=== PATIENT | female | born 1955 | race Caucasian/White ===

== ENCOUNTER 2016-09-16 08:11 | Emergency (ER) | payer OTHER ==
[~2016-09-16] VITALS: Ht 170.2 cm; Wt 72.6 kg
[~2016-09-16 08:11] MED LIST: AMIT25TA9 PO; AMOX-358 PO; CYCL10TA9 PO; DIAZ5TAB PO; HYDR-3812 PO; MECL-106 PO; ONDA4TAB8 SL; RABE20TA PO; SCOP1PAT TD; SIMV20TA3 PO; VENL75CA55 PO; [UNRECOGNIZED DRUG - OTHER] PO
[2016-09-16 08:38] LABS: BILIRUBIN,URINE NEGATIVE (NEGATIVE); KETONES,URINE NEGATIVE (NEGATIVE); LEUKOCYTE ESTERASE ,URINE 1+ (NEGATIVE); NITRITE,URINE NEGATIVE (NEGATIVE); PH,URINE 5 (5-9); PROTEIN,URINE NEGATIVE (NEGATIVE); UROBILINOGEN,URINE NORMAL (NORMAL)
[2016-09-16] MEDS ORDERED: ORPHENADRINE 60 MG/2 ML (NORFLEX) AMP IV ONE (08:45)
[2016-09-16] MEDS ORDERED: KETOROLAC 30 MG/ML VIAL IVP ONE (08:45)
[2016-09-16 08:52] LABS: SQUAMOUS EPITHELIAL CELL,UR RARE /HPF
[2016-09-16] MEDS ORDERED: methylPREDNISolone 125 MG (Solu-MEDROL) VIAL IVP ONE (10:00)
[2016-09-16] MEDS ORDERED: fentaNYL INJECTION 100 MCG/2 ML AMP IVP ONE (10:00)
[2016-09-16] MEDS ORDERED: oxyCODONE/APAP 5/325MG (PERCOCET 5) TABLET PO ONE (10:30)
[2016-09-16] MEDS ORDERED: HYDR-3812 PO (10:32)
[2016-09-16] MEDS ORDERED: CYCL10TA9 PO (10:32)
[2016-09-16] MEDS ORDERED: PRD20T PO (10:32)
--- NOTE | 2016-09-16 10:33 | ED Back Pain ---
General Chief Complaint: Back Problems Stated Complaint: BACK PAIN Nursing Triage Note: PT STATES LOW BACK PAIN, HX OF, NO KNOWN CAUSE. Nursing Sepsis Screen: No Definite Risk Source of Information: Patient, Family Exam Limitations: No Limitations History of Present Illness Time Seen by Provider: 11:22 Initial Comments This 61 room woman presents to the emergency room with complaints of intense lower back ache that started last night. Pain radiates to her thighs bilaterally. She denies any true weakness or bowel or bladder control problems. She is having difficulty standing and ambulating due to the pain. She denies any specific injury. Review of her chart reveals an MRI done in 2011 showing lumbar neural foraminal impingement. Allergies and Home Medications Allergies Coded Allergies: No Known Drug Allergies (Unverified , 03/12/12) Home Medications Amoxicillin/Potassium Clav 1 Each Tablet, 1 EACH PO BID, (Reported) Cyclobenzaprine HCl 10 Mg Tablet, 10 MG PO HS PRN for SPASMS, #10 Prescribed by: ORACIO SHAH on 09/16/16 1032 Diazepam 5 Mg Tablet, 5 MG PO Q4H, (Reported) Hydrocodone/Acetaminophen 1 Each Tablet, 1 EACH PO Q4H PRN for PAIN, #8 Prescribed by: ORACIO SHAH on 03/27/162053 Hydrocodone/Acetaminophen 1 Each Tablet, 1 EACH PO Q4H PRN for PAIN, #10 Prescribed by: ORACIO SHAH on 09/16/16 1032 Meclizine HCl 25 Mg Tablet, 25 MG PO TID PRN for DIZZINESS, #20 Prescribed by: ORACIO SHAH on 03/27/162053 Ondansetron 4 Mg Tab.rapdis, 4 MG SL Q4H PRN for NAUSEA/VOMITING, #10 Prescribed by: ORACIO SHAH on 03/27/162053 Prednisone 20 Mg Tab, 20 MG PO DAILY, #4 Prescribed by: ORACIO SHAH on 09/16/16 1032 Scopolamine 1 Each Patch.td72, 1 EACH TD, (Reported) Constitutional: no symptoms reported EENTM: no symptoms reported Respiratory: no symptoms reported Cardiovascular: no symptoms reported Gastrointestinal: no symptoms reported Genitourinary: no symptoms reported Musculoskeletal: see HPI Skin: no symptoms reported Psychiatric/Neurological: See HPI Past Ahxenss-Mwlnza-Egjgev Hx Patient Social History Alcohol Use: Denies Use Recreational Drug Use: No Smoking Status: Never a Smoker Recent Foreign Travel: No Contact w/Someone Who Travel: No Recent Infectious Disease Expo: No Recent Hopitalizations: Yes (DEC 2015) Seasonal Allergies Seasonal Allergies: No Surgeries HX Surgeries: Yes (SHOULDER SCOPES,TENNIS ELBOW RELEASE,BICEPT REATTATCHED) Surgeries: Appendectomy, Gallbladder, Hysterectomy, Orthopedic Respiratory Hx Respiratory Disorders: No Cardiovascular Hx Cardiac Disorders: No Neurological Hx Neurological Disorders: No Reproductive System Hx Reproductive Disorders: No Sexually Transmitted Disease: No Genitourinary Hx Genitourinary Disorders: No Gastrointestinal Hx Gastrointestinal Disorders: No Musculoskeletal Hx Musculoskeletal Disorders: No Endocrine Hx Endocrine Disorders: No HEENT HX ENT Disorders: No Cancer Hx Cancer: No Psychosocial Hx Psychiatric Problems: No Integumentary HX Skin/Integumentary Disorder: No Blood Transfusions Hx Blood Disorders: No Family Medical History Significant Family History: No Pertinent Family Hx Physical Exam Vital Signs Vital Sign - Last 12Hours 09/16/16 08:30 Temp 98.3 Pulse 52 Resp 20 B/P (MAP) 138/84 Pulse Ox 98 O2 Delivery Room Air Capillary Refill : Less Than 3 Seconds General Appearance: WD/WN, Moderate Distress HEENT: PERRL/EOMI, Normal ENT Inspection Neck: Normal Inspection, Non Tender, Supple Cardiovascular: Regular Rate, Rhythm, No Edema, No Murmur Respiratory: Lungs Clear, Normal Breath Sounds, No Accessory Muscle Use, No Respiratory Distress Gastrointestinal: Normal Bowel Sounds, Non Tender, Soft Back: Normal Inspection, Vertebral Tenderness (over the lumbar spine and paraspinous muscles extending over the sacrum as well) Extremity: Normal Inspection, No Pedal Edema Neurologic/Psychiatric: Alert, Oriented x3, No Motor/Sensory Deficits, Normal Mood/Affect, business system manager II-XII Norm as Tested Skin: Normal Color, Warm/Dry Progress/Results/Core Measures Results/Orders Lab Results Laboratory Tests Test 09/16/16 08:02 Range/Units Urine Color YELLOW Urine Clarity CLEAR Urine pH 5 5-9 Urine Specific [place] 1.015 L 1.016-1.022 Urine Protein NEGATIVE NEGATIVE Urine Glucose (UA) NEGATIVE NEGATIVE Urine Ketones NEGATIVE NEGATIVE Urine Nitrite NEGATIVE NEGATIVE Urine Bilirubin NEGATIVE NEGATIVE Urine Urobilinogen NORMAL NORMAL MG/DL Urine Leukocyte Esterase 1+ H NEGATIVE Urine RBC (Auto) 1+ H NEGATIVE Urine RBC NONE /HPF Urine WBC NONE /HPF Urine Squamous Epithelial Cells RARE /HPF Urine Crystals NONE /LPF Urine Bacteria NEGATIVE /HPF Urine Casts NONE /LPF Urine Mucus NEGATIVE /LPF Urine Culture Indicated NO My Orders Orders - ORACIO CHILD MD Ua Culture If Indicated (09/16/16 08:14) Saline Lock/Iv-Start (09/16/16 08:42) Ketorolac Injection (Toradol Injection) (09/16/16 08:45) Orphenadrine Injection (Norflex Injectio (09/16/16 08:45) Fentanyl Injection (Sublimaze Injection (09/16/16 10:00) Methylprednisolone Sod Succ (Solu-Medrol (09/16/16 10:00) Oxycodone/Apap 5/325mg Tablet (Percocet (09/16/16 10:30) Medications Given in ED Vital Signs/I&O Vital Sign - Last 12Hours 09/16/16 09/16/16 08:30 10:42 Temp 98.3 98.3 Pulse 52 59 Resp 20 20 B/P (MAP) 138/84 Pulse Ox 98 98 O2 Delivery Room Air Blood Pressure Mean: 102 Progress Note : Progress Note Patient was originally treated with Toradol and Norflex with some improvement. She was additionally given fentanyl and Solu-Medrol. She was able to ambulate safely and freely. She was given a Percocet and discharged home. See discharge instructions. Departure Impression Impression: Primary Impression: Lower back pain Qualified Codes: M54.42 - Lumbago with sciatica, left side; M54.41 - Lumbago with sciatica, right side Additional Impression: Lumbar radiculopathy Disposition: 01 HOME, SELF-CARE Condition: Improved Departure-Patient Inst. Decision time for Depature: 10:30 Referrals: [facility] (PCP/Family) Primary Care Physician Patient Instructions: Radiculopathy (DC), Low Back Pain (DC) Add. Discharge Instructions: Take ibuprofen up to 600 mg every 6 hours as needed for primary pain control. Add hydrocodone for pain not controlled by ibuprofen. You may use Flexeril at night to help with muscle tension. Follow-up with your primary care provider as soon as possible. Please return to care promptly if symptoms worsen, especially if you develop problems controlling bowels or bladder or if you have weakness in your legs. If symptoms are not improving with prednisone use, discussed repeating an MRI with your primary care provider. All discharge instructions reviewed with patient and/or family. Voiced understanding. Scripts Prednisone (Prednisone) 20 Mg Tab 20 MG PO DAILY, #4 TAB Prov: ORACIO CHILD MD 09/16/16 Hydrocodone/Acetaminophen (Hydrocodon -Acetaminophen 5-325) 1 Each Tablet 1 EACH PO Q4H Y for PAIN, #10 TAB Prov: ORACIO CHILD MD 09/16/16 Cyclobenzaprine HCl (Cyclobenzaprine HCl) 10 Mg Tablet 10 MG PO HS Y for SPASMS, #10 TAB Prov: ORACIO CHILD MD 09/16/16 Work/School Note: Work Release Form Date Seen in the Emergency Department: Sep 16, 2016 Return to Work: Sep 17, 2016 Other Restrictions Listed Below: No heavy lifting, bending, or prolonged standing until symptoms improve. ORACIO CHILD MD Sep 16, 2016 10:33
[2016-09-16 10:42] VITALS: BP 136/89
== END 2016-09-16 10:42 | disposition home or self-care (01) ==
LOC: EDUNIT# 08:11 → ER 08:14
DX: M54.16 Radiculopathy, lumbar region (principal)
CPT/HCPCS: 81000; 96374; 96375

== ENCOUNTER 2017-10-31 05:31 | Outpatient (CLI) | payer OTHER ==
[~2017-10-31] VITALS: Ht 170.2 cm; Wt 74.4 kg
[~2017-10-31 05:31] MED LIST changes: +ACHD5005 PO; -HYDR-3812 PO; +PRD20T PO; -SCOP1PAT TD; +SCOP1PAT11 TD
== END 2017-10-31 13:57 ==
LOC: PREOP 05:31
PROVIDERS: ATTEND Surgery
DX: Z01.818 Encounter for other preprocedural examination (principal); Z12.11 Encounter for screening for malignant neoplasm of colon; K21.9 Gastro-esophageal reflux disease without esophagitis; R13.10 Dysphagia, unspecified

== ENCOUNTER 2017-11-25 05:33 | Outpatient (CLI) | payer OTHER ==
[~2017-11-25] VITALS: Ht 170.2 cm; Wt 74.4 kg
[~2017-11-25 05:33] MED LIST changes: -CIPR-225 PO; -IBUP-1773 PO; -PANT40TA2 PO; -SUCR1TAB36 PO
[2017-12-02] MEDS ORDERED: PANT40TA2 PO (08:26)
[2017-12-02] MEDS ORDERED: SUCR1TAB36 PO (08:26)
[2017-12-10] MEDS ORDERED: CIPR-225 PO (12:20)
[2017-12-10] MEDS ORDERED: IBUP-1773 PO (12:35)
== END 2017-11-25 11:39 ==
LOC: PREOP 05:33
PROVIDERS: ATTEND Surgery
DX: Z01.818 Encounter for other preprocedural examination (principal)

== ENCOUNTER → 2017-11-25 | Outpatient (CLI) | payer OTHER ==
[~2017-11-25] MED LIST changes: +CIPR-225 PO; +IBUP-1773 PO; +PANT40TA2 PO; +SUCR1TAB36 PO
--- NOTE | 2017-11-25 11:00 | Diagnostic Imaging Report ---
INDICATION: Pelvic pressure. Patient is status post hysterectomy. FINDINGS: The uterus is surgically absent. Vaginal cuff is unremarkable. The ovaries are not visualized. No adnexal mass or free fluid is seen. IMPRESSION: Status post hysterectomy. Ovaries are nonvisualized. No mass or free fluid is seen. Dictated by: Dictated on workstation # [id number]
== END ==
LOC: RAD 09:47
PROVIDERS: ATTEND Obstetrics & Gynecology
DX: R10.2 Pelvic and perineal pain (principal); Z90.710 Acquired absence of both cervix and uterus
CPT/HCPCS: 76830

== ENCOUNTER → 2017-11-25 | Outpatient (CLI) | payer OTHER ==
--- NOTE | 2017-11-26 19:45 | Diagnostic Imaging Report ---
INDICATION: Screening. At this time there are no current complaints. EXAMINATION: Bilateral digital screening mammogram with CAD. 3D tomographic images were obtained and reviewed. The current study was also evaluated with a Computer Aided Detection (CAD) system. COMPARISON: This study was compared to the prior exams of 03/14/2016, 10/25/2014 and 03/26/13. FINDINGS: The fibroglandular tissue in both breasts is heterogeneously dense. This does limit the sensitivity of this exam. The tomographic images do suggest that there is architectural distortion in the lateral aspect of the left breast on the craniocaudad view. The patient has had a prior stereotactic biopsy of the left breast but the biopsy clip is in the medial aspect of the breast. This apparent architectural distortion could be a sequela of prior surgery. Even so, the possibility that there is an underlying neoplastic process present should still be considered. I would recommend that a compression view of this area be obtained in both the ML and CC projections for further study. Ultrasound should also be performed. The right breast is unchanged. IMPRESSION: Additional mammographic views and ultrasound of the left breast are recommend for further study. ACR BI-RADS Category 0: Incomplete. (Needs additional imaging evaluation). Result letter will be mailed to the patient. Note: At least 10% of breast cancer is not imaged by mammography. Dictated by: Dictated on workstation # [id number]
== END ==
LOC: RAD 09:52
PROVIDERS: ATTEND Nurse Practitioner Community Health
DX: Z12.31 Encounter for screening mammogram for malignant neoplasm of breast (principal)
CPT/HCPCS: 77067

== ENCOUNTER 2017-12-02 07:03 | Day surgery (SDC) | payer OTHER ==
[~2017-12-02] VITALS: Ht 170.2 cm; Wt 74.4 kg
[2017-12-02] MEDS ORDERED: LACTATED RINGERS 1,000 ML IV ONE (07:11)
[2017-12-02] MEDS ORDERED: MIDAZOLAM 5 MG/5 ML (VERSED) VIAL ONE (07:24)
[2017-12-02] MEDS ORDERED: PROPOFOL INJECTION 50 ML IV ONE (07:24)
[2017-12-02] MEDS ORDERED: LACTATED RINGERS 1,000 ML IV STA (07:39)
[2017-12-02] MEDS ORDERED: LIDOCAINE TOPICAL 4% 50 ML BTL ONE (07:44)
[2017-12-02] MEDS ORDERED: GLYCOPYRROLATE 0.2 MG/ML (ROBINUL) 2 ML VIAL ONE (07:44)
[2017-12-02] MEDS ORDERED: LIDOCAINE TOPICAL 4% 50 ML BTL TP ONE ×2 (07:45→08:15)
[2017-12-02] MEDS ORDERED: GLYCOPYRROLATE 0.2 MG/ML (ROBINUL) 2 ML VIAL IM ONE ×2 (07:45→08:15)
[2017-12-02 07:50] VITALS: BP 126/92
--- NOTE | 2017-12-02 08:25 | Progress Note-Post Operative ---
Post-Operative Progess Note Surgeon (s)/Artificial Limb Maker (s) Surgeon ROSELYN SWAN DO Artificial Limb Maker: na Pre-Operative Diagnosis gerd, screening colonoscopy, dysphagia Post-Operative Diagnosis hiatal hernia, erosive esophagitis, normal colon Procedure & Operative Findings Date of Procedure 12/02/17 Procedure Performed/Findings egd c biopsies, colonoscopy Anesthesia Type per [facility] Estimated Blood Loss Estimated blood loss (mL): none Specimens/Packing Specimens Removed antrum, distal esophagus ROSELYN SWAN DO Dec 02, 2017 08:25
[2017-12-02] MEDS ORDERED: PANT40TA2 PO (08:26)
[2017-12-02] MEDS ORDERED: SUCR1TAB36 PO (08:26)
--- NOTE | 2017-12-02 08:28 | Discharge Inst-Simple/Standard ---
Discharge Inst-Standard Discharge Medications New, Converted or Re-Newed RX: Transmitted to Pharmacy Patient Instructions/Follow Up Plan of Care/Instructions/FU: 2-3 weeks Aditya Activity as Tolerated: Yes Discharge Diet: Regular Diet ROSELYN SWAN DO Dec 02, 2017 08:27
[2017-12-02 08:40] VITALS: BP 132/87
[2017-12-02 09:10] VITALS: BP 132/82
[2017-12-02 09:45] VITALS: BP 132/82
--- NOTE | 2017-12-02 10:56 | Anesthesia-General Post-Op ---
MAC Patient Condition Mental Status/LOC: Same as Preop Cardiovascular: Satisfactory Nausea/Vomiting: Absent Respiratory: Satisfactory Pain: Controlled Complications: Absent Post Op Complications Complications None Follow Up Care/Instructions Patient Instructions None needed. Anesthesiology Discharge Order Discharge Order Patient is doing well, no complaints, stable vital signs, no apparent adverse anesthesia problems. No complications reported per nursing. MARISSA TY CRNA Dec 02, 2017 10:56
--- NOTE | 2017-12-02 13:58 | OPERATIVE REPORT ---
DATE OF SERVICE: 12/02/2017 PREOPERATIVE DIAGNOSES: Gastroesophageal reflux disease, screening colonoscopy and dysphagia. POSTOPERATIVE DIAGNOSES: Hiatal hernia, erosive esophagitis, normal colon. PROCEDURE: EGD with biopsies, colonoscopy. SURGEON: Roselyn Burgess DO ANESTHESIA: Per MDA. ESTIMATED BLOOD LOSS: None. COMPLICATIONS: None. SPECIMENS: Antrum and distal esophagus. INDICATIONS: The patient is a 62-year-old female who is in need of screening colonoscopy. She has also been having dysphagia and reflux symptoms. She understands risks and benefits of procedure and wished to proceed with procedure. Consent was signed on the chart. DESCRIPTION OF PROCEDURE: The patient was taken to the endoscopy suite, placed in left lateral recumbent position. Timeout was performed. Scope was inserted into the mouth, down the esophagus, which in the distal portion encountered some inflammatory changes and some erosion consistent with erosive esophagitis. Scope was continued to be inserted into the stomach and into the duodenum without difficulty. There were no polyps, mass or ulcerations within the duodenum. Scope was slowly retracted back to stomach where it was further insufflated. No significant erythematous changes, no polyps, masses or ulcerations. Biopsy of the antrum was obtained. Scope was retroflexed noting a small to moderate sized hiatal hernia. No other pathology. Scope was returned to its normal position, slowly withdrawn to the distal esophagus. As noted above, changes consistent with erosive esophagitis. Biopsies of this area were obtained. Scope was then slowly retracted back noting no other pathology. The patient then had digital rectal exam was performed. There were no palpable polyps, mass or ulcerations. The scope was inserted in the rectum, passed all the way to the cecum with minimal difficulty. Prep was adequate. Scope was then slowly retracted back. There were no polyps, mass or ulcerations within the cecum, ascending, transverse, descending and sigmoid colon. Once in the rectum, scope was retroflexed noting no other pathology. Scope was returned to its normal position, slowly withdrawn until completely removed. The patient tolerated procedure well without any complications. RECOMMENDATIONS: The patient will be started on Protonix 40 mg daily and Carafate 1 gram 4 times a day. I will have her follow up in 2 to 3 weeks in the office. She will need a repeat colonoscopy in 10 years unless family history of colon cancer or change in condition, which she should be reevaluated at that time. If she has any family history of colon cancer or personal history of polyps she should have repeat colonoscopy in 5 years. Job ID: [id number] DocumentID: [id number] Dictated Date: 12/02/2017 08:31:47 Systems Software Engineer Date: 12/02/2017 13:57:03 Dictated By: ROSELYN BURGESS DO
[2017-12-10] MEDS ORDERED: CIPR-225 PO (12:20)
[2017-12-10] MEDS ORDERED: IBUP-1773 PO (12:35)
== END 2017-12-02 09:45 | disposition home or self-care (01) ==
LOC: ENDO 07:03
PROVIDERS: ATTEND Surgery
DX: Z12.11 Encounter for screening for malignant neoplasm of colon (principal); K22.10 Ulcer of esophagus without bleeding; K21.9 Gastro-esophageal reflux disease without esophagitis; K44.9 Diaphragmatic hernia without obstruction or gangrene

== ENCOUNTER 2017-12-04 05:41 | Outpatient (CLI) | payer OTHER ==
[~2017-12-04] VITALS: Ht 170.2 cm; Wt 74.4 kg
[~2017-12-04 05:41] MED LIST changes: +PANT40TA2 PO; +SUCR1TAB36 PO
[2017-12-10] MEDS ORDERED: CIPR-225 PO (12:20)
[2017-12-10] MEDS ORDERED: IBUP-1773 PO (12:35)
== END 2017-12-04 10:15 ==
LOC: PREOP 05:41
PROVIDERS: ATTEND Obstetrics & Gynecology
DX: Z01.818 Encounter for other preprocedural examination (principal); N81.10 Cystocele, unspecified; N36.42 Intrinsic sphincter deficiency (ISD); N39.3 Stress incontinence (female) (male); N32.81 Overactive bladder; Z80.41 Family history of malignant neoplasm of ovary

== ENCOUNTER 2017-12-09 05:52 | Day surgery (SDC) | payer OTHER ==
[~2017-12-09] VITALS: Ht 170.2 cm; Wt 74.4 kg
--- OUTSIDE RECORDS SUMMARY | 2017-12-09 05:56 | XMS REPORT ---
Author Author PALMA ZAKIA Organization [facility] Address [address] [place] [address] Care Team Providers Care Fast Food Manager Name Role Phone ZAKIA WALDROP Unavailable PROBLEMS Type Condition ICD9-CM Code [id number] Code Onset Dates Condition Status SNOMED Code Problem Mixed hypercholesterolemia and hypertriglyceridemia E78.2 Active 670510347 Problem Inflammation of joint of finger of right hand M19.041 Active 148702571 Problem Gastroesophageal reflux disease with esophagitis K21.0 Active 715133701 Problem Gastroesophageal reflux disease, esophagitis presence not specified K21.9 Active 038968742 Problem Mixed incontinence N39.46 Active 862110878 Problem Intractable migraine without status migrainosus, unspecified migraine type G43.919 Active 943567381 Problem Vertigo R42 Active 214461847 ALLERGIES Substance Reaction Event Type Date Status N.K.D.A. Unknown Non Drug Allergy May, Unknown SOCIAL HISTORY No smoking Hx information available PLAN OF CARE Activity Details Follow Up 3 Months, prn Reason: VITAL SIGNS Height 67 in 2016-06-24 Weight 166.1 lbs 2016-06-24 Temperature 98.3 degrees Fahrenheit 2016-06-24 Heart Rate 82 bpm 2016-06-24 Respiratory Rate 18 2016-06-24 BMI 26.01 kg/m2 2016-06-24 Blood pressure systolic 90 mmHg 2016-06-24 Blood pressure diastolic 60 mmHg 2016-06-24 MEDICATIONS Medication Instructions Dosage Frequency Start Date End Date Duration Status Verapamil HCl 120 MG Orally Once a day 1 tablet 24h Active Qetbjhneiz-YECX-Dnzohrjy 50-325-40 MG Orally every 4 hrs 1 tablet as needed 4h Mar, Active Omeprazole 20 mg Orally Once a day 1 capsules 24h 30 Active Claritin 10 MG Orally Once a day 1 tablet 24h Active RESULTS No Results PROCEDURES Procedure Date Ordered Related Diagnosis Body Site Office Visit, Est Pt., Level 4 Jun 24, 2016 IMMUNIZATIONS No Known Immunizations
--- OUTSIDE RECORDS SUMMARY | 2017-12-09 05:56 | XMS REPORT ---
Author Author PALMA ZAKIA Organization [facility] Address [address] [place] [address] Care Team Providers Care Software Educator Name Role Phone ZAKIA WALDROP Unavailable PROBLEMS Type Condition ICD9-CM Code [id number] Code Onset Dates Condition Status SNOMED Code Problem Mixed hypercholesterolemia and hypertriglyceridemia E78.2 Active 555465637 Problem Inflammation of joint of finger of right hand M19.041 Active 105122418 Problem Intractable migraine without status migrainosus, unspecified migraine type G43.919 Active 830808097 Problem Gastroesophageal reflux disease, esophagitis presence not specified K21.9 Active 755900988 Problem Mixed incontinence N39.46 Active 000752117 Problem Gastroesophageal reflux disease with esophagitis K21.0 Active 113955885 Problem Vertigo R42 Active 543610520 ALLERGIES Substance Reaction Event Type Date Status N.K.D.A. Unknown Non Drug Allergy Mar, Unknown SOCIAL HISTORY No smoking Hx information available PLAN OF CARE Activity Details Follow Up 2 Weeks Reason: VITAL SIGNS Height 67 in 2016-04-23 Weight 163.8 lbs 2016-04-23 Temperature 96.8 degrees Fahrenheit 2016-04-23 Heart Rate 80 bpm 2016-04-23 Respiratory Rate 18 2016-04-23 BMI 25.65 kg/m2 2016-04-23 Blood pressure systolic 118 mmHg 2016-04-23 Blood pressure diastolic 72 mmHg 2016-04-23 MEDICATIONS Medication Instructions Dosage Frequency Start Date End Date Duration Status Meclizine HCl 25 MG Orally 3 times per day 1 tablet Active Jkmiomuvrx-DTRT-Ztayxvap 50-325-40 MG Orally every 4 hrs 1 tablet as needed 4h Mar, Active Claritin 10 MG Orally Once a day 1 tablet 24h Active Topamax 50 mg Orally Twice a day 1 tablet 12h Mar, 30 day(s) Active RESULTS Name Result Date Reference Range ESR/SED RATE (IN HOUSE) 2016-04-23 SED/ESR RATE 21 mm/hr Lot # [id number] Exp Date 07/23/2016 0 - 30 mm CBC 2016-04-23 WBC 7.0 3.4-10.8 RBC 4.76 3.77-5.28 Hemoglobin 14.6 11.1-15.9 Hematocrit 42.9 34.0-46.6 MCV 90 79-97 MCH 30.7 26.6-33.0 MCHC 34.0 31.5-35.7 RDW 14.1 12.3-15.4 Platelets 327 150-379 Neutrophils 54 Lymphs 39 Monocytes 6 Eos 1 Basos 0 Immature Cells Neutrophils (Absolute) 3.8 1.4-7.0 Lymphs (Absolute) 2.7 0.7-3.1 Monocytes(Absolute) 0.4 0.1-0.9 Eos (Absolute) 0.1 0.0-0.4 Baso (Absolute) 0.0 0.0-0.2 Immature Granulocytes 0 Immature Grans (Abs) 0.0 0.0-0.1 NRBC Hematology Comments: PROCEDURES Procedure Date Ordered Related Diagnosis Body Site Office Visit, Est Pt., Level 5 Apr 23, 2016 COMPLETE CBC W/AUTO DIFF WBC Apr 23, 2016 VENIPUNCT, ROUTINE* Apr 23, 2016 RBC SED RATE, NONAUTOMATED Apr 23, 2016 IMMUNIZATIONS No Known Immunizations
--- OUTSIDE RECORDS SUMMARY | 2017-12-09 05:56 | XMS REPORT ---
Author Author ANH RUSS [facility] Address [address] [place] [address] Care Team Providers Care Gluing Machine Operator Name Role Phone ANH RUSS Unavailable PROBLEMS Type Condition ICD9-CM Code [id number] Code Onset Dates Condition Status SNOMED Code Problem Mixed hypercholesterolemia and hypertriglyceridemia E78.2 Active 458418812 Problem Inflammation of joint of finger of right hand M19.041 Active 153449530 Problem Gastroesophageal reflux disease with esophagitis K21.0 Active 807673573 Problem Gastroesophageal reflux disease, esophagitis presence not specified K21.9 Active 557552356 Problem Mixed incontinence N39.46 Active 779466979 Problem Intractable migraine without status migrainosus, unspecified migraine type G43.919 Active 809759164 Problem Vertigo R42 Active 473860517 ALLERGIES No Known Allergies SOCIAL HISTORY Never Assessed PLAN OF CARE Activity Details Follow Up 2 - 3 Days Reason:if s/s are not improved VITAL SIGNS Height 67 in 2016-07-27 Weight 165.8 lbs 2016-07-27 Temperature 97.8 degrees Fahrenheit 2016-07-27 Heart Rate 80 bpm 2016-07-27 Respiratory Rate 18 2016-07-27 BMI 25.97 kg/m2 2016-07-27 Blood pressure systolic 122 mmHg 2016-07-27 Blood pressure diastolic 72 mmHg 2016-07-27 MEDICATIONS Medication Instructions Dosage Frequency Start Date End Date Duration Status Mucinex DM 30-600 MG Orally every 12 hrs 1 tablet as needed 12h Jul, Jul, 07 days Active Claritin 10 MG Orally Once a day 1 tablet 24h Active Omeprazole 20 mg Orally Once a day 1 capsules 24h 30 Active Wyvrqxsiwj-HOYP-Wlfplmmt 50-325-40 MG Orally every 4 hrs 1 tablet as needed 4h 29 Mar, 2016 Active RESULTS Name Result Date Reference Range STREP A (IN HOUSE) 2016-07-27 STREP A negative Control + Lot # [id number] Exp date feb 10 PROCEDURES Procedure Date Ordered Result Body Site STREP A ASSAY W/OPTIC July 27, 2016 IMMUNIZATIONS No Known Immunizations MEDICAL (GENERAL) HISTORY Type Description Date Medical History depression Medical History Cough Surgical History cholecystectomy Surgical History partial hysterectomy Surgical History shoulder arthroscopy (B) Surgical History Left arm bicep repair 01/12/2016 Surgical History medial nerve intrapement release on the left arm Hospitalization History ER visit for headache 03/27/16
--- OUTSIDE RECORDS SUMMARY | 2017-12-09 05:56 | XMS REPORT ---
Author Author ZAKIA WALDROP Organization [facility] Address [address] [place] [address] Care Team Providers Care Water Quality Assistant Name Role Phone ZAKIA WALDROP Unavailable PROBLEMS Type Condition ICD9-CM Code SWF07-SS Code Onset Dates Condition Status SNOMED Code Problem Mixed hypercholesterolemia and hypertriglyceridemia E78.2 Active 751187254 Problem Inflammation of joint of finger of right hand M19.041 Active 841443583 Problem Gastroesophageal reflux disease with esophagitis K21.0 Active 802829322 Problem Gastroesophageal reflux disease, esophagitis presence not specified K21.9 Active 802402393 Problem Mixed incontinence N39.46 Active 247378718 Problem Intractable migraine without status migrainosus, unspecified migraine type G43.919 Active 108291244 Problem Vertigo R42 Active 000955377 ALLERGIES No Information SOCIAL HISTORY Never Assessed PLAN OF CARE VITAL SIGNS MEDICATIONS No Known Medications RESULTS No Results PROCEDURES No Known procedures IMMUNIZATIONS No Known Immunizations MEDICAL (GENERAL) HISTORY Type Description Date Medical History depression Medical History Cough Surgical History cholecystectomy Surgical History partial hysterectomy Surgical History shoulder arthroscopy (B) Surgical History Left arm bicep repair 01/12/2016 Surgical History medial nerve intrapement release on the left arm Hospitalization History ER visit for headache 03/27/16
--- OUTSIDE RECORDS SUMMARY | 2017-12-09 05:56 | XMS REPORT ---
Author Author ZAKIA WALDROP Organization [facility] Address [address] [place] [address] Care Team Providers Care Mergers And Acquisitions Associate Name Role Phone ZAKIA WALDROP Unavailable PROBLEMS Type Condition ICD9-CM Code [id number] Code Onset Dates Condition Status SNOMED Code Problem Mixed hypercholesterolemia and hypertriglyceridemia E78.2 Active 688017016 Problem Inflammation of joint of finger of right hand M19.041 Active 131312824 Problem Gastroesophageal reflux disease with esophagitis K21.0 Active 198547282 Problem Gastroesophageal reflux disease, esophagitis presence not specified K21.9 Active 239636669 Problem Mixed incontinence N39.46 Active 789255377 Problem Intractable migraine without status migrainosus, unspecified migraine type G43.919 Active 855511752 Problem Vertigo R42 Active 726966458 ALLERGIES No Known Allergies SOCIAL HISTORY No smoking Hx information available PLAN OF CARE VITAL SIGNS MEDICATIONS No Known Medications RESULTS No Results PROCEDURES No Known procedures IMMUNIZATIONS No Known Immunizations
--- OUTSIDE RECORDS SUMMARY | 2017-12-09 05:58 | XMS REPORT | Continuity of Care Document ---
Author Author [facility] Address Unknown Phone Unavailable Allergies Active Description Code Type Severity Reaction Onset Reported/Identified Relationship to Patient Clinical Status Yes No Known Drug Allergies [id number] Drug Allergy Unknown N/A 12/04/2017 Medications There is no data. Problems Date Dx Coded Attending Type Code Diagnosis Diagnosed By 12/17/2007 SKYLA MAYER DO 709.9 DERMATITIS OTHER SKIN DISORDERS 12/17/2007 SKYLA MAYER DO 709.9 Dermatitis Other Skin Disorders 12/17/2007 SKYLA MAYER DO 709.9 Dermatitis Other Skin Disorders 12/17/2007 SKYLA MAYER DO 709.9 Dermatitis Other Skin Disorders 12/17/2007 JAVED ROGER MD 709.9 Dermatitis Other Skin Disorders 12/17/2007 SKYLA MAYER DO 709.9 Dermatitis Other Skin Disorders 12/22/2007 SKYLA MAYER DO K 111.0 TINEA VERSICOLOR 12/22/2007 SKYLA MAYER DO K 346.90 MIGRAINE UNSPECIFIED WITHOUT INTRACTABLE MIGRAINE 12/22/2007 SKYLA MAYER DO K 111.0 TINEA VERSICOLOR 12/22/2007 SKYLA MAYER DO K 346.90 MIGRAINE UNSPECIFIED WITHOUT INTRACTABLE MIGRAINE 12/22/2007 SKYLA MAYER DO K 111.0 TINEA VERSICOLOR 12/22/2007 SKYLA MAYER DO K 346.90 MIGRAINE UNSPECIFIED WITHOUT INTRACTABLE MIGRAINE 12/22/2007 SKYLA MAYER DO K 111.0 TINEA VERSICOLOR 12/22/2007 SKYLA MAYER DO K 346.90 MIGRAINE UNSPECIFIED WITHOUT INTRACTABLE MIGRAINE 12/22/2007 JAVED ROGER MD 111.0 TINEA VERSICOLOR 12/22/2007 JAVED ROGER MD 346.90 MIGRAINE UNSPECIFIED WITHOUT INTRACTABLE MIGRAINE 12/22/2007 SKYLA MAYER DO K 111.0 TINEA VERSICOLOR 12/22/2007 SKYLA MAYER DO K 346.90 MIGRAINE UNSPECIFIED WITHOUT INTRACTABLE MIGRAINE 12/27/2011 MAYER DO, SKYLA K 300.00 ANXIETY STATE UNSPECIFIED 12/27/2011 MAYER DO, SKYLA K 530.81 GERD 12/27/2011 MAYER DO, SKYLA K 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 12/27/2011 MAYER DO, SKYLA K 724.2 LUMBAGO 12/27/2011 MAYER DO, SKYLA K 780.52 INSOMNIA UNSPECIFIED 12/27/2011 MAYER DO, SKYLA K V58.69 LONG-TERM (CURRENT) USE OF OTHER MEDICATIONS 12/27/2011 MAYER DO, SKYLA K V70.0 ROUTINE GENERAL MEDICAL EXAMINATION AT A HEALTH CARE FACILITY 12/27/2011 MAYER DO, SKYLA K 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 12/27/2011 MAYER DO, SKYLA K 300.00 ANXIETY STATE UNSPECIFIED 12/27/2011 MAYER DO, SKYLA K 530.81 GERD 12/27/2011 MAYER DO, SKYLA K 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 12/27/2011 MAYER DO, SKYLA K 724.2 LUMBAGO 12/27/2011 MAYER DO, SKYLA K 780.52 INSOMNIA UNSPECIFIED 12/27/2011 MAYER DO, SKYLA K V58.69 LONG-TERM (CURRENT) USE OF OTHER MEDICATIONS 12/27/2011 MAYER DO, SKYLA K V70.0 ROUTINE GENERAL MEDICAL EXAMINATION AT A HEALTH CARE FACILITY 12/27/2011 MAYER DO SKYLA K 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 12/27/2011 MAYER DO, SKYLA K 300.00 ANXIETY STATE UNSPECIFIED 12/27/2011 MAYER DO, SKYLA K 530.81 GERD 12/27/2011 MAYER DO, SKYLA K 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 12/27/2011 MAYER DO, SKYLA K 724.2 LUMBAGO 12/27/2011 MAYER DO, SKYLA K 780.52 INSOMNIA UNSPECIFIED 12/27/2011 MAYER DO, SKYLA K V58.69 LONG-TERM (CURRENT) USE OF OTHER MEDICATIONS 12/27/2011 MAYER DO, SKYLA K V70.0 ROUTINE GENERAL MEDICAL EXAMINATION AT A HEALTH CARE FACILITY 12/27/2011 MAYER DO, SKYLA K 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 12/27/2011 MAYER DO, SKYLA K 300.00 ANXIETY STATE UNSPECIFIED 12/27/2011 MAYER DO, SKYLA K 530.81 GERD 12/27/2011 MAYER DO SKYLA K 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 12/27/2011 MAYER DO SKYLA K 724.2 LUMBAGO 12/27/2011 MAYER DO, SKYLA K 780.52 INSOMNIA UNSPECIFIED 12/27/2011 MAYER DO SKYLA K V58.69 LONG-TERM (CURRENT) USE OF OTHER MEDICATIONS 12/27/2011 MORENO SPENCE SKYLA K V70.0 ROUTINE GENERAL MEDICAL EXAMINATION AT A HEALTH CARE FACILITY 12/27/2011 LILY MAYER DOA K 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 12/27/2011 JAVED ROGER MD 300.00 ANXIETY STATE UNSPECIFIED 12/27/2011 JAVED ROGER MD 530.81 GERD 12/27/2011 JAVED ROGER MD 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 12/27/2011 JAVED ROGER MD 724.2 LUMBAGO 12/27/2011 JAVED ROGER MD 780.52 INSOMNIA UNSPECIFIED 12/27/2011 JAVED ROGER MD V58.69 LONG-TERM (CURRENT) USE OF OTHER MEDICATIONS 12/27/2011 JAVED ROGER MD V70.0 ROUTINE GENERAL MEDICAL EXAMINATION AT A HEALTH CARE FACILITY 12/27/2011 JAVED ROGER MD 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 12/27/2011 SKYLA MAYER DO 300.00 ANXIETY STATE UNSPECIFIED 12/27/2011 LILY MAYER DOA K 530.81 GERD 12/27/2011 LILY MAYER DOA K 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 12/27/2011 MORENO SPENCE SKYLA K 724.2 LUMBAGO 12/27/2011 MAYER , SKYLA K 780.52 INSOMNIA UNSPECIFIED 12/27/2011 MORENO SPENCE SKYLA K V58.69 LONG-TERM (CURRENT) USE OF OTHER MEDICATIONS 12/27/2011 MORENO SPENCE SKYLA K V70.0 ROUTINE GENERAL MEDICAL EXAMINATION AT A HEALTH CARE FACILITY 12/27/2011 MORENO SPENCE SKYLA K 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 12/28/2011 LILY MAYER DOA K 272.4 DYSLIPIDEMIA 12/28/2011 LILY MAYER DOA K 272.4 DYSLIPIDEMIA 12/28/2011 SKYLA MAYER DO K 272.4 DYSLIPIDEMIA 12/28/2011 MAYER DO, SKYLA K 272.4 DYSLIPIDEMIA 12/28/2011 JAVED ROGER MD 272.4 DYSLIPIDEMIA 12/28/2011 SKYLA MAYER DO K 272.4 DYSLIPIDEMIA 01/09/2012 MAYER DOLILYA K 787.62 FECAL SMEARING 01/09/2012 MAYER DO SKYLA K 788.30 URINARY INCONTINENCE UNSPECIFIED 01/09/2012 LILY MAYER DOA K V76.10 BREAST CANCER SCREENING 01/09/2012 MORENO SPENCE SKYLA K V76.2 CERVICAL CANCER SCREENING (PAP SMEAR) 01/09/2012 MAYER DO SKYLA K 787.62 Fecal Smearing 01/09/2012 MAYER DO SKYLA K 788.30 Urinary Incontinence Unspecified 01/09/2012 MAYER DO SKYLA K V76.10 BREAST CANCER SCREENING 01/09/2012 MAYER DO SKYLA K V76.2 CERVICAL CANCER SCREENING (PAP SMEAR) 01/09/2012 LILY MAYER DOA K 787.62 Fecal Smearing 01/09/2012 MAYER LILY SPENCEA K 788.30 Urinary Incontinence Unspecified 01/09/2012 MAYER DO SKYLA K V76.10 BREAST CANCER SCREENING 01/09/2012 MAYER LILY SPENCEA K V76.2 CERVICAL CANCER SCREENING (PAP SMEAR) 01/09/2012 LLIY MAYER DOA K 787.62 Fecal Smearing 01/09/2012 MAYER DO SKYLA K 788.30 Urinary Incontinence Unspecified 01/09/2012 LILY MAYER DOA K V76.10 BREAST CANCER SCREENING 01/09/2012 LILY MAYER DOA K V76.2 CERVICAL CANCER SCREENING (PAP SMEAR) 01/09/2012 JAVED ROGER MD 787.62 Fecal Smearing 01/09/2012 JAVED ROGER MD 788.30 Urinary Incontinence Unspecified 01/09/2012 JAVED ROGER MD V76.10 BREAST CANCER SCREENING 01/09/2012 JAVED ROGER MD V76.2 CERVICAL CANCER SCREENING (PAP SMEAR) 01/09/2012 SKYLA MAYER DO K 787.62 Fecal Smearing 01/09/2012 LILY MAYER DOA K 788.30 Urinary Incontinence Unspecified 01/09/2012 MAYER DO, SKYLA K V76.10 BREAST CANCER SCREENING 01/09/2012 MAYER DO, SKYLA K V76.2 CERVICAL CANCER SCREENING (PAP SMEAR) 02/24/2012 MAYER DO, SKYLA K 786.2 Cough 02/24/2012 MAYER DO, SKYLA K 787.1 Heartburn 02/24/2012 MAYER DO, SKYLA K 787.20 DYSPHAGIA, UNSPECIFIED 02/24/2012 MAYER DO, SKYLA K 786.2 Cough 02/24/2012 MAYER DO, SKYLA K 787.1 Heartburn 02/24/2012 MAYER DO, SKYLA K 787.20 Dysphagia, Unspecified 02/24/2012 MAYER DO, SKYLA K 786.2 Cough 02/24/2012 MAYER DO, SKYLA K 787.1 Heartburn 02/24/2012 MAYER DO, SKYLA K 787.20 Dysphagia, Unspecified 02/24/2012 MAYER DO, SKYLA K 786.2 Cough 02/24/2012 MAYER DO, SKYLA K 787.1 Heartburn 02/24/2012 MAYER DO, SKYLA K 787.20 Dysphagia, Unspecified 02/24/2012 ACACIA HAYES, JAVED N 786.2 Cough 02/24/2012 ACACIA HAYES, JAVED N 787.1 Heartburn 02/24/2012 ACACIA HAYES, JAVED N 787.20 Dysphagia, Unspecified 02/24/2012 MAYER DO, SKYLA K 786.2 Cough 02/24/2012 MAYER DO, SKYLA K 787.1 Heartburn 02/24/2012 MAYER DO, SKYLA K 787.20 Dysphagia, Unspecified 03/12/2012 Ot 530.81 ESOPHAGEAL REFLUX 03/12/2012 Ot 535.40 OTH SPECIFIED GASTRITIS,W/O MENTION OF H 03/12/2012 Ot 553.3 DIAPHRAGMATIC HERNIA 05/15/2012 MAYER DO, SKYLA K 079.99 UNSPECIFIED VIRAL INFECTION 05/15/2012 MAYER DO, SKYLA K 276.51 DEHYDRATION 05/15/2012 MAYER DO, SKYLA K 079.99 Unspecified Viral Infection 05/15/2012 MAYER DO, SKYLA K 276.51 Dehydration 05/15/2012 MAYER DO, SKYLA K 079.99 Unspecified Viral Infection 05/15/2012 MAYER DO, SKYLA K 276.51 Dehydration 05/15/2012 MAYER DO, SKYLA K 079.99 Unspecified Viral Infection 05/15/2012 MAYER DO, SKYLA K 276.51 Dehydration 05/15/2012 JAVED ROGER MD 079.99 Unspecified Viral Infection 05/15/2012 JAVED ROGER MD 276.51 Dehydration 05/15/2012 MAYER DO, SKYLA K 079.99 Unspecified Viral Infection 05/15/2012 MORENO SPENCE SKYLA K 276.51 Dehydration 06/29/2012 MORENO SPENCE SKYLA K 715.04 OSTEOARTHROSIS GENERALIZED INVOLVING HAND 06/29/2012 MAYER DO SKYLA K 728.71 PLANTAR FASCIAL FIBROMATOSIS 06/29/2012 MAYER DO, SKYLA K 715.04 OSTEOARTHROSIS GENERALIZED INVOLVING HAND 06/29/2012 MAYER DO SKYLA K 728.71 PLANTAR FASCIAL FIBROMATOSIS 06/29/2012 MAYER DO SKYLA K 715.04 OSTEOARTHROSIS GENERALIZED INVOLVING HAND 06/29/2012 MAYER DO SKYLA K 728.71 PLANTAR FASCIAL FIBROMATOSIS 06/29/2012 JAVED ROGER MD 715.04 OSTEOARTHROSIS GENERALIZED INVOLVING HAND 06/29/2012 JAVED ROGER MD 728.71 PLANTAR FASCIAL FIBROMATOSIS 06/29/2012 MAYER DO SKYLA K 715.04 OSTEOARTHROSIS GENERALIZED INVOLVING HAND 06/29/2012 MAYER DO SKYLA K 728.71 PLANTAR FASCIAL FIBROMATOSIS 03/12/2013 MAYER DO SKYLA K 716.91 UNSPECIFIED ARTHROPATHY INVOLVING SHOULDER REGION 03/12/2013 MAYER DO SKYLA K 726.90 ENTHESOPATHY OF UNSPECIFIED SITE 03/12/2013 MAYER DO SKYLA K V76.51 COLON CANCER SCREENING 03/12/2013 MAYER DO SKYLA K 716.91 UNSPECIFIED ARTHROPATHY INVOLVING SHOULDER REGION 03/12/2013 MAYER DO SKYLA K 726.90 ENTHESOPATHY OF UNSPECIFIED SITE 03/12/2013 MAYER DO SKYLA K V76.51 COLON CANCER SCREENING 03/12/2013 JAVED ROGER MD 716.91 UNSPECIFIED ARTHROPATHY INVOLVING SHOULDER REGION 03/12/2013 JAVED ROGER MD 726.90 ENTHESOPATHY OF UNSPECIFIED SITE 03/12/2013 JAVED ROGER MD V76.51 COLON CANCER SCREENING 03/12/2013 SKYLA MAYER DO 716.91 UNSPECIFIED ARTHROPATHY INVOLVING SHOULDER REGION 03/12/2013 SKYLA MAYER DO 726.90 ENTHESOPATHY OF UNSPECIFIED SITE 03/12/2013 SKYLA MAYER DO V76.51 COLON CANCER SCREENING 03/30/2013 SKYLA MAYER DO 625.8 OTHER SPECIFIED SYMPTOMS ASSOCIATED WITH FEMALE GENITAL ORGANS 03/30/2013 JAVED ROGER MD 625.8 OTHER SPECIFIED SYMPTOMS ASSOCIATED WITH FEMALE GENITAL ORGANS 03/30/2013 SKYLA MAYER DO 625.8 OTHER SPECIFIED SYMPTOMS ASSOCIATED WITH FEMALE GENITAL ORGANS 07/02/2013 ACACIA HAYES, JAVED Phillips 465.9 UPPER RESPIRATORY INFECTION 07/02/2013 SKYLA MAYER DO 465.9 UPPER RESPIRATORY INFECTION 03/15/2014 SKYLA MAYER DO 616.10 VAGINITIS AND VULVOVAGINITIS UNSPECIFIED 10/25/2014 Ot 722.52 10/25/2014 Ot 787.62 10/25/2014 Ot 788.30 10/25/2014 Ot V76.12 10/25/2014 Ot V72.84 10/25/2014 MELODY LEAL PLANT OPERATOR/SHIFT SUPERVISOR Ot V76.12 11/17/2014 ANNIA MENG [employer] HAND FINISHER Ot V76.12 03/14/2016 Ot 722.52 LUMB/ LUMBOSAC DISC DEGEN 03/14/2016 Ot 787.62 FECAL SMEARING 03/14/2016 Ot 788.30 UNSPECIFIED URINARY INCONTINENCE 03/14/2016 Ot V76.12 OTH SCREEN MAMMO-MALIGN NEOPLASM OF CHRISTOPHER 03/14/2016 Ot V72.84 EXAM PRE- OPERATIVE NOS 03/14/2016 MELODY LEAL PLANT OPERATOR/SHIFT SUPERVISOR Ot V76.12 OTH SCREEN MAMMO-MALIGN NEOPLASM OF CHRISTOPHER 03/14/2016 ANNIA MENG [employer] HAND FINISHER Ot V76.12 OTH SCREEN MAMMO-MALIGN NEOPLASM OF CHRISTOPHER 03/15/2016 ZAKIA WALDROP PLANT OPERATOR/SHIFT SUPERVISOR Ot Z12.31 ENCNTR SCREEN MAMMOGRAM FOR MALIGNANT NE 03/27/2016 ZAKIA WALDROP PLANT OPERATOR/SHIFT SUPERVISOR Ot Z12.31 ENCNTR SCREEN MAMMOGRAM FOR MALIGNANT NE 03/27/2016 MATEUSZ HAYES, ORACIO Friedman Ot H83.09 LABYRINTHITIS, UNSPECIFIED EAR 03/27/2016 MATEUSZ HAYES, ORACIO Friedman Ot R11.0 NAUSEA 03/27/2016 MATEUSZ HAYES, ORACIO Friedman Ot R42 DIZZINESS AND GIDDINESS 03/27/2016 MATEUSZ HAYES, ORACIO Friedman Ot R51 HEADACHE 03/28/2016 MATEUSZ HAYES, ORACIO Friedman Ot H83.09 LABYRINTHITIS, UNSPECIFIED EAR 03/28/2016 MATEUSZ HAYES, ORACIO Friedman Ot R11.0 NAUSEA 03/28/2016 MATEUSZ HAYES, ORACIO Friedman Ot R42 DIZZINESS AND GIDDINESS 03/28/2016 MATEUSZ HAYES, ORACIO Friedman Ot R51 HEADACHE 04/26/2016 Ot 722.52 LUMB/ LUMBOSAC DISC DEGEN 04/26/2016 Ot 787.62 FECAL SMEARING 04/26/2016 Ot 788.30 UNSPECIFIED URINARY INCONTINENCE 04/26/2016 Ot V76.12 OTH SCREEN MAMMO-MALIGN NEOPLASM OF CHRISTOPHER 04/26/2016 Ot V72.84 EXAM PRE- OPERATIVE NOS 04/26/2016 MELODY LEAL PLANT OPERATOR/SHIFT SUPERVISOR Ot V76.12 OTH SCREEN MAMMO-MALIGN NEOPLASM OF CHRISTOPHER 04/26/2016 ANNIA MENG [employer] HAND FINISHER Ot V76.12 OTH SCREEN MAMMO-MALIGN NEOPLASM OF CHRISTOPHER 04/26/2016 ZAKIA WALDROP PLANT OPERATOR/SHIFT SUPERVISOR Ot Z12.31 ENCNTR SCREEN MAMMOGRAM FOR MALIGNANT NE 04/29/2016 ZAKIA WALDROP PLANT OPERATOR/SHIFT SUPERVISOR Ot R42 DIZZINESS AND GIDDINESS 04/30/2016 ZAKIA WALDROP PLANT OPERATOR/SHIFT SUPERVISOR Ot R42 DIZZINESS AND GIDDINESS 05/02/2016 ZAKIA WALDROP PLANT OPERATOR/SHIFT SUPERVISOR Ot R42 DIZZINESS AND GIDDINESS 05/08/2016 ZAKIA WALDROP PLANT OPERATOR/SHIFT SUPERVISOR Ot R42 DIZZINESS AND GIDDINESS 07/15/2016 ZAKIA WALDROP PLANT OPERATOR/SHIFT SUPERVISOR Ot R42 DIZZINESS AND GIDDINESS 07/15/2016 ZAKIA WALDROP PLANT OPERATOR/SHIFT SUPERVISOR Ot R42 DIZZINESS AND GIDDINESS 07/15/2016 ZAKIA WALDROP PLANT OPERATOR/SHIFT SUPERVISOR Ot R42 DIZZINESS AND GIDDINESS 07/26/2016 Ot 722.52 LUMB/ LUMBOSAC DISC DEGEN 07/26/2016 Ot 787.62 FECAL SMEARING 07/26/2016 Ot 788.30 UNSPECIFIED URINARY INCONTINENCE 07/26/2016 Ot V76.12 OTH SCREEN MAMMO-MALIGN NEOPLASM OF CHRISTOPHER 07/26/2016 Ot V72.84 EXAM PRE- OPERATIVE NOS 07/26/2016 MELODY LEAL PLANT OPERATOR/SHIFT SUPERVISOR Ot V76.12 OTH SCREEN MAMMO-MALIGN NEOPLASM OF CHRISTOPHER 07/26/2016 ANNIA MENG [employer] HAND FINISHER Ot V76.12 OTH SCREEN MAMMO-MALIGN NEOPLASM OF CHRISTOPHER 07/26/2016 ZAKIA WALDROP PLANT OPERATOR/SHIFT SUPERVISOR Ot Z12.31 ENCNTR SCREEN MAMMOGRAM FOR MALIGNANT NE 07/26/2016 ZAKIA WALDROP PLANT OPERATOR/SHIFT SUPERVISOR Ot R42 DIZZINESS AND GIDDINESS 09/16/2016 MATEUSZ HAYES, ORACIO Friedman Ot M54.16 RADICULOPATHY, LUMBAR REGION 09/16/2016 MATEUSZ HAYES, ORACIO Friedman Ot M54.5 LOW BACK PAIN 09/16/2016 Ot 722.52 LUMB/ LUMBOSAC DISC DEGEN 09/16/2016 Ot 787.62 FECAL SMEARING 09/16/2016 Ot 788.30 UNSPECIFIED URINARY INCONTINENCE 09/16/2016 Ot V76.12 OTH SCREEN MAMMO-MALIGN NEOPLASM OF CHRISTOPHER 09/16/2016 Ot V72.84 EXAM PRE- OPERATIVE NOS 09/16/2016 MELODY LEAL PLANT OPERATOR/SHIFT SUPERVISOR Ot V76.12 OTH SCREEN MAMMO-MALIGN NEOPLASM OF CHRISTOPHER 09/16/2016 ANNIA MENG [employer] HAND FINISHER Ot V76.12 OTH SCREEN MAMMO-MALIGN NEOPLASM OF CHRISTOPHER 09/16/2016 ZAKIA WALDROP PLANT OPERATOR/SHIFT SUPERVISOR Ot Z12.31 ENCNTR SCREEN MAMMOGRAM FOR MALIGNANT NE 09/16/2016 ZAKIA WALDROP PLANT OPERATOR/SHIFT SUPERVISOR Ot R42 DIZZINESS AND GIDDINESS 09/17/2016 MATEUSZ HAYES, ORACIO T Ot M54.16 RADICULOPATHY, LUMBAR REGION 09/17/2016 MATEUSZ HAYES, ORACIO Friedman Ot M54.5 LOW BACK PAIN 09/22/2016 MATEUSZ HAYES, ORACIO Friedman Ot M54.16 RADICULOPATHY, LUMBAR REGION 09/22/2016 MATEUSZ HAYES, ORACIO Friedman Ot M54.5 LOW BACK PAIN 10/03/2016 WALDROPZAKIA PLANT OPERATOR/SHIFT SUPERVISOR Ot R42 DIZZINESS AND GIDDINESS 10/31/2017 SWAN DO, ROSELYN D Ot K21.9 GASTRO-ESOPHAGEAL REFLUX DISEASE WITHOUT 10/31/2017 SWAN DO, ROSELYN D Ot R13.10 DYSPHAGIA, UNSPECIFIED 10/31/2017 SWAN DO, ROSELYN D Ot Z01.818 ENCOUNTER FOR OTHER PREPROCEDURAL EXAMIN 10/31/2017 SWAN DO, ROSELYN D Ot Z12.11 ENCOUNTER FOR SCREENING FOR MALIGNANT NE 11/03/2017 SWAN DO, ROSELYN D Ot K21.9 GASTRO-ESOPHAGEAL REFLUX DISEASE WITHOUT 11/03/2017 SWAN DO, ROSELYN D Ot R13.10 DYSPHAGIA, UNSPECIFIED 11/03/2017 SWAN DO, ROSELYN D Ot Z01.818 ENCOUNTER FOR OTHER PREPROCEDURAL EXAMIN 11/03/2017 SWAN DO, ROSELYN D Ot Z12.11 ENCOUNTER FOR SCREENING FOR MALIGNANT NE 11/24/2017 MELODY LEAL PLANT OPERATOR/SHIFT SUPERVISOR Ot V76.12 OTH SCREEN MAMMO-MALIGN NEOPLASM OF CHRISTOPHER 11/24/2017 ANNIA MENG [employer] HAND FINISHER Ot V76.12 OTH SCREEN MAMMO-MALIGN NEOPLASM OF CHRISTOPHER 11/24/2017 ZAKIA WALDROP PLANT OPERATOR/SHIFT SUPERVISOR Ot Z12.31 ENCNTR SCREEN MAMMOGRAM FOR MALIGNANT NE 11/24/2017 ZAKIA WALDROP PLANT OPERATOR/SHIFT SUPERVISOR Ot R42 DIZZINESS AND GIDDINESS 11/27/2017 DANNY BLAKELY PLANT OPERATOR/SHIFT SUPERVISOR Ot Z12.31 ENCNTR SCREEN MAMMOGRAM FOR MALIGNANT NE 11/27/2017 BENNETT DOWILFREDO S Ot R10.2 PELVIC AND PERINEAL PAIN 11/27/2017 FENECH DO WILFREDO S Ot Z90.710 ACQUIRED ABSENCE OF BOTH CERVIX AND UTER 11/27/2017 SWAN DO, ROSELYN D Ot Z01.818 ENCOUNTER FOR OTHER PREPROCEDURAL EXAMIN 12/01/2017 DANNY BLAKELY PLANT OPERATOR/SHIFT SUPERVISOR Ot Z12.31 ENCNTR SCREEN MAMMOGRAM FOR MALIGNANT NE 12/02/2017 SWAN DO, ROSELYN D Ot K21.9 GASTRO-ESOPHAGEAL REFLUX DISEASE WITHOUT 12/02/2017 SWAN DO, ROSELYN D Ot K22.10 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 12/02/2017 ROSELYN SWAN DO Ot K44.9 DIAPHRAGMATIC HERNIA WITHOUT OBSTRUCTION 12/02/2017 ROSELYN SWAN DO Ot Z12.11 ENCOUNTER FOR SCREENING FOR MALIGNANT NE 12/04/2017 ROSELYN SWAN DO Ot K21.9 GASTRO-ESOPHAGEAL REFLUX DISEASE WITHOUT 12/04/2017 ROSELYN SWAN DO Ot K22.10 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 12/04/2017 ROSELYN SWAN DO Ot K44.9 DIAPHRAGMATIC HERNIA WITHOUT OBSTRUCTION 12/04/2017 ROSELYN SWAN DO Ot Z12.11 ENCOUNTER FOR SCREENING FOR MALIGNANT NE 12/05/2017 WILFREDO GUAJARDO DO Ot N32.81 OVERACTIVE BLADDER 12/05/2017 WILFREDO GUAJARDO DO, Ot 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 SPHINCTER DEFICIENCY (ISD) 12/05/2017 WILFREDO GUAJARDO DO, Ot N39.3 STRESS INCONTINENCE (FEMALE) (MALE) 12/05/2017 WILFREDO GUAJARDO DO, Ot N81.10 CYSTOCELE, UNSPECIFIED 12/05/2017 WILFREDO GUAJARDO DO, Ot Z01.818 ENCOUNTER FOR OTHER PREPROCEDURAL EXAMIN 12/05/2017 WILFREDO GUAJARDO DO, Ot Z80.41 FAMILY HISTORY OF MALIGNANT NEOPLASM OF 12/05/2017 WILFREDO GUAJARDO DO, Ot R10.2 PELVIC AND PERINEAL PAIN 12/05/2017 WILFREDO GUAJARDO DO, Ot Z90.710 ACQUIRED ABSENCE OF BOTH CERVIX AND UTER Procedures Code Description [place] [address] IV INFUSION 05/15/2012 J7030 NORMAL SALINE SOLUTION INFUS 05/15/2012 11384 ROUTINE VENIPUNCTURE 06/29/2012 79882 LIPID PANEL 06/29/2012 76673 ROUTINE VENIPUNCTURE 03/12/2013 53496 MAMMOGRAM, SCREENING 03/12/2013 35262 HEMOCCULT 03/12/2013 07568 GC/CHLAM PROBE (STATE) 03/12/2013 05837 PAP SMEAR 03/12/2013 Q0091 PAP SMEAR OBTAIN SMEAR 03/12/2013 42307 TRICHOMONAS (IN-HOUSE) 03/12/2013 0630493 GFR CALC (RESULT ONLY) 03/12/2013 30665 CMP 03/12/2013 61241 LIPID PANEL 03/12/2013 01167 CA 125 03/12/2013 39530 CULTURE UROGENITAL 03/15/2013 42521 UA W/ CULTURE IF INDICATED 03/30/2013 Results Test Result Range CBC With Differential/Platelet - 02/20/16 08:21 WBC 5.9 x10E3/uL 3.4-10.8 RBC 4.59 x10E6/uL 3.77-5.28 Hemoglobin 14.6 g/dL 11.1-15.9 Hematocrit 41.3 % 34.0-46.6 MCV 90 fL 79-97 MCH 31.8 pg 26.6-33.0 MCHC 35.4 g/dL 31.5-35.7 RDW 14.2 % 12.3-15.4 Platelets 289 x10E3/uL 150-379 Neutrophils 52 % Lymphs 39 % Monocytes 7 % Eos 1 % Basos 1 % Neutrophils (Absolute) 3.1 x10E3/uL 1.4-7.0 Lymphs (Absolute) 2.3 x10E3/uL 0.7-3.1 Monocytes(Absolute) 0.4 x10E3/uL 0.1-0.9 Eos (Absolute) 0.1 x10E3/uL 0.0-0.4 Baso (Absolute) 0.0 x10E3/uL 0.0-0.2 Immature Granulocytes 0 % Immature Grans (Abs) 0.0 x10E3/uL 0.0-0.1 Comp. Metabolic Panel (14) - 02/20/16 08:21 Glucose, Serum 97 mg/dL 65-99 BUN 13 mg/dL 6-24 Creatinine, Serum 0.72 mg/dL 0.57-1.00 eGFR If NonAfricn Am 92 mL/min/1.73 >59 eGFR If Africn Am 106 mL/min/1.73 >59 BUN/Creatinine Ratio 18 9-23 Sodium, Serum 143 mmol/L 134-144 Potassium, Serum 4.6 mmol/L 3.5-5.2 Chloride, Serum 101 mmol/L 97-108 Carbon Dioxide, Total 28 mmol/L 18-29 Calcium, Serum 9.6 mg/dL 8.7-10.2 Protein, Total, Serum 7.0 g/dL 6.0-8.5 Albumin, Serum 4.4 g/dL 3.5-5.5 Globulin, Total 2.6 g/dL 1.5-4.5 A/G Ratio 1.7 1.1-2.5 Bilirubin, Total 0.6 mg/dL 0.0-1.2 Alkaline Phosphatase, S 86 IU/L 39-117 AST (SGOT) 20 IU/L 0-40 ALT (SGPT) 27 IU/L 0-32 Lipid Panel - 02/20/16 08:21 Cholesterol, Total 219 mg/dL 100-199 Triglycerides 229 mg/dL 0-149 HDL Cholesterol 49 mg/dL >39 VLDL Cholesterol Guicho 46 mg/dL 5-40 LDL Cholesterol Calc 124 mg/dL 0-99 Cancer Antigen (CA) 125 - 02/20/16 08:21 Cancer Antigen (CA) 125 18.4 U/mL 0.0-38.1 TSH - 02/20/16 08:21 TSH 1.400 uIU/mL 0.450-4.500 Pap Lb, rfx HPV ASCU - 03/07/16 10:27 DIAGNOSIS: Comment Specimen adequacy: Comment Clinician provided ICD10: Comment Performed by: Comment QC reviewed by: Comment . . Note: Comment . Comment Genital Culture, Routine - 03/07/16 10:27 Genital Culture, Routine Note Complete blood count (CBC) with automated white blood cell (WBC) differential - 03/27/16 18:15 Blood leukocytes automated count (number/volume) 9.3 10*3/uL 4.3-11.0 Blood erythrocytes automated count (number/volume) 4.44 10*6/uL 4.35-5.85 Venous blood hemoglobin measurement (mass/volume) 13.8 g/dL 11.5-16.0 Blood hematocrit (volume fraction) 39 % 35-52 Automated erythrocyte mean corpuscular volume 88 [foz_us] 80-99 Automated erythrocyte mean corpuscular hemoglobin (mass per erythrocyte) 31 pg 25-34 Automated erythrocyte mean corpuscular hemoglobin concentration measurement ( mass/volume) 36 g/dL 32-36 Automated erythrocyte distribution width ratio 13.0 % 10.0-14.5 Automated blood platelet count (count/volume) 346 10*3/uL 130-400 Automated blood platelet mean volume measurement 9.6 [foz_us] 7.4-10.4 Automated blood neutrophils/100 leukocytes 85 % 42-75 Automated blood lymphocytes/100 leukocytes 13 % 12-44 Blood monocytes/100 leukocytes 2 % 0-12 Automated blood eosinophils/100 leukocytes 0 % 0-10 Automated blood basophils/100 leukocytes 0 % 0-10 Blood neutrophils automated count (number/volume) 7.9 10*3 1.8-7.8 Blood lymphocytes automated count (number/volume) 1.2 10*3 1.0-4.0 Blood monocytes automated count (number/volume) 0.2 10*3 0.0-1.0 Automated eosinophil count 0.0 10*3/uL 0.0-0.3 Automated blood basophil count (count/volume) 0.0 10*3/uL 0.0-0.1 Erythrocyte sedimentation rate by westergren method - 03/27/16 18:15 Erythrocyte sedimentation rate by westergren method 11 mm 0-30 Comprehensive metabolic panel - 03/27/16 18:15 Serum or plasma sodium measurement (moles/volume) 141 mmol/L 135-145 Serum or plasma potassium measurement (moles/volume) 3.6 mmol/L 3.6-5.0 Serum or plasma chloride measurement (moles/volume) 107 mmol/L 98-107 Carbon dioxide 24 mmol/L 21-32 Serum or plasma anion gap determination (moles/volume) 10 mmol/L 5-14 Serum or plasma urea nitrogen measurement (mass/volume) 12 mg/dL 7-18 Serum or plasma creatinine measurement (mass/volume) 0.75 mg/dL 0.60-1.30 Serum or plasma urea nitrogen/creatinine mass ratio 16 NRG Serum or plasma creatinine measurement with calculation of estimated glomerular filtration rate > NRG Serum or plasma glucose measurement (mass/volume) 227 mg/dL 70-105 Serum or plasma calcium measurement (mass/volume) 8.5 mg/dL 8.5-10.1 Serum or plasma total bilirubin measurement (mass/volume) 0.2 mg/dL 0.1-1.0 Serum or plasma alkaline phosphatase measurement (enzymatic activity/volume) 73 U/L 40-136 Serum or plasma aspartate aminotransferase measurement (enzymatic activity/ volume) 19 U/L 5-34 Serum or plasma alanine aminotransferase measurement (enzymatic activity/volume ) 27 U/L 0-55 Serum or plasma protein measurement (mass/volume) 6.9 g/dL 6.4-8.2 Serum or plasma albumin measurement (mass/volume) 4.0 g/dL 3.2-4.5 Magnesium - 03/27/16 18:15 Magnesium 2.1 mg/dL 1.8-2.4 Serum or plasma thyroxine (T4) free measurement (mass/volume) - 03/27/16 18:15 Serum or plasma thyroxine (T4) free measurement (mass/volume) 0.88 ng/dL 0.70-1.48 Serum or plasma thyrotropin measurement by detection limit <=0.05 miu/l (units/ volume) - 03/27/16 18:15 Serum or plasma thyrotropin measurement by detection limit <=0.05 miu/l (units/ volume) 0.24 u[iU]/mL 0.35-4.94 Serum or plasma C reactive protein measurement (mass/volume) - 03/27/16 18:15 Serum or plasma C reactive protein measurement (mass/volume) 0.12 mg /dL 0.00-0.50 Hemoglobin A1c - 03/27/16 18:15 Hemoglobin A1c 6.2 % 4.5-6.2 Complete urinalysis with reflex to culture - 03/27/16 19:42 Urine color determination YELLOW NRG Urine clarity determination SLIGHTLY CLOUDY NRG Urine pH measurement by test strip 6 5-9 Specific gravity of urine by test strip 1.015 1.016- 1.022 Urine protein assay by test strip, semi-quantitative NEGATIVE NEGATIVE Urine glucose detection by automated test strip 3+ NEGATIVE Erythrocytes detection in urine sediment by light microscopy NEGATIVE NEGATIVE Urine ketones detection by automated test strip NEGATIVE NEGATIVE Urine nitrite detection by test strip NEGATIVE NEGATIVE Urine total bilirubin detection by test strip NEGATIVE NEGATIVE Urine urobilinogen measurement by automated test strip (mass/volume) NORMAL NORMAL Urine leukocyte esterase detection by dipstick NEGATIVE NEGATIVE Automated urine sediment erythrocyte count by microscopy (number/high power field) NONE NRG Automated urine sediment leukocyte count by microscopy (number/high power field ) [HPF] NRG Bacteria detection in urine sediment by light microscopy NEGATIVE NRG Squamous epithelial cells detection in urine sediment by light microscopy 0-2 NRG Crystals detection in urine sediment by light microscopy NONE NRG Casts detection in urine sediment by light microscopy NONE NRG Mucus detection in urine sediment by light microscopy NEGATIVE NRG Complete urinalysis with reflex to culture NO NRG CBC With Differential/Platelet - 04/23/16 12:55 WBC 7.0 x10E3/uL 3.4-10.8 RBC 4.76 x10E6/uL 3.77-5.28 Hemoglobin 14.6 g/dL 11.1-15.9 Hematocrit 42.9 % 34.0-46.6 MCV 90 fL 79-97 MCH 30.7 pg 26.6-33.0 MCHC 34.0 g/dL 31.5-35.7 RDW 14.1 % 12.3-15.4 Platelets 327 x10E3/uL 150-379 Neutrophils 54 % Lymphs 39 % Monocytes 6 % Eos 1 % Basos 0 % Neutrophils (Absolute) 3.8 x10E3/uL 1.4-7.0 Lymphs (Absolute) 2.7 x10E3/uL 0.7-3.1 Monocytes(Absolute) 0.4 x10E3/uL 0.1-0.9 Eos (Absolute) 0.1 x10E3/uL 0.0-0.4 Baso (Absolute) 0.0 x10E3/uL 0.0-0.2 Immature Granulocytes 0 % Immature Grans (Abs) 0.0 x10E3/uL 0.0-0.1 Complete urinalysis with reflex to culture - 09/16/16 08:02 Urine color determination YELLOW NRG Urine clarity determination CLEAR NRG Urine pH measurement by test strip 5 5-9 Specific gravity of urine by test strip 1.015 1.016- 1.022 Urine protein assay by test strip, semi-quantitative NEGATIVE NEGATIVE Urine glucose detection by automated test strip NEGATIVE NEGATIVE Erythrocytes detection in urine sediment by light microscopy 1+ NEGATIVE Urine ketones detection by automated test strip NEGATIVE NEGATIVE Urine nitrite detection by test strip NEGATIVE NEGATIVE Urine total bilirubin detection by test strip NEGATIVE NEGATIVE Urine urobilinogen measurement by automated test strip (mass/volume) NORMAL NORMAL Urine leukocyte esterase detection by dipstick 1+ NEGATIVE Automated urine sediment erythrocyte count by microscopy (number/high power field) NONE NRG Automated urine sediment leukocyte count by microscopy (number/high power field ) NONE NRG Bacteria detection in urine sediment by light microscopy NEGATIVE NRG Squamous epithelial cells detection in urine sediment by light microscopy RARE NRG Crystals detection in urine sediment by light microscopy NONE NRG Casts detection in urine sediment by light microscopy NONE NRG Mucus detection in urine sediment by light microscopy NEGATIVE NRG Complete urinalysis with reflex to culture NO NRG Comprehensive Metabolic Panel - 10/02/17 10:10 Chloride 105 mmol/L 98-107 CO2 32 mmol/L 20-31 Glucose 101 mg/dL 74-106 Potassium 3.9 mmol/L 3.6-5.1 Sodium 141 mmol/L 136-145 T Bili 0.6 mg/dL 0.1-1.0 T. Protein 6.6 g/dL 6.4-8.2 Albumin 3.2 g/dL 3.4-5.0 ALT 25 U/L 12-78 AST 12 U/L 10-42 BUN 14 mg/dL 7-18 Calcium 8.7 mg/dL 8.5-10.1 ANION GAP 7.9 NRG CREATININE 0.8 mg/dL 0.6-1.0 ALK. PHOSPHATASE 75 mg/dL 46-116 GFR 78 ML/MIN NRG GFR 94 ML/MIN NRG COMPLETE BLOOD COUNT - 10/02/17 10:10 Eos # 0.1 x10^3/UL 0.1-0.4 Eos % 1.4 % 0.0-6.0 HCT 42.1 % 37.0-50.0 HGB 14.7 g/dL 11.0-18.0 Lymph # 3.0 x10^3/UL 1.2-3.4 Lymph % 33.9 % 21.0-51.0 MCH 30.9 PG 27.0-32.0 MCHC 34.9 g/dL 32.0-36.0 MCV 88.4 fL 80.0-100.0 Whiteside # 0.6 x10^3/UL 0.1-0.6 Whiteside % 6.3 % 2.0-14.0 MPV 9.2 FL 7.8-11.0 Platelet 305 x10^3/UL 150-450 RBC 4.76 x10^6/UL 4.40-6.10 Baso # 0.04 x10^3/UL 0.00-0.20 Baso % 0.50 % 0.00-2.00 WBC 8.8 x10^3/UL 4.5-10.5 RDW 12.9 % 11.5-13.7 NEUT # 5.1 x10^3/UL 1.5-7.5 NEUT % 57.9 % 38.0-80.0 C-Reactive Protein (CRP) - 10/02/17 10:10 C-Reactive Protein (CRP) 1.0 mg/dL <=0.9 Encounters ACCT No. Visit Date/Time Discharge Status Pt. Type Provider Facility Loc./Unit Complaint [id number] 03/15/2014 08:57:00 03/15/2014 23:59:59 CLS Outpatient SKYLA MAYER DO [id number] 07/02/2013 14:14:00 07/02/2013 23:59:59 CLS Outpatient JAVED ROGER MD [id number] 03/30/2013 17:22:00 03/30/2013 23:59:59 CLS Outpatient SKYLA MAYER DO [id number] 03/12/2013 09:09:00 03/12/2013 23:59:59 CLS Outpatient SKYLA MAYER DO [id number] 06/29/2012 13:06:00 06/29/2012 23:59:59 CLS Outpatient SKYLA MAYER DO [id number] 05/15/2012 09:44:00 05/15/2012 23:59:59 CLS Outpatient SKYLA MAYER DO [id number] 04/24/2016 08:06:00 Document Registration [id number] 10/02/2017 10:03:00 10/02/2017 23:59:00 DIS Outpatient Hussain Childs 50 [id number] 10/02/2017 11:34:00 Document Registration [id number] 03/13/2016 07:06:00 Document Registration [id number] 12/03/2017 13:20:00 12/03/2017 23:59:59 CLS Outpatient MAYER DO SKYLA Gabrielle [facility] [id number] 12/04/2017 13:54:00 12/04/2017 23:59:59 CLS Preadmit PORTIA PECK APRN [facility] RAD ABNORMAL MAMMOGRAM [id number] 12/04/2017 05:41:00 12/04/2017 10:15:00 DIS Outpatient WILFREDO GUAJARDO DO [facility] PREOP FAM HX OVARIAN CA, INCONTINENCE [id number] 12/02/2017 07:03:00 12/02/2017 09:45:00 DIS Outpatient ROSELYN SWAN DO [facility] ENDO SCREENING/GERD/ DYSPHAGIA [id number] 11/25/2017 09:52:00 11/25/2017 23:59:59 CLS Outpatient DANNY BLAKELY [facility] RAD SCREENING [id number] 11/25/2017 09:47:00 11/25/2017 23:59:59 CLS Outpatient WILFREDO GUAJARDO DO [facility] RAD PELVIC PRESSURE IN FEMALE,POSTMENOPAUSAL [id number] 11/25/2017 05:33:00 11/25/2017 11:39:00 DIS Outpatient ROSELYN SWAN DO [facility] PREOP COLONOSCOPY/EGD [id number] 10/31/2017 05:31:00 10/31/2017 13:57:00 DIS Outpatient ROSELYN SWAN DO [facility] PREOP COLONOSCOPY/EGD [id number] 09/30/2017 09:00:00 09/30/2017 23:59:59 CLS Preadmit DANNY BLAKELY PLANT OPERATOR/SHIFT SUPERVISOR [facility] RAD SCREENING [id number] 09/16/2016 08:14:00 09/16/2016 10:42:00 DIS Emergency ORACIO CHILD MD [facility] ER BACK PAIN [id number] 04/26/2016 13:31:00 04/26/2016 23:59:59 CLS Outpatient ZAKIA WALDROP PLANT OPERATOR/SHIFT SUPERVISOR [facility] RAD VERTIGO [id number] 03/27/2016 17:29:00 03/27/2016 21:07:00 DIS Emergency ORACIO CHILD MD [facility] ER DIZZINESS [id number] 03/14/2016 12:46:00 03/14/2016 23:59:59 CLS Outpatient ZAKIA WALDROP PLANT OPERATOR/SHIFT SUPERVISOR [facility] RAD SCREENING [id number] 10/25/2014 09:14:00 10/25/2014 23:59:59 CLS Outpatient ANNIA MENG APRN [facility] RAD SCREENING [id number] 03/26/2013 10:37:00 03/26/2013 23:59:59 CLS Outpatient MELODY LEAL PLANT OPERATOR/SHIFT SUPERVISOR [facility] RAD SCREENING [id number] 12/09/2017 05:52:00 ACT Outpatient WLIFREDO GUAJARDO DO [facility] SDC FAM HX OVARIAN CA, INCONTINENCE [id number] 12/08/2017 08:37:00 PEN Preadmit PORTIA PECK APRN [facility] RAD ABNORMAL MAMMOGRAM [id number] 10/25/2014 09:14:00 Document Registration [id number] 10/25/2014 09:14:00 Document Registration [id number] 03/11/2012 07:32:00 Document Registration [id number] 02/21/2016 10:05:00 Document Registration [email or web address] 10/25/2014 09:15:03 ACT Document Registration [id number] 03/10/2016 13:05:00 Document Registration
[2017-12-09] MEDS ORDERED: LACTATED RINGERS 1,000 ML IV PRN (06:21)
[2017-12-09] MEDS ORDERED: ceFAZolin INJECTION 1,000 MG in NS (IVPB) 50 ML IV ONE (06:30)
[2017-12-09 06:35] VITALS: BP 130/90
[2017-12-09] MEDS ORDERED: LIDOCAINE PF 2% 5 ML (XYLOCAINE) VIAL ONE (06:37)
[2017-12-09] MEDS ORDERED: proPOfol 200 MG/20 ML (DIPRIVAN) VIAL IV ONE (06:37)
[2017-12-09] MEDS ORDERED: SEVOFLURANE (ULTANE) 15 ML INHAL SOLN ONE ×4 (06:37→08:42)
[2017-12-09] MEDS ORDERED: DEXAMETHASONE 10 MG/ML (DECADRON) 1 ML VIAL ONE (06:37)
[2017-12-09] MEDS ORDERED: ONDANSETRON 4 MG/2 ML (SDV) Z0FRAN ONE (06:37)
[2017-12-09] MEDS ORDERED: MIDAZOLAM 2 MG/2 ML (VERSED) VIAL ONE (06:38)
[2017-12-09] MEDS ORDERED: fentaNYL INJECTION 100 MCG/2 ML AMP ONE ×2 (06:38→07:56)
[2017-12-09 06:40] LABS: BASOPHILS % (AUTO) 1 % (0-10); EOSINOPHILS # (AUTO) 0.1 10^3/uL (0.0-0.3); EOSINOPHILS % (AUTO) 2 % (0-10); HEMATOCRIT 38 % (35-52); HEMOGLOBIN 13.5 G/DL (11.5-16.0); LYMPHOCYTES # (AUTO) 1.9 X 10^3 (1.0-4.0); LYMPHOCYTES % (AUTO) 35 % (12-44); MEAN CORPUSCULAR HEMOGLOBIN 31 PG (25-34); MEAN CORPUSCULAR HGB CONC 35 G/DL (32-36); MEAN CORPUSCULAR VOLUME 87 FL (80-99); MEAN PLATELET VOLUME 9.3 FL (7.4-10.4); MONOCYTES # (AUTO) 0.4 X 10^3 (0.0-1.0); MONOCYTES % (AUTO) 8 % (0-12); NEUTROPHILS # (AUTO) 2.9 X 10^3 (1.8-7.8); NEUTROPHILS % (AUTO) 55 % (42-75); PLATELET COUNT 257 10^3/uL (130-400); RED BLOOD COUNT 4.38 10^6/uL (4.35-5.85); WHITE BLOOD COUNT 5.4 10^3/uL (4.3-11.0)
[2017-12-09] MEDS ORDERED: ONDANSETRON 4 MG/2 ML (SDV) Z0FRAN IV ONE (06:45)
[2017-12-09] MEDS ORDERED: FAMOTIDINE 20MG/2ML IV (PEPCID) IV ONE (06:45)
[2017-12-09] MEDS ORDERED: ROCURONIUM 10 MG/ML 5 ML SYRINGE IV ONE (07:02)
[2017-12-09] MEDS ORDERED: ESTRADIOL VAGINAL CREAM 42.5 GM (ESTRACE) VG ONE (07:04)
[2017-12-09] MEDS ORDERED: LIDOCAINE/EPI 1%-1:200,000 (XYLOCAINE) 10 ML VIAL ONE (07:04)
[2017-12-09] MEDS ORDERED: BUPIVACAINE 0.25% 30 ML (SENSORCAINE) VIAL ONE (07:04)
--- NOTE | 2017-12-09 07:11 | Progress Note-Pre Operative ---
Pre-Operative Progress Note H&P Reviewed The H&P was reviewed, patient examined and no changes noted. Date Seen by Provider: Dec 09, 2017 Time Seen by Provider: 07:00 Date H&P Reviewed: Dec 09, 2017 Time H&P Reviewed: 07:05 Pre-Operative Diagnosis: Family Hx of Ovarian Ca, Cystocele, WILFREDO MALONEY DO Dec 09, 2017 7:11 am
--- NOTE | 2017-12-09 07:37 | Progress Note-Pre Operative ---
Pre-Operative Progress Note H&P Reviewed The H&P was reviewed, patient examined and no changes noted. Date Seen by Provider: Dec 09, 2017 Time Seen by Provider: 07:37 Date H&P Reviewed: Dec 09, 2017 Time H&P Reviewed: 07:37 Pre-Operative Diagnosis: CYSTOCELE AND MIXED INCONTINENCE WITH OAB AND ISD LUCERO BRIGGS MD Dec 09, 2017 7:37 am
[2017-12-09] MEDS ORDERED: GLYCOPYRROLATE 0.2 MG/ML (ROBINUL) 2 ML VIAL ONE (08:41)
[2017-12-09] MEDS ORDERED: NEOSTIGMINE 1 MG/ML 5 ML SYRINGE ONE (08:41)
[2017-12-09] MEDS ORDERED: KETOROLAC 30 MG/ML VIAL ONE (08:43)
[2017-12-09] MEDS: KETOROLAC 30 MG/ML VIAL IV PRN ×3 (08:45→23:20)
[2017-12-09] MEDS ORDERED: HYDROmorphone 1 MG/ML (DILAUDID) 1 ML SYRINGE IV PRN (09:15)
[2017-12-09] MEDS ORDERED: ONDANSETRON 4 MG/2 ML (SDV) Z0FRAN IVP PRN (09:15)
[2017-12-09] MEDS ORDERED: fentaNYL INJECTION 100 MCG/2 ML AMP IVP PRN (09:15)
[2017-12-09] MEDS ORDERED: HYDROcodone/APAP 10 MG/325 MG (LORTAB) TAB PO PRN ×2 (10:00→11:30)
[2017-12-09 10:18] VITALS: BP 126/76
[2017-12-09 11:34] VITALS: BP 142/79
[2017-12-09] MEDS: LACTATED RINGERS 1,000 ML IV SCH ×2 (12:32→23:23)
--- NOTE | 2017-12-09 14:22 | OPERATIVE REPORT ---
DATE OF SERVICE: 12/09/2017 PREOPERATIVE DIAGNOSES: Cystocele with mixed incontinence, overactive bladder and intrinsic sphincter deficiency. POSTOPERATIVE DIAGNOSIS: Cystocele with mixed incontinence, overactive bladder and intrinsic sphincter deficiency. OPERATION PERFORMED: Anterior repair with pubovaginal sling and cystoscopy. SURGEON: All Briggs MD ANESTHESIA: General. COMPLICATIONS: None. DESCRIPTION OF PROCEDURE: After Dr. Yarbrough finished his part of the surgery that he will dictate, the patient was put in the extended lithotomy position. Catheter was inserted and the bladder was drained. The anterior vaginal wall was infiltrated with 2% epinephrine with lidocaine. A midline incision was made in the anterior vaginal wall and the vaginal mucosa was dissected off the underlying fascia. The fascia was approximated with 2-0 Vicryl suture to give good support to the bladder. The pubovaginal sling was then passed using the Solyx device on both sides using the described technique. The sling was sitting nicely under the mid urethra with no twisting and no tension and passage of the curved hemostat easily between it and the underlying urethra. The catheter was removed. Cystoscopy was performed to confirm the integrity of the ureter, the bladder and urethra with no foreign body and to fill up the bladder at least half full. Removed the cystoscope and performed manual Valsalva maneuver that was negative. Catheter was reinserted draining clear fluid. The excess vaginal mucosa was excised and then the mucosa was approximated with a running 2-0 Vicryl suture. A Premarin vaginal pack was inserted and the estimated blood loss was 50 mL, none of which was replaced. Needle, sponge and instrument counts were correct x2. The patient tolerated the procedure and anesthesia well and was sent to recovery room in stable condition. Job ID: [id number] DocumentID: [id number] Dictated Date: 12/09/2017 08:51:33 Gas Or Petroleum Operator Date: 12/09/2017 14:21:45 Dictated By: ALL BRIGGS MD
--- NOTE | 2017-12-09 14:28 | OPERATIVE REPORT ---
DATE OF SERVICE: PREOPERATIVE DIAGNOSES: A 62-year-old female with family history of ovarian cancer, cystocele and stress urinary incontinence. POSTOPERATIVE DIAGNOSES: A 62-year-old female with family history of ovarian cancer, cystocele and stress urinary incontinence. PROCEDURE: Laparoscopic bilateral salpingo-oophorectomy. CO-SURGEON: Dr. Sanderson, who performs urethral sling and anterior colporrhaphy. SURGEON: Wilfredo Guajardo DO. ANESTHESIA: General endotracheal. ESTIMATED BLOOD LOSS: Minimal. URINE OUTPUT: Not recorded in my portion of the procedure. FLUIDS: Not completed at my time at the end of the procedure. SPECIMEN SENT: Bilateral ovaries and tubes. INDICATIONS: This is a 62-year-old female with a consultation to me from Dr. Sanderson after undergoing initial evaluation for stress urinary incontinence and found to have a cystocele. At that point, she notified Dr. Sanderson of her strong family history of ovarian cancer and at that time elected to proceed with bilateral salpingo-oophorectomy. She had previously undergone hysterectomy earlier in life. Upon my evaluation, there was no imaging of the pelvis done, so I ordered a pelvic ultrasound, which revealed difficulty identifying the ovaries, which was normal for her age. There were no abnormalities otherwise and there was absence of the uterus. I discussed with the patient proceeding with laparoscopic bilateral salpingo-oophorectomy. She was already undergoing the risk of anesthesia due to the other portions of the procedure; however, risk of bleeding, infection, and damage to structures in the abdomen at my time of the procedure were discussed with the patient in detail as well as possible need for reoperation and postoperative recovery time. After everything was discussed with the patient and all of her questions were answered, consent was obtained in the preoperative area and the patient was taken to the operating room. OPERATIVE REPORT IN DETAIL: Once in the operating room, general anesthesia was found to be adequate, she was placed in dorsal lithotomy position and prepped and draped in normal sterile fashion. A timeout was performed. I then infiltrated the area infraumbilically using 0.25% Marcaine and made a 5 mm incision. A Veress needle was directed through the incision until intraperitoneal placement was confirmed with a saline drop test. I then proceeded with insufflation using CO2 gas and opening pressure of 4 mmHg was noted. I proceeded to maximum pressure of 15 mmHg, at which point, I removed the Veress needle and introduced a 5 mm blunt trocar. Once this was in place, I was able to confirm intraperitoneal placement using the laparoscope. I had the patient placed in the steep Trendelenburg. I briefly scanned the upper abdominal anatomy during this process and there were no gross abnormalities noted. I was then able to visualize the pelvis; however, I did need some manipulation, so I ended up applying two separate trocars, first a 12 mm trocar suprapubically through a previously existing incision, I infiltrated this area using 0.25% Marcaine, made a 12 mm incision and directed a 12 mm blunt trocar through this incision until the intraperitoneal placement was confirmed using the laparoscope. I also placed a 5 mm trocar in similar fashion in the left lower quadrant. The skin was infiltrated using 0.25% Marcaine. A 5 mm incision was made using a knife and the trocar was placed under direct visualization of the laparoscope. Once these were both in place, I was able to pull the residual ovarian tissue and fallopian tube away from the pelvic sidewall and on both sides, I was able to perform the following dissection using the LigaSure. I started at the infundibulopelvic ligament. I bipolar cauterized this and transected using the LigaSure. The residual portion of the broad ligament that connects the fallopian tube was then grasped using the LigaSure, bipolar cauterized and transected using the LigaSure after which there was an active bleeding noted from any of my dissection planes bilaterally. I was able to identify bilateral ureters, which were very far away and clear from where my dissection took place. The ovaries were then removed through the suprapubic trocar using an Endopouch bag and the pelvis was then copiously irrigated using normal saline. Once again, no active bleeding was noted from any of my dissection planes. I then released insufflation through all of my trocar sites and removed the trocars after 10 mL of 0.25% Marcaine were introduced in the peritoneal cavity for postoperative pain management. I then closed the larger 12 mm incision first deep in the fascia using 0 Vicryl suture and then closed the skin using 4-0 Monocryl in a running subcuticular. The skin of the other 5 mm trocar was closed using 4-0 Monocryl in interrupted subcuticular stitches. Dermabond was applied to the incision and bandages were placed over these. The patient tolerated my portion of the procedure well and Dr. Sanderson took over at that point to proceed with his portion of the procedure. Job ID: [id number] DocumentID: [id number] Dictated Date: 12/09/2017 08:45:43 Seedling Sorter Date: 12/09/2017 14:28:06 Dictated By: WILFREDO GUAJARDO DO
[2017-12-09 16:27] VITALS: BP 121/71
[2017-12-09 20:55] VITALS: BP 111/70
[2017-12-10 01:15] VITALS: BP 109/59
[2017-12-10 06:20] VITALS: BP 104/60
--- NOTE | 2017-12-10 07:54 | Anesthesia-General Post-Op ---
General Patient Condition Mental Status/LOC: Same as Preop Cardiovascular: Satisfactory Nausea/Vomiting: Absent Respiratory: Satisfactory Pain: Controlled Complications: Absent Post Op Complications Complications None Follow Up Care/Instructions Patient Instructions None needed. Anesthesia/Patient Condition Patient Condition Patient is doing well, no complaints, stable vital signs, no apparent adverse anesthesia problems. No complications reported per nursing. MARISSA TY CRNA Dec 10, 2017 07:54
[2017-12-10 08:30] VITALS: BP 111/64
[2017-12-10] MEDS ORDERED: LEVOFLOXACIN 250 MG/50 ML IVPB 50 ML IV SCH (09:55)
[2017-12-10] MEDS ORDERED: IBUPROFEN 600 MG (MOTRIN) TAB PO ONE (10:20)
--- NOTE | 2017-12-10 11:34 | Progress Note-Urology ---
Progress Note-Urology Progress Notes/Assess & Plan Progress/Assessment & Plan RECOVERED WELL. VOIDING WELL. EMPTIES WELL. PVR 57CC. HOME WITH INSTRUCTIONS Final Diagnosis MIXED INCONTINENCE WITH CYSTOCELE, OAB, AND ISD LUCERO BRIGGS MD Dec 10, 2017 11:34 am
--- NOTE | 2017-12-10 11:36 | Discharge Inst-Urology ---
Discharge Inst-Urology Discharge Medications New, Converted, or Re-newed RX: Call to Patient Pharmacy Patient Instructions/Follow Up Plan Please make appointment to been seen in office in 2 weeks. REST till then Keep bowels soft and moving Showers, no bath Increase oral fluids for 48 hours and then as needed. Diet as tolerated. If questions or concerns contact your physician Or seek help at emergency department. LUCERO BRIGGS MD Dec 10, 2017 11:36 am
[2017-12-10 12:00] VITALS: BP 120/74
[2017-12-10] MEDS ORDERED: CIPR-225 PO ×2 (12:20)
[2017-12-10] MEDS ORDERED: IBUP-1773 PO ×2 (12:35)
[2017-12-10 13:30] VITALS: BP 120/74
== END 2017-12-10 13:30 | disposition home or self-care (01) ==
LOC: SDC 05:52 → WS 10:10 → SDC 12-10 13:30
PROVIDERS: ATTEND Obstetrics & Gynecology
DX: N81.10 Cystocele, unspecified (principal); N36.42 Intrinsic sphincter deficiency (ISD); N39.46 Mixed incontinence; N32.81 Overactive bladder; Z85.43 Personal history of malignant neoplasm of ovary; N94.89 Other specified conditions associated with female genital organs and menstrual cycle; N83.291 Other ovarian cyst, right side; N83.8 Other noninflammatory disorders of ovary, fallopian tube and broad ligament
CPT/HCPCS: 36415; 85025; 86850; 86900; 86901; 87081; 94664

== ENCOUNTER → 2017-12-11 | Outpatient (CLI) | payer OTHER ==
[~2017-12-11] MED LIST changes: +CIPR-225 PO; +IBUP-1773 PO
--- NOTE | 2017-12-11 17:11 | Diagnostic Imaging Report ---
INDICATION: Left breast density and questionable architectural distortion. Patient presents for additional views. Correlation is made with a recent screening study from 11/25/2017. Unilateral left 2-D and 3-D diagnostic mammography was performed with CAD including spot compression CC and ML as well as conventional ML views. The current study was also evaluated with a Computer Aided Detection (CAD) system. FINDINGS: Additional views show persistent density with questionable spiculation or architectural distortion in the lateral left breast approximately 5 cm from the nipple. There is an adjacent benign calcification. No malignant-appearing microcalcifications are seen. IMPRESSION: Persistent area of architectural distortion in the outer left breast 5 cm from the nipple approximately 3 o'clock location. Directed sonographic interrogation of this region is recommended for further evaluation. ACR BI-RADS Category 0: Incomplete. (Needs additional imaging evaluation). Result letter will be mailed to the patient. Note: At least 10% of breast cancer is not imaged by mammography. Dictated by: Dictated on workstation # [id number]
--- NOTE | 2017-12-11 17:16 | Diagnostic Imaging Report ---
INDICATION: Left breast density. COMPARISON: Correlation is made with diagnostic mammogram from earlier the same day and screening mammogram from 11/25/2017. FINDINGS: Sonographic interrogation of the 3 o'clock location of the left breast was performed, 5 cm from the nipple. There is an area of ill-defined mixed echogenicity at this location measuring 1.2 x 0.9 x 1.3 cm. There is an adjacent benign calcification. No significant internal vascularity is seen. There is some posterior acoustic shadowing. IMPRESSION: Irregular hypoechogenicity with shadowing at the 3 o'clock location of the left breast, 5 cm from the nipple, likely accounting for the area of architectural distortion on mammography. The features are concerning for a small breast neoplasm, and tissue sampling is recommended. This would be amenable to ultrasound-guided core biopsy. ACR BI-RADS Category 4: Suspicious abnormality. Dictated by: Dictated on workstation # [id number]
== END ==
LOC: RAD 10:24
PROVIDERS: ATTEND Nurse Practitioner Family
DX: R92.2 Inconclusive mammogram (principal)
CPT/HCPCS: 76642

== ENCOUNTER → 2017-12-12 | Outpatient (CLI) | payer OTHER ==
[~2017-12-12] VITALS: Ht 170.2 cm; Wt 74.4 kg
[~2017-12-12] MED LIST changes: +LIDOCAINE 1% INJ 20 ML 20 ML VIAL INJ ONE
[2017-12-12 08:25] VITALS: BP 123/80
[2017-12-12 09:05] VITALS: BP 130/69
--- NOTE | 2017-12-12 10:59 | Diagnostic Imaging Report ---
INDICATION: Abnormal mammogram and left breast ultrasound. The patient presents for ultrasound guided biopsy. PROCEDURE: Patient was brought to the procedure room and placed on the bed in the supine position. Ultrasound imaging over the left breast was performed to evaluate appropriate entry site. The left breast was then prepped and draped in usual sterile fashion. Small amount of 1% lidocaine was utilized for local anesthesia. A 14-gauge Achieve biopsy needle was advanced and placed along the margin of the hypoechoic masslike region at the 3 o'clock location of the left breast, 5 cm from the nipple. Total of four core biopsies were obtained. A localizer clip was deployed. Hemostasis was obtained using manual compression. Followup mammogram was performed. IMPRESSION: Successful ultrasound-guided core biopsy of the ill-defined region of hypoechogenicity 3 o'clock location of the left breast. Pathology results are currently pending. Dictated by: Dictated on workstation # [id number]
--- NOTE | 2017-12-12 11:30 | Diagnostic Imaging Report ---
Indication: Left breast biopsy. CC and ML 2-D mammography was performed post biopsy. Biopsy clip is located in the outer portion of the left breast adjacent to the benign calcification. Impression: Status post left breast biopsy 3 o'clock location with biopsy clip in place. Pathology results are pending. Dictated by: Dictated on workstation # [id number]
== END ==
LOC: RAD 07:39
PROVIDERS: ATTEND Nurse Practitioner Family
DX: C50.912 Malignant neoplasm of unspecified site of left female breast (principal)
CPT/HCPCS: 19083

== ENCOUNTER → 2017-12-24 | Outpatient (CLI) | payer OTHER ==
[~2017-12-24] MED LIST changes: +IOHEXOL 350 MG/ML 100 ML (OMNIPAQUE 350) VIAL IV ONE; -LIDOCAINE 1% INJ 20 ML 20 ML VIAL INJ ONE; +NS 250 ML (IVPB) BAG IV ONE
--- NOTE | 2017-12-24 07:55 | Diagnostic Imaging Report ---
PROCEDURE: CT chest with contrast only. TECHNIQUE: Multiple contiguous axial images were obtained through the chest after administration of intravenous contrast. INDICATION: Breast cancer, dysphasia and cough Lungs are clear, bilaterally. There is no evidence of mass or pathologic adenopathy in the chest. There is diffuse mural thickening in the esophagus. Upper abdominal sections reveal no abnormality apart from fatty infiltration of the liver. IMPRESSION: Diffuse esophageal mural thickening may reflect esophagitis and clinical correlation is recommended. Otherwise, there is no CT evidence of acute abnormality in the thorax. Dictated by: Dictated on workstation # [id number]
== END ==
LOC: RAD 07:26
PROVIDERS: ATTEND Internal Medicine Hematology & Oncology
DX: C50.112 Malignant neoplasm of central portion of left female breast (principal); R13.10 Dysphagia, unspecified; R05 Cough
CPT/HCPCS: 71260

== ENCOUNTER 2018-01-22 06:39 | Day surgery (SDC) | payer OTHER ==
[~2018-01-22] VITALS: Ht 170.2 cm; Wt 74.8 kg
[~2018-01-22 06:39] MED LIST changes: -IOHEXOL 350 MG/ML 100 ML (OMNIPAQUE 350) VIAL IV ONE; -NS 250 ML (IVPB) BAG IV ONE
[2018-01-22 06:50] VITALS: BP 128/89
[2018-01-22] MEDS: LACTATED RINGERS 1,000 ML IV PRN ×3 (07:00→12:10)
[2018-01-22] MEDS ORDERED: ceFAZolin INJECTION 1,000 MG in NS (IVPB) 50 ML IV ONE (07:15)
[2018-01-22] MEDS ORDERED: FAMOTIDINE 20MG/2ML IV (PEPCID) IV ONE (07:15)
[2018-01-22] MEDS ORDERED: CATHETER FLUSH 10 ML SYR IV PRN (07:30)
--- OUTSIDE RECORDS SUMMARY | 2018-01-22 07:55 | XMS REPORT | Continuity of Care Document ---
Author Author [facility] Address Unknown Phone Unavailable Allergies Active Description Code Type Severity Reaction Onset Reported/Identified Relationship to Patient Clinical Status Yes No Known Drug Allergies [id number] Drug Allergy Unknown N/A 12/04/2017 Medications There [...] H 03/12/2012 Ot 553.3 DIAPHRAGMATIC HERNIA 05/15/2012 AMYER DO, SKYLA K 079.99 UNSPECIFIED VIRAL INFECTION [...] 05/15/2012 JAVED ROGER MD 276.51 Dehydration 05/15/2012 MAYRE DO, SKYLA K 079.99 Unspecified Viral Infection [...] 726.90 ENTHESOPATHY OF UNSPECIFIED SITE 03/12/2013 SKYLA MAEYR DO V76.51 COLON CANCER SCREENING 03/30/2013 SKYLA [...] V76.12 10/25/2014 Ot V72.84 10/25/2014 MELODY LEAL MEDICAL EXAMINER Ot V76.12 11/17/2014 ANNIA MENG GUEST EXPERIENCE CAPTAIN Ot V76.12 03/14/2016 Ot 722.52 LUMB/ LUMBOSAC DISC DEGEN 03/14/2016 Ot 787.62 FECAL SMEARING 03/14/2016 Ot 788.30 UNSPECIFIED URINARY INCONTINENCE 03/14/2016 Ot V76.12 OTH SCREEN MAMMO-MALIGN NEOPLASM OF CHRISTOPHER 03/14/2016 Ot V72.84 EXAM PRE- OPERATIVE NOS 03/14/2016 MELODY LEAL MEDICAL EXAMINER Ot V76.12 OTH SCREEN MAMMO-MALIGN NEOPLASM OF CHRISTOPHER 03/14/2016 ANNIA MENG GUEST EXPERIENCE CAPTAIN Ot V76.12 OTH SCREEN MAMMO-MALIGN NEOPLASM OF CHRISTOPHER 03/15/2016 ZAKIA WALDROP MEDICAL EXAMINER Ot Z12.31 ENCNTR SCREEN MAMMOGRAM FOR MALIGNANT NE 03/27/2016 ZAKIA WALDROP MEDICAL EXAMINER Ot Z12.31 ENCNTR SCREEN MAMMOGRAM FOR MALIGNANT [...] EXAM PRE- OPERATIVE NOS 04/26/2016 MELODY LEAL MEDICAL EXAMINER Ot V76.12 OTH SCREEN MAMMO-MALIGN NEOPLASM OF CHRISTOPHER 04/26/2016 ANNIA MENG GUEST EXPERIENCE CAPTAIN Ot V76.12 OTH SCREEN MAMMO-MALIGN NEOPLASM OF CHRISTOPHER 04/26/2016 ZAKIA WALDROP MEDICAL EXAMINER Ot Z12.31 ENCNTR SCREEN MAMMOGRAM FOR MALIGNANT NE 04/29/2016 ZAKIA WALDROP MEDICAL EXAMINER Ot R42 DIZZINESS AND GIDDINESS 04/30/2016 ZAKIA WALDROP MEDICAL EXAMINER Ot R42 DIZZINESS AND GIDDINESS 05/02/2016 ZAKIA WALDROP MEDICAL EXAMINER Ot R42 DIZZINESS AND GIDDINESS 05/08/2016 ZAKIA WALDROP MEDICAL EXAMINER Ot R42 DIZZINESS AND GIDDINESS 07/15/2016 ZAKIA WALDROP MEDICAL EXAMINER Ot R42 DIZZINESS AND GIDDINESS 07/15/2016 ZAKIA WALDROP MEDICAL EXAMINER Ot R42 DIZZINESS AND GIDDINESS 07/15/2016 ZAKIA WALDROP MEDICAL EXAMINER Ot R42 DIZZINESS AND GIDDINESS 07/26/2016 Ot 722.52 LUMB/ LUMBOSAC DISC DEGEN 07/26/2016 Ot 787.62 FECAL SMEARING 07/26/2016 Ot 788.30 UNSPECIFIED URINARY INCONTINENCE 07/26/2016 Ot V76.12 OTH SCREEN MAMMO-MALIGN NEOPLASM OF CHRISTOPHER 07/26/2016 Ot V72.84 EXAM PRE- OPERATIVE NOS 07/26/2016 MELODY LEAL MEDICAL EXAMINER Ot V76.12 OTH SCREEN MAMMO-MALIGN NEOPLASM OF CHRISTOPHER 07/26/2016 ANNIA MENG GUEST EXPERIENCE CAPTAIN Ot V76.12 OTH SCREEN MAMMO-MALIGN NEOPLASM OF CHRISTOPHER 07/26/2016 ZAKIA WALDROP MEDICAL EXAMINER Ot Z12.31 ENCNTR SCREEN MAMMOGRAM FOR MALIGNANT NE 07/26/2016 ZAKIA WALDROP MEDICAL EXAMINER Ot R42 DIZZINESS AND GIDDINESS 09/16/2016 MATEUSZ HAYES, ORACIO Friedman Ot M54.16 RADICULOPATHY, LUMBAR REGION 09/16/2016 MATEUSZ HAYES, ORACIO Friedman Ot M54.5 LOW BACK PAIN 09/16/2016 Ot 722.52 LUMB/ LUMBOSAC DISC DEGEN 09/16/2016 Ot 787.62 FECAL SMEARING 09/16/2016 Ot 788.30 UNSPECIFIED URINARY INCONTINENCE 09/16/2016 Ot V76.12 OTH SCREEN MAMMO-MALIGN NEOPLASM OF CHRISTOPHER 09/16/2016 Ot V72.84 EXAM PRE- OPERATIVE NOS 09/16/2016 MELODY LEAL MEDICAL EXAMINER Ot V76.12 OTH SCREEN MAMMO-MALIGN NEOPLASM OF CHRISTOPHER 09/16/2016 ANNIA MENG GUEST EXPERIENCE CAPTAIN Ot V76.12 OTH SCREEN MAMMO-MALIGN NEOPLASM OF CHRISTOPHER 09/16/2016 ZAKIA WALDROP MEDICAL EXAMINER Ot Z12.31 ENCNTR SCREEN MAMMOGRAM FOR MALIGNANT NE 09/16/2016 ZAKIA WALDROP MEDICAL EXAMINER Ot R42 DIZZINESS AND GIDDINESS 09/17/2016 MATEUSZ HAYES, ORACIO T Ot M54.16 RADICULOPATHY, LUMBAR REGION 09/17/2016 MATEUSZ HAYES, ORACIO Friedman Ot M54.5 LOW BACK PAIN 09/22/2016 MATEUSZ HAYES, ORACIO Friedman Ot M54.16 RADICULOPATHY, LUMBAR REGION 09/22/2016 MATEUSZ HAYES, ORACIO Friedman Ot M54.5 LOW BACK PAIN 10/03/2016 ZAKIA WALDROP MEDICAL EXAMINER Ot R42 DIZZINESS AND GIDDINESS 10/31/2017 SWAN DOROSELYN Ot K21.9 GASTRO-ESOPHAGEAL REFLUX DISEASE WITHOUT 10/31/2017 SWAN DO, ROSELYN D Ot R13.10 DYSPHAGIA, UNSPECIFIED 10/31/2017 SWAN DO ROSELYN D Ot Z01.818 ENCOUNTER FOR OTHER PREPROCEDURAL EXAMIN 10/31/2017 SWAN DO ROSELYN D Ot Z12.11 ENCOUNTER FOR SCREENING FOR MALIGNANT NE 11/03/2017 SWAN DO, ROSELYN D Ot K21.9 GASTRO-ESOPHAGEAL REFLUX DISEASE WITHOUT 11/03/2017 SWAN DO ROSELYN D Ot R13.10 DYSPHAGIA, UNSPECIFIED 11/03/2017 SWAN DO ROSELYN D Ot Z01.818 ENCOUNTER FOR OTHER PREPROCEDURAL EXAMIN 11/03/2017 SWAN DOROSELYN D Ot Z12.11 ENCOUNTER FOR SCREENING FOR MALIGNANT NE 11/24/2017 MELODY LEAL MEDICAL EXAMINER Ot V76.12 OTH SCREEN MAMMO-MALIGN NEOPLASM OF CHRISTOPHER 11/24/2017 ANNIA MENG GUEST EXPERIENCE CAPTAIN Ot V76.12 OTH SCREEN MAMMO-MALIGN NEOPLASM OF CHRISTOPHER 11/24/2017 ZAKIA WALDROP MEDICAL EXAMINER Ot Z12.31 ENCNTR SCREEN MAMMOGRAM FOR MALIGNANT NE 11/24/2017 ZAKIA WALDROP MEDICAL EXAMINER Ot R42 DIZZINESS AND GIDDINESS 11/25/2017 ROSELYN SWAN DO Ot Z01.818 ENCOUNTER FOR OTHER PREPROCEDURAL EXAMIN 11/27/2017 DANNY BLAKELY MEDICAL EXAMINER Ot Z12.31 ENCNTR SCREEN MAMMOGRAM FOR MALIGNANT NE 11/27/2017 FENECH DOWILFREDO S Ot R10.2 PELVIC AND PERINEAL PAIN 11/27/2017 WILFREDO GUAJARDO DO S Ot Z90.710 ACQUIRED ABSENCE OF BOTH CERVIX AND UTER 11/27/2017 BENY DOROSELYN D Ot Z01.818 ENCOUNTER FOR OTHER PREPROCEDURAL EXAMIN 12/01/2017 DANNY BLAKELY MEDICAL EXAMINER Ot Z12.31 ENCNTR SCREEN MAMMOGRAM FOR MALIGNANT NE 12/02/2017 SWAN DO, ROSELYN D Ot K21.9 GASTRO-ESOPHAGEAL REFLUX DISEASE WITHOUT 12/02/2017 SWAN DO, ROSELYN D Ot K22.10 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 12/02/2017 SWAN DO, ROSELYN D Ot K44.9 DIAPHRAGMATIC HERNIA WITHOUT OBSTRUCTION 12/02/2017 SWAN DO, ROSELYN D Ot Z12.11 ENCOUNTER FOR SCREENING FOR MALIGNANT NE 12/04/2017 SWAN DO, ROSELYN D Ot K21.9 GASTRO-ESOPHAGEAL REFLUX DISEASE WITHOUT 12/04/2017 SWAN DO, ROSELYN D Ot K22.10 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 12/04/2017 SWAN DO, ROSELYN D Ot K44.9 DIAPHRAGMATIC HERNIA WITHOUT OBSTRUCTION 12/04/2017 SWAN DO, ROSELYN D Ot Z12.11 ENCOUNTER FOR SCREENING FOR MALIGNANT NE 12/04/2017 BENNETT WILFREDO SPENCE S Ot N32.81 OVERACTIVE BLADDER 12/04/2017 BENNETT WILFREDO SPENCE Ot 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 SPHINCTER DEFICIENCY (ISD) 12/04/2017 BENNETT WILFREDO SPENCE Ot N39.3 STRESS INCONTINENCE (FEMALE) (MALE) 12/04/2017 BENNETT DOWILFREDO Ot N81.10 CYSTOCELE, UNSPECIFIED 12/04/2017 BENNETT DO WILFREDO S Ot Z01.818 ENCOUNTER FOR OTHER PREPROCEDURAL EXAMIN 12/04/2017 VERNSTEPHANIE WILFREDO SPENCE S Ot Z80.41 FAMILY HISTORY OF MALIGNANT NEOPLASM OF 12/05/2017 BENNETT DOWILFREDO S Ot N32.81 OVERACTIVE BLADDER 12/05/2017 BENNETT DOWILFREDO S Ot 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 SPHINCTER DEFICIENCY (ISD) 12/05/2017 BENNETT WILFREDO SPENCE Ot N39.3 STRESS INCONTINENCE (FEMALE) (MALE) 12/05/2017 BENNETT DOWILFREDO S Ot N81.10 CYSTOCELE, UNSPECIFIED 12/05/2017 VERNECH DOWILFREDO S Ot Z01.818 ENCOUNTER FOR OTHER PREPROCEDURAL EXAMIN 12/05/2017 BENNETT WILFREDO SPENCE S Ot Z80.41 FAMILY HISTORY OF MALIGNANT NEOPLASM OF 12/05/2017 BENNETT DOWILFREDO S Ot R10.2 PELVIC AND PERINEAL PAIN 12/05/2017 VERNECH DOWILFREDO S Ot Z90.710 ACQUIRED ABSENCE OF BOTH CERVIX AND UTER 12/10/2017 VERNSTEPHANIE DOWILFREDO S Ot R10.2 PELVIC AND PERINEAL PAIN 12/10/2017 WILFREDO GUAJARDO DO Ot Z90.710 ACQUIRED ABSENCE OF BOTH CERVIX AND UTER 12/10/2017 BENNETT DO WILFREDO S Ot N32.81 OVERACTIVE BLADDER 12/10/2017 BENNETT SPENCE WILFREDO S Ot 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 SPHINCTER DEFICIENCY (ISD) 12/10/2017 BENNETT SPENCE WILFREDO Newman Ot N39.46 MIXED INCONTINENCE 12/10/2017 BENNETT SPENCE WILFREDO Newman Ot N81.10 CYSTOCELE, UNSPECIFIED 12/10/2017 BENNETT DO WILFREDO S Ot N83.291 OTHER OVARIAN CYST, RIGHT SIDE 12/10/2017 BENNETT SPENCE WILFREDO Newman Ot N83.8 OTH NONINFLAMMATORY DISORD OF OVARY, FAL 12/10/2017 BENNETT SPENCE WILFREDO Newman Ot N94.89 OTH COND ASSOC W FEMALE GENITAL ORGANS A 12/10/2017 BENNETT SPENCE WILFREDO Newman Ot Z85.43 PERSONAL HISTORY OF MALIGNANT NEOPLASM O 12/11/2017 MELODY LEAL MEDICAL EXAMINER Ot V76.12 OTH SCREEN MAMMO-MALIGN NEOPLASM OF CHRISTOPHER 12/11/2017 ANNIA MENG GUEST EXPERIENCE CAPTAIN Ot V76.12 OTH SCREEN MAMMO-MALIGN NEOPLASM OF CHRISTOPHER 12/11/2017 ZAKIA WALDROP MEDICAL EXAMINER Ot Z12.31 ENCNTR SCREEN MAMMOGRAM FOR MALIGNANT NE 12/11/2017 ZAKIA WALDROP MEDICAL EXAMINER Ot R42 DIZZINESS AND GIDDINESS 12/11/2017 BENNETT SPENCE WILFREDO Paty Ot R10.2 PELVIC AND PERINEAL PAIN 12/11/2017 BENNETT SPENCE WILFREDO Newman Ot Z90.710 ACQUIRED ABSENCE OF BOTH CERVIX AND UTER 12/11/2017 DANNY BLAKELY MEDICAL EXAMINER Ot Z12.31 ENCNTR SCREEN MAMMOGRAM FOR MALIGNANT NE 12/11/2017 ROSELYN SWAN DO Ot K21.9 GASTRO-ESOPHAGEAL REFLUX DISEASE WITHOUT 12/11/2017 ROSELYN SWAN DO Ot K22.10 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 12/11/2017 ROSELYN SWAN DO Ot K44.9 DIAPHRAGMATIC HERNIA WITHOUT OBSTRUCTION 12/11/2017 ROSELYN SWAN DO Ot Z12.11 ENCOUNTER FOR SCREENING FOR MALIGNANT NE 12/12/2017 PORTIA PECK GUEST EXPERIENCE CAPTAIN Ot R92.2 INCONCLUSIVE MAMMOGRAM 12/12/2017 BENNETT SPENCE WILFREDO S Ot N32.81 OVERACTIVE BLADDER 12/12/2017 WILFREDO GUAJARDO DO Ot 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 SPHINCTER DEFICIENCY (ISD) 12/12/2017 WILFREDO GUAJARDO DO Ot N39.46 MIXED INCONTINENCE 12/12/2017 WILFREDO GUAJARDO DO Ot N81.10 CYSTOCELE, UNSPECIFIED 12/12/2017 WILFREDO GUAJARDO DO Ot N83.291 OTHER OVARIAN CYST, RIGHT SIDE 12/12/2017 BENNETT SPENCE WILFREDO Newman Ot N83.8 OTH NONINFLAMMATORY DISORD OF OVARY, FAL 12/12/2017 BENNETT SPENCE WILFREDO Newman Ot N94.89 OTH COND ASSOC W FEMALE GENITAL ORGANS A 12/12/2017 WILFREDO GUAJARDO DO Ot Z85.43 PERSONAL HISTORY OF MALIGNANT NEOPLASM O 12/19/2017 PORTIA PECK GUEST EXPERIENCE CAPTAIN Ot C50.912 MALIGNANT NEOPLASM OF UNSPECIFIED SITE O 12/19/2017 MELODY LEAL MEDICAL EXAMINER Ot V76.12 OTH SCREEN MAMMO-MALIGN NEOPLASM OF CHRISTOPHER 12/19/2017 ANNIA MENG GUEST EXPERIENCE CAPTAIN Ot V76.12 OTH SCREEN MAMMO-MALIGN NEOPLASM OF CHRISTOPHER 12/19/2017 ZAKIA WALDROP MEDICAL EXAMINER Ot Z12.31 ENCNTR SCREEN MAMMOGRAM FOR MALIGNANT NE 12/19/2017 ZAKIA WALDROP MEDICAL EXAMINER Ot R42 DIZZINESS AND GIDDINESS 12/19/2017 BENNETT SPENCE WILFREDO Newman Ot R10.2 PELVIC AND PERINEAL PAIN 12/19/2017 BENNETT SPENCE WILFREDO Newman Ot Z90.710 ACQUIRED ABSENCE OF BOTH CERVIX AND UTER 12/19/2017 DANNY BLAKELY MEDICAL EXAMINER Ot Z12.31 ENCNTR SCREEN MAMMOGRAM FOR MALIGNANT NE 12/19/2017 PORTIA PECK GUEST EXPERIENCE CAPTAIN Ot R92.2 INCONCLUSIVE MAMMOGRAM 12/19/2017 PORTIA PECK GUEST EXPERIENCE CAPTAIN Ot C50.912 MALIGNANT NEOPLASM OF UNSPECIFIED SITE O Procedures Code Description [place] [address] IV INFUSION 05/15/2012 J7030 NORMAL SALINE SOLUTION INFUS 05/15/2012 55150 ROUTINE VENIPUNCTURE 06/29/2012 09288 LIPID PANEL 06/29/2012 87760 ROUTINE VENIPUNCTURE 03/12/2013 71773 MAMMOGRAM, SCREENING 03/12/2013 90010 HEMOCCULT 03/12/2013 18862 GC/CHLAM PROBE (STATE) 03/12/2013 52356 PAP SMEAR 03/12/2013 Q0091 PAP SMEAR OBTAIN SMEAR 03/12/2013 49512 TRICHOMONAS (IN-HOUSE) 03/12/2013 9390766 GFR CALC (RESULT ONLY) 03/12/2013 38833 CMP 03/12/2013 39300 LIPID PANEL 03/12/2013 36741 CA 125 03/12/2013 03851 CULTURE UROGENITAL 03/15/2013 04216 UA W/ CULTURE IF INDICATED 03/30/2013 Results [...] 34.9 g/dL 32.0-36.0 MCV 88.4 fL 80.0-100.0 Morgan # 0.6 x10^3/UL 0.1-0.6 Morgan % 6.3 % 2.0-14.0 MPV 9.2 FL 7.8-11.0 Platelet 305 x10^3/UL 150-450 RBC 4.76 x10^6/UL 4.40-6.10 Baso # 0.04 x10^3/UL 0.00-0.20 Baso % 0.50 % 0.00-2.00 WBC 8.8 x10^3/UL 4.5-10.5 RDW 12.9 % 11.5-13.7 NEUT # 5.1 x10^3/UL 1.5-7.5 NEUT % 57.9 % 38.0-80.0 C-Reactive Protein (CRP) - 10/02/17 10:10 C-Reactive Protein (CRP) 1.0 mg/dL <=0.9 Methicillin resistant Staphylococcus aureus (MRSA) screening culture - 06:16 Methicillin resistant Staphylococcus aureus (MRSA) screening culture NEG NRG Complete blood count (CBC) with automated white blood cell (WBC) differential - 12/09/17 06:32 Blood leukocytes automated count (number/volume) 5.4 10*3/uL 4.3-11.0 Blood erythrocytes automated count (number/volume) 4.38 10*6/uL 4.35-5.85 Venous blood hemoglobin measurement (mass/volume) 13.5 g/dL 11.5-16.0 Blood hematocrit (volume fraction) 38 % 35-52 Automated erythrocyte mean corpuscular volume 87 [foz_us] 80-99 Automated erythrocyte mean corpuscular hemoglobin (mass per erythrocyte) 31 pg 25-34 Automated erythrocyte mean corpuscular hemoglobin concentration measurement ( mass/volume) 35 g/dL 32-36 Automated erythrocyte distribution width ratio 13.0 % 10.0-14.5 Automated blood platelet count (count/volume) 257 10*3/uL 130-400 Automated blood platelet mean volume measurement 9.3 [foz_us] 7.4-10.4 Automated blood neutrophils/100 leukocytes 55 % 42-75 Automated blood lymphocytes/100 leukocytes 35 % 12-44 Blood monocytes/100 leukocytes 8 % 0-12 Automated blood eosinophils/100 leukocytes 2 % 0-10 Automated blood basophils/100 leukocytes 1 % 0-10 Blood neutrophils automated count (number/volume) 2.9 10*3 1.8-7.8 Blood lymphocytes automated count (number/volume) 1.9 10*3 1.0-4.0 Blood monocytes automated count (number/volume) 0.4 10*3 0.0-1.0 Automated eosinophil count 0.1 10*3/uL 0.0-0.3 Automated blood basophil count (count/volume) 0.0 10*3/uL 0.0-0.1 Blood type T Indirect antibody screen panel - 12/09/17 06:32 ABO+Rh group AP NRG Transfusion band number [id number] NRG Blood group antibody screen NEGATIVE NRG Encounters ACCT No. Visit Date/Time Discharge Status Pt. Type Provider Facility Loc./Unit Complaint [id number] 03/15/2014 08:57:00 03/15/2014 23:59:59 CLS Outpatient SKYLA MAYER DO [id number] 07/02/2013 14:14:00 07/02/2013 23:59:59 CLS Outpatient JAVDE ROGER MD [id number] 03/30/2013 17:22:00 03/30/2013 23:59:59 CLS Outpatient SKYLA AMYER DO [id number] 03/12/2013 09:09:00 03/12/2013 23:59:59 CLS Outpatient SKYLA MAYER DO [id number] 06/29/2012 13:06:00 06/29/2012 23:59:59 CLS Outpatient SKYLA MAYER DO [id number] 05/15/2012 09:44:00 05/15/2012 23:59:59 CLS Outpatient SKYLA MAYER DO [id number] 04/24/2016 08:06:00 Document Registration [id number] 10/02/2017 10:03:00 10/02/2017 23:59:00 DIS Outpatient WillaminaHussain [id number] 10/02/2017 11:34:00 Document Registration [id number] 03/13/2016 07:06:00 Document Registration [id number] 12/03/2017 13:20:00 12/03/2017 23:59:59 CLS Outpatient SKYLA MAYER DO [facility] [id number] 12/24/2017 07:45:00 12/24/2017 23:59:59 CLS Preadmit ADITYA TEMPLE MD [facility] RAD DYSPHAGIA,BREAST CANCER [id number] 12/19/2017 09:19:00 12/19/2017 23:59:59 CLS Outpatient ADITYA TEMPLE MD [facility] ONC [id number] 12/12/2017 07:39:00 12/12/2017 23:59:59 CLS Outpatient PORTIA PECK APRN [facility] RAD ABN MAMMO [id number] 12/11/2017 10:24:00 12/11/2017 23:59:59 CLS Outpatient LIVPORTIA GUEST EXPERIENCE CAPTAIN [facility] RAD ABNORMAL MAMMOGRAM [id number] 12/09/2017 05:52:00 12/10/2017 13:30:00 DIS Outpatient WILFREDO GUAJARDO DO [facility] SDC FAM HX OVARIAN CA, INCONTINENCE [id number] 12/04/2017 13:54:00 12/04/2017 23:59:59 CLS Preadmit PORTIA PECK GUEST EXPERIENCE CAPTAIN [facility] RAD ABNORMAL MAMMOGRAM [id number] 12/04/2017 05:41:00 12/04/2017 10:15:00 DIS Outpatient WILFREDO GUAJARDO DO [facility] PREOP FAM HX OVARIAN CA, INCONTINENCE [id number] 12/02/2017 07:03:00 12/02/2017 09:45:00 DIS Outpatient ROSELYN SWAN DO [facility] ENDO SCREENING/GERD/ DYSPHAGIA [id number] 11/25/2017 09:52:00 11/25/2017 23:59:59 CLS Outpatient DANNY BLAKELY [facility] RAD SCREENING [id number] 11/25/2017 09:47:00 11/25/2017 23:59:59 CLS Outpatient WILFREDO GUAJARDO DO [facility] RAD PELVIC PRESSURE IN FEMALE,POSTMENOPAUSAL [id number] 11/25/2017 05:33:00 11/25/2017 11:39:00 DIS Outpatient ROSELYN SWAN DO [facility] PREOP COLONOSCOPY/EGD [id number] 10/31/2017 05:31:00 10/31/2017 13:57:00 DIS Outpatient ROSELYN SWAN DO [facility] PREOP COLONOSCOPY/EGD [id number] 09/30/2017 09:00:00 09/30/2017 23:59:59 CLS Preadmit DANNY BLAKELY [facility] RAD SCREENING [id number] 09/16/2016 08:14:00 09/16/2016 10:42:00 DIS Emergency ORACIO CHILD MD [facility] ER BACK PAIN [id number] 04/26/2016 13:31:00 04/26/2016 23:59:59 CLS Outpatient WALDROP ZAKIA A MEDICAL EXAMINER [facility] RAD VERTIGO [id number] 03/27/2016 17:29:00 03/27/2016 21:07:00 DIS Emergency ORACIO CHILD MD [facility] ER DIZZINESS [id number] 03/14/2016 12:46:00 03/14/2016 23:59:59 CLS Outpatient WALDROPZAKIA MEDICAL EXAMINER [facility] RAD SCREENING [id number] 10/25/2014 09:14:00 10/25/2014 23:59:59 CLS Outpatient TAQUERIAANNIA Phillips GUEST EXPERIENCE CAPTAIN [facility] RAD SCREENING [id number] 03/26/2013 10:37:00 03/26/2013 23:59:59 CLS Outpatient MELODY LEAL MEDICAL EXAMINER [facility] RAD SCREENING [id number] 10/25/2014 09:14:00 Document Registration [id number] 10/25/2014 09:14:00 Document Registration [id number] 03/11/2012 07:32:00 Document Registration [id number] 02/21/2016 10:05:00 Document Registration [email or web address] 10/25/2014 09:15:03 ACT Document Registration [id number] 03/10/2016 13:05:00 Document Registration
[2018-01-22] MEDS ORDERED: LIDOCAINE 1% INJ 20 ML 20 ML VIAL INJ ONE ×2 (09:21→11:30)
[2018-01-22] MEDS ORDERED: BUPIVACAINE 0.5% 30 ML (SENSORCAINE) VIAL INJ ONE ×2 (09:21→11:30)
[2018-01-22] MEDS ORDERED: fentaNYL INJECTION 100 MCG/2 ML AMP INJ ONE ×2 (10:34→12:01)
[2018-01-22] MEDS ORDERED: MIDAZOLAM 2 MG/2 ML (VERSED) VIAL INJ ONE (10:37)
[2018-01-22] MEDS ORDERED: DEXAMETHASONE 10 MG/ML (DECADRON) 1 ML VIAL IV ONE (11:16)
[2018-01-22] MEDS ORDERED: SEVOFLURANE (ULTANE) 15 ML INHAL SOLN INH ONE ×5 (11:16→12:07)
[2018-01-22] MEDS ORDERED: LIDOCAINE PF 2% 5 ML (XYLOCAINE) VIAL INJ ONE (11:20)
[2018-01-22] MEDS ORDERED: ONDANSETRON 4 MG/2 ML (SDV) Z0FRAN IV ONE ×2 (11:20→12:15)
[2018-01-22] MEDS ORDERED: GLYCOPYRROLATE 0.2 MG/ML (ROBINUL) 2 ML VIAL IJ ONE (12:10)
[2018-01-22] MEDS ORDERED: proPOfol 200 MG/20 ML (DIPRIVAN) VIAL IV ONE (12:10)
--- NOTE | 2018-01-22 12:21 | Progress Note-Post Operative ---
Post-Operative Progess Note Surgeon (s)/Gum Cook (s) Surgeon ROSELYN SWAN DO Gum Cook: Dr. Kc Pre-Operative Diagnosis Left BREAST CANCER Post-Operative Diagnosis same Procedure & Operative Findings Date of Procedure 01/22/18 Procedure Performed/Findings Left simple mastectomy with sentinel node biopsy Anesthesia Type general Estimated Blood Loss Estimated blood loss (mL): min Specimens/Packing Specimens Removed left breast and sentinel nodes x 3: #[phone] #2-61 #3-212 (counts) ROSELYN SWAN DO Jan 22, 2018 12:21
--- NOTE | 2018-01-22 12:22 | Progress Note-Pre Operative ---
Pre-Operative Progress Note H&P Reviewed The H&P was reviewed, patient examined and no changes noted. Date Seen by Provider: Jan 22, 2018 Time Seen by Provider: 10:30 Date H&P Reviewed: Jan 22, 2018 Time H&P Reviewed: 10:30 Pre-Operative Diagnosis: left breast cancer ROSELYN SWAN DO Jan 22, 2018 12:21
[2018-01-22] MEDS ORDERED: HYDROcodone/APAP 5 MG/325 MG (LORTAB) TAB PO PRN (12:30)
[2018-01-22] MEDS ORDERED: morphine INJ 10 MG/ML 1ML (SYR OR VIAL) IVP ONE (12:45)
[2018-01-22] MEDS ORDERED: HYDROmorphone 2 MG/ML VIAL (DILAUDID) IV ONE (12:45)
[2018-01-22] MEDS ORDERED: ONDANSETRON 4 MG/2 ML (SDV) Z0FRAN IVP PRN (12:45)
--- NOTE | 2018-01-22 14:20 | Diagnostic Imaging Report ---
Indication: Left breast cancer. Technique: 1.1 mCi of technetium 99 M. Sulfur colloid was injected in 4 quadrants about the left areola. Findings: Two images demonstrate a solitary sentinel node in the left axilla. Impression: [place] node injection as described. Dictated by: Dictated on workstation # [id number]
[2018-01-22] MEDS ORDERED: morphine INJ 4 MG/ML 1 ML (VIAL/SYRINGE) ONE (14:50)
[2018-01-22] MEDS: LACTATED RINGERS 1,000 ML IV SCH ×2 (14:56→23:37)
[2018-01-22] MEDS: ONDANSETRON 4 MG/2 ML (SDV) Z0FRAN IVP PRN (18:04)
[2018-01-22] MEDS: ceFAZolin 2 GM IV Premixed 50 ML IV SCH (18:04)
[2018-01-22 20:20] VITALS: BP 127/60
[2018-01-22] MEDS: morphine INJ 10 MG/ML 1ML (SYR OR VIAL) IVP PRN (20:48)
[2018-01-22 21:39] VITALS: BP 127/60
[2018-01-23 00:02] VITALS: BP 111/57
[2018-01-23] MEDS: ceFAZolin 2 GM IV Premixed 50 ML IV SCH (03:30)
[2018-01-23] MEDS: morphine INJ 10 MG/ML 1ML (SYR OR VIAL) IVP PRN (04:25)
[2018-01-23 04:32] VITALS: BP 115/57
[2018-01-23] MEDS: LACTATED RINGERS 1,000 ML IV SCH ×2 (05:47→08:29)
--- NOTE | 2018-01-23 07:11 | Anesthesia-General Post-Op ---
General Patient Condition Mental Status/LOC: Same as Preop Cardiovascular: Satisfactory Nausea/Vomiting: Absent Respiratory: Satisfactory Pain: Controlled Complications: Absent Post Op Complications Complications None Follow Up Care/Instructions Patient Instructions None needed. Anesthesia/Patient Condition Patient Condition Patient is doing well, no complaints, stable vital signs, no apparent adverse anesthesia problems. No complications reported per nursing. MARISSA TY CRNA Jan 23, 2018 07:11
[2018-01-23 08:00] VITALS: BP 112/65
[2018-01-23] MEDS: ONDANSETRON 4 MG/2 ML (SDV) Z0FRAN IVP PRN (08:27)
[2018-01-23] MEDS ORDERED: IBUPROFEN TABLET 200 MG TAB PO PRN (11:45)
[2018-01-23 12:00] VITALS: BP 121/75
[2018-01-23 15:05] VITALS: BP 120/75
--- NOTE | 2018-01-23 16:50 | Progress Note ---
Subjective Date Seen by Provider: Jan 23, 2018 Time Seen by Provider: 12:00 Subjective/Events-last exam Patient with headache, she feels due to morphine. Pain other pulido controlled, most pain in the left axilla. Wanting to go home. No other complaints, denies n/v fever sweats chills shortness of breath or chest pain. Objective Exam Vital Signs Date Time Temp Pulse Resp B/P (MAP) Pulse Ox O2 Delivery O2 Flow Rate FiO2 01/23/18 15:05 55 20 120/75 98 Nasal Cannula 01/23/18 12:00 97.6 55 20 121/75 (90) 98 Nasal Cannula 0.50 01/23/18 09:00 Room Air 01/23/18 08:00 97.0 51 18 112/65 (81) 98 Nasal Cannula 0.50 01/23/18 04:32 98.2 62 17 115/57 (76) 98 Nasal Cannula 2.00 01/23/18 00:02 97.7 65 18 111/57 (75) 97 Nasal Cannula 2.00 01/22/18 22:36 Nasal Cannula 1.00 01/22/18 20:20 98.5 67 20 127/60 (82) 97 Nasal Cannula 2.00 01/22/18 20:19 Nasal Cannula 1.00 I & O 01/23/18 07:00 Intake Total 5090 ml Output Total 680 ml Balance 4410 ml Capillary Refill : General Appearance: No Apparent Distress Respiratory: No Accessory Muscle Use, No Respiratory Distress Cardiovascular: Regular Rate, Rhythm Gastrointestinal: non tender, soft Extremity: Normal Inspection, Non Tender Neurologic/Psychiatric: Alert, Oriented x3 Skin: Warm/Dry Other comments left chest incision c/d/i no signs of infection yoana drain serosang Assessment/Plan Assessment/Plan Assessment/Plan left breast cancer s/p left mastectomy c sentinel node biopsy doing well pain control if pain controlled with oral pain medication will dc- ibuprofen is what patient is requesting Final Diagnosis left breast cancer s/p left mastectomy and sentinel node biopsy Clinical Quality Measures DVT/VTE Risk/Contraindication: Risk Factor Score Per Nursin RFS Level Per Nursing on Admit: 4+=Very High ROSELYN SWAN DO Jan 23, 2018 16:50
--- NOTE | 2018-01-28 00:14 | OPERATIVE REPORT ---
DATE OF SERVICE: 01/22/2018 PREOPERATIVE DIAGNOSIS: Left breast cancer. POSTOPERATIVE DIAGNOSIS: Left breast cancer. PROCEDURE: Simple mastectomy with sentinel node biopsy. SURGEON: Roselyn Burgess DO BREASTFEEDING EDUCATOR: Dr. Kc, assisted in retraction, dissection and closure. ESTIMATED BLOOD LOSS: Minimal. COMPLICATIONS: None. INDICATIONS: The patient is a 62-year-old female with recent diagnosis of breast cancer. She elected to have mastectomy with sentinel node biopsy. She understands risks and benefits of procedure and wished to proceed with procedure. Consent was signed in the chart. DESCRIPTION OF PROCEDURE: The patient was taken to the operating suite. She was prepped and draped in sterile fashion. Surgical pause was performed. The elliptical incision was made in medial to lateral on the breast taking the nipple and areolar complex and also including the biopsy scar as well. The flaps were created superiorly and inferiorly to the level of the left clavicle also to the rectus abdominis muscles. The fascia was then elevated off of the pectoral major fascia, which was then removed in a medial to lateral dissection laterally, removing the breast in its entirety laterally to the latissimus dorsi muscle. The axilla was opened and using the counter the first node was isolated and dissected around and removed. Previous insertion of the breast was injected with dye for lymphatic. The first node was blue and a count of 1093. A second node was palpable as well present which node #2 count was 61. A third lymph node was found measuring 212. No other palpable nodes present within the axilla. The wound was irrigated with copious amounts of sterile water. Hemostasis had been achieved. A drain was placed through a stab incision inferior to the breast. This was secured in the usual fashion. The subcutaneous tissues were then reapproximated using 3-0 Vicryl. The skin was then closed using 4-0 Monocryl. The chest was then washed and dried and Skin Affix was placed over the incisions. The patient tolerated the procedure well without any complications. She was taken to recovery room in stable condition. Job ID: [id number] DocumentID: [id number] Dictated Date: 01/27/2018 17:14:36 Bacteriologist Medical Date: 01/27/2018 22:58:48 Dictated By: ROSELYN BURGESS DO
== END 2018-01-23 15:05 | disposition home or self-care (01) ==
LOC: CARD 06:39 → 4TH 14:46 → CARD 01-23 15:05
PROVIDERS: ATTEND Surgery
DX: C50.912 Malignant neoplasm of unspecified site of left female breast (principal); K21.9 Gastro-esophageal reflux disease without esophagitis; K44.9 Diaphragmatic hernia without obstruction or gangrene; G56.92 Unspecified mononeuropathy of left upper limb; Z72.0 Tobacco use
CPT/HCPCS: 78195; 88305; 88307; 88342

== ENCOUNTER 2018-02-01 10:05 | Emergency (ER) | payer OTHER ==
[~2018-02-01] VITALS: Ht 170.2 cm; Wt 74.8 kg
--- OUTSIDE RECORDS SUMMARY | 2018-02-01 10:10 | XMS REPORT ---
Author Author PORTIA PECK [facility] Address [address] [place] [address] Care Team Providers Care Nba Player Name Role Phone EMMANUELLE PECKTA Unavailable PROBLEMS Type Condition ICD9-CM Code QPK70-IS Code Onset Dates Condition Status SNOMED Code Problem Mixed hypercholesterolemia and hypertriglyceridemia E78.2 Active 250861377 Problem Gastroesophageal reflux disease, esophagitis presence not specified K21.9 Active 417238402 Problem Mixed incontinence N39.46 Active 971028245 Problem Abnormal mammogram R92.8 Active 028295540 Problem Fallen bladder N81.10 Active 345437147 Problem Intractable migraine without status migrainosus, unspecified migraine type G43.919 Active 276309862 Problem Vertigo R42 Active 096479866 Problem Inflammation of joint of finger of right hand M19.041 Active 694790368 Problem Gastroesophageal reflux disease with esophagitis K21.0 Active 970765704 ALLERGIES No Information ENCOUNTERS Encounter Location Date Diagnosis [place] [id number] [place] [id number] [place] [address] 30733- 5077 Nov, Abnormal mammogram R92.8 [place] [id number] [place] [address] 91076- 9555 Nov, Abnormal mammogram R92.8 [facility] [id number] [place] [address] 83648- 7065 Nov, [facility] [id number] [place] [address] 19083- 5322 Nov, Abnormal mammogram R92.8 [place] [id number] [place] [address] 41074- 1304 September, Bronchitis J40 ; Rash R21 ; Fallen bladder N81.10 ; Breast cancer screening Z12.31 ; Family history of ovarian cancer Z80.41 and Hiatal hernia K44.9 [facility] [place] [id number] [place] [address] 22935 -5566 Oct, Pain of right middle finger M79.644 and Inflammation of joint of finger of right hand M19.041 [place] [address] 0[address]- 5677 Jul, [facility] [address] [address] Jul, Sore throat J02.9 ; Acute upper respiratory infection, unspecified J06.9 and Other viral agents as the cause of diseases classified elsewhere B97.[address] [address]- [address]27 May, Intractable migraine without status migrainosus, unspecified migraine type G43.919 ; Vertigo R42 and Gastroesophageal reflux disease with esophagitis K21.0 [place] [address] 76333- 2251 May, [place] [address] 03472- 1852 Apr, [facility] [place] [id number] [place] [address] 85257 -8395 Mar, Chronic intractable headache, unspecified headache type R51 ; Dizziness R42 and Vertigo R42 [facility] [address] 31023 [address]69[address] Mar, Vertigo R42 [place] [id number] [place] [address] 82923- 7019 Mar, [facility] [address] 74[address]01[address] Feb, Dizziness R42 ; Acute non-recurrent frontal sinusitis J01.10 and Gastroesophageal reflux disease, esophagitis presence not specified K21.9 [facility] [address] [address]27 [address]16[address] Feb, Dizziness R42 [place] [address] [place] [id number] [place] [address] 17596- 3175 Feb, [place] [address] [id number] [place] [address] 32700- 3668 Feb, Well woman exam with routine gynecological exam Z01.419 ; Mixed incontinence N39.46 and Mixed hypercholesterolemia and hypertriglyceridemia E78.2 [place] [address] 87165- 2293 Jan, Family history of ovarian cancer Z80.41 and Wellness examination Z00.00 [place] [address] 04096- 3198 26 Jan, 2016 Low back pain M54.5 ; Other chronic pain G89.29 ; Establishing care with new doctor, encounter for Z71.89 ; Wellness examination Z00.00 and Family history of ovarian cancer Z80.41 [place] [address] [id number] [place] [address] 54063- 3406 September, Routine gynecological examination V72.31 ; Breast cancer screening V76.10 ; Family history of ovarian cancer V16.41 ; Laboratory exam ordered as part of routine general medical examination V72.62 ; Mixed urge and stress incontinence 788.33 and Heart burn 787.1 [place] [id number] [place] [address] 68094- 4513 Aug, [place] [address] [address] [id number] [place] [address] 83493- 2985 Aug, [place] [id number] [place] [address] 27202- 4194 Feb, [place] [address] 06068- 0306 Feb, [place] [address] [id number] [place] [address] 01980- 4275 Jun, [place] [address] 73761- 1316 Jun, [facility] [place] [facility] [address] [id number] [place] [address]- 7734 Apr, [facility] [place] [facility] [address] [id number] [place] [address]266 Mar, [facility] [place] [facility] [address] [id number] [place] [address]- 6738 Mar, [facility] [place] [facility] [address] [id number] [place] [address]- 2798 Mar, [facility] [place] [facility] [address] [id number] [place] [address]- 0263 Mar, [facility] [place] [facility] [address] [id number] [place] [address]- 1419 Feb, [facility] [place] [facility] [address] [id number] [place] [address]- 5044 Feb, [facility] [place] [facility] [address] [id number] [place] [address]- 7832 Feb, [facility] [place] [facility] [address] [id number] [place] [address]- 7454 Feb, [facility] [place] [facility] [address] [id number] [place] [address]- 5952 Feb, [facility] [place] [facility] [address] [id number] [place] [address]- 3941 Jun, [facility] [place] [facility] [address] [id number] [place] [address]- 4772 Jun, [facility] [place] [facility] [address] [id number] [place] [address] Apr, [facility] [place] [facility] [address] [id number] [place] 9020 Apr, [facility] [place] [facility] [address] [id number] [place] [address]- 2960 Apr, [facility] [place] [facility] [address] [id number] [place] [address]- 1094 Apr, [facility] [place] [facility] [address] [id number] [place] [address]- 8813 Feb, [facility] [place] [facility] [address] [id number] [place] [address]- 4501 Dec, [facility] [place] [facility] [address] [id number] [place] [address]- 6004 Dec, [facility] [place] [facility] [address] [id number] [place] [address]- 7061 Dec, [facility] [place] [facility] [address] [id number] [place] [address]- 7542 Dec, [facility] [place] [facility] [address] [id number] [place] [address]- 8516 Dec, [facility] [place] [facility] [address] [id number] [place] [address]- 8714 Dec, [facility] [place] [facility] [address] [id number] [place] [address]- 1103 Dec, [facility] [place] [facility] [address] [id number] [place] [address]- 3716 Dec, [facility] [place] [facility] [address] [id number] [place] [address]- 0952 Dec, [facility] [place] [facility] [address] [id number] [place] [address]- 3876 Dec, [facility] [place] [facility] [address] [id number] [place] [address]- 6578 Dec, [facility] [place] [facility] [address] [id number] [place] [address]- 6803 Dec, [facility] [place] [facility] [address] [id number] [place] [address]- 9239 Dec, [facility] [place] [facility] [address] [id number] [place] [address]- 5424 Oct, IMMUNIZATIONS No Known Immunizations SOCIAL HISTORY Never Assessed REASON FOR VISIT Further testing needed PLAN OF CARE VITAL SIGNS MEDICATIONS Unknown Medications RESULTS Name Result Date Reference Range Ultrasound : Biopsy Breast Left PROCEDURES No Known procedures INSTRUCTIONS MEDICATIONS ADMINISTERED No Known Medications MEDICAL (GENERAL) HISTORY Type Description Date Medical History depression Medical History Cough Surgical History cholecystectomy Surgical History partial hysterectomy Surgical History shoulder arthroscopy (B) Surgical History Left arm bicep repair 01/12/2016 Surgical History medial nerve intrapement release on the left arm Surgical History EGD, Colonosopy 2017 Hospitalization History ER visit for headache 03/27/16
--- OUTSIDE RECORDS SUMMARY | 2018-02-01 10:10 | XMS REPORT ---
Author Author PORTIA PECK [facility] Address [address] [place] [address] Care Team Providers Care Clinical Researcher Name Role Phone EMMANUELLE PECKTA Unavailable PROBLEMS Type Condition ICD9-CM Code PYQ77-CB Code Onset Dates Condition Status SNOMED Code Problem Mixed hypercholesterolemia and hypertriglyceridemia E78.2 Active 412823932 Problem Gastroesophageal reflux disease, esophagitis presence not specified K21.9 Active 974157446 Problem Mixed incontinence N39.46 Active 990824341 Problem Abnormal mammogram R92.8 Active 288057566 Problem Fallen bladder N81.10 Active 467080105 Problem Intractable migraine without status migrainosus, unspecified migraine type G43.919 Active 667804507 Problem Vertigo R42 Active 905137954 Problem Inflammation of joint of finger of right hand M19.041 Active 431781539 Problem Gastroesophageal reflux disease with esophagitis K21.0 Active 808833657 ALLERGIES No Known Allergies ENCOUNTERS Encounter Location Date Diagnosis [facility] [id number] [place] [address] 42200- 1371 Nov, Abnormal mammogram R92.8 [place] [address] [place] [id number] [place] [address] 50037- 4657 Nov, Abnormal mammogram R92.8 [facility] [id number] [place] [address] 40163- 0140 Nov, [facility] [id number] [place] [address] 52393- 9507 Nov, Abnormal mammogram R92.8 [facility] [id number] [place] [address] 89791- 9614 September, Bronchitis J40 ; Rash R21 ; Fallen bladder N81.10 ; Breast cancer screening Z12.31 ; Family history of ovarian cancer Z80.41 and Hiatal hernia K44.[address] [facility] WALK IN [address] [address] -[address]66 Oct, Pain of right middle finger M79.644 and Inflammation of joint of finger of right hand M19.041 [place] [address] 39991- 3003 Jul, [facility] [address] 59688 -8128 Jul, Sore throat J02.9 ; Acute upper respiratory infection, unspecified J06.9 and Other viral agents as the cause of diseases classified elsewhere B97.[address] 28658- 7467 May, Intractable migraine without status migrainosus, unspecified migraine type G43.919 ; Vertigo R42 and Gastroesophageal reflux disease with esophagitis K21.0 [place] [address] 05165- 1186 May, [place] [address] 46326- 5143 Apr, [facility] IN [address] 86197 -6516 Mar, Chronic intractable headache, unspecified headache type R51 ; Dizziness R42 and Vertigo R42 [facility] IN [address] 00788 -0478 Mar, Vertigo R42 [place] [address] 97171- 7246 Mar, [facility] [address] 89664 -2310 Feb, Dizziness R42 ; Acute non-recurrent frontal sinusitis J01.10 and Gastroesophageal reflux disease, esophagitis presence not specified K21.[address] [facility] [address] 99691 -0568 Feb, Dizziness R42 [facility] [id number] [place] [address] 28977- 5533 Feb, [place] [address] [id number] [place] [address] 33708- 3113 Feb, Well woman exam with routine gynecological exam Z01.419 ; Mixed incontinence N39.46 and Mixed hypercholesterolemia and hypertriglyceridemia E78.2 [place] [address] 75099- 7359 27 Jan, 2016 Family history of ovarian cancer Z80.41 and Wellness examination Z00.00 [place] [address] 74512- 8857 26 Jan, 2016 Low back pain M54.5 ; Other chronic pain G89.29 ; Establishing care with new doctor, encounter for Z71.89 ; Wellness examination Z00.00 and Family history of ovarian cancer Z80.41 [place] [address] 39341- 5932 September, Routine gynecological examination V72.31 ; Breast cancer screening V76.10 ; Family history of ovarian cancer V16.41 ; Laboratory exam ordered as part of routine general medical examination V72.62 ; Mixed urge and stress incontinence 788.33 and Heart burn 787.1 [place] [address] [id number] [place] [address] 50576- 8652 Aug, [place] [address] [id number] [place] [address] 38828- 2627 Aug, [place] [address] [id number] [place] [address] 19769- 1297 Feb, [place] [address] 22143- 5648 Feb, [place] [address] [place] [id number] [place] [address] 47354- 2103 Jun, [place] [address] 45161- 2546 Jun, [facility] [place] [facility] [address] [id number] [place] [address]- 3652 Apr, [facility] [place] [facility] [address] [id number] [place] [address]- 4366 Mar, [facility] [place] [facility] [address] [id number] [place] [address]- 9100 Mar, [facility] [place] [facility] [address] [id number] [place] [address]- 1372 Mar, [facility] [place] [facility] [address] [id number] [place] [address]- 2553 Mar, [facility] [place] [facility] [address] [id number] [place] [address]- 1364 Feb, [facility] [place] [facility] [address] [id number] [place] [address]- 7136 Feb, [facility] [place] [facility] [address] [id number] [place] [address]- 5327 Feb, [facility] [place] [facility] [address] [id number] [place] [address]- 9012 Feb, [facility] [place] [facility] [address] [id number] [place] [address]- 9507 Feb, [facility] [place] [facility] [address] [id number] [place] [address]- 3469 Jun, [facility] [place] [facility] [address] [id number] [place] [address]- 1277 Jun, [facility] [place] [facility] [address] [id number] [place] 4153 Apr, [facility] [place] [facility] [address] [id number] [place] [address]- 9502 Apr, [facility] [place] [facility] [address] [facility] [id number] [place] [address]- 4294 Apr, [facility] [place] [facility] [address] [id number] [place] [address]- 8871 Apr, [facility] [place] [facility] [address] [id number] [place] [address]- 3544 Feb, [facility] [place] [facility] [address] [id number] [place] [address]- 1626 Dec, [facility] [place] [facility] [address] [id number] [place] [address]- 9196 Dec, [facility] [place] [facility] [address] [id number] [place] [address]- 7343 Dec, [facility] [place] [facility] [address] [id number] [place] [address]- 1335 Dec, [facility] [place] [facility] [address] [id number] [place] [address]- 5317 Dec, [facility] [place] [facility] [address] [id number] [place] [address]- 5939 Dec, [facility] [place] [facility] [address] [id number] [place] [address]- 1833 Dec, [facility] [place] [facility] [address] [id number] [place] [address]- 8334 Dec, [facility] [place] [facility] [address] [id number] [place] [address]- 7177 Dec, [facility] [place] [facility] [address] [id number] [place] [address]- 8842 Dec, [facility] [place] [facility] [address] [id number] [place] [address]- 7802 Dec, [facility] [place] [facility] [address] [id number] [place] [address]- 4982 Dec, [facility] [place] [facility] [address] [id number] [place] [address]- 9555 Dec, [facility] [place] [facility] [address] [id number] [place] [address]- 1853 Oct, IMMUNIZATIONS No Known Immunizations SOCIAL HISTORY Never Assessed REASON FOR VISIT Review Mammogram Results-awoods PLAN OF CARE Activity Details Follow Up as indicated by testing Reason:abnormal mammogram VITAL SIGNS Height 67 in 2017-12-03 Weight 162 lbs 2017-12-03 Temperature 98.5 degrees Fahrenheit 2017-12-03 Heart Rate 92 bpm 2017-12-03 Respiratory Rate 20 2017-12-03 BMI 25.37 kg/m2 2017-12-03 Blood pressure systolic 110 mmHg 2017-12-03 Blood pressure diastolic 64 mmHg 2017-12-03 MEDICATIONS Medication Instructions Dosage Frequency Start Date End Date Duration Status Valium 5 MG Orally Twice a day 1 tablet as needed 12h Active Pantoprazole Sodium 40 MG Orally Once a day 1 tablet 24h Active Sucralfate 1 GM Orally q 6 Active Hjauepfeom-WOPD-Uzxhxqbp 50-325-40 MG Orally every 4 hrs 1 tablet as needed 4h Mar, Active Topamax 50 mg Orally Twice a day 1 tablet 12h Mar, 30 day(s) Active RESULTS No Results PROCEDURES No Known procedures INSTRUCTIONS MEDICATIONS ADMINISTERED [...]
--- OUTSIDE RECORDS SUMMARY | 2018-02-01 10:10 | XMS REPORT ---
Author Author PORTIA PECK [facility] Address [address] [place] [address] Care Team Providers Care Edi Consultant Name Role Phone EMMANUELLE PECKTA Unavailable PROBLEMS Type Condition ICD9-CM Code LIK26-EV Code Onset Dates Condition Status SNOMED Code Problem Mixed hypercholesterolemia and hypertriglyceridemia E78.2 Active 317486076 Problem Gastroesophageal reflux disease, esophagitis presence not specified K21.9 Active 522442867 Problem Mixed incontinence N39.46 Active 658941892 Problem Abnormal mammogram R92.8 Active 524664414 Problem Fallen bladder N81.10 Active 119464775 Problem Intractable migraine without status migrainosus, unspecified migraine type G43.919 Active 557971545 Problem Vertigo R42 Active 907386512 Problem Inflammation of joint of finger of right hand M19.041 Active 602680500 Problem Gastroesophageal reflux disease with esophagitis K21.0 Active 431929147 ALLERGIES No Information ENCOUNTERS Encounter Location Date Diagnosis [place] [address] [place] [id number] [place] [address] 34799- 6663 Nov, Abnormal mammogram R92.8 [place] [id number] [place] [address] 96298- 2088 Nov, Abnormal mammogram R92.8 [facility] [id number] [place] [address] 76017- 0515 Nov, [facility] [id number] [place] [address] 63766- 0161 Nov, Abnormal mammogram R92.8 [place] [id number] [place] [address] 51290- 9525 September, Bronchitis J40 ; Rash R21 ; Fallen bladder N81.10 ; Breast cancer screening Z12.31 ; Family history of ovarian cancer Z80.41 and Hiatal hernia K44.9 [facility] [place] [id number] [place] [address]38 -8777 Oct, Pain of right middle finger M79.644 and Inflammation of joint of finger of right hand M19.041 [place] [address] 50456- 5577 Jul, [facility] [address] [address]67 [address]4558 Jul, Sore throat J02.9 ; Acute upper respiratory infection, unspecified J06.9 and Other viral agents as the cause of diseases classified elsewhere B97.[address] [address]- 6871 May, Intractable migraine without status migrainosus, unspecified migraine type G43.919 ; Vertigo R42 and Gastroesophageal reflux disease with esophagitis K21.0 [place] [address] 50842- 9318 May, [place] [address] 88869- 1515 Apr, [facility] [place] [id number] [place] [address]13 -3054 Mar, Chronic intractable headache, unspecified headache type R51 ; Dizziness R42 and Vertigo R42 [facility] [address] 828[address] -7383 Mar, Vertigo R42 [place] [id number] [place] [address] 36757- 1238 Mar, [facility] [address] 96[address] -0679 Feb, Dizziness R42 ; Acute non-recurrent frontal sinusitis J01.10 and Gastroesophageal reflux disease, esophagitis presence not specified K21.9 [facility] [address] 97692 -3315 Feb, Dizziness R42 [place] [address] [place] [id number] [place] [address] 61655- 3519 Feb, [place] [id number] [place] [address] 28647- 7570 Feb, Well woman exam with routine gynecological exam Z01.419 ; Mixed incontinence N39.46 and Mixed hypercholesterolemia and hypertriglyceridemia E78.2 [place] [address] 03353- 8996 Jan, Family history of ovarian cancer Z80.41 and Wellness examination Z00.00 [place] [address] 46093- 2619 26 Jan, 2016 Low back pain M54.5 ; Other chronic pain G89.29 ; Establishing care with new doctor, encounter for Z71.89 ; Wellness examination Z00.00 and Family history of ovarian cancer Z80.41 [place] [id number] [place] [address] 78226- 0039 September, Routine gynecological examination V72.31 ; Breast cancer screening V76.10 ; Family history of ovarian cancer V16.41 ; Laboratory exam ordered as part of routine general medical examination V72.62 ; Mixed urge and stress incontinence 788.33 and Heart burn 787.1 [place] [id number] [place] [address] 87267- 0080 Aug, [place] [id number] [place] [address] 31588- 2217 Aug, [place] [id number] [place] [address] 36214- 4794 Feb, [place] [address] 66572- 4278 Feb, [place] [address] [id number] [place] [address] 81701- 1160 Jun, [place] [address] 38073- 0596 Jun, [facility] [place] [facility] [address] [id number] [place] [address]- 3656 Apr, [facility] [place] [facility] [address] [id number] [place] [address]67 Mar, [facility] [place] [facility] [address] [id number] [place] [address]- 7093 Mar, [facility] [place] [facility] [address] [id number] [place] [address]- 7404 Mar, [facility] [place] [facility] [address] [id number] [place] [address]- 1950 Mar, [facility] [place] [facility] [address] [id number] [place] [address]- 6055 Feb, [facility] [place] [facility] [address] [id number] [place] [address]- 5193 Feb, [facility] [place] [facility] [address] [id number] [place] [address]- 4551 Feb, [facility] [place] [facility] [address] [id number] [place] [address]- 9080 Feb, [facility] [place] [facility] [address] [id number] [place] [address]- 3116 Feb, [facility] [place] [facility] [address] [id number] [place] [address]- 4545 Jun, [facility] [place] [facility] [address] [id number] [place] [address]- 9172 Jun, [facility] [place] [facility] [address] [id number] [place] [address]99 Apr, [facility] [place] [facility] [address] [id number] [place] 7816 Apr, [facility] [place] [facility] [address] [id number] [place] [address]- 5190 Apr, [facility] [place] [facility] [address] [id number] [place] [address]- 7994 Apr, [facility] [place] [facility] [address] [id number] [place] [address]- 3126 Feb, [facility] [place] [facility] [address] [id number] [place] [address]- 8530 Dec, [facility] [place] [facility] [address] [id number] [place] [address]- 2112 Dec, [facility] [place] [facility] [address] [id number] [place] [address]- 0203 Dec, [facility] [place] [facility] [address] [id number] [place] [address]- 6114 Dec, [facility] [place] [facility] [address] [id number] [place] [address]- 8103 Dec, [facility] [place] [facility] [address] [id number] [place] [address]- 8753 Dec, [facility] [place] [facility] [address] [id number] [place] [address]- 6177 Dec, [facility] [place] [facility] [address] [id number] [place] [address]- 6942 Dec, [facility] [place] [facility] [address] [id number] [place] [address]- 9283 Dec, [facility] [place] [facility] [address] [id number] [place] [address]- 4632 Dec, [facility] [place] [facility] [address] [id number] [place] [address]- 0128 Dec, [facility] [place] [facility] [address] [id number] [place] [address]- 5251 Dec, [facility] [place] [facility] [address] [id number] [place] [address]- 2259 Dec, [facility] [place] [facility] [address] [id number] [place] [address]- 3375 Oct, IMMUNIZATIONS No Known Immunizations SOCIAL HISTORY Never Assessed REASON FOR VISIT new orders PLAN OF CARE VITAL SIGNS MEDICATIONS Unknown Medications RESULTS Name Result Date Reference Range Ultrasound : Breast, Left 2017-12-11 Mammogram Dx, Left 2017-12-11 PROCEDURES No Known procedures INSTRUCTIONS MEDICATIONS ADMINISTERED [...]
--- OUTSIDE RECORDS SUMMARY | 2018-02-01 10:11 | XMS REPORT ---
Author Author PORTIA PECK [facility] Address [address] [place] [address] Care Team Providers Care Gel Coater Name Role Phone EMMANUELLE PECKTA Unavailable PROBLEMS Type Condition ICD9-CM Code LOW01-DE Code Onset Dates Condition Status SNOMED Code Problem Mixed hypercholesterolemia and hypertriglyceridemia E78.2 Active 355328965 Problem Gastroesophageal reflux disease, esophagitis presence not specified K21.9 Active 009627925 Problem Mixed incontinence N39.46 Active 165642742 Problem Abnormal mammogram R92.8 Active 864508491 Problem Fallen bladder N81.10 Active 839725765 Problem Intractable migraine without status migrainosus, unspecified migraine type G43.919 Active 215397311 Problem Vertigo R42 Active 486170642 Problem Inflammation of joint of finger of right hand M19.041 Active 967447413 Problem Gastroesophageal reflux disease with esophagitis K21.0 Active 192257616 ALLERGIES No Information ENCOUNTERS Encounter Location Date Diagnosis [place] [address] [id number] [place] [address] 97407- 5786 Nov, Abnormal mammogram R92.8 [place] [id number] [place] [address] 74161- 7214 Nov, Abnormal mammogram R92.8 [facility] [id number] [place] [address] 08773- 9370 Nov, [facility] [id number] [place] [address] 28072- 6984 Nov, Abnormal mammogram R92.8 [place] [id number] [place] [address] 24442- 0821 September, Bronchitis J40 ; Rash R21 ; Fallen bladder N81.10 ; Breast cancer screening Z12.31 ; Family history of ovarian cancer Z80.41 and Hiatal hernia K44.9 [facility] [place] [id number] [place] [address] 70548 -3688 Oct, Pain of right middle finger M79.644 and Inflammation of joint of finger of right hand M19.041 [place] [address] 51311- 4577 Jul, [facility] [address] 99944 -3835 Jul, Sore throat J02.9 ; Acute upper respiratory infection, unspecified J06.9 and Other viral agents as the cause of diseases classified elsewhere B97.[address] 10580- 7096 May, Intractable migraine without status migrainosus, unspecified migraine type G43.919 ; Vertigo R42 and Gastroesophageal reflux disease with esophagitis K21.0 [place] [address] 62798- 5013 May, [place] [address] 72481- 3707 Apr, [facility] [place] [id number] [place] [address] 25057 -8244 Mar, Chronic intractable headache, unspecified headache type R51 ; Dizziness R42 and Vertigo R42 [facility] [address] 29749 -5225 Mar, Vertigo R42 [place] [id number] [place] [address] 84629- 7586 Mar, [facility] [address] 73175 -4550 Feb, Dizziness R42 ; Acute non-recurrent frontal sinusitis J01.10 and Gastroesophageal reflux disease, esophagitis presence not specified K21.9 [facility] [address] 81181 -5972 Feb, Dizziness R42 [place] [address] [address] [id number] [place] [address] 63536- 0647 Feb, [place] [id number] [place] [address] 98197- 2573 Feb, Well woman exam with routine gynecological exam Z01.419 ; Mixed incontinence N39.46 and Mixed hypercholesterolemia and hypertriglyceridemia E78.2 [place] [address] 55370- 2948 Jan, Family history of ovarian cancer Z80.41 and Wellness examination Z00.00 [place] [address] 86278- 0218 26 Jan, 2016 Low back pain M54.5 ; Other chronic pain G89.29 ; Establishing care with new doctor, encounter for Z71.89 ; Wellness examination Z00.00 and Family history of ovarian cancer Z80.41 [place] [id number] [place] [address] 08916- 7361 September, Routine gynecological examination V72.31 ; Breast cancer screening V76.10 ; Family history of ovarian cancer V16.41 ; Laboratory exam ordered as part of routine general medical examination V72.62 ; Mixed urge and stress incontinence 788.33 and Heart burn 787.1 [place] [id number] [place] [address] 53991- 6198 Aug, [place] [id number] [place] [address] 48409- 1705 Aug, [place] [id number] [place] [address] 15215- 2514 Feb, [place] [address] 35221- 7860 Feb, [place] [id number] [place] [address] 94960- 8121 Jun, [place] [address] 14493- 8466 Jun, [facility] [place] [facility] [address] [id number] [place] [address]- 1978 Apr, [facility] [place] [facility] [address] [id number] [place] [address]37 Mar, [facility] [place] [facility] [address] [id number] [place] [address]- 2666 Mar, [facility] [place] [facility] [address] [id number] [place] [address]- 1832 Mar, [facility] [place] [facility] [address] [id number] [place] [address]- 6280 Mar, [facility] [place] [facility] [address] [id number] [place] [address]- 5233 Feb, [facility] [place] [facility] [address] [id number] [place] [address]- 5281 Feb, [facility] [place] [facility] [address] [id number] [place] [address]- 6185 Feb, [facility] [place] [facility] [address] [id number] [place] [address]- 7338 Feb, [facility] [place] [facility] [address] [id number] [place] [address]- 8327 Feb, [facility] [place] [facility] [address] [id number] [place] [address]- 4188 Jun, [facility] [place] [facility] [address] [id number] [place] [address]- 9881 Jun, [facility] [place] [facility] [address] [id number] [place] 6216 Apr, [facility] [place] [facility] [address] [id number] [place] 8755 Apr, [facility] [place] [facility] [address] [id number] [place] [address]- 0967 Apr, [facility] [place] [facility] [address] [id number] [place] [address]- 3695 Apr, [facility] [place] [facility] [address] [id number] [place] [address]- 9927 Feb, [facility] [place] [facility] [address] [id number] [place] [address]- 5020 Dec, [facility] [place] [facility] [address] [id number] [place] [address]- 0968 Dec, [facility] [place] [facility] [address] [id number] [place] [address]- 2189 Dec, [facility] [place] [facility] [address] [id number] [place] [address]- 3899 Dec, [facility] [place] [facility] [address] [id number] [place] [address]- 4600 Dec, [facility] [place] [facility] [address] [id number] [place] [address]- 6392 Dec, [facility] [place] [facility] [address] [id number] [place] [address]- 1751 Dec, [facility] [place] [facility] [address] [id number] [place] [address]- 6681 Dec, [facility] [place] [facility] [address] [id number] [place] [address]- 0156 Dec, [facility] [place] [facility] [address] [id number] [place] [address]- 4987 Dec, [facility] [place] [facility] [address] [id number] [place] [address]- 3939 Dec, [facility] [place] [facility] [address] [id number] [place] [address]- 9013 Dec, [facility] [place] [facility] [address] [id number] [place] [address]- 1590 Dec, [facility] [place] [facility] [address] [id number] [place] [address]- 5440 Oct, IMMUNIZATIONS No Known Immunizations SOCIAL HISTORY Never Assessed REASON FOR VISIT Requests return call PLAN OF CARE VITAL SIGNS MEDICATIONS Unknown Medications RESULTS No Results PROCEDURES No Known [...]
--- OUTSIDE RECORDS SUMMARY | 2018-02-01 10:13 | XMS REPORT | Continuity of Care Document ---
Author Author [facility] Address Unknown Phone Unavailable Allergies Active Description Code Type Severity Reaction Onset Reported/Identified Relationship to Patient Clinical Status Yes No Known Drug Allergies [id number] Drug Allergy Unknown N/A 12/04/2017 Medications There [...] , SKYLA K 780.52 INSOMNIA UNSPECIFIED 12/27/2011 OMRENO SPENCE SKYLA K V58.69 LONG-TERM (CURRENT) USE [...] DO 465.9 UPPER RESPIRATORY INFECTION 03/15/2014 SKYLA MAEYR DO 616.10 VAGINITIS AND VULVOVAGINITIS UNSPECIFIED 10/25/2014 Ot 722.52 10/25/2014 Ot 787.62 10/25/2014 Ot 788.30 10/25/2014 Ot V76.12 10/25/2014 Ot V72.84 10/25/2014 MELODY LEAL PROCESSING ENGINEER Ot V76.12 11/17/2014 ANNIA MENG GLAZING DEPARTMENT SUPERVISOR Ot V76.12 03/14/2016 Ot 722.52 LUMB/ LUMBOSAC DISC DEGEN 03/14/2016 Ot 787.62 FECAL SMEARING 03/14/2016 Ot 788.30 UNSPECIFIED URINARY INCONTINENCE 03/14/2016 Ot V76.12 OTH SCREEN MAMMO-MALIGN NEOPLASM OF CHRISTOPHER 03/14/2016 Ot V72.84 EXAM PRE- OPERATIVE NOS 03/14/2016 MELODY LEAL PROCESSING ENGINEER Ot V76.12 OTH SCREEN MAMMO-MALIGN NEOPLASM OF CHRISTOPHER 03/14/2016 ANNIA MENG GLAZING DEPARTMENT SUPERVISOR Ot V76.12 OTH SCREEN MAMMO-MALIGN NEOPLASM OF CHRISTOPHER 03/15/2016 ZAKIA WALDROP PROCESSING ENGINEER Ot Z12.31 ENCNTR SCREEN MAMMOGRAM FOR MALIGNANT NE 03/27/2016 ZAKIA WALDROP PROCESSING ENGINEER Ot Z12.31 ENCNTR SCREEN MAMMOGRAM FOR MALIGNANT NE 03/27/2016 MATEUSZ HAYES, ORACIO Friedman Ot H83.09 LABYRINTHITIS, UNSPECIFIED EAR 03/27/2016 MATEUSZ HAYES, ORACIO Friedman Ot R11.0 NAUSEA 03/27/2016 MATEUSZ HAYES, ORACIO Friedman Ot R42 DIZZINESS AND GIDDINESS 03/27/2016 MATEUSZ HAYES, ORACIO Friedman Ot R51 HEADACHE 03/28/2016 MATEUSZ HAEYS, ORACIO Friedman Ot H83.09 LABYRINTHITIS, UNSPECIFIED EAR [...] EXAM PRE- OPERATIVE NOS 04/26/2016 MELODY LEAL PROCESSING ENGINEER Ot V76.12 OTH SCREEN MAMMO-MALIGN NEOPLASM OF CHRISTOPHER 04/26/2016 ANNIA MENG GLAZING DEPARTMENT SUPERVISOR Ot V76.12 OTH SCREEN MAMMO-MALIGN NEOPLASM OF CHRISTOPHER 04/26/2016 ZAKIA WALDROP PROCESSING ENGINEER Ot Z12.31 ENCNTR SCREEN MAMMOGRAM FOR MALIGNANT NE 04/29/2016 ZAKIA WALDROP PROCESSING ENGINEER Ot R42 DIZZINESS AND GIDDINESS 04/30/2016 ZAKIA WALDROP PROCESSING ENGINEER Ot R42 DIZZINESS AND GIDDINESS 05/02/2016 ZAKIA WALDROP PROCESSING ENGINEER Ot R42 DIZZINESS AND GIDDINESS 05/08/2016 ZAKIA WALDROP PROCESSING ENGINEER Ot R42 DIZZINESS AND GIDDINESS 07/15/2016 ZAKIA WALDROP PROCESSING ENGINEER Ot R42 DIZZINESS AND GIDDINESS 07/15/2016 ZAKIA WALDROP PROCESSING ENGINEER Ot R42 DIZZINESS AND GIDDINESS 07/15/2016 ZAKIA WALDROP PROCESSING ENGINEER Ot R42 DIZZINESS AND GIDDINESS 07/26/2016 Ot 722.52 LUMB/ LUMBOSAC DISC DEGEN 07/26/2016 Ot 787.62 FECAL SMEARING 07/26/2016 Ot 788.30 UNSPECIFIED URINARY INCONTINENCE 07/26/2016 Ot V76.12 OTH SCREEN MAMMO-MALIGN NEOPLASM OF CHRISTOPHER 07/26/2016 Ot V72.84 EXAM PRE- OPERATIVE NOS 07/26/2016 MELODY LEAL PROCESSING ENGINEER Ot V76.12 OTH SCREEN MAMMO-MALIGN NEOPLASM OF CHRISTOPHER 07/26/2016 ANNIA MENG GLAZING DEPARTMENT SUPERVISOR Ot V76.12 OTH SCREEN MAMMO-MALIGN NEOPLASM OF CHRISTOPHER 07/26/2016 ZAKIA WALDROP PROCESSING ENGINEER Ot Z12.31 ENCNTR SCREEN MAMMOGRAM FOR MALIGNANT NE 07/26/2016 ZAKIA WALDROP PROCESSING ENGINEER Ot R42 DIZZINESS AND GIDDINESS 09/16/2016 MATEUSZ HAYES, ORACIO Friedman Ot M54.16 RADICULOPATHY, LUMBAR REGION 09/16/2016 MATEUSZ HAYES, ORACIO Friedman Ot M54.5 LOW BACK PAIN 09/16/2016 Ot 722.52 LUMB/ LUMBOSAC DISC DEGEN 09/16/2016 Ot 787.62 FECAL SMEARING 09/16/2016 Ot 788.30 UNSPECIFIED URINARY INCONTINENCE 09/16/2016 Ot V76.12 OTH SCREEN MAMMO-MALIGN NEOPLASM OF CHRISTOPHER 09/16/2016 Ot V72.84 EXAM PRE- OPERATIVE NOS 09/16/2016 MELODY LEAL PROCESSING ENGINEER Ot V76.12 OTH SCREEN MAMMO-MALIGN NEOPLASM OF CHRISTOPHER 09/16/2016 ANNIA MENG GLAZING DEPARTMENT SUPERVISOR Ot V76.12 OTH SCREEN MAMMO-MALIGN NEOPLASM OF CHRISTOPHER 09/16/2016 ZAKIA WALDROP PROCESSING ENGINEER Ot Z12.31 ENCNTR SCREEN MAMMOGRAM FOR MALIGNANT NE 09/16/2016 ZAKIA WALDROP PROCESSING ENGINEER Ot R42 DIZZINESS AND GIDDINESS 09/17/2016 MATEUSZ HAYES, ORACIO T Ot M54.16 RADICULOPATHY, LUMBAR REGION 09/17/2016 MATEUSZ HAYES, ORACIO Friedman Ot M54.5 LOW BACK PAIN 09/22/2016 MATEUSZ HAYES, ORACIO Friedman Ot M54.16 RADICULOPATHY, LUMBAR REGION 09/22/2016 MATEUSZ HAYES, ORACIO Friedman Ot M54.5 LOW BACK PAIN 10/03/2016 ZAKIA WALDROP PROCESSING ENGINEER Ot R42 DIZZINESS AND GIDDINESS 10/31/2017 SWAN [...] SCREENING FOR MALIGNANT NE 11/24/2017 MELODY LEAL PROCESSING ENGINEER Ot V76.12 OTH SCREEN MAMMO-MALIGN NEOPLASM OF CHRISTOPHER 11/24/2017 ANNIA MENG GLAZING DEPARTMENT SUPERVISOR Ot V76.12 OTH SCREEN MAMMO-MALIGN NEOPLASM OF CHRISTOPHER 11/24/2017 ZAKIA WALDROP PROCESSING ENGINEER Ot Z12.31 ENCNTR SCREEN MAMMOGRAM FOR MALIGNANT NE 11/24/2017 ZAKIA WALDROP PROCESSING ENGINEER Ot R42 DIZZINESS AND GIDDINESS 11/25/2017 ROSELYN SWAN DO Ot Z01.818 ENCOUNTER FOR OTHER PREPROCEDURAL EXAMIN 11/27/2017 DANNY BLAKELY PROCESSING ENGINEER Ot Z12.31 ENCNTR SCREEN MAMMOGRAM FOR MALIGNANT NE 11/27/2017 FENECH DOWILFREDO S Ot R10.2 PELVIC AND PERINEAL PAIN 11/27/2017 WILFREDO GUAJARDO DO S Ot Z90.710 ACQUIRED ABSENCE OF BOTH CERVIX AND UTER 11/27/2017 BENY DOROSELYN D Ot Z01.818 ENCOUNTER FOR OTHER PREPROCEDURAL EXAMIN 12/01/2017 DANNY BLAKELY PROCESSING ENGINEER Ot Z12.31 ENCNTR SCREEN MAMMOGRAM FOR MALIGNANT [...] OF MALIGNANT NEOPLASM O 12/11/2017 MELODY LEAL PROCESSING ENGINEER Ot V76.12 OTH SCREEN MAMMO-MALIGN NEOPLASM OF CHRISTOPHER 12/11/2017 ANNIA MENG GLAZING DEPARTMENT SUPERVISOR Ot V76.12 OTH SCREEN MAMMO-MALIGN NEOPLASM OF CHRISTOPHER 12/11/2017 ZAKIA WALDROP PROCESSING ENGINEER Ot Z12.31 ENCNTR SCREEN MAMMOGRAM FOR MALIGNANT NE 12/11/2017 ZAKIA WALDROP PROCESSING ENGINEER Ot R42 DIZZINESS AND GIDDINESS 12/11/2017 BENNETT SPENCE WILFREDO Paty Ot R10.2 PELVIC AND PERINEAL PAIN 12/11/2017 BENNETT SPENCE WILFREDO Newman Ot Z90.710 ACQUIRED ABSENCE OF BOTH CERVIX AND UTER 12/11/2017 DANNY BLAKELY PROCESSING ENGINEER Ot Z12.31 ENCNTR SCREEN MAMMOGRAM FOR MALIGNANT NE 12/11/2017 ROSELYN SWAN DO Ot K21.9 GASTRO-ESOPHAGEAL REFLUX DISEASE WITHOUT 12/11/2017 ROSELYN SWAN DO Ot K22.10 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 12/11/2017 ROSELYN SWAN DO Ot K44.9 DIAPHRAGMATIC HERNIA WITHOUT OBSTRUCTION 12/11/2017 ROSELYN SWAN DO Ot Z12.11 ENCOUNTER FOR SCREENING FOR MALIGNANT NE 12/12/2017 PORTIA PECK GLAZING DEPARTMENT SUPERVISOR Ot R92.2 INCONCLUSIVE MAMMOGRAM 12/12/2017 BENNETT SPENCE, WILFREDO S Ot N32.81 OVERACTIVE BLADDER 12/12/2017 WILFREDO GUAJARDO DO Ot 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 SPHINCTER DEFICIENCY (ISD) 12/12/2017 WILFREDO GUAJARDO DO Ot N39.46 MIXED INCONTINENCE 12/12/2017 WILFREDO GUAJARDO DO Ot N81.10 CYSTOCELE, UNSPECIFIED 12/12/2017 WILFREDO GUAJARDO DO Ot N83.291 OTHER OVARIAN CYST, RIGHT SIDE 12/12/2017 WILFREDO GUAJARDO DO Ot N83.8 OTH NONINFLAMMATORY DISORD OF OVARY, FAL 12/12/2017 WILFREDO GUAJARDO DO Ot N94.89 OTH COND ASSOC W FEMALE GENITAL ORGANS A 12/12/2017 WILFREDO GUAJARDO DO Ot Z85.43 PERSONAL HISTORY OF MALIGNANT NEOPLASM O 12/19/2017 PORTIA PECK GLAZING DEPARTMENT SUPERVISOR Ot C50.912 MALIGNANT NEOPLASM OF UNSPECIFIED SITE O 12/19/2017 MELODY LEAL PROCESSING ENGINEER Ot V76.12 OTH SCREEN MAMMO-MALIGN NEOPLASM OF CHRISTOPHER 12/19/2017 ANNIA MENG GLAZING DEPARTMENT SUPERVISOR Ot V76.12 OTH SCREEN MAMMO-MALIGN NEOPLASM OF CHRISTOPHER 12/19/2017 ZAKIA WALDROP PROCESSING ENGINEER Ot Z12.31 ENCNTR SCREEN MAMMOGRAM FOR MALIGNANT NE 12/19/2017 ZAKIA WALDROP PROCESSING ENGINEER Ot R42 DIZZINESS AND GIDDINESS 12/19/2017 BENNETT SPENCE WILFREDO Newman Ot R10.2 PELVIC AND PERINEAL PAIN 12/19/2017 BENNETT SPENEC WILFREDO Newman Ot Z90.710 ACQUIRED ABSENCE OF BOTH CERVIX AND UTER 12/19/2017 DANNY BLAKELY PROCESSING ENGINEER Ot Z12.31 ENCNTR SCREEN MAMMOGRAM FOR MALIGNANT NE 12/19/2017 PORTIA PECK GLAZING DEPARTMENT SUPERVISOR Ot R92.2 INCONCLUSIVE MAMMOGRAM 12/19/2017 PORTIA PECK GLAZING DEPARTMENT SUPERVISOR Ot C50.912 MALIGNANT NEOPLASM OF UNSPECIFIED SITE O 01/15/2018 PORTIA PECK GLAZING DEPARTMENT SUPERVISOR Ot C50.912 MALIGNANT NEOPLASM OF UNSPECIFIED SITE O Procedures Code Description [place] [address] IV INFUSION 05/15/2012 J7030 NORMAL SALINE SOLUTION INFUS 05/15/2012 80028 ROUTINE VENIPUNCTURE 06/29/2012 08820 LIPID PANEL 06/29/2012 53367 ROUTINE VENIPUNCTURE 03/12/2013 72189 MAMMOGRAM, SCREENING 03/12/2013 45324 HEMOCCULT 03/12/2013 37632 GC/CHLAM PROBE (STATE) 03/12/2013 69334 PAP SMEAR 03/12/2013 Q0091 PAP SMEAR OBTAIN SMEAR 03/12/2013 08210 TRICHOMONAS (IN-HOUSE) 03/12/2013 5351677 GFR CALC (RESULT ONLY) 03/12/2013 23860 CMP 03/12/2013 71505 LIPID PANEL 03/12/2013 99900 CA 125 03/12/2013 93987 CULTURE UROGENITAL 03/15/2013 37243 UA W/ CULTURE IF INDICATED 03/30/2013 Results [...] 34.9 g/dL 32.0-36.0 MCV 88.4 fL 80.0-100.0 Jennings # 0.6 x10^3/UL 0.1-0.6 Jennings % 6.3 % 2.0-14.0 MPV 9.2 FL [...] ABO+Rh group AP NRG Transfusion band number [id number] NRG Blood group antibody screen NEGATIVE NRG Methicillin resistant Staphylococcus aureus (MRSA) screening culture - 12:45 Methicillin resistant Staphylococcus aureus (MRSA) screening culture NEG NRG Encounters ACCT No. Visit Date/Time Discharge Status Pt. Type Provider Facility Loc./Unit Complaint [id number] 03/15/2014 08:57:00 03/15/2014 23:59:59 CLS Outpatient SKYLA MAYER DO [id number] 07/02/2013 14:14:00 07/02/2013 23:59:59 CLS Outpatient JAVED ROGER MD [id number] 03/30/2013 17:22:00 03/30/2013 23:59:59 CLS Outpatient SKYLA MAYER DO [id number] 03/12/2013 09:09:00 03/12/2013 23:59:59 CLS Outpatient SKYLA MAYER DO [id number] 06/29/2012 13:06:00 06/29/2012 23:59:59 CLS Outpatient SKYLA MAYER DO [id number] 05/15/2012 09:44:00 05/15/2012 23:59:59 CLS Outpatient SKYLA MAYER DO [id number] 04/24/2016 08:06:00 Document Registration [id number] 10/02/2017 10:03:00 10/02/2017 23:59:00 DIS Outpatient Hussain Childs 50 [id number] 10/02/2017 11:34:00 Document Registration [id number] 03/13/2016 07:06:00 Document Registration [id number] 12/03/2017 13:20:00 12/03/2017 23:59:59 CLS Outpatient SKYLA MAYER DO [facility] [id number] 01/22/2018 11:00:00 01/22/2018 23:59:59 CLS Preadmit ROSELYN SWAN DO [facility] LEFT BREAST CANCER [id number] 01/22/2018 07:15:00 01/22/2018 23:59:59 CLS Preadmit ROSELYN SWAN DO [facility] CARD LT BREAST CA [id number] 01/15/2018 09:26:00 01/15/2018 23:59:59 CLS Outpatient ADITYA TEMPLE MD [facility] ONC [id number] 12/24/2017 07:45:00 12/24/2017 23:59:59 CLS Preadmit ADITYA TEMPLE MD [facility] RAD DYSPHAGIA,BREAST CANCER [id number] 12/12/2017 07:39:00 12/12/2017 23:59:59 CLS Outpatient PORTIA PECK GLAZING DEPARTMENT SUPERVISOR [facility] RAD ABN MAMMO [id number] 12/11/2017 10:24:00 12/11/2017 23:59:59 CLS Outpatient PORTIA PECK GLAZING DEPARTMENT SUPERVISOR [facility] RAD ABNORMAL MAMMOGRAM [id number] 12/09/2017 05:52:00 12/10/2017 13:30:00 DIS Outpatient WILFREDO GUAJARDO DO [facility] SDC FAM HX OVARIAN CA, INCONTINENCE [id number] 12/04/2017 13:54:00 12/04/2017 23:59:59 CLS Preadmit PORTIA PECK GLAZING DEPARTMENT SUPERVISOR [facility] RAD ABNORMAL MAMMOGRAM [id number] 12/04/2017 05:41:00 12/04/2017 10:15:00 DIS Outpatient WILFREDO GUAJARDO DO [facility] PREOP FAM HX OVARIAN CA, INCONTINENCE [id number] 12/02/2017 07:03:00 12/02/2017 09:45:00 DIS Outpatient ROSELYN SWAN DO [facility] ENDO SCREENING/GERD/ DYSPHAGIA [id number] 11/25/2017 09:52:00 11/25/2017 23:59:59 CLS Outpatient DANNY BLAKELY [facility] RAD SCREENING [id number] 11/25/2017 09:47:00 11/25/2017 23:59:59 CLS Outpatient WILFREDO GUAJARDO DO [facility] RAD PELVIC PRESSURE IN FEMALE,POSTMENOPAUSAL [id number] 11/25/2017 05:33:00 11/25/2017 11:39:00 DIS Outpatient ROSELYN SWAN DO [facility] PREOP COLONOSCOPY/EGD [id number] 10/31/2017 05:31:00 10/31/2017 13:57:00 DIS Outpatient ROSELYN SWAN DO [facility] PREOP COLONOSCOPY/EGD [id number] 09/30/2017 09:00:00 09/30/2017 23:59:59 CLS Preadmit DANNY BLAKELY PROCESSING ENGINEER [facility] RAD SCREENING [id number] 09/16/2016 08:14:00 09/16/2016 10:42:00 DIS Emergency ORACIO CHILD MD [facility] ER BACK PAIN [id number] 04/26/2016 13:31:00 04/26/2016 23:59:59 CLS Outpatient ZAKIA WALDROP PROCESSING ENGINEER [facility] RAD VERTIGO [id number] 03/27/2016 17:29:00 03/27/2016 21:07:00 DIS Emergency ORACIO CHILD MD [facility] ER DIZZINESS [id number] 03/14/2016 12:46:00 03/14/2016 23:59:59 CLS Outpatient ZAKIA WALDROP PROCESSING ENGINEER [facility] RAD SCREENING [id number] 10/25/2014 09:14:00 10/25/2014 23:59:59 CLS Outpatient ANNIA MENG GLAZING DEPARTMENT SUPERVISOR [facility] RAD SCREENING [id number] 03/26/2013 10:37:00 03/26/2013 23:59:59 CLS Outpatient MELODY LEAL PROCESSING ENGINEER [facility] RAD SCREENING [id number] 01/20/2018 15:52:00 Document Registration [id number] 10/25/2014 09:14:00 Document Registration [id number] 10/25/2014 09:14:00 Document Registration [id number] 03/11/2012 07:32:00 Document Registration [id number] 02/21/2016 10:05:00 Document Registration [id number] 10/25/2014 09:15:03 ACT Document Registration [id number] 03/10/2016 13:05:00 Document Registration
--- NOTE | 2018-02-01 11:08 | ED Integumentary General ---
General Chief Complaint: Skin/Wound Problems Stated Complaint: MASECTOMY December BY BENY/PAIN Nursing Triage Note: 9 DAYS POST OP OF A LEFT MASTECTOMY. COMPLAINS OF INCREASED PAIN AND WARMTH IN POST OP AREA. TOOK IBUPROFEN 600MG LAST NIGHT. Source: patient Exam Limitations: no limitations History of Present Illness Date Seen by Provider: Feb 01, 2018 Time Seen by Provider: 11:06 Initial Comments 62-year-old female who presents to the emergency room POV with complaints of pain, warmth, redness to incision site of left mastectomy. She reports that [address] Burgess removed her left breast and yesterday she started developing the pain and redness. She denies fevers. She does have a SHAILA drain in place and reports that the drainage became a little thicker. Timing/Duration: yesterday Allergies and Home Medications Allergies Coded Allergies: acetaminophen (Verified Allergy, Unknown, NAUSEA, 01/23/18) hydrocodone (Verified Allergy, Unknown, NAUSEA, 01/23/18) Home Medications Cephalexin 500 Mg Capsule, 500 MG PO BID Prescribed by: ANGELES BUCHANAN on 02/01/18 1203 Ibuprofen 600 Mg Tablet, 600 MG PO Q6H PRN for PAIN Prescribed by: HENOK CHÁVEZ on 12/10/17 1235 Pantoprazole Sodium 40 Mg Tablet.dr, 40 MG PO DAILY Prescribed by: ROSELYN BURGESS on 12/02/17 0826 Tramadol HCl 50 Mg Tablet, 50 MG PO Q6H Prescribed by: ANGELES BUCHANAN on 02/01/18 1203 Patient Home Medication List Home Medication List Reviewed: Yes Review of Systems Review of Systems Constitutional: see HPI; No chills, No fever Skin: see HPI, change in color (redness), other ( tenderness at left mastectomy site.) All Other Systems Reviewed Negative Unless Noted: Yes Past Hmclqyt-Nqooaa-Dbplfm Hx Past Med/Social Hx: Reviewed Nursing Past Med/Soc Hx Patient Social History Alcohol Use: Rarely Uses Recreational Drug Use: No Smoking Status: Never a Smoker Recent Foreign Travel: No Contact w/Someone Who Travel: No Recent Infectious Disease Expo: No Recent Hopitalizations: No Seasonal Allergies Seasonal Allergies: Yes (mild) Past Medical History Surgeries: Yes (SHOULDER SCOPES,TENNIS ELBOW RELEASE,BICEPT REATTATCHED, LEFT MASTECTOMY) Appendectomy, Gallbladder, Hysterectomy, Orthopedic Respiratory: No Cardiac: No Neurological: No Reproductive Disorders: No Sexually Transmitted Disease: No HIV/AIDS: No Gastrointestinal: Yes Gastroesophageal Reflux Musculoskeletal: Yes Degenerate Disk Disease Endocrine: No Loss of Vision: Bilateral Hearing Impairment: Denies Cancer: Yes Breast Did You Recieve Any Treatments: Yes What Type of Treatment Did You: Surgical Intervention Psychosocial: No Integumentary: No Blood Disorders: No Adverse Reaction/Blood Tranf: No (N/A) Family Medical History Reviewed Nursing Family Hx Ovarian cancer No Pertinent Family Hx Physical Exam Vital Signs Vital Signs - First Documented 02/01/18 10:18 Temp 99.5 Pulse 74 Resp 16 B/P (MAP) 133/80 (97) Pulse Ox 95 O2 Delivery Room Air Capillary Refill : Less Than 3 Seconds General Appearance: WD/WN, no apparent distress Neck: non-tender, full range of motion, supple, normal inspection Cardiovascular: normal peripheral pulses, regular rate, rhythm, no edema, no gallop, no JVD, no murmur Respiratory: chest non-tender, lungs clear, normal breath sounds, no respiratory distress, no accessory muscle use Neurologic/Psychiatric: alert, normal mood/affect, oriented x 3 Skin: normal color, warm/dry, other Skin Problem Location: other (left mastectomy site.) Skin Problem Character: erythema (surrounding erythema), tenderness, other ( thickening serosanguineous drainage from SHAILA drain.) Progress/Results/Core Measures Results/Orders Lab Results Laboratory Tests Test 02/01/18 10:50 Range/Units White Blood Count 10.4 4.3-11.0 10^3/uL Red Blood Count 4.44 4.35-5.85 10^6/uL Hemoglobin 13.6 11.5-16.0 G/DL Hematocrit 39 35-52 % Mean Corpuscular Volume 87 80-99 FL Mean Corpuscular Hemoglobin 31 25-34 PG Mean Corpuscular Hemoglobin Concent 35 32-36 G/DL Red Cell Distribution Width 12.8 10.0-14.5 % Platelet Count 284 130-400 10^3/uL Mean Platelet Volume 9.7 7.4-10.4 FL Neutrophils (%) (Auto) 73 42-75 % Lymphocytes (%) (Auto) 18 12-44 % Monocytes (%) (Auto) 7 0-12 % Eosinophils (%) (Auto) 2 0-10 % Basophils (%) (Auto) 0 0-10 % Neutrophils # (Auto) 7.6 1.8-7.8 X 10^3 Lymphocytes # (Auto) 1.8 1.0-4.0 X 10^3 Monocytes # (Auto) 0.7 0.0-1.0 X 10^3 Eosinophils # (Auto) 0.2 0.0-0.3 10^3/uL Basophils # (Auto) 0.0 0.0-0.1 10^3/uL Prothrombin Time 12.4 12.2-14.7 SEC INR Comment 0.9 0.8-1.4 Activated Partial Thromboplast Time 26 24-35 SEC Sodium Level 140 135-145 MMOL/L Potassium Level 3.8 3.6-5.0 MMOL/L Chloride Level 107 98-107 MMOL/L Carbon Dioxide Level 20 L 21-32 MMOL/L Anion Gap 13 5-14 MMOL/L Blood Urea Nitrogen 15 7-18 MG/DL Creatinine 0.72 0.60-1.30 MG/DL Estimat Glomerular Filtration Rate > 60 BUN/Creatinine Ratio 21 Glucose Level 98 70-105 MG/DL Lactic Acid Level 1.33 0.50-2.00 MMOL/L Calcium Level 8.9 8.5-10.1 MG/DL Corrected Calcium 9.1 8.5-10.1 MG/DL Total Bilirubin 0.6 0.1-1.0 MG/DL Aspartate Amino Transf (AST/SGOT) 22 5-34 U/L Alanine Aminotransferase (ALT/SGPT) 27 0-55 U/L Alkaline Phosphatase 89 40-136 U/L Total Protein 6.4 6.4-8.2 GM/DL Albumin 3.8 3.2-4.5 GM/DL Micro Results Microbiology 02/01/18 Blood Culture - Preliminary, Resulted No growth 02/01/18 Blood Culture - Preliminary, Resulted No growth 02/01/18 Gram Stain - Final, Complete 02/01/18 Wound Culture - Final, Complete Staphylococcus lugdunensis Staphylococcus epidermidis 02/01/18 Gram Stain - Final, Complete 02/01/18 Wound Culture - Final, Complete Staphylococcus epidermidis My Orders Orders - ANGELES BUCHANAN Cbc With Automated Diff (02/01/18 11:08) Comprehensive Metabolic Panel (02/01/18 11:08) Blood Culture (02/01/18 11:08) Protime With Inr (02/01/18 11:08) Partial Thromboplastin Time (02/01/18 11:08) Saline Lock/Iv-Start (02/01/18 11:08) Saline Lock/Iv-Start (02/01/18 11:08) Wound Culture (02/01/18 11:08) Lactic Acid Analyzer (02/01/18 11:08) Ketorolac Injection (Toradol Injection) (02/01/18 11:15) Wound Culture (02/01/18 11:53) Fentanyl Injection (Sublimaze Injection (02/01/18 12:00) Iv Push Employee Relations Advisor Ed (02/01/18 ) Medications Given in ED Vital Signs/I&O 02/01/18 02/01/18 10:18 12:28 Temp 99.5 98.7 Pulse 74 77 Resp 16 16 B/P (MAP) 133/80 (97) 124/81 Pulse Ox 95 99 O2 Delivery Room Air Room Air Blood Pressure Mean: 97 Progress Progress Note : Time: 11:58 Progress Note I seen and evaluated the patient. I informed her normal laboratory findings. She agrees with plan for discharge on antibiotics and pain medication. I informed her to call Dr. Burgess first thing Friday for an appointment time and recheck. She agrees with plan of care, return precautions. Departure Impression Primary Impression: Cellulitis of drainage site following surgery Qualified Codes: T81.4XXA - Infection following a procedure, initial encounter Disposition: 01 HOME, SELF-CARE Condition: Stable/Unchanged Departure-Patient Inst. Decision time for Depature: 11:59 Referrals: ROSELYN BURGESS MICHAEL S DO (PCP/Family) Primary Care Physician Patient Instructions: Cellulitis (Skin Infection), Adult (DC), Surgical Wound ( DC) Add. Discharge Instructions: Take medication as directed. Follow up with Dr. Burgess within 1 week for recheck. Call first thing Friday morning for an appointment time. Return back to the emergency room for any worsening symptoms or concerns as needed. All discharge instructions reviewed with patient and/or family. Voiced understanding. Scripts Tramadol HCl (Tramadol HCl) 50 Mg Tablet 50 MG PO Q6H, #20 TAB Prov: ANGELES BUCHANAN 02/01/18 Cephalexin (Keflex) 500 Mg Capsule 500 MG PO BID for 10 Days, #20 CAP Prov: BERNOTMARINEANGELES 02/01/18 ANGELES BUCHANAN Feb 01, 2018 11:08
[2018-02-01] MEDS ORDERED: KETOROLAC 30 MG/ML VIAL IVP ONE (11:15)
[2018-02-01 11:18] LABS: BASOPHILS % (AUTO) 0 % (0-10); EOSINOPHILS # (AUTO) 0.2 10^3/uL (0.0-0.3); EOSINOPHILS % (AUTO) 2 % (0-10); HEMATOCRIT 39 % (35-52); HEMOGLOBIN 13.6 G/DL (11.5-16.0); LYMPHOCYTES # (AUTO) 1.8 X 10^3 (1.0-4.0); LYMPHOCYTES % (AUTO) 18 % (12-44); MEAN CORPUSCULAR HEMOGLOBIN 31 PG (25-34); MEAN CORPUSCULAR HGB CONC 35 G/DL (32-36); MEAN CORPUSCULAR VOLUME 87 FL (80-99); MEAN PLATELET VOLUME 9.7 FL (7.4-10.4); MONOCYTES # (AUTO) 0.7 X 10^3 (0.0-1.0); MONOCYTES % (AUTO) 7 % (0-12); NEUTROPHILS # (AUTO) 7.6 X 10^3 (1.8-7.8); NEUTROPHILS % (AUTO) 73 % (42-75); PLATELET COUNT 284 10^3/uL (130-400); RED BLOOD COUNT 4.44 10^6/uL (4.35-5.85); RED CELL DISTRIBUTION WIDTH 12.8 % (10.0-14.5); WHITE BLOOD COUNT 10.4 10^3/uL (4.3-11.0)
[2018-02-01 11:21] LABS: INR 0.9 (0.8-1.4); PROTHROMBIN TIME PATIENT 12.4 SEC (12.2-14.7)
[2018-02-01 11:29] LABS: ALANINE AMINOTRANSFERASE 27 U/L (0-55); ALBUMIN 3.8 GM/DL (3.2-4.5); ALKALINE PHOSPHATASE 89 U/L (40-136); BILIRUBIN,TOTAL 0.6 MG/DL (0.1-1.0); BUN/CREATININE RATIO 21; CALCIUM 8.9 MG/DL (8.5-10.1); CARBON DIOXIDE 20 MMOL/L (21-32); CHLORIDE 107 MMOL/L (98-107); CREATININE SERUM 0.72 MG/DL (0.60-1.30); GFR ESTIMATED > 60; GLUCOSE 98 MG/DL (70-105); POTASSIUM 3.8 MMOL/L (3.6-5.0); SODIUM 140 MMOL/L (135-145); TOTAL PROTEIN 6.4 GM/DL (6.4-8.2)
[2018-02-01] MEDS ORDERED: fentaNYL INJECTION 100 MCG/2 ML AMP IVP ONE (12:00)
[2018-02-01] MEDS ORDERED: TRAM50TA2 PO (12:03)
[2018-02-01] MEDS ORDERED: CEPH-507 PO (12:03)
[2018-02-01 12:28] VITALS: BP 124/81
== END 2018-02-01 12:28 | disposition home or self-care (01) ==
LOC: EDUNIT# 10:05 → ER 10:07
DX: T81.4XXA Infection following a procedure, initial encounter (principal); K21.9 Gastro-esophageal reflux disease without esophagitis; Z85.3 Personal history of malignant neoplasm of breast; Z88.8 Allergy status to other drugs, medicaments and biological substances; Z88.5 Allergy status to narcotic agent; Z90.89 Acquired absence of other organs; Z90.710 Acquired absence of both cervix and uterus; Z90.12 Acquired absence of left breast and nipple
CPT/HCPCS: 36415; 80053; 83605; 85025; 85610; 85730; 87040; 87070; 87077; 87186; 87205; 93041; 96374; 96375

== ENCOUNTER 2018-02-19 10:09 | Outpatient (RCR) | payer OTHER ==
[2017-12-19 10:59] LABS: BASOPHILS % (AUTO) 1 % (0-10); EOSINOPHILS # (AUTO) 0.2 10^3/uL (0.0-0.3); EOSINOPHILS % (AUTO) 2 % (0-10); HEMATOCRIT 41 % (35-52); HEMOGLOBIN 14.1 G/DL (11.5-16.0); LYMPHOCYTES # (AUTO) 2.1 X 10^3 (1.0-4.0); LYMPHOCYTES % (AUTO) 32 % (12-44); MEAN CORPUSCULAR HEMOGLOBIN 31 PG (25-34); MEAN CORPUSCULAR HGB CONC 35 G/DL (32-36); MEAN CORPUSCULAR VOLUME 88 FL (80-99); MEAN PLATELET VOLUME 9.5 FL (7.4-10.4); MONOCYTES # (AUTO) 0.4 X 10^3 (0.0-1.0); MONOCYTES % (AUTO) 6 % (0-12); NEUTROPHILS # (AUTO) 3.9 X 10^3 (1.8-7.8); NEUTROPHILS % (AUTO) 59 % (42-75); PLATELET COUNT 273 10^3/uL (130-400); RED BLOOD COUNT 4.62 10^6/uL (4.35-5.85); RED CELL DISTRIBUTION WIDTH 13.2 % (10.0-14.5); WHITE BLOOD COUNT 6.6 10^3/uL (4.3-11.0)
[2017-12-19 11:16] LABS: ALANINE AMINOTRANSFERASE 18 U/L (0-55); ALBUMIN 4.1 GM/DL (3.2-4.5); ALKALINE PHOSPHATASE 85 U/L (40-136); BILIRUBIN,TOTAL 0.5 MG/DL (0.1-1.0); BUN/CREATININE RATIO 18; CALCIUM 9.4 MG/DL (8.5-10.1); CARBON DIOXIDE 28 MMOL/L (21-32); CHLORIDE 108 MMOL/L (98-107); CREATININE SERUM 0.76 MG/DL (0.60-1.30); GFR ESTIMATED > 60; GLUCOSE 112 MG/DL (70-105); POTASSIUM 4.6 MMOL/L (3.6-5.0); SODIUM 143 MMOL/L (135-145); TOTAL PROTEIN 6.8 GM/DL (6.4-8.2)
[~2018-02-19 10:09] MED LIST changes: +CEPH-507 PO; +TRAM50TA2 PO
== END 2018-03-12 14:43 | disposition home or self-care (01) ==
LOC: ONC 10:09
PROVIDERS: ATTEND Internal Medicine Hematology & Oncology
DX: C50.112 Malignant neoplasm of central portion of left female breast (principal); R13.10 Dysphagia, unspecified; R05 Cough; K44.9 Diaphragmatic hernia without obstruction or gangrene; Z17.0 Estrogen receptor positive status [ER+]; Z90.710 Acquired absence of both cervix and uterus; Z79.811 Long term (current) use of aromatase inhibitors
CPT/HCPCS: 36415; 80053; 85025; 99213; 99214

== ENCOUNTER 2018-03-12 14:45 | Outpatient (RCR) | payer OTHER | END 2018-03-26 10:34 | disposition home or self-care (01) | LOC: ONC 14:45 | PROVIDERS: ATTEND Internal Medicine Hematology & Oncology | DX: C50.112 Malignant neoplasm of central portion of left female breast (principal); R13.10 Dysphagia, unspecified; R05 Cough; K44.9 Diaphragmatic hernia without obstruction or gangrene; Z17.0 Estrogen receptor positive status [ER+]; Z90.710 Acquired absence of both cervix and uterus; Z79.811 Long term (current) use of aromatase inhibitors | CPT/HCPCS: 99213 ==

== ENCOUNTER → 2018-03-23 | Outpatient (CLI) | payer OTHER ==
--- NOTE | 2018-03-23 11:57 | Diagnostic Imaging Report ---
INDICATION: Reflux and complaining of food getting stuck in the mid esophagus. Patient ingested effervescent crystals as well as thin and thick barium and imaging of the esophagus was performed. One minute and 34 seconds of fluoroscopic time was utilized. The esophagus has a smooth contour. No mass or stricture was identified. No gastroesophageal reflux or significant hiatal hernia was demonstrated. Occasional tertiary contractions were present. Images through the upper abdomen demonstrate a duodenal diverticuli in the third and fourth portions of the duodenum. IMPRESSION: Occasional tertiary contractions in the esophagus. No other significant abnormality was identified. Dictated by: Dictated on workstation # [id number]
== END ==
LOC: RAD 10:40
PROVIDERS: ATTEND Surgery
DX: K21.0 Gastro-esophageal reflux disease with esophagitis (principal)
CPT/HCPCS: 74220

== ENCOUNTER 2018-06-18 10:43 | Outpatient (RCR) | payer OTHER ==
[2018-03-26 09:07] LABS: BASOPHILS % (AUTO) 0 % (0-10); EOSINOPHILS # (AUTO) 0.2 10^3/uL (0.0-0.3); EOSINOPHILS % (AUTO) 3 % (0-10); HEMATOCRIT 40 % (35-52); HEMOGLOBIN 13.6 G/DL (11.5-16.0); LYMPHOCYTES # (AUTO) 2.2 X 10^3 (1.0-4.0); LYMPHOCYTES % (AUTO) 34 % (12-44); MEAN CORPUSCULAR HEMOGLOBIN 30 PG (25-34); MEAN CORPUSCULAR HGB CONC 34 G/DL (32-36); MEAN CORPUSCULAR VOLUME 88 FL (80-99); MEAN PLATELET VOLUME 9.1 FL (7.4-10.4); MONOCYTES # (AUTO) 0.4 X 10^3 (0.0-1.0); MONOCYTES % (AUTO) 6 % (0-12); NEUTROPHILS # (AUTO) 3.6 X 10^3 (1.8-7.8); NEUTROPHILS % (AUTO) 56 % (42-75); PLATELET COUNT 322 10^3/uL (130-400); RED CELL DISTRIBUTION WIDTH 13.5 % (10.0-14.5); WHITE BLOOD COUNT 6.3 10^3/uL (4.3-11.0)
[2018-03-26 09:28] LABS: ALANINE AMINOTRANSFERASE 15 U/L (0-55); ALBUMIN 4.2 GM/DL (3.2-4.5); ALKALINE PHOSPHATASE 68 U/L (40-136); BILIRUBIN,TOTAL 0.7 MG/DL (0.1-1.0); BUN/CREATININE RATIO 13; CALCIUM 9.3 MG/DL (8.5-10.1); CARBON DIOXIDE 26 MMOL/L (21-32); CHLORIDE 108 MMOL/L (98-107); CREATININE SERUM 0.77 MG/DL (0.60-1.30); GFR ESTIMATED > 60; GLUCOSE 99 MG/DL (70-105); POTASSIUM 3.9 MMOL/L (3.6-5.0); SODIUM 143 MMOL/L (135-145); TOTAL PROTEIN 7.1 GM/DL (6.4-8.2)
[2018-06-18 10:57] LABS: BASOPHILS % (AUTO) 1 % (0-10); EOSINOPHILS # (AUTO) 0.1 10^3/uL (0.0-0.3); EOSINOPHILS % (AUTO) 2 % (0-10); HEMATOCRIT 40 % (35-52); HEMOGLOBIN 13.9 G/DL (11.5-16.0); LYMPHOCYTES # (AUTO) 1.7 X 10^3 (1.0-4.0); LYMPHOCYTES % (AUTO) 35 % (12-44); MEAN CORPUSCULAR HEMOGLOBIN 30 PG (25-34); MEAN CORPUSCULAR HGB CONC 35 G/DL (32-36); MEAN CORPUSCULAR VOLUME 88 FL (80-99); MEAN PLATELET VOLUME 9.3 FL (7.4-10.4); MONOCYTES # (AUTO) 0.4 X 10^3 (0.0-1.0); MONOCYTES % (AUTO) 8 % (0-12); NEUTROPHILS # (AUTO) 2.6 X 10^3 (1.8-7.8); NEUTROPHILS % (AUTO) 54 % (42-75); PLATELET COUNT 284 10^3/uL (130-400); RED CELL DISTRIBUTION WIDTH 13.6 % (10.0-14.5); WHITE BLOOD COUNT 4.8 10^3/uL (4.3-11.0)
[2018-06-18 11:20] LABS: ALANINE AMINOTRANSFERASE 25 U/L (0-55); ALBUMIN 4.2 GM/DL (3.2-4.5); ALKALINE PHOSPHATASE 66 U/L (40-136); BILIRUBIN,TOTAL 0.7 MG/DL (0.1-1.0); BUN/CREATININE RATIO 14; CALCIUM 9.4 MG/DL (8.5-10.1); CARBON DIOXIDE 27 MMOL/L (21-32); CHLORIDE 108 MMOL/L (98-107); CREATININE SERUM 0.77 MG/DL (0.60-1.30); GFR ESTIMATED > 60; GLUCOSE 95 MG/DL (70-105); POTASSIUM 4.1 MMOL/L (3.6-5.0); SODIUM 146 MMOL/L (135-145); TOTAL PROTEIN 7.2 GM/DL (6.4-8.2)
[2018-06-23] MEDS ORDERED: ASPI-983 PO (09:26)
[2018-06-23] MEDS ORDERED: NF-AROM25 PO (09:28)
[2018-06-23] MEDS ORDERED: ATOR10TA PO (12:36)
== END 2018-06-24 | disposition home or self-care (01) ==
LOC: ONC 10:43
PROVIDERS: ATTEND Internal Medicine Hematology & Oncology
DX: C50.112 Malignant neoplasm of central portion of left female breast (principal); R13.10 Dysphagia, unspecified; R05 Cough; K44.9 Diaphragmatic hernia without obstruction or gangrene; Z17.0 Estrogen receptor positive status [ER+]; Z90.710 Acquired absence of both cervix and uterus; Z79.811 Long term (current) use of aromatase inhibitors
CPT/HCPCS: 36415; 80053; 84443; 85025; 99213

== ENCOUNTER 2018-06-22 22:31 | Day surgery (SDC) | payer OTHER ==
[~2018-06-22] VITALS: Ht 170.2 cm; Wt 75.0 kg
[2018-06-22] MEDS ORDERED: ASPIRIN 81 MG CHEW (CHILDREN'S ASA) PO ONE (22:45)
[2018-06-22 22:48] LABS: BASOPHILS % (AUTO) 1 % (0-10); EOSINOPHILS # (AUTO) 0.1 10^3/uL (0.0-0.3); EOSINOPHILS % (AUTO) 2 % (0-10); HEMATOCRIT 38 % (35-52); HEMOGLOBIN 13.4 G/DL (11.5-16.0); LYMPHOCYTES # (AUTO) 2.6 X 10^3 (1.0-4.0); LYMPHOCYTES % (AUTO) 42 % (12-44); MEAN CORPUSCULAR HEMOGLOBIN 31 PG (25-34); MEAN CORPUSCULAR HGB CONC 35 G/DL (32-36); MEAN CORPUSCULAR VOLUME 88 FL (80-99); MEAN PLATELET VOLUME 9.3 FL (7.4-10.4); MONOCYTES # (AUTO) 0.5 X 10^3 (0.0-1.0); MONOCYTES % (AUTO) 8 % (0-12); NEUTROPHILS % (AUTO) 48 % (42-75); PLATELET COUNT 287 10^3/uL (130-400); RED CELL DISTRIBUTION WIDTH 13.5 % (10.0-14.5); WHITE BLOOD COUNT 6.3 10^3/uL (4.3-11.0)
[2018-06-22] MEDS: NITROGLYCERIN 0.4 MG SL TABS BTL 25'S SL PRN ×3 (22:53→23:53)
[2018-06-22 23:10] LABS: ALANINE AMINOTRANSFERASE 32 U/L (0-55); ALBUMIN 4.2 GM/DL (3.2-4.5); ALKALINE PHOSPHATASE 72 U/L (40-136); AMYLASE 37 U/L (25-125); BILIRUBIN,TOTAL 0.4 MG/DL (0.1-1.0); BUN/CREATININE RATIO 15; CALCIUM 9.3 MG/DL (8.5-10.1); CARBON DIOXIDE 24 MMOL/L (21-32); CHLORIDE 107 MMOL/L (98-107); CREATININE SERUM 0.78 MG/DL (0.60-1.30); GFR ESTIMATED > 60; GLUCOSE 118 MG/DL (70-105); LIPASE 41 U/L (8-78); MAGNESIUM 2.2 MG/DL (1.8-2.4); POTASSIUM 3.5 MMOL/L (3.6-5.0); SODIUM 143 MMOL/L (135-145); TOTAL PROTEIN 7.2 GM/DL (6.4-8.2)
[2018-06-22 23:13] LABS: PROTHROMBIN TIME PATIENT 13.1 SEC (12.2-14.7)
[2018-06-22 23:17] LABS: MYOGLOBIN SERUM 39.8 NG/ML (10.0-92.0)
[2018-06-23] VITALS (18 sets, daily range): BP systolic 98–137; BP diastolic 56–85
[2018-06-23] MEDS: NITROGLYCERIN 0.4 MG SL TABS BTL 25'S SL PRN ×2 (00:23→00:37)
--- NOTE | 2018-06-23 00:59 | ED Chest Pain ---
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 PCP: NONE DRYWALL HANGER: DR. GUAJARDO ONCOLOGY: DR. TEMPLE Allergies and Home Medications Allergies Coded Allergies: acetaminophen (Verified Allergy, Unknown, NAUSEA, 01/23/18) hydrocodone (Verified Allergy, Unknown, NAUSEA, 01/23/18) Home Medications Cephalexin 500 Mg Capsule, 500 MG PO BID Prescribed by: ANGELES BUCHANAN on 02/01/18 1203 Ibuprofen 600 Mg Tablet, 600 MG PO Q6H PRN for PAIN Prescribed by: HENOK CHÁVEZ on 12/10/17 1235 Pantoprazole Sodium 40 Mg Tablet.dr, 40 MG PO DAILY Prescribed by: ROSELYN SWAN on 12/02/17 0826 Tramadol HCl 50 Mg Tablet, 50 MG PO Q6H Prescribed by: ANGELES BUCHANAN on 02/01/18 1203 Patient Home Medication List Home Medication List Reviewed: Yes Review of Systems Review of Systems Constitutional: no symptoms reported; No chills, No diaphoresis, No dizziness, No fever EENTM: See HPI (JAW PAIN ) Respiratory: See HPI, Shortness of Air Cardiovascular: See HPI, Chest Pain; Denies Edema, Denies Irregular Heart Rate , Denies Lightheadedness, Denies Palpitations, Denies Syncope Gastrointestinal: No Symptoms Reported; Denies Nausea Genitourinary: No Symptoms Reported Musculoskeletal: see HPI, back pain Skin: no symptoms reported Psychiatric/Neurological: No Symptoms Reported; Denies Paresthesia, Denies Weakness Endocrine: No Symptoms Reported Hematologic/Lymphatic: No Symptoms Reported Past Diuanst-Mmevlb-Rpngly Hx Patient Social History Alcohol Use: Denies Use Recreational Drug Use: No Smoking Status: Never a Smoker Recent Foreign Travel: No Contact w/Someone Who Travel: No Recent Hopitalizations: No Seasonal Allergies Seasonal Allergies: Yes (mild) Past Medical History Surgeries: Yes (LEFT BICEPS TENDON REPAIR; BILATERAL SHOULDER SCOPES; TENNIS ELBOW RELEASE; LEFT MASTECTOMY 12/2017; HYST AND LATER BSO WITH BLADDER SLING AND ANTERIOR REPAIR 10/2017; EGD/COLONSCOPY) Appendectomy, Bladder Surgery, Breast, Gallbladder, Hysterectomy, Oophorectomy, Orthopedic Respiratory: No Cardiac: No Neurological: No Reproductive Disorders: No DRYWALL HANGER History: Hysterectomy, Menopausal Sexually Transmitted Disease: No HIV/AIDS: No Genitourinary: Yes (INCONTINENCE--S/P SURGERY) Gastrointestinal: Yes Gastroesophageal Reflux Musculoskeletal: Yes Degenerate Disk Disease Endocrine: No HEENT: No Loss of Vision: Bilateral Hearing Impairment: Denies Cancer: Yes (DX 12/2017) Breast Did You Recieve Any Treatments: Yes (S/P LEFT MASTECTOMY; NO CHEMO OR RADIATION ) What Type of Treatment Did You: Surgical Intervention Psychosocial: No Integumentary: No Blood Disorders: No Adverse Reaction/Blood Tranf: No (N/A) Family Medical History Ovarian cancer Physical Exam Vital Signs Vital Signs - First Documented 06/22/18 22:34 Temp 98.8 Pulse 67 Resp 16 B/P (MAP) 151/107 (122) Pulse Ox 98 O2 Delivery Room Air O2 Flow Rate 2.0 Capillary Refill : Height, Weight, BMI Height: 5'7.00" Weight: 165lbs. 2.0oz. 74.465513mi; 26.0 BMI Method:Stated General Appearance: No Apparent Distress, WD/WN, Anxious (SLIGHTLY ANXIOUS) HEENT: PERRL/EOMI Neck: Full Range of Motion, Normal Inspection, Non Tender, Supple Respiratory: Normal Breath Sounds, No Accessory Muscle Use, No Respiratory Distress Cardiovascular: Regular Rate, Rhythm, No Edema, No JVD, No Murmur, Normal Peripheral Pulses Gastrointestinal: Normal Bowel Sounds, No Organomegaly, No Pulsatile Mass, Non Tender, Soft Extremity: Normal Capillary Refill, Normal Inspection, Normal Range of Motion, Non Tender, No Calf Tenderness, No Pedal Edema Neurologic/Psychiatric: Alert, Oriented x3, No Motor/Sensory Deficits, overseamer II- XII Norm as Tested Skin: Normal Color, Warm/Dry; No Rash Progress/Results/Core Measures Results/Orders Lab Results Laboratory Tests Test 06/22/18 22:40 Range/Units White Blood Count 6.3 4.3-11.0 10^3/uL Red Blood Count 4.32 L 4.35-5.85 10^6/uL Hemoglobin 13.4 11.5-16.0 G/DL Hematocrit 38 35-52 % Mean Corpuscular Volume 88 80-99 FL Mean Corpuscular Hemoglobin 31 25-34 PG Mean Corpuscular Hemoglobin Concent 35 32-36 G/DL Red Cell Distribution Width 13.5 10.0-14.5 % Platelet Count 287 130-400 10^3/uL Mean Platelet Volume 9.3 7.4-10.4 FL Neutrophils (%) (Auto) 48 42-75 % Lymphocytes (%) (Auto) 42 12-44 % Monocytes (%) (Auto) 8 0-12 % Eosinophils (%) (Auto) 2 0-10 % Basophils (%) (Auto) 1 0-10 % Neutrophils # (Auto) 3.0 1.8-7.8 X 10^3 Lymphocytes # (Auto) 2.6 1.0-4.0 X 10^3 Monocytes # (Auto) 0.5 0.0-1.0 X 10^3 Eosinophils # (Auto) 0.1 0.0-0.3 10^3/uL Basophils # (Auto) 0.0 0.0-0.1 10^3/uL Prothrombin Time 13.1 12.2-14.7 SEC INR Comment 1.0 0.8-1.4 Activated Partial Thromboplast Time 27 24-35 SEC D-Dimer 0.96 H 0.00-0.49 UG/ML Sodium Level 143 135-145 MMOL/L Potassium Level 3.5 L 3.6-5.0 MMOL/L Chloride Level 107 98-107 MMOL/L Carbon Dioxide Level 24 21-32 MMOL/L Anion Gap 12 5-14 MMOL/L Blood Urea Nitrogen 12 7-18 MG/DL Creatinine 0.78 0.60-1.30 MG/DL Estimat Glomerular Filtration Rate > 60 BUN/Creatinine Ratio 15 Glucose Level 118 H 70-105 MG/DL Calcium Level 9.3 8.5-10.1 MG/DL Corrected Calcium 9.1 8.5-10.1 MG/DL Magnesium Level 2.2 1.8-2.4 MG/DL Total Bilirubin 0.4 0.1-1.0 MG/DL Aspartate Amino Transf (AST/SGOT) 24 5-34 U/L Alanine Aminotransferase (ALT/SGPT) 32 0-55 U/L Alkaline Phosphatase 72 40-136 U/L Myoglobin 39.8 10.0-92.0 NG/ML Troponin I < 0.028 <0.028 NG/ML B-Type Natriuretic Peptide 11.9 <100.0 PG/ML Total Protein 7.2 6.4-8.2 GM/DL Albumin 4.2 3.2-4.5 GM/DL Amylase Level 37 25-125 U/L Lipase 41 8-78 U/L My Orders Orders - SAMUEL HUNG DO Nitroglycerin 0.4 Mg Btl 25's (Nitrostat (06/22/18 23:00) Ct Angio Chest W (06/22/18 23:32) Vital Signs/I&O 06/22/18 06/22/18 06/22/18 22:34 22:34 22:40 Temp 98.8 Pulse 67 Resp 16 B/P (MAP) 151/107 (122) Pulse Ox 98 98 O2 Delivery Room Air Nasal Cannula Nasal Cannula O2 Flow Rate 2.0 2.00 Progress Progress Note : Progress Note PAIN -FREE WITH NTG X 2 0020--PAIN STARTING TO COME BACK, RATES PAIN 5/10. REPEAT EKG DONE AND ADDITIONAL NTG X 2 GIVEN WITH RELIEF OF PAIN Initial ECG Impression Date: Jun 22, 2018 Initial ECG Impression Time: 22:35 Initial ECG Rate: 68 Initial ECG Rhythm: Normal Sinus (SINUS ARRHYTHMIA) Initial ECG Comparisson: No Previous ECG Available EKG : EKG Time: 00:18 Rate: 65 Rhythm: Normal Sinus ECG Comparisson: Unchanged Diagnostic Imaging Comments CXR--NO ACUTE PROCESS, PENDING RADIOLOGIST REVIEW CT CHEST ANGIOGRAM--NO P.E. OR ACUTE PROCESS, PER [facility] VIA FAX @ [phone] Reviewed: Reviewed by Ia Departure Communication (Admissions) 0025--SPOKE WITH DR. RICH, HOSPITALIST. ACCEPTS PT FOR ADMIT. Impression Primary Impression: Chest pain Disposition: ADMITTED INPATIENT Condition: Improved Admissions Decision to Admit Reason: Admit from ER (General) Decision to Admit/Date: Jun 23, 2018 Time/Decision to Admit Time: 00:25 Departure-Patient Inst. Referrals: NO,LOCAL PHYSICIAN (PCP) Primary Care Physician WILFREDO GUAJARDO DO (Family) Primary Care Physician SAMUEL HUNG DO Jun 23, 2018 00:59
--- OUTSIDE RECORDS SUMMARY | 2018-06-23 01:20 | XMS REPORT | Continuity of Care Document ---
Author Author [facility] Address Unknown Phone Unavailable Allergies Active Description Code Type Severity Reaction Onset Reported/Identified Relationship to Patient Clinical Status Yes No Known Drug Allergies [id number] Drug Allergy Unknown N/A 01/19/2018 Yes acetaminophen [id number] Drug Allergy Unknown NAUSEA 01/23/2018 Yes hydrocodone [id number] Drug Allergy Unknown NAUSEA 01/23/2018 Medications There is no data. 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.9 DIAPHRAGMATIC HERNIA WITHOUT OBSTRUCTION 04/24/1033 ADITYA TEMPLE MD, Ot R05 COUGH 04/24/1033 ADITYA TEMPLE MD, Ot R13.10 DYSPHAGIA, UNSPECIFIED 04/24/1033 ADITYA TEMPLE MD, Ot Z17.0 ESTROGEN RECEPTOR POSITIVE STATUS [ER+] 04/24/1033 ADITYA TEMPLE MD, Ot Z79.811 IMPREGNATOR AND DRIER HELPER (CURRENT) USE OF AROMATASE INH 04/24/1033 ADITYA TEMPLE MD, Ot Z90.710 ACQUIRED ABSENCE OF BOTH CERVIX AND UTER 04/24/1442 ADITYA TEMPLE MD, Ot C50.112 MALIGNANT NEOPLASM OF CENTRAL PORTION OF 04/24/1442 ADITYA TEMPLE MD, Ot K44.9 DIAPHRAGMATIC HERNIA WITHOUT OBSTRUCTION 04/24/1442 ADITYA TEMPLE MD, Ot R05 COUGH 04/24/1442 ADITYA TEMPLE MD, Ot R13.10 DYSPHAGIA, UNSPECIFIED 04/24/1442 ADITYA TEMPLE MD, Ot Z17.0 ESTROGEN RECEPTOR POSITIVE STATUS [ER+] 04/24/1442 ADITYA TEMPLE MD, Ot Z79.811 DETENTION (CURRENT) USE OF AROMATASE INH 04/24/1442 ADITYA TEMPLE MD, Ot Z90.710 ACQUIRED ABSENCE OF BOTH CERVIX AND UTER 12/17/2007 SKYLA MAYER DO K 709.9 DERMATITIS OTHER SKIN DISORDERS 12/17/2007 SKYLA MAYER DO K 709.9 Dermatitis Other Skin Disorders 12/17/2007 SKYLA MAYER DO K 709.9 Dermatitis Other Skin Disorders 12/17/2007 SKYLA MAYER DO K 709.9 Dermatitis Other Skin Disorders 12/17/2007 ACACIA HAYES, JAVED Phillips 709.9 Dermatitis Other Skin Disorders 12/17/2007 SKYLA MAYER DO K 709.9 Dermatitis Other Skin Disorders 12/22/2007 SKYLA MAYER DO K 111.0 TINEA VERSICOLOR 12/22/2007 LILY MAYER DOA K 346.90 MIGRAINE UNSPECIFIED WITHOUT INTRACTABLE MIGRAINE 12/22/2007 SKYLA MAYER DO K 111.0 TINEA VERSICOLOR 12/22/2007 LILY MAYER DOA K 346.90 MIGRAINE UNSPECIFIED WITHOUT INTRACTABLE MIGRAINE 12/22/2007 SKYLA MAYER DO K 111.0 TINEA VERSICOLOR 12/22/2007 SKYLA MAYER DO K 346.90 MIGRAINE UNSPECIFIED WITHOUT INTRACTABLE MIGRAINE 12/22/2007 LILY MAYER DOA K 111.0 TINEA VERSICOLOR 12/22/2007 LILY MAYER DOA K 346.90 MIGRAINE UNSPECIFIED WITHOUT INTRACTABLE MIGRAINE 12/22/2007 ACACIA HAYES, JAVED N 111.0 TINEA VERSICOLOR 12/22/2007 ACACIA HAYES, JAVED Phillips 346.90 MIGRAINE UNSPECIFIED WITHOUT INTRACTABLE MIGRAINE 12/22/2007 SKYLA MAYER DO K 111.0 TINEA VERSICOLOR 12/22/2007 SKYLA MAYER DO K 346.90 MIGRAINE UNSPECIFIED WITHOUT INTRACTABLE MIGRAINE 12/27/2011 SKYLA MAYER DO K 300.00 ANXIETY STATE UNSPECIFIED 12/27/2011 SKYLA MAYER DO 530.81 GERD 12/27/2011 SKYLA MAYER DO 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 12/27/2011 SKYLA MAYER DO 724.2 LUMBAGO 12/27/2011 SKYLA MAYER DO 780.52 INSOMNIA UNSPECIFIED 12/27/2011 SKYLA MAYER DO V58.69 LONG-TERM (CURRENT) USE OF OTHER MEDICATIONS 12/27/2011 SKYLA MAYER DO V70.0 ROUTINE GENERAL MEDICAL EXAMINATION AT A [...] OTHER MALIGNANT NEOPLASM 12/27/2011 JAVED ROGER MD N 300.00 ANXIETY STATE UNSPECIFIED 12/27/2011 JAVED ROGER MD N 530.81 GERD 12/27/2011 JAVED ROGER MD N 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 12/27/2011 JAVED ROGER MD N 724.2 LUMBAGO 12/27/2011 JAVED ROGER MD N 780.52 INSOMNIA UNSPECIFIED 12/27/2011 JAVED ROGER MD V58.69 LONG-TERM (CURRENT) USE OF OTHER MEDICATIONS 12/27/2011 JAVED ROGER MD V70.0 ROUTINE GENERAL MEDICAL EXAMINATION AT A HEALTH CARE FACILITY 12/27/2011 JAVED ROGER MD 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 12/27/2011 LILY MAYER DOA K 300.00 ANXIETY STATE UNSPECIFIED 12/27/2011 MORENO SPENCE SKYLA K 530.81 GERD 12/27/2011 LILY MAYER DOA K 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 12/27/2011 LILY MAYER DOA K 724.2 LUMBAGO 12/27/2011 LILY MAYER DOA K 780.52 INSOMNIA UNSPECIFIED 12/27/2011 LILY MAYER DOA K V58.69 LONG-TERM (CURRENT) USE OF OTHER MEDICATIONS 12/27/2011 LILY MAYER DOA K V70.0 ROUTINE GENERAL MEDICAL EXAMINATION AT A HEALTH CARE FACILITY 12/27/2011 LILY MAYER DOA K 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 12/28/2011 LILY MAYER DOA K 272.4 DYSLIPIDEMIA 12/28/2011 MORENO SPENCE SKYLA K 272.4 DYSLIPIDEMIA 12/28/2011 MAYER DO SKYLA K 272.4 DYSLIPIDEMIA 12/28/2011 MAYER DO SKYLA K 272.4 DYSLIPIDEMIA 12/28/2011 JAVED ROGER MD 272.4 DYSLIPIDEMIA 12/28/2011 LILY MAYER DOA K 272.4 DYSLIPIDEMIA 01/09/2012 LILY MAYER DOA K 787.62 FECAL SMEARING 01/09/2012 LILY MAYER DOA K 788.30 URINARY INCONTINENCE UNSPECIFIED 01/09/2012 LILY MAYER DOA K V76.10 BREAST CANCER SCREENING 01/09/2012 SKYLA MAYER DO V76.2 CERVICAL CANCER SCREENING (PAP SMEAR) 01/09/2012 MAYER DOLILYA K 787.62 Fecal Smearing 01/09/2012 MAYER DO SKYLA K 788.30 Urinary Incontinence Unspecified 01/09/2012 MAYER DO SKYLA K V76.10 BREAST CANCER SCREENING 01/09/2012 MAYER DO, SKYLA K V76.2 CERVICAL CANCER SCREENING (PAP SMEAR) 01/09/2012 MAYER DOLILYA K 787.62 Fecal Smearing 01/09/2012 MAYER DO SKYLA K 788.30 Urinary Incontinence Unspecified 01/09/2012 MAYER DO SKYLA K V76.10 BREAST CANCER SCREENING 01/09/2012 MAYER DO SKYLA K V76.2 CERVICAL CANCER SCREENING (PAP SMEAR) 01/09/2012 MAYER LILY SPENCEA K 787.62 Fecal Smearing 01/09/2012 MAYER DO SKYLA K 788.30 Urinary Incontinence Unspecified 01/09/2012 MAYER DO SKYLA K V76.10 BREAST CANCER SCREENING 01/09/2012 LILY MAYER DOA K V76.2 CERVICAL CANCER SCREENING (PAP SMEAR) 01/09/2012 JAVED ROGER MD 787.62 Fecal Smearing 01/09/2012 JAVED ROGER MD 788.30 Urinary Incontinence Unspecified 01/09/2012 JAVED ROGER MD V76.10 BREAST CANCER SCREENING 01/09/2012 JAVED ROGER MD V76.2 CERVICAL CANCER SCREENING (PAP SMEAR) 01/09/2012 LILY MAYER DOA K 787.62 Fecal Smearing 01/09/2012 LILY MAYER DOA K 788.30 Urinary Incontinence Unspecified 01/09/2012 LILY MAYER DOA K V76.10 BREAST CANCER SCREENING 01/09/2012 LILY MAYER DOA K V76.2 CERVICAL CANCER SCREENING (PAP SMEAR) 02/24/2012 MAYER DO SKYLA K 786.2 Cough 02/24/2012 MAYER DO, [...] DO, SKYLA K 787.20 Dysphagia, Unspecified 02/24/2012 JAVED ROGER MD N 786.2 Cough 02/24/2012 JAVED ROGER MD N 787.1 Heartburn 02/24/2012 JAVED ROGER MD N 787.20 Dysphagia, Unspecified 02/24/2012 MAYER DO, [...] K 276.51 Dehydration 05/15/2012 JAVED ROGER MD N 079.99 Unspecified Viral Infection 05/15/2012 JAVED ROGER MD N 276.51 Dehydration 05/15/2012 MAYER DO, SKYLA K 079.99 Unspecified Viral Infection 05/15/2012 MAYER DO, SKYLA K 276.51 Dehydration 06/29/2012 MAYER DO, SKYLA K 715.04 OSTEOARTHROSIS [...] SKYLA K V76.51 COLON CANCER SCREENING 03/12/2013 MORENO SPENCE SKYLA K 716.91 UNSPECIFIED ARTHROPATHY INVOLVING SHOULDER REGION 03/12/2013 MAYER DO SKYLA K 726.90 ENTHESOPATHY OF UNSPECIFIED SITE 03/12/2013 MAYER DO SKYLA K V76.51 COLON CANCER SCREENING 03/12/2013 JAVED ROGER MD N 716.91 UNSPECIFIED ARTHROPATHY INVOLVING SHOULDER REGION 03/12/2013 JAVED ROGER MD 726.90 ENTHESOPATHY OF UNSPECIFIED SITE 03/12/2013 JAVED ROGER MD V76.51 COLON CANCER SCREENING 03/12/2013 MORENO SPENCE SKYLA K 716.91 UNSPECIFIED ARTHROPATHY INVOLVING SHOULDER REGION 03/12/2013 MAYER DO SKYLA K 726.90 ENTHESOPATHY OF UNSPECIFIED SITE 03/12/2013 MAYER DO SKYLA K V76.51 COLON CANCER SCREENING 03/30/2013 MORENO SPENCE SKYLA K 625.8 OTHER SPECIFIED SYMPTOMS ASSOCIATED WITH FEMALE GENITAL ORGANS 03/30/2013 JAVED ROGER MD 625.8 OTHER SPECIFIED SYMPTOMS ASSOCIATED WITH FEMALE GENITAL ORGANS 03/30/2013 SKYLA MAYER DO K 625.8 OTHER SPECIFIED SYMPTOMS ASSOCIATED WITH FEMALE GENITAL ORGANS 07/02/2013 JAVED ROGER MD N 465.9 UPPER RESPIRATORY INFECTION 07/02/2013 SKYLA MAYER DO K 465.9 UPPER RESPIRATORY INFECTION 03/15/2014 SKYLA MAYER DO K 616.10 VAGINITIS AND VULVOVAGINITIS UNSPECIFIED 10/25/2014 Ot 722.52 10/25/2014 Ot 787.62 10/25/2014 Ot 788.30 10/25/2014 Ot V76.12 10/25/2014 Ot V72.84 10/25/2014 MELODY LEAL HOTEL GUEST SERVICE AGENT Ot V76.12 11/17/2014 ANNIA MENG OVERHAULER Ot V76.12 03/14/2016 Ot 722.52 LUMB/ LUMBOSAC DISC DEGEN 03/14/2016 Ot 787.62 FECAL SMEARING 03/14/2016 Ot 788.30 UNSPECIFIED URINARY INCONTINENCE 03/14/2016 Ot V76.12 OTH SCREEN MAMMO-MALIGN NEOPLASM OF CHRISTOPHER 03/14/2016 Ot V72.84 EXAM PRE- OPERATIVE NOS 03/14/2016 MELODY LEAL HOTEL GUEST SERVICE AGENT Ot V76.12 OTH SCREEN MAMMO-MALIGN NEOPLASM OF CHRISTOPHER 03/14/2016 ANNIA MENG OVERHAULER Ot V76.12 OTH SCREEN MAMMO-MALIGN NEOPLASM OF CHRISTOPHER 03/15/2016 ZAKIA WALDROP HOTEL GUEST SERVICE AGENT Ot Z12.31 ENCNTR SCREEN MAMMOGRAM FOR MALIGNANT NE 03/27/2016 ZAKIA WALDROP HOTEL GUEST SERVICE AGENT Ot Z12.31 ENCNTR SCREEN MAMMOGRAM FOR MALIGNANT NE 03/27/2016 MATEUSZ HAYES, ORACIO T Ot H83.09 LABYRINTHITIS, UNSPECIFIED EAR 03/27/2016 MATEUSZ HAYES, ORACIO T Ot R11.0 NAUSEA 03/27/2016 MATEUSZ HAYES, ORACIO T Ot R42 DIZZINESS AND GIDDINESS 03/27/2016 MATEUSZ HAYES, ORACIO T Ot R51 HEADACHE 03/28/2016 MATEUSZ HAYES, ORACIO T Ot H83.09 LABYRINTHITIS, UNSPECIFIED EAR 03/28/2016 MATEUSZ HAYES, ORACIO T Ot R11.0 NAUSEA 03/28/2016 MATEUSZ HAYES, ORACIO T Ot R42 DIZZINESS AND GIDDINESS 03/28/2016 MATEUSZ HAYES, ORACIO Idalia Ot R51 HEADACHE 04/26/2016 Ot 722.52 LUMB/ LUMBOSAC DISC DEGEN 04/26/2016 Ot 787.62 FECAL SMEARING 04/26/2016 Ot 788.30 UNSPECIFIED URINARY INCONTINENCE 04/26/2016 Ot V76.12 OTH SCREEN MAMMO-MALIGN NEOPLASM OF CHRISTOPHER 04/26/2016 Ot V72.84 EXAM PRE- OPERATIVE NOS 04/26/2016 MELODY LEAL HOTEL GUEST SERVICE AGENT Ot V76.12 OTH SCREEN MAMMO-MALIGN NEOPLASM OF CHRISTOPHER 04/26/2016 ANNIA MENG OVERHAULER Ot V76.12 OTH SCREEN MAMMO-MALIGN NEOPLASM OF CHRISTOPHER 04/26/2016 ZAKIA WALDROP HOTEL GUEST SERVICE AGENT Ot Z12.31 ENCNTR SCREEN MAMMOGRAM FOR MALIGNANT NE 04/29/2016 ZAKIA WALDROP HOTEL GUEST SERVICE AGENT Ot R42 DIZZINESS AND GIDDINESS 04/30/2016 ZAKIA WALDROP HOTEL GUEST SERVICE AGENT Ot R42 DIZZINESS AND GIDDINESS 05/02/2016 ZAKIA WALDROP HOTEL GUEST SERVICE AGENT Ot R42 DIZZINESS AND GIDDINESS 05/08/2016 ZAKIA WALDROP HOTEL GUEST SERVICE AGENT Ot R42 DIZZINESS AND GIDDINESS 07/15/2016 ZAKIA WALDROP HOTEL GUEST SERVICE AGENT Ot R42 DIZZINESS AND GIDDINESS 07/15/2016 ZAKIA WALDROP HOTEL GUEST SERVICE AGENT Ot R42 DIZZINESS AND GIDDINESS 07/15/2016 ZAKIA WALDROP HOTEL GUEST SERVICE AGENT Ot R42 DIZZINESS AND GIDDINESS 07/26/2016 Ot 722.52 LUMB/ LUMBOSAC DISC DEGEN 07/26/2016 Ot 787.62 FECAL SMEARING 07/26/2016 Ot 788.30 UNSPECIFIED URINARY INCONTINENCE 07/26/2016 Ot V76.12 OTH SCREEN MAMMO-MALIGN NEOPLASM OF CHRISTOPHER 07/26/2016 Ot V72.84 EXAM PRE- OPERATIVE NOS 07/26/2016 MELODY LEAL HOTEL GUEST SERVICE AGENT Ot V76.12 OTH SCREEN MAMMO-MALIGN NEOPLASM OF CHRISTOPHER 07/26/2016 ANNIA MENG OVERHAULER Ot V76.12 OTH SCREEN MAMMO-MALIGN NEOPLASM OF CHRISTOPHER 07/26/2016 ZAKIA WALDROP HOTEL GUEST SERVICE AGENT Ot Z12.31 ENCNTR SCREEN MAMMOGRAM FOR MALIGNANT NE 07/26/2016 ZAKIA WALDROP HOTEL GUEST SERVICE AGENT Ot R42 DIZZINESS AND GIDDINESS 09/16/2016 MATEUSZ HAYES, ORACIO Friedman Ot M54.16 RADICULOPATHY, LUMBAR REGION 09/16/2016 MATEUSZ HAYES, ORACIO Friedman Ot M54.5 LOW BACK PAIN 09/16/2016 Ot 722.52 LUMB/ LUMBOSAC DISC DEGEN 09/16/2016 Ot 787.62 FECAL SMEARING 09/16/2016 Ot 788.30 UNSPECIFIED URINARY INCONTINENCE 09/16/2016 Ot V76.12 OTH SCREEN MAMMO-MALIGN NEOPLASM OF CHRISTOPHER 09/16/2016 Ot V72.84 EXAM PRE- OPERATIVE NOS 09/16/2016 MELODY LEAL HOTEL GUEST SERVICE AGENT Ot V76.12 OTH SCREEN MAMMO-MALIGN NEOPLASM OF CHRISTOPHER 09/16/2016 ANNIA MENG APRN Ot V76.12 OTH SCREEN MAMMO-MALIGN NEOPLASM OF CHRISTOPHER 09/16/2016 ZAKIA WALDROP HOTEL GUEST SERVICE AGENT Ot Z12.31 ENCNTR SCREEN MAMMOGRAM FOR MALIGNANT NE 09/16/2016 ZAKIA WALDROP HOTEL GUEST SERVICE AGENT Ot R42 DIZZINESS AND GIDDINESS 09/17/2016 MATEUSZ HAYES, ORACIO T Ot M54.16 RADICULOPATHY, LUMBAR REGION 09/17/2016 MATEUSZ HAYES, ORACIO T Ot M54.5 LOW BACK PAIN 09/22/2016 MATEUSZ HAYES, ORACIO T Ot M54.16 RADICULOPATHY, LUMBAR REGION 09/22/2016 MATEUSZ HAYES, ORACIO T Ot M54.5 LOW BACK PAIN 10/03/2016 ZAKIA WALDROP HOTEL GUEST SERVICE AGENT Ot R42 DIZZINESS AND GIDDINESS 10/31/2017 ROSELYN SWAN DO Ot K21.9 GASTRO-ESOPHAGEAL REFLUX DISEASE WITHOUT 10/31/2017 ROSELYN SWAN DO Ot R13.10 DYSPHAGIA, UNSPECIFIED 10/31/2017 ROSELYN SWAN DO Ot Z01.818 ENCOUNTER FOR OTHER PREPROCEDURAL EXAMIN 10/31/2017 ROSELYN SWAN DO Ot Z12.11 ENCOUNTER FOR SCREENING FOR MALIGNANT NE 11/03/2017 SWAN DO, ROSELYN D Ot K21.9 GASTRO-ESOPHAGEAL REFLUX DISEASE WITHOUT 11/03/2017 SWAN DO ROSELYN D Ot R13.10 DYSPHAGIA, UNSPECIFIED 11/03/2017 ROSELYN SWAN DO D Ot Z01.818 ENCOUNTER FOR OTHER PREPROCEDURAL EXAMIN 11/03/2017 ROSELYN SWAN DO Ot Z12.11 ENCOUNTER FOR SCREENING FOR MALIGNANT NE 11/24/2017 MELODY LEAL HOTEL GUEST SERVICE AGENT Ot V76.12 OTH SCREEN MAMMO-MALIGN NEOPLASM OF CHRISTOPHER 11/24/2017 TAQUERIA ANNIA A OVERHAULER Ot V76.12 OTH SCREEN MAMMO-MALIGN NEOPLASM OF CHRISTOPHER 11/24/2017 ZAKIA WALDROP HOTEL GUEST SERVICE AGENT Ot Z12.31 ENCNTR SCREEN MAMMOGRAM FOR MALIGNANT NE 11/24/2017 ZAKIA WALDROP HOTEL GUEST SERVICE AGENT Ot R42 DIZZINESS AND GIDDINESS 11/25/2017 ROSELYN SWAN DO Ot Z01.818 ENCOUNTER FOR OTHER PREPROCEDURAL EXAMIN 11/27/2017 DANNY BLAKELY Ot Z12.31 ENCNTR SCREEN MAMMOGRAM FOR MALIGNANT NE 11/27/2017 FENECH DO, WILFREDO S Ot R10.2 PELVIC AND PERINEAL PAIN 11/27/2017 FENECH DO, WILFREDO S Ot Z90.710 ACQUIRED ABSENCE OF BOTH CERVIX AND UTER 11/27/2017 ROSELYN SWAN DO D Ot Z01.818 ENCOUNTER FOR OTHER PREPROCEDURAL EXAMIN 12/01/2017 DANNY BLAKELY Ot Z12.31 ENCNTR SCREEN MAMMOGRAM FOR MALIGNANT NE 12/02/2017 ROSELYN SWAN DO D Ot K21.9 GASTRO-ESOPHAGEAL REFLUX DISEASE WITHOUT 12/02/2017 SWAN BELKIS SPENCETT D Ot K22.10 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 12/02/2017 ROSELYN SWAN DO D Ot K44.9 DIAPHRAGMATIC HERNIA WITHOUT OBSTRUCTION 12/02/2017 ROSELYN SWAN DO D Ot Z12.11 ENCOUNTER FOR SCREENING FOR MALIGNANT NE 12/04/2017 ROSELYN SWAN DO D Ot K21.9 GASTRO-ESOPHAGEAL REFLUX DISEASE WITHOUT 12/04/2017 SWAN DO ROSELYN D Ot K22.10 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 12/04/2017 ROSELYN SWAN DO D Ot K44.9 DIAPHRAGMATIC HERNIA WITHOUT OBSTRUCTION 12/04/2017 BENY ROSELYN Vidal Ot Z12.11 ENCOUNTER FOR SCREENING FOR MALIGNANT NE 12/04/2017 VERNECH DO, WILFREDO S Ot N32.81 OVERACTIVE BLADDER 12/04/2017 FENECH DO, WILFREDO S Ot 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 SPHINCTER DEFICIENCY (ISD) 12/04/2017 FENECH DO, WILFREDO S Ot N39.3 STRESS INCONTINENCE (FEMALE) (MALE) 12/04/2017 FENECH DO, WILFREDO S Ot N81.10 CYSTOCELE, UNSPECIFIED 12/04/2017 FENECH DO, WILFREDO S Ot Z01.818 ENCOUNTER FOR OTHER PREPROCEDURAL EXAMIN 12/04/2017 VERNECH DOWILFREDO S Ot Z80.41 FAMILY HISTORY OF MALIGNANT NEOPLASM OF 12/05/2017 FENECH DO, WILFREDO S Ot N32.81 OVERACTIVE BLADDER 12/05/2017 FENECH DO, WILFREDO S Ot 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 SPHINCTER DEFICIENCY (ISD) 12/05/2017 FENECH DO, WILFREDO Paty Ot N39.3 STRESS INCONTINENCE (FEMALE) (MALE) 12/05/2017 FENECH DO, WILFREDO Newman Ot N81.10 CYSTOCELE, UNSPECIFIED 12/05/2017 FENECH DO, WILFREDO S Ot Z01.818 ENCOUNTER FOR OTHER PREPROCEDURAL EXAMIN 12/05/2017 BENNETT DO, WILFREDO Paty Ot Z80.41 FAMILY HISTORY OF MALIGNANT NEOPLASM OF 12/05/2017 VERNECH DO, WILFREDO S Ot R10.2 PELVIC AND PERINEAL PAIN 12/05/2017 FENECH DO, WILFREDO S Ot Z90.710 ACQUIRED ABSENCE OF BOTH CERVIX AND UTER 12/10/2017 FENECH DO, WILFREDO S Ot R10.2 PELVIC AND PERINEAL PAIN 12/10/2017 FENECH DO, WILFREDO S Ot Z90.710 ACQUIRED ABSENCE OF BOTH CERVIX AND UTER 12/10/2017 FENECH DO, WILFREDO S Ot N32.81 OVERACTIVE BLADDER 12/10/2017 VERNECH DO, WILFREDO Newman Ot 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 SPHINCTER DEFICIENCY (ISD) 12/10/2017 FENECH DO, WILFREDO S Ot N39.46 MIXED INCONTINENCE 12/10/2017 FENECH DO, WILFREDO S Ot N81.10 CYSTOCELE, UNSPECIFIED 12/10/2017 FENECH DO, WILFREDO S Ot N83.291 OTHER OVARIAN CYST, RIGHT SIDE 12/10/2017 FENECH DO, WILFREDO S Ot N83.8 OTH NONINFLAMMATORY DISORD OF OVARY, FAL 12/10/2017 FENECH DO WILFREDO S Ot N94.89 OTH COND ASSOC W FEMALE GENITAL ORGANS A 12/10/2017 WILFREDO GUAJARDO DO S Ot Z85.43 PERSONAL HISTORY OF MALIGNANT NEOPLASM O 12/11/2017 MELODY LEAL HOTEL GUEST SERVICE AGENT Ot V76.12 OTH SCREEN MAMMO-MALIGN NEOPLASM OF CHRISTOPHER 12/11/2017 TAQUERIAMARIVELANNIA A OVERHAULER Ot V76.12 OTH SCREEN MAMMO-MALIGN NEOPLASM OF CHRISTOPHER 12/11/2017 ZAKIA WALDROP HOTEL GUEST SERVICE AGENT Ot Z12.31 ENCNTR SCREEN MAMMOGRAM FOR MALIGNANT NE 12/11/2017 ZAKIA WALDROP HOTEL GUEST SERVICE AGENT Ot R42 DIZZINESS AND GIDDINESS 12/11/2017 WILFREDO GUAJARDO DO S Ot R10.2 PELVIC AND PERINEAL PAIN 12/11/2017 WILFREDO GUAJARDO DO S Ot Z90.710 ACQUIRED ABSENCE OF BOTH CERVIX AND UTER 12/11/2017 DANNY BLAKELY HOTEL GUEST SERVICE AGENT Ot Z12.31 ENCNTR SCREEN MAMMOGRAM FOR MALIGNANT NE 12/11/2017 ROSELYN SWAN DO Ot K21.9 GASTRO-ESOPHAGEAL REFLUX DISEASE WITHOUT 12/11/2017 SWANROSELYN BURKS DO Ot K22.10 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 12/11/2017 ROSELYN SWAN DO Ot K44.9 DIAPHRAGMATIC HERNIA WITHOUT OBSTRUCTION 12/11/2017 ROSELYN SWAN DO Ot Z12.11 ENCOUNTER FOR SCREENING FOR MALIGNANT NE 12/12/2017 PORTIA PECK OVERHAULER Ot R92.2 INCONCLUSIVE MAMMOGRAM 12/12/2017 BENNETT SPENCE WILFREDO S Ot N32.81 OVERACTIVE BLADDER 12/12/2017 FENECH DO WILFREDO S Ot 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 SPHINCTER DEFICIENCY (ISD) 12/12/2017 FENECH DO WILFREDO S Ot N39.46 MIXED INCONTINENCE 12/12/2017 BENNETT DOWILFREDO S Ot N81.10 CYSTOCELE, UNSPECIFIED 12/12/2017 VERNECH DO WILFREDO S Ot N83.291 OTHER OVARIAN CYST, RIGHT SIDE 12/12/2017 FENECH DO WILFREDO S Ot N83.8 OTH NONINFLAMMATORY DISORD OF OVARY, FAL 12/12/2017 VERNECH DOWILFREDO S Ot N94.89 OTH COND ASSOC W FEMALE GENITAL ORGANS A 12/12/2017 WILFREDO GUAJARDO DO S Ot Z85.43 PERSONAL HISTORY OF MALIGNANT NEOPLASM O 12/19/2017 PORTIA PECK OVERHAULER Ot C50.912 MALIGNANT NEOPLASM OF UNSPECIFIED SITE O 12/19/2017 MELODY LEAL HOTEL GUEST SERVICE AGENT Ot V76.12 OTH SCREEN MAMMO-MALIGN NEOPLASM OF CHRISTOPHER 12/19/2017 MARIVEL MENGSIA Martinez OVERHAULER Ot V76.12 OTH SCREEN MAMMO-MALIGN NEOPLASM OF CHRISTOPHER 12/19/2017 PALMAZAKIA HOTEL GUEST SERVICE AGENT Ot Z12.31 ENCNTR SCREEN MAMMOGRAM FOR MALIGNANT NE 12/19/2017 WALDROPZAKIA HOTEL GUEST SERVICE AGENT Ot R42 DIZZINESS AND GIDDINESS 12/19/2017 WILFREDO GUAJARDO DO S Ot R10.2 PELVIC AND PERINEAL PAIN 12/19/2017 BENNETT SPENCE WILFREDO S Ot Z90.710 ACQUIRED ABSENCE OF BOTH CERVIX AND UTER 12/19/2017 DANNY BLAKELY HOTEL GUEST SERVICE AGENT Ot Z12.31 ENCNTR SCREEN MAMMOGRAM FOR MALIGNANT NE 12/19/2017 PORTIA PECK OVERHAULER Ot R92.2 INCONCLUSIVE MAMMOGRAM 12/19/2017 PORTIA PECK OVERHAULER Ot C50.912 MALIGNANT NEOPLASM OF UNSPECIFIED SITE O 01/15/2018 PORTIA PECK OVERHAULER Ot C50.912 MALIGNANT NEOPLASM OF UNSPECIFIED SITE O 01/19/2018 ROSELYN SWAN DO Ot Z01.818 ENCOUNTER FOR OTHER PREPROCEDURAL EXAMIN 01/20/2018 ROSELYN SWAN DO Ot Z01.818 ENCOUNTER FOR OTHER PREPROCEDURAL EXAMIN 01/21/2018 ADITYA TEMPLE MD Ot C50.112 MALIGNANT NEOPLASM OF CENTRAL PORTION OF 01/21/2018 ADITYA TEMPLE MD, Ot K44.9 DIAPHRAGMATIC HERNIA WITHOUT OBSTRUCTION 01/21/2018 ADITYA TEMPLE MD, Ot R05 COUGH 01/21/2018 ADITYA TEMPLE MD, Ot R13.10 DYSPHAGIA, UNSPECIFIED 01/21/2018 ADITYA TEMPLE MD, Ot Z17.0 ESTROGEN RECEPTOR POSITIVE STATUS [ER+] 01/21/2018 ADITYA TEMPLE MD, Ot Z79.811 IMPREGNATOR AND DRIER HELPER (CURRENT) USE OF AROMATASE INH 01/21/2018 ADITYA TEMPLE MD, Ot Z90.710 ACQUIRED ABSENCE OF BOTH CERVIX AND UTER 01/21/2018 ADITYA TEMPLE MD Ot C50.112 MALIGNANT NEOPLASM OF CENTRAL PORTION OF 01/21/2018 ADITYA TEMPLE MD Ot R05 COUGH 01/21/2018 ADITYA TEMPLE MD, Ot R13.10 DYSPHAGIA, UNSPECIFIED 01/21/2018 ADITYA TEMPLE MD, Ot C50.112 MALIGNANT NEOPLASM OF CENTRAL PORTION OF 01/21/2018 ADITYA TEMPLE MD, Ot K44.9 DIAPHRAGMATIC HERNIA WITHOUT OBSTRUCTION 01/21/2018 ADITYA TEMPLE MD Ot R05 COUGH 01/21/2018 ADITYA TEMPLE MD, Ot R13.10 DYSPHAGIA, UNSPECIFIED 01/21/2018 ADITYA TEMPLE MD, Ot Z17.0 ESTROGEN RECEPTOR POSITIVE STATUS [ER+] 01/21/2018 ADITYA TEMPLE MD, Ot Z79.811 IMPREGNATOR AND DRIER HELPER (CURRENT) USE OF AROMATASE INH 01/21/2018 ADITYA TEMPLE MD, Ot Z90.710 ACQUIRED ABSENCE OF BOTH CERVIX AND UTER 01/21/2018 FENECH DO, WILFREDO S Ot R10.2 PELVIC AND PERINEAL PAIN 01/21/2018 FENECH DO, WILFREDO S Ot Z90.710 ACQUIRED ABSENCE OF BOTH CERVIX AND UTER 01/21/2018 PORTIA PECK OVERHAULER Ot R92.2 INCONCLUSIVE MAMMOGRAM 01/21/2018 PORTIA PECK OVERHAULER Ot C50.912 MALIGNANT NEOPLASM OF UNSPECIFIED SITE O 01/23/2018 SWAN DOROSELYN Ot C50.912 MALIGNANT NEOPLASM OF UNSPECIFIED SITE O 01/23/2018 ROSELYN SWAN DO Ot G56.92 UNSPECIFIED MONONEUROPATHY OF LEFT UPPER 01/23/2018 ROSELYN SWAN DO Ot K21.9 GASTRO-ESOPHAGEAL REFLUX DISEASE WITHOUT 01/23/2018 ROSELYN SWAN DO Ot K44.9 DIAPHRAGMATIC HERNIA WITHOUT OBSTRUCTION 01/23/2018 ROSELYN SWAN DO Ot Z72.0 TOBACCO USE 01/28/2018 ROSELYN SWAN DO Ot C50.912 MALIGNANT NEOPLASM OF UNSPECIFIED SITE O 01/28/2018 ROSELYN SWAN DO Ot G56.92 UNSPECIFIED MONONEUROPATHY OF LEFT UPPER 01/28/2018 ROSELYN SWAN DO Ot K21.9 GASTRO-ESOPHAGEAL REFLUX DISEASE WITHOUT 01/28/2018 ROSELYN SWAN DO Ot K44.9 DIAPHRAGMATIC HERNIA WITHOUT OBSTRUCTION 01/28/2018 ROSELYN SWAN DO Ot Z72.0 TOBACCO USE 02/01/2018 ANGELES BUCHANAN Ot K21.9 GASTRO-ESOPHAGEAL REFLUX DISEASE WITHOUT 02/01/2018 MARINE BUCHANANIS Ot N64.4 MASTODYNIA 02/01/2018 MARINE BUCHANANIS Ot T81.4XXA INFECTION FOLLOWING A PROCEDURE, INITIAL 02/01/2018 MARINE BUCHANANIS Ot Z85.3 PERSONAL HISTORY OF MALIGNANT NEOPLASM O 02/01/2018 MARINE BUCHANANIS Ot Z88.5 ALLERGY STATUS TO NARCOTIC AGENT STATUS 02/01/2018 MARINE BUCHANANIS Ot Z88.8 ALLERGY STATUS TO OTH DRUG/MEDS/BIOL SUB 02/01/2018 MARINE BUCHANANIS Ot Z90.12 ACQUIRED ABSENCE OF LEFT BREAST AND NIPP 02/01/2018 MARINE BUCHANANIS Ot Z90.710 ACQUIRED ABSENCE OF BOTH CERVIX AND UTER 02/01/2018 MARINE BUCHANANIS Ot Z90.89 ACQUIRED ABSENCE OF OTHER ORGANS 02/03/2018 ROSELYN SWAN DO Ot C50.912 MALIGNANT NEOPLASM OF UNSPECIFIED SITE O 02/03/2018 ROSELYN SWAN DO Ot G56.92 UNSPECIFIED MONONEUROPATHY OF LEFT UPPER 02/03/2018 ROSELYN SWAN DO Ot K21.9 GASTRO-ESOPHAGEAL REFLUX DISEASE WITHOUT 02/03/2018 ROSELYN SWAN DO Ot K44.9 DIAPHRAGMATIC HERNIA WITHOUT OBSTRUCTION 02/03/2018 ROSELYN SWAN DO Ot Z72.0 TOBACCO USE 02/03/2018 ANGELES BUCHANAN Ot K21.9 GASTRO-ESOPHAGEAL REFLUX DISEASE WITHOUT 02/03/2018 ANGELES BUCHANAN Ot N64.4 MASTODYNIA 02/03/2018 ANGELES BUCHANAN Ot T81.4XXA INFECTION FOLLOWING A PROCEDURE, INITIAL 02/03/2018 ANGELES BUCHANAN Ot Z85.3 PERSONAL HISTORY OF MALIGNANT NEOPLASM O 02/03/2018 MARINE BUCHANANIS Ot Z88.5 ALLERGY STATUS TO NARCOTIC AGENT STATUS 02/03/2018 MARINE BUCHANANIS Ot Z88.8 ALLERGY STATUS TO OTH DRUG/MEDS/BIOL SUB 02/03/2018 MARINE BUCHANANIS Ot Z90.12 ACQUIRED ABSENCE OF LEFT BREAST AND NIPP 02/03/2018 MARINE BUCHANANIS Ot Z90.710 ACQUIRED ABSENCE OF BOTH CERVIX AND UTER 02/03/2018 MARINE BUCHANANIS Ot Z90.89 ACQUIRED ABSENCE OF OTHER ORGANS 02/06/2018 SWAN DO, ROSELYN D Ot C50.912 MALIGNANT NEOPLASM OF UNSPECIFIED SITE O 02/06/2018 SWAN DO, ROSELYN D Ot G56.92 UNSPECIFIED MONONEUROPATHY OF LEFT UPPER 02/06/2018 SWAN DO, ROSELYN D Ot K21.9 GASTRO-ESOPHAGEAL REFLUX DISEASE WITHOUT 02/06/2018 SWAN DO, ROSELYN D Ot K44.9 DIAPHRAGMATIC HERNIA WITHOUT OBSTRUCTION 02/06/2018 SWAN DO, ROSELYN D Ot Z72.0 TOBACCO USE 02/10/2018 SWAN DO, ROSELYN D Ot C50.912 MALIGNANT NEOPLASM OF UNSPECIFIED SITE O 02/10/2018 SWAN DO, ROSELYN D Ot G56.92 UNSPECIFIED MONONEUROPATHY OF LEFT UPPER 02/10/2018 SWAN DO, ROSELYN D Ot K21.9 GASTRO-ESOPHAGEAL REFLUX DISEASE WITHOUT 02/10/2018 SWAN DO, ROSELYN D Ot K44.9 DIAPHRAGMATIC HERNIA WITHOUT OBSTRUCTION 02/10/2018 SWAN DO, ROSELYN D Ot Z72.0 TOBACCO USE 03/12/2018 ADITYA TEMPLE MD, Ot C50.112 MALIGNANT NEOPLASM OF CENTRAL PORTION OF 03/12/2018 ADITYA TEMPLE MD, Ot K44.9 DIAPHRAGMATIC HERNIA WITHOUT OBSTRUCTION 03/12/2018 ADITYA TEMPLE MD, Ot R05 COUGH 03/12/2018 ADITYA TEMPLE MD, Ot R13.10 DYSPHAGIA, UNSPECIFIED 03/12/2018 ADITYA TEMPLE MD, Ot Z17.0 ESTROGEN RECEPTOR POSITIVE STATUS [ER+] 03/12/2018 ADITYA TEMPLE MD, Ot Z79.811 DETENTION (CURRENT) USE OF AROMATASE INH 03/12/2018 ADITYA TEMPLE MD, Ot Z90.710 ACQUIRED ABSENCE OF BOTH CERVIX AND UTER 03/13/2018 ADITYA TEMPLE MD, Ot C50.112 MALIGNANT NEOPLASM OF CENTRAL PORTION OF 03/13/2018 ADITYA TEMPLE MD, Ot K44.9 DIAPHRAGMATIC HERNIA WITHOUT OBSTRUCTION 03/13/2018 ADITYA TEMPLE MD, Ot R05 COUGH 03/13/2018 ADITYA TEMPLE MD Ot R13.10 DYSPHAGIA, UNSPECIFIED 03/13/2018 ADITYA TEMPLE MD, Ot Z17.0 ESTROGEN RECEPTOR POSITIVE STATUS [ER+] 03/13/2018 ADITYA TEMPLE MD, Ot Z79.811 IMPREGNATOR AND DRIER HELPER (CURRENT) USE OF AROMATASE INH 03/13/2018 ADITYA TEMPLE MD, Ot Z90.710 ACQUIRED ABSENCE OF BOTH CERVIX AND UTER 03/25/2018 SWAN DOROSELYN Ot K21.0 GASTRO-ESOPHAGEAL REFLUX DISEASE WITH ES 03/26/2018 ADITYA TEMPLE MD, Ot C50.112 MALIGNANT NEOPLASM OF CENTRAL PORTION OF 03/26/2018 ADITYA TEMPLE MD, Ot K44.9 DIAPHRAGMATIC HERNIA WITHOUT OBSTRUCTION 03/26/2018 ADITYA TEMPLE MD, Ot R05 COUGH 03/26/2018 ADITYA TEMPLE MD, Ot R13.10 DYSPHAGIA, UNSPECIFIED 03/26/2018 ADITYA TEMPLE MD, Ot Z17.0 ESTROGEN RECEPTOR POSITIVE STATUS [ER+] 03/26/2018 ADITYA TEMPLE MD, Ot Z79.811 IMPREGNATOR AND DRIER HELPER (CURRENT) USE OF AROMATASE INH 03/26/2018 ADITYA TEMPLE MD Ot Z90.710 ACQUIRED ABSENCE OF BOTH CERVIX AND UTER 03/27/2018 ADITYA TEMPLE MD, Ot C50.112 MALIGNANT NEOPLASM OF CENTRAL PORTION OF 03/27/2018 ADITYA TEMPLE MD, Ot K44.9 DIAPHRAGMATIC HERNIA WITHOUT OBSTRUCTION 03/27/2018 ADITYA TEMPLE MD Ot R05 COUGH 03/27/2018 ADITYA TEMPLE MD Ot R13.10 DYSPHAGIA, UNSPECIFIED 03/27/2018 ADITYA TEMPLE MD, Ot Z17.0 ESTROGEN RECEPTOR POSITIVE STATUS [ER+] 03/27/2018 ADITYA TEMPLE MD, Ot Z79.811 IMPREGNATOR AND DRIER HELPER (CURRENT) USE OF AROMATASE INH 03/27/2018 ADITYA TEMPLE MD Ot Z90.710 ACQUIRED ABSENCE OF BOTH CERVIX AND UTER 04/22/2018 ROSELYN SWAN DO Ot K21.0 GASTRO-ESOPHAGEAL REFLUX DISEASE WITH ES 06/22/2018 MELODY LAEL HOTEL GUEST SERVICE AGENT Ot V76.12 OTH SCREEN MAMMO-MALIGN NEOPLASM OF CHRISTOPHER 06/22/2018 TAQUERIA, ANNIA A OVERHAULER Ot V76.12 OTH SCREEN MAMMO-MALIGN NEOPLASM OF CHRISTOPHER 06/22/2018 ZAKIA WALDROP HOTEL GUEST SERVICE AGENT Ot Z12.31 ENCNTR SCREEN MAMMOGRAM FOR MALIGNANT NE 06/22/2018 ZAKIA WALDROP HOTEL GUEST SERVICE AGENT Ot R42 DIZZINESS AND GIDDINESS 06/22/2018 FENECH DO, WILFREDO S Ot R10.2 PELVIC AND PERINEAL PAIN 06/22/2018 FENECH DO, WILFREDO S Ot Z90.710 ACQUIRED ABSENCE OF BOTH CERVIX AND UTER 06/22/2018 DANNY BLAKELY HOTEL GUEST SERVICE AGENT Ot Z12.31 ENCNTR SCREEN MAMMOGRAM FOR MALIGNANT NE 06/22/2018 PORTIA PECK OVERHAULER Ot R92.2 INCONCLUSIVE MAMMOGRAM 06/22/2018 PORTIA PECK OVERHAULER Ot C50.912 MALIGNANT NEOPLASM OF UNSPECIFIED SITE O 06/22/2018 ADITYA TEMPLE MD, Ot C50.112 MALIGNANT NEOPLASM OF CENTRAL PORTION OF 06/22/2018 ADITYA TEMPLE MD Ot R05 COUGH 06/22/2018 ADITYA TEMPLE MD, Ot R13.10 DYSPHAGIA, UNSPECIFIED 06/22/2018 ROSELYN SWAN DO Ot K21.0 GASTRO-ESOPHAGEAL REFLUX DISEASE WITH ES 06/22/2018 ADITYA TEMPLE MD, Ot C50.112 MALIGNANT NEOPLASM OF CENTRAL PORTION OF 06/22/2018 ADITYA TEMPLE MD, Ot K44.9 DIAPHRAGMATIC HERNIA WITHOUT OBSTRUCTION 06/22/2018 ADITYA TEMPLE MD Ot R05 COUGH 06/22/2018 ADITYA TEMPLE MD, Ot R13.10 DYSPHAGIA, UNSPECIFIED 06/22/2018 ADITYA TEMPLE MD, Ot Z17.0 ESTROGEN RECEPTOR POSITIVE STATUS [ER+] 06/22/2018 ADITYA TEMPLE MD, Ot Z79.811 IMPREGNATOR AND DRIER HELPER (CURRENT) USE OF AROMATASE INH 06/22/2018 ADITYA TEMPLE MD, Ot Z90.710 ACQUIRED ABSENCE OF BOTH CERVIX AND UTER Procedures Code Description [place] [address] IV INFUSION 05/15/2012 J7030 NORMAL SALINE SOLUTION INFUS 05/15/2012 09261 ROUTINE VENIPUNCTURE 06/29/2012 57723 LIPID PANEL 06/29/2012 36624 ROUTINE VENIPUNCTURE 03/12/2013 11467 MAMMOGRAM, SCREENING 03/12/2013 15690 HEMOCCULT 03/12/2013 58361 GC/CHLAM PROBE (STATE) 03/12/2013 25493 PAP SMEAR 03/12/2013 Q0091 PAP SMEAR OBTAIN SMEAR 03/12/2013 36224 TRICHOMONAS (IN-HOUSE) 03/12/2013 [id number] GFR CALC (RESULT ONLY) 03/12/2013 35362 CMP 03/12/2013 79534 LIPID PANEL 03/12/2013 42419 CA 125 03/12/2013 73450 CULTURE UROGENITAL 03/15/2013 58324 UA W/ CULTURE IF INDICATED 03/30/2013 Results [...] 34.9 g/dL 32.0-36.0 MCV 88.4 fL 80.0-100.0 [place] # 0.6 x10^3/UL 0.1-0.6 [place] % 6.3 % 2.0-14.0 MPV 9.2 FL [...] ABO+Rh group AP NRG Transfusion band number [id number] NRG Blood group antibody screen NEGATIVE NRG Methicillin resistant Staphylococcus aureus (MRSA) screening culture - 12:45 Methicillin resistant Staphylococcus aureus (MRSA) screening culture NEG NRG Complete blood count (CBC) with automated white blood cell (WBC) differential - 02/01/18 10:50 Blood leukocytes automated count (number/volume) 10.4 10*3/uL 4.3-11.0 Blood erythrocytes automated count (number/volume) 4.44 10*6/uL 4.35-5.85 Venous blood hemoglobin measurement (mass/volume) 13.6 g/dL 11.5-16.0 Blood hematocrit (volume fraction) 39 % 35-52 Automated erythrocyte mean corpuscular volume 87 [foz_us] 80-99 Automated erythrocyte mean corpuscular hemoglobin (mass per erythrocyte) 31 pg 25-34 Automated erythrocyte mean corpuscular hemoglobin concentration measurement ( mass/volume) 35 g/dL 32-36 Automated erythrocyte distribution width ratio 12.8 % 10.0-14.5 Automated blood platelet count (count/volume) 284 10*3/uL 130-400 Automated blood platelet mean volume measurement 9.7 [foz_us] 7.4-10.4 Automated blood neutrophils/100 leukocytes 73 % 42-75 Automated blood lymphocytes/100 leukocytes 18 % 12-44 Blood monocytes/100 leukocytes 7 % 0-12 Automated blood eosinophils/100 leukocytes 2 % 0-10 Automated blood basophils/100 leukocytes 0 % 0-10 Blood neutrophils automated count (number/volume) 7.6 10*3 1.8-7.8 Blood lymphocytes automated count (number/volume) 1.8 10*3 1.0-4.0 Blood monocytes automated count (number/volume) 0.7 10*3 0.0-1.0 Automated eosinophil count 0.2 10*3/uL 0.0-0.3 Automated blood basophil count (count/volume) 0.0 10*3/uL 0.0-0.1 Blood lactic acid measurement (moles/volume) - 02/01/18 10:50 Blood lactic acid measurement (moles/volume) 1.33 mmol/L 0.50-2.00 Comprehensive metabolic panel - 02/01/18 10:50 Serum or plasma sodium measurement (moles/volume) 140 mmol/L 135-145 Serum or plasma potassium measurement (moles/volume) 3.8 mmol/L 3.6-5.0 Serum or plasma chloride measurement (moles/volume) 107 mmol/L 98-107 Carbon dioxide 20 mmol/L 21-32 Serum or plasma anion gap determination (moles/volume) 13 mmol/L 5-14 Serum or plasma urea nitrogen measurement (mass/volume) 15 mg/dL 7-18 Serum or plasma creatinine measurement (mass/volume) 0.72 mg/dL 0.60-1.30 Serum or plasma urea nitrogen/creatinine mass ratio 21 NRG Serum or plasma creatinine measurement with calculation of estimated glomerular filtration rate > NRG Serum or plasma glucose measurement (mass/volume) 98 mg/dL 70-105 Serum or plasma calcium measurement (mass/volume) 8.9 mg/dL 8.5-10.1 Serum or plasma total bilirubin measurement (mass/volume) 0.6 mg/dL 0.1-1.0 Serum or plasma alkaline phosphatase measurement (enzymatic activity/volume) 89 U/L 40-136 Serum or plasma aspartate aminotransferase measurement (enzymatic activity/ volume) 22 U/L 5-34 Serum or plasma alanine aminotransferase measurement (enzymatic activity/volume ) 27 U/L 0-55 Serum or plasma protein measurement (mass/volume) 6.4 g/dL 6.4-8.2 Serum or plasma albumin measurement (mass/volume) 3.8 g/dL 3.2-4.5 CALCIUM CORRECTED 9.1 mg/dL 8.5-10.1 PT panel in platelet poor plasma by coagulation assay - 02/01/18 10:50 Prothrombin time (PT) in platelet poor plasma by coagulation assay 12.4 s 12.2-14.7 INR in platelet poor plasma or blood by coagulation assay 0.9 0.8-1.4 Activated partial thromboplastin time (aPTT) in platelet poor plasma bycoagulation assay - 02/01/18 10:50 Activated partial thromboplastin time (aPTT) in platelet poor plasma bycoagulation assay 26 s 24-35 Bacterial blood culture - 02/01/18 10:50 Bacterial blood culture NG NRG Gram stain microscopy - 02/01/18 11:00 Gram stain microscopy No bacteria seen NRG Bacteria identification in wound by culture - 02/01/18 11:00 Bacteria identification in wound by culture [id number] NR FREE TEXT EXTERNAL SUSCEPTIBILITY REPORTED 02-04-2018,1205 NRG QUANTITY OF GROWTH Rare NRG FREE TEXT ENTRY 2 FINAL REPORT 02-04-2018, 1205. [facility] Sensitivity Panel - 02/01/18 11:00 Oxacillin susceptibility test by minimum inhibitory concentration < = NRG Clindamycin susceptibility test by minimum inhibitory concentration <= NRG Erythromycin susceptibility test by minimum inhibitory concentration <= NRG Vancomycin susceptibility test by minimum inhibitory concentration 2 NRG Levofloxacin susceptibility test by minimum inhibitory concentration <= NRG Rifampin susceptibility test by minimum inhibitory concentration <= NRG Cefazolin susceptibility test by minimum inhibitory concentration < = NRG Linezolid susceptibility test by minimum inhibitory concentration 2 NRG Penicillin G susceptibility test by minimum inhibitory concentration 0.25 NRG Minocycline susc NISHA <= NRG Bacterial blood culture - 02/01/18 11:26 Bacterial blood culture NG NRG Gram stain microscopy - 02/01/18 12:00 Gram stain microscopy No bacteria seen NRG Bacteria identification in wound by culture - 02/01/18 12:00 Bacteria identification in wound by culture [id number] NRG FREE TEXT EXTERNAL SUSCEPTIBILITIES REPORTED 02-04-2018, NRG QUANTITY OF GROWTH FEW NRG FREE TEXT ENTRY 2 1205/ FINAL REPORT 02-04-2018, 1205. [facility] Sensitivity Panel - 02/01/18 12:00 Oxacillin susceptibility test by minimum inhibitory concentration 0.5 NRG Clindamycin susceptibility test by minimum inhibitory concentration <= NRG Erythromycin susceptibility test by minimum inhibitory concentration <= NRG Vancomycin susceptibility test by minimum inhibitory concentration < = NRG Levofloxacin susceptibility test by minimum inhibitory concentration <= NRG Rifampin susceptibility test by minimum inhibitory concentration <= NRG Cefazolin susceptibility test by minimum inhibitory concentration < = NRG Linezolid susceptibility test by minimum inhibitory concentration < = NRG Penicillin G susceptibility test by minimum inhibitory concentration 0.5 NRG Minocycline susc NISHA <= NRG RM Sensitivity Panel - 02/01/18 12:00 Oxacillin susceptibility test by minimum inhibitory concentration 0.5 NRG Clindamycin susceptibility test by minimum inhibitory concentration <= NRG Erythromycin susceptibility test by minimum inhibitory concentration <= NRG Vancomycin susceptibility test by minimum inhibitory concentration 1 NRG Levofloxacin susceptibility test by minimum inhibitory concentration <= NRG Rifampin susceptibility test by minimum inhibitory concentration <= NRG Cefazolin susceptibility test by minimum inhibitory concentration R NRG Linezolid susceptibility test by minimum inhibitory concentration 2 NRG Penicillin G susceptibility test by minimum inhibitory concentration 0.25 NRG Minocycline susc NISHA <= NRG Complete blood count (CBC) with automated white blood cell (WBC) differential - 06/22/18 22:40 Blood leukocytes automated count (number/volume) 6.3 10*3/uL 4.3-11.0 Blood erythrocytes automated count (number/volume) 4.32 10*6/uL 4.35-5.85 Venous blood hemoglobin measurement (mass/volume) 13.4 g/dL 11.5-16.0 Blood hematocrit (volume fraction) 38 % 35-52 Automated erythrocyte mean corpuscular volume 88 [foz_us] 80-99 Automated erythrocyte mean corpuscular hemoglobin (mass per erythrocyte) 31 pg 25-34 Automated erythrocyte mean corpuscular hemoglobin concentration measurement ( mass/volume) 35 g/dL 32-36 Automated erythrocyte distribution width ratio 13.5 % 10.0-14.5 Automated blood platelet count (count/volume) 287 10*3/uL 130-400 Automated blood platelet mean volume measurement 9.3 [foz_us] 7.4-10.4 Automated blood neutrophils/100 leukocytes 48 % 42-75 Automated blood lymphocytes/100 leukocytes 42 % 12-44 Blood monocytes/100 leukocytes 8 % 0-12 Automated blood eosinophils/100 leukocytes 2 % 0-10 Automated blood basophils/100 leukocytes 1 % 0-10 Blood neutrophils automated count (number/volume) 3.0 10*3 1.8-7.8 Blood lymphocytes automated count (number/volume) 2.6 10*3 1.0-4.0 Blood monocytes automated count (number/volume) 0.5 10*3 0.0-1.0 Automated eosinophil count 0.1 10*3/uL 0.0-0.3 Automated blood basophil count (count/volume) 0.0 10*3/uL 0.0-0.1 Comprehensive metabolic panel - 06/22/18 22:40 Serum or plasma sodium measurement (moles/volume) 143 mmol/L 135-145 Serum or plasma potassium measurement (moles/volume) 3.5 mmol/L 3.6-5.0 Serum or plasma chloride measurement (moles/volume) 107 mmol/L 98-107 Carbon dioxide 24 mmol/L 21-32 Serum or plasma anion gap determination (moles/volume) 12 mmol/L 5-14 Serum or plasma urea nitrogen measurement (mass/volume) 12 mg/dL 7-18 Serum or plasma creatinine measurement (mass/volume) 0.78 mg/dL 0.60-1.30 Serum or plasma urea nitrogen/creatinine mass ratio 15 NRG Serum or plasma creatinine measurement with calculation of estimated glomerular filtration rate > NRG Serum or plasma glucose measurement (mass/volume) 118 mg/dL 70-105 Serum or plasma calcium measurement (mass/volume) 9.3 mg/dL 8.5-10.1 Serum or plasma total bilirubin measurement (mass/volume) 0.4 mg/dL 0.1-1.0 Serum or plasma alkaline phosphatase measurement (enzymatic activity/volume) 72 U/L 40-136 Serum or plasma aspartate aminotransferase measurement (enzymatic activity/ volume) 24 U/L 5-34 Serum or plasma alanine aminotransferase measurement (enzymatic activity/volume ) 32 U/L 0-55 Serum or plasma protein measurement (mass/volume) 7.2 g/dL 6.4-8.2 Serum or plasma albumin measurement (mass/volume) 4.2 g/dL 3.2-4.5 CALCIUM CORRECTED 9.1 mg/dL 8.5-10.1 Magnesium - 06/22/18 22:40 Magnesium 2.2 mg/dL 1.8-2.4 Serum or plasma troponin i.cardiac measurement (mass/volume) - 06/22/18 22:40 Serum or plasma troponin i.cardiac measurement (mass/volume) < ng/ mL <0.028 Myoglobin, serum - 06/22/18 22:40 Myoglobin, serum 39.8 ng/mL 10.0-92.0 PT panel in platelet poor plasma by coagulation assay - 06/22/18 22:40 Prothrombin time (PT) in platelet poor plasma by coagulation assay 13.1 s 12.2-14.7 INR in platelet poor plasma or blood by coagulation assay 1.0 0.8-1.4 Activated partial thromboplastin time (aPTT) in platelet poor plasma bycoagulation assay - 06/22/18 22:40 Activated partial thromboplastin time (aPTT) in platelet poor plasma bycoagulation assay 27 s 24-35 Fibrin D-dimer FEU measurement in platelet poor plasma (mass/volume) - 22:40 Fibrin D-dimer FEU measurement in platelet poor plasma (mass/volume) 0.96 ug/mL 0.00-0.49 Serum or plasma amylase measurement (enzymatic activity/volume) - 06/22/18 22: 40 Serum or plasma amylase measurement (enzymatic activity/volume) 37 U /L 25-125 Lipase - 06/22/18 22:40 Lipase 41 U/L 8-78 Serum or plasma lithium measurement (moles/volume) - 06/22/18 22:40 BNP level 11.9 pg/mL <100.0 Encounters ACCT No. Visit Date/Time Discharge Status Pt. Type Provider Facility Loc./Unit Complaint [id number] 03/15/2014 08:57:00 03/15/2014 23:59:59 CLS Outpatient SKYLA MAYER DO [id number] 07/02/2013 14:14:00 07/02/2013 23:59:59 CLS Outpatient ACACIA HAYES, JAVED Phillips [id number] 03/30/2013 17:22:00 03/30/2013 23:59:59 CLS Outpatient SKYLA MAYER DO [id number] 03/12/2013 09:09:00 03/12/2013 23:59:59 CLS Outpatient SKYLA MAYER DO [id number] 06/29/2012 13:06:00 06/29/2012 23:59:59 CLS Outpatient SKYLA MAYER DO [id number] 05/15/2012 09:44:00 05/15/2012 23:59:59 CLS Outpatient SKYLA MAYER DO [id number] 04/24/2016 08:06:00 Document Registration [id number] 10/02/2017 10:03:00 10/02/2017 23:59:00 DIS Outpatient Hussain Childs [id number] 10/02/2017 11:34:00 Document Registration [id number] 03/13/2016 07:06:00 Document Registration [id number] 12/03/2017 13:20:00 12/03/2017 23:59:59 CLS Outpatient SKYLA MAYER DO [facility] [id number] 06/18/2018 10:43:00 06/18/2018 23:59:59 CLS Outpatient ADITYA TEMPLE MD [facility] ONC [id number] 03/12/2018 14:45:00 03/26/2018 10:34:00 DIS Outpatient ADITYA TEMPLE MD [facility] ONC [id number] 03/23/2018 10:40:00 03/23/2018 23:59:59 CLS Outpatient ROSELYN SWAN DO [facility] RAD REFLUX ESOPHAGITIS, NAUSEA [id number] 02/19/2018 10:09:00 03/12/2018 14:43:00 DIS Outpatient ADITYA TEMPLE MD [facility] ONC [id number] 02/01/2018 10:07:00 02/01/2018 12:28:00 DIS Emergency ANGELES BUCHANAN [facility] ER MASECTOMY December BY BENY/PAIN [id number] 01/22/2018 06:39:00 01/23/2018 15:05:00 DIS Outpatient ROSELYN SWAN DO [facility] CARD LT BREAST CA [id number] 01/22/2018 11:00:00 01/22/2018 11:00:00 CAN Preadmit ROSELYN SWAN DO [facility] SDC LEFT BREAST CANCER [id number] 01/19/2018 12:01:00 01/19/2018 13:37:00 DIS Outpatient ROSELYN SWAN DO [facility] PREOP LEFT BREAST CANCER [id number] 12/24/2017 07:45:00 12/24/2017 23:59:59 CLS Outpatient ADITYA TEMPLE MD [facility] RAD DYSPHAGIA,BREAST CANCER [id number] 12/12/2017 07:39:00 12/12/2017 23:59:59 CLS Outpatient PORTIA PECK OVERHAULER [facility] RAD ABN MAMMO [id number] 12/11/2017 10:24:00 12/11/2017 23:59:59 CLS Outpatient PORTIA PECK OVERHAULER [facility] RAD ABNORMAL MAMMOGRAM [id number] 12/09/2017 05:52:00 12/10/2017 13:30:00 DIS Outpatient WILFREDO GUAJARDO DO [facility] SDC FAM HX OVARIAN CA, INCONTINENCE [id number] 12/04/2017 13:54:00 12/04/2017 23:59:59 CLS Preadmit LIV PORTIA Vidal MCKEON [facility] RAD ABNORMAL MAMMOGRAM [id number] 12/04/2017 05:41:00 12/04/2017 10:15:00 DIS Outpatient WILFREDO GUAJARDO DO [facility] PREOP FAM HX OVARIAN CA, INCONTINENCE [id number] 12/02/2017 07:03:00 12/02/2017 09:45:00 DIS Outpatient ROSELYN SWAN DO [facility] ENDO SCREENING/GERD/ DYSPHAGIA [id number] 11/25/2017 09:52:00 11/25/2017 23:59:59 CLS Outpatient DANNY BLAKELY [facility] RAD SCREENING [id number] 11/25/2017 09:47:00 11/25/2017 23:59:59 CLS Outpatient WILFREDO GUAJARDO DO [facility] RAD PELVIC PRESSURE IN FEMALE,POSTMENOPAUSAL [id number] 11/25/2017 05:33:00 11/25/2017 11:39:00 DIS Outpatient ROSELYN SWAN DO [facility] PREOP COLONOSCOPY/EGD [id number] 10/31/2017 05:31:00 10/31/2017 13:57:00 DIS Outpatient ROSELYN SWAN DO [facility] PREOP COLONOSCOPY/EGD [id number] 09/30/2017 09:00:00 09/30/2017 23:59:59 CLS Preadmit DANNY BLAKELY HOTEL GUEST SERVICE AGENT [facility] RAD SCREENING [id number] 09/16/2016 08:14:00 09/16/2016 10:42:00 DIS Emergency MATEUSZ HAYES, ORACIO Friedman [facility] ER BACK PAIN [id number] 04/26/2016 13:31:00 04/26/2016 23:59:59 CLS Outpatient ZAKIA WALDROP HOTEL GUEST SERVICE AGENT [facility] RAD VERTIGO [id number] 03/27/2016 17:29:00 03/27/2016 21:07:00 DIS Emergency MATEUSZ HAYES, ORACIO Friedman [facility] ER DIZZINESS [id number] 03/14/2016 12:46:00 03/14/2016 23:59:59 CLS Outpatient ZAKIA WALDROP HOTEL GUEST SERVICE AGENT [facility] RAD SCREENING [id number] 10/25/2014 09:14:00 10/25/2014 23:59:59 CLS Outpatient ANNIA MENG OVERHAULER [facility] RAD SCREENING [id number] 03/26/2013 10:37:00 03/26/2013 23:59:59 CLS Outpatient MELODY LEAL HOTEL GUE[employer] SERVICE AGENT [facility] RAD SCREENING [id number] 06/23/2018 00:25:00 ACT Inpatient LAYLA HAYES, BRETT Anthony [facility] ICU CHEST PAIN [id number] 10/25/2014 09:14:00 Document Registration [id number] 10/25/2014 09:14:00 Document Registration [id number] 03/11/2012 07:32:00 Document Registration [id number] 02/21/2016 10:05:00 Document Registration [id number] 10/25/2014 09:15:03 ACT Document Registration [id number] 03/10/2016 13:05:00 Document Registration
[2018-06-23] MEDS ORDERED: NITROGLYCERIN 0.4 MG SL TABS BTL 25'S SL PRN (03:30)
[2018-06-23] MEDS ORDERED: ONDANSETRON 4 MG/2 ML (SDV) Z0FRAN IV PRN (03:30)
[2018-06-23] MEDS ORDERED: morphine INJ 4 MG/ML 1 ML (VIAL/SYRINGE) IV PRN (03:30)
[2018-06-23] MEDS ORDERED: ACETAMINOPHEN 500 MG TAB (TYLENOL) PO PRN (03:30)
[2018-06-23 04:47] LABS: BASOPHILS % (AUTO) 0 % (0-10); EOSINOPHILS # (AUTO) 0.2 10^3/uL (0.0-0.3); EOSINOPHILS % (AUTO) 2 % (0-10); HEMATOCRIT 37 % (35-52); HEMOGLOBIN 12.8 G/DL (11.5-16.0); LYMPHOCYTES # (AUTO) 2.5 X 10^3 (1.0-4.0); LYMPHOCYTES % (AUTO) 34 % (12-44); MEAN CORPUSCULAR HEMOGLOBIN 30 PG (25-34); MEAN CORPUSCULAR HGB CONC 34 G/DL (32-36); MEAN CORPUSCULAR VOLUME 88 FL (80-99); MEAN PLATELET VOLUME 9.5 FL (7.4-10.4); MONOCYTES # (AUTO) 0.5 X 10^3 (0.0-1.0); MONOCYTES % (AUTO) 7 % (0-12); NEUTROPHILS # (AUTO) 4.2 X 10^3 (1.8-7.8); NEUTROPHILS % (AUTO) 57 % (42-75); PLATELET COUNT 253 10^3/uL (130-400); RED CELL DISTRIBUTION WIDTH 13.3 % (10.0-14.5); WHITE BLOOD COUNT 7.3 10^3/uL (4.3-11.0)
[2018-06-23 05:15] LABS: ALANINE AMINOTRANSFERASE 30 U/L (0-55); ALBUMIN 3.8 GM/DL (3.2-4.5); ALKALINE PHOSPHATASE 68 U/L (40-136); BILIRUBIN,TOTAL 0.5 MG/DL (0.1-1.0); BUN/CREATININE RATIO 14; CARBON DIOXIDE 23 MMOL/L (21-32); CHLORIDE 109 MMOL/L (98-107); CHOLESTEROL 154 MG/DL (< 200); CREATININE SERUM 0.73 MG/DL (0.60-1.30); GFR ESTIMATED > 60; GLUCOSE 101 MG/DL (70-105); HDL CHOLESTEROL 33 MG/DL (40-60); POTASSIUM 3.7 MMOL/L (3.6-5.0); SODIUM 143 MMOL/L (135-145); TOTAL PROTEIN 6.5 GM/DL (6.4-8.2); TRIGLYCERIDES 130 MG/DL (<150); VLDL CHOLESTEROL 26 MG/DL (5-40)
[2018-06-23 05:21] LABS: CARDIAC PROFILE 2 < 0.028 NG/ML (<0.028)
[2018-06-23] MEDS ORDERED: FLU QUADRIvalent (5+ YOA) 2018-2019 (AFLURIA) 0.5 ML IM ONE (07:00)
--- NOTE | 2018-06-23 07:14 | Diagnostic Imaging Report ---
PROCEDURE: CT angiography of the chest with contrast. TECHNIQUE: Multiple contiguous axial images were obtained through the chest after uneventful bolus administration of intravenous contrast. 2D reconstructed CTA MIP acquisitions were also performed. INDICATION: Chest pain COMPARISON: CT chest of 12/24/2017 FINDINGS: Vasculature: No pulmonary emboli. No CT evidence of pulmonary hypertension or right ventricular strain. Thoracic aorta is normal in caliber. No aortic dissection or pseudoaneurysm. Heart and mediastinum: Visualized thyroid is normal. No supraclavicular, axillary, or intra-thoracic lymphadenopathy. The heart is normal in size without pericardial effusion. Pleura: No pleural effusion or pneumothorax. Lungs and airway: No endoluminal lesion in the trachea or central bronchi. No pulmonary mass, nodule or consolidation. Upper abdomen: Diffuse hypoattenuation liver is unchanged and most compatible hepatic steatosis. Large diverticulum of the second portion of duodenum also unchanged. Musculoskeletal: No concerning osseous lesion. IMPRESSION: 1. No acute cardiopulmonary process. Specifically, no pulmonary emboli or acute aortic syndrome. 2. Findings are in agreement with the preliminary report. Dictated by: Dictated on workstation # [id number]
--- NOTE | 2018-06-23 07:35 | Diagnostic Imaging Report ---
CHEST 1 VIEW, AP/PA ONLY Indication: Chest pain Comparison: 03/27/2016 Findings: No focal airspace disease in the visualized lungs. Please note that the posterior lower lobes are poorly evaluated by portable radiography. No pleural effusion or pneumothorax. Normal cardiomediastinal silhouette. Impression: No acute cardiopulmonary process by portable radiography. Dictated by: Dictated on workstation # [id number]
[2018-06-23] MEDS ORDERED: ASPIRIN E.C. 81 MG (ECOTRIN) TAB PO SCH (09:00)
--- NOTE | 2018-06-23 09:11 | Consultation-Cardiology ---
HPI-Cardiology Cardiology Consultation: Date of Consultation 06/23/18 Date of Admission Attending Physician Richie Bautista MD Admitting Physician Jovita,Local Physician Consulting Physician Vu MAS MD HPI: Time Seen by a Provider: 08:30 Chief Complaint: Chest pain This is a 62-year-old lady who denies any post cardiac history. She has history of breast cancer status post mastectomy. No chest radiation. She denies diabetes, hypertension, hyperlipidemia. She denies active smoking. She however has extensive cardiac history in the family. She had sudden onset of chest pain substernal radiating to her jaw and back. Intensity 8/10. Improvement with nitroglycerin. Lasted for at least 30 minutes to an hour. No exacerbating or relieving factors. Associated with mild shortness of breath. Denies any other cardiac symptoms. Review of Systems-Cardiology Review of Systems Constitutional: As described under HPI; No As described under HPI, No no symptoms reported, No chills, No fever, No lightheadedness Eyes: No As described under HPI, No no symptoms reported, No blindness, No blurred vision, No contact lenses, No drainage, No decreased acuity, No foreign body sensation, No pain, No vision change Ears/Nose/Throat: No As described under HPI, No no symptoms reported, No chronic hearing loss, No ear discharge, No ear pain, No nasal drainage, No ulcerations Respiratory: No no symptoms reported; As described under HPI; No As described under HPI, No cough, No orthopnea, No shortness of breath, No SOB with excertion Cardiovascular: No no symptoms reported; As described under HPI; No As described under HPI; chest pain; No edema, No irregular heart rate, No lightheadedness, No palpitations Gastrointestinal: No no symptoms reported, No As described under HPI, No abdomen distended, No abdominal pain, No blood streaked bowels, No constipation , No diarrhea, No nausea, No vomiting, No stool coloration changes Genitourinary: No As described under HPI, No burning, No dysuria, No discharge , No frequency, No flank pain, No hematuria, No urgency : Yes : No Musculoskeletal: No no symptoms reported, No As describe under HPI, No back pain, No gout, No joint pain, No joint swelling, No muscle pain, No muscle stiffness, No neck pain, No other Skin: No no symptoms reported, No As described under HPI, No change in color, No change in hair/nails, No dryness, No lesions, No lumps, No rash, No other, No skin related problems, No ulcerations, No rash on exposed areas, No ulcerations on exposed areas Psychiatric/Neurological: No anxiety, No depression, No seizure, No focal weakness, No syncope Hematologic: No bleeding abnormalities [id number] Hx Patient Social History Alcohol Use: Denies Use Recreational Drug Use: No Smoking Status: Never a Smoker Recent Foreign Travel: No Recent Infectious Disease Expo: No Hospitalization with Isolation: Denies Past Medical History PMH As described under Assessment. Family Medical History Family History: Ovarian cancer Allergies and Home Medications Allergies Coded Allergies: hydrocodone (Verified Allergy, Unknown, NAUSEA, 01/23/18) Home Medications Cephalexin 500 Mg Capsule, 500 MG PO BID Prescribed by: ANGELES BUCHANAN on 02/01/18 1203 Ibuprofen 600 Mg Tablet, 600 MG PO Q6H PRN for PAIN Prescribed by: HENOK CHÁVEZ on 12/10/17 1235 Pantoprazole Sodium 40 Mg Tablet.dr, 40 MG PO DAILY Prescribed by: ROSELYN SWAN on 12/02/17 0826 Tramadol HCl 50 Mg Tablet, 50 MG PO Q6H Prescribed by: ANGELES BUCHANAN on 02/01/18 1203 Patient Home Medication List Home Medication List Reviewed: Yes Physical Exam-Cardiology Physical Exam Vital Signs/I&O 06/22/18 06/22/18 06/22/18 06/23/18 22:34 22:34 22:40 01:58 Temp 98.8 98.8 Pulse 67 71 Resp B/P (MAP) 151/107 (122) 126/79 (95) Pulse Ox 98 98 98 O2 Delivery Room Air Nasal Cannula Nasal Cannula Nasal Cannula O2 Flow Rate 2.0 2.00 2.00 06/23/18 06/23/18 06/23/18 06/23/18 02:08 02:10 02:15 02:30 Temp 97.1 Pulse 60 65 65 64 Resp B/P (MAP) 120/83 (95) 128/85 (99) 121/78 (92) Pulse Ox 98 97 95 O2 Delivery Room Air Room Air Room Air 06/23/18 06/23/18 06/23/18 06/23/18 02:42 02:45 02:48 03:00 Temp 97.1 Pulse 65 76 62 Resp 9 21 14 B/P (MAP) 128/85 132/73 (92) 108/72 (84) Pulse Ox 97 95 98 94 O2 Delivery Room Air Room Air Room Air Room Air O2 Flow Rate 2.00 2.00 06/23/18 06/23/18 06/23/18 06/23/18 03:15 03:30 03:45 04:00 Temp 97.8 Pulse 69 68 73 Resp 16 15 17 B/P (MAP) 101/70 (80) 105/66 (79) 98/67 (77) Pulse Ox 93 93 94 O2 Delivery Room Air Room Air Room Air 06/23/18 06/23/18 06/23/18 06/23/18 04:00 04:00 05:00 06:00 Pulse 65 65 63 Resp 16 14 16 B/P (MAP) 104/68 (80) 113/70 (84) 98/56 (70) Pulse Ox 94 98 95 94 O2 Delivery Room Air Room Air Room Air Room Air 06/23/18 08:48 Pulse 54 Capillary Refill : Less Than 3 Seconds Constitutional: appears stated age, AAO x 3; No apparent distress; well- developed, well-nourished HEENT: PERRL; No normal ENT inspection, No TMs normal, No pharynx normal, No scleral icterus (R), No scleral icterus (L), No pale conjunctivae (R), No pale conjunctivae (L), No photophobia, No TM abnormal (R), No TM abnormal (L), No pharyngeal erythema, No tonsillar exudate, No other, No discharge, No EOMI; hearing is well preserved; No hard of hearing; oral hygience is good; No ulceration, No xanthelasmas are seen Neck: No non-tender, No full range of motion, No supple, No normal inspection, No carotid bruit, No limited range of motion, No lymphadenopathy (R), No lymphadenopathy (L), No tender lateral, No tender midline, No thyromegaly, No other; carotid pulses are 2 + bilaterally; No with good upstrokes Respiratory: No accessory muscle use, No respiratory distress, No chest tender , No chest expansion is symmetric; chest is bilaterally symmetric; No lungs clear to percussion; lungs clear to auscultation; No crackles, No rhonchi, No rales, No stridor, No wheezing, No pleural rub, No other Cardiovascular: regular rate-rhythm; No irregularly irregular, No extra beats, No parasternal heave is noted, No JVD, No edema, No bradycardia, No tachycardia , No point of maximal impulse, No cardiac thrills are palpable; S1 and S2; No gallop/S3, No gallop/S4, No diastolic murmur, No systolic murmur, No friction rub, No click, No other Gastrointestinal: No tender, No soft, No round, No distended, No pulsatile mass , No organomegaly, No guarding, No rebound, No tenderness, No hernia, No mass, No audible bowel sounds, No abnormal bowel sounds, No abdominal bruits, No spleenomegaly, No other Rectal: deferred Extremities: No normal range of motion, No non-tender, No normal inspection, No pedal edema, No calf tenderness, No normal capillary refill, No pelvis stable , No calf tenderness, No inflammation, No pedal edema, No slow capillary refill , No swelling, No other, No abrasion, No clubbing, No cyanosis, No ecchymosis, No laceration, No no lower extremity edema bilateral, No significant edema, No tenderness, No wound Neurologic/Psychiatric: no motor/sensory deficits, alert, normal mood/affect, oriented x 3, power is 5/5 both on sides Skin: No normal color, No warm/dry, No cyanosis, No cool, No diaphoresis, No damp, No ecchymosis, No jaundice, No mottled, No pallor, No rash, No tattoos/ piercings, No ulcerations, No rash on exposed areas, No ulcerations on exposed areas, No other Data Review Labs Laboratory Tests 06/22/18 22:40: White Blood Count 6.3, Red Blood Count 4.32L, Hemoglobin 13.4, Hematocrit 38, Mean Corpuscular Volume 88, Mean Corpuscular Hemoglobin 31, Mean Corpuscular Hemoglobin Concent 35, Red Cell Distribution Width 13.5, Platelet Count 287, Mean Platelet Volume 9.3, Neutrophils (%) (Auto) 48, Lymphocytes (%) (Auto) 42, Monocytes (%) (Auto) 8, Eosinophils (%) (Auto) 2, Basophils (%) (Auto) 1, Neutrophils # (Auto) 3.0, Lymphocytes # (Auto) 2.6, Monocytes # (Auto) 0.5, Eosinophils # (Auto) 0.1, Basophils # (Auto) 0.0, Prothrombin Time 13.1, INR Comment 1.0, Activated Partial Thromboplast Time 27, D-Dimer 0.96H, Sodium Level 143, Potassium Level 3.5L, Chloride Level 107, Carbon Dioxide Level 24, Anion Gap 12, Blood Urea Nitrogen 12, Creatinine 0.78, Estimat Glomerular Filtration Rate > 60, BUN/Creatinine Ratio 15, Glucose Level 118H, Calcium Level 9.3, Corrected Calcium 9.1, Magnesium Level 2.2, Total Bilirubin 0.4, Aspartate Amino Transf (AST/SGOT) 24, Alanine Aminotransferase (ALT/SGPT) 32, Alkaline Phosphatase 72, Myoglobin 39.8, Troponin I < 0.028, B-Type Natriuretic Peptide 11.9, Total Protein 7.2, Albumin 4.2, Amylase Level 37, Lipase 41 06/23/18 04:35: White Blood Count 7.3, Red Blood Count 4.23L, Hemoglobin 12.8, Hematocrit 37, Mean Corpuscular Volume 88, Mean Corpuscular Hemoglobin 30, Mean Corpuscular Hemoglobin Concent 34, Red Cell Distribution Width 13.3, Platelet Count 253, Mean Platelet Volume 9.5, Neutrophils (%) (Auto) 57, Lymphocytes (%) (Auto) 34, Monocytes (%) (Auto) 7, Eosinophils (%) (Auto) 2, Basophils (%) (Auto) 0, Neutrophils # (Auto) 4.2, Lymphocytes # (Auto) 2.5, Monocytes # (Auto) 0.5, Eosinophils # (Auto) 0.2, Basophils # (Auto) 0.0, Sodium Level 143, Potassium Level 3.7, Chloride Level 109H, Carbon Dioxide Level 23, Anion Gap 11, Blood Urea Nitrogen 10, Creatinine 0.73, Estimat Glomerular Filtration Rate > 60, BUN/ Creatinine Ratio 14, Glucose Level 101, Calcium Level 9.0, Corrected Calcium 9.2 , Total Bilirubin 0.5, Aspartate Amino Transf (AST/SGOT) 23, Alanine Aminotransferase (ALT/SGPT) 30, Alkaline Phosphatase 68, Troponin I < 0.028, Total Protein 6.5, Albumin 3.8, Triglycerides Level 130, Cholesterol Level 154, LDL Cholesterol Direct 109, VLDL Cholesterol 26, HDL Cholesterol 33L ECG Impression ECG Initial ECG Rhythm: Normal Sinus Initial ECG Impression: Normal A/P-Cardiology Assessment/Admission Diagnosis Unstable angina, Positive D dimer Plan Classical history in a patient with significant cardiac history in the family. I spoke at length with the patient and recommended coronary angiography. All the risks and complication were explained in detail. Informed consent was taken. Positive D dimer, defer to Dr. Haider. Thank you for your consultation. Please call me if you have any questions. Christie Mas MD, FACP, FACC, FSCAI, FHRS, CCDS Interventional Cardiology Cardiac Electrophysiology Vascular Medicine and Endovascular Interventions Clinical Quality Measures AMI/AHF: ASA po Prior to arrival: Yes (TOOK BABY ASA THIS AM) DVT/VTE Risk/Contraindication: Risk Factor Score Per Nursin RFS Level Per Nursing on Admit: 2=Moderate Vu MAS MD Jun 23, 2018 9:11 am
[2018-06-23] MEDS ORDERED: ASPI-983 PO (09:26)
[2018-06-23] MEDS ORDERED: NF-AROM25 PO (09:28)
--- NOTE | 2018-06-23 09:29 | NUR ---
SPOKE WITH THE PATIENT ABOUT HER MEDICATIONS. SHE STATES SHE TAKES 1 CANCER MEDICATION THAT COMES VIA MAIL. I VERIFIED WITH THE CANCER CENTER SHE TAKES THE EXEMESTANE 25MG DAILY (PATIENT STATES SHE TAKES AT HS). SHE ALSO STATES SHE TAKES ASPIRIN 81MG DAILY OTC.
[2018-06-23] MEDS ORDERED: LIDOCAINE 1% INJ 20 ML 20 ML VIAL ONE (09:37)
[2018-06-23] MEDS ORDERED: HEParin (CATH LAB) 2,000 ML IV ONE (09:37)
[2018-06-23] MEDS ORDERED: NS IV 1000 ML 1,000 ML ONE (11:28)
[2018-06-23] MEDS ORDERED: fentaNYL INJECTION 100 MCG/2 ML AMP ONE (11:28)
[2018-06-23] MEDS ORDERED: MIDAZOLAM 5 MG/5 ML (VERSED) VIAL ONE (11:28)
[2018-06-23] MEDS ORDERED: NITRO DRIP 25000 MCG/D5W 250 ML IV ONE (11:30)
[2018-06-23] MEDS ORDERED: HEParin 1000 UNIT/ML (10ML VIAL) FOR BOLUS ONE (11:30)
[2018-06-23] MEDS ORDERED: VERAPAMIL 5 MG/2 ML (CALAN) VIAL IV ONE (11:30)
[2018-06-23] MEDS ORDERED: NS IV 1000 ML 1,000 ML IV SCH (12:30)
--- NOTE | 2018-06-23 12:31 | Cardiac Procedure Note-CS/ASA ---
Pre-Procedure Note Pre-Op Procedure Note H&P Reviewed The H&P was reviewed, patient examined and no changes noted. Date H&P Reviewed: Jun 23, 2018 Time H&P Reviewed: 12:00 Conscious Sedation Pre-Proced Time 12:00 ASA Score 3 For ASA 3 and 4: Consider anesthesia and medical clearance. Also, for patients with a history of failed moderate sedation consider anesthesia. Airway Lungs Heart ASA score ASA 1: a normal healthy patient ASA 2: a patient with a mild systemic disease (mid diabetes, controlled hypertension, obesity ASA 3: a patient with a severe systemic disease that limits activity (angina , COPD, prior Myocardial infarction) ASA 4: a patient with an incapacitating disease that is a constant threat to life (CHF, renal failure) ASA 5: a moribund patient not expected to survive 24 hrs. (ruptured aneurysm) ASA 6: a declared brain patient whose organs are being harvested. For emergent operations, add the letter E after the classification Mallampati Classification Grade 1 Sedation Plan Analgesia, Amnesia, Plan communicated to team members, Discussed options with patient/fam, Discussed risks with patient/fam The patient is an appropriate candidate to undergo the planned procedure, sedation, and anesthesia. The patient immediately re-assessed prior to indication. Vu COCHRAN MD Jun 23, 2018 12:31
--- NOTE | 2018-06-23 12:35 | Coronary Angiography Report ---
Coronary Angiography Report DATE OF PROCEDURE: 06/23/18 INDICATION: Unstable angina. PREOPERATIVE DIAGNOSIS: Unstable angina. POSTOPERATIVE DIAGNOSIS: Mild CAD. HISTORY: This is a 62-year-old lady with significant family history of premature CAD and sudden cardiac . She presented with typical prolonged episode of chest pain. EKG and troponins were negative. Therefore, the patient was scheduled for coronary angiography. PROCEDURES PERFORMED: 1.Coronary angiography. 2.Left heart catheterization. 3. Aortic arch angiogram; medical necessity: To rule out aortic aneurysm or dissection as a cause of chest pain since no significant CAD. COMPLICATIONS: None. SPECIMENS: None. ESTIMATED BLOOD LOSS: 10 mL ANESTHESIA: Conscious sedation ANTICOAGULATION: IV heparin CONTRAST: 70 mL. FLUOROSCOPY: 4.9 minutes. FLOUROSCOPY DOSE:170 mgy. PROCEDURE DETAILS: The patient is a 62 female and was brought to the labels molder after informed consent was taken. All the risks and complications were explained in detail; this included the risk of bleeding, vascular damage, stroke , DC and even . The patient was draped and prepped in the usual sterile fashion. Access was gained in the right radial artery with a 6 Welsh sheath. Coronary angiography and left heart catheterization was performed with the Mcdonough catheter. Aortic arch angiogram was done with the Mcdonough catheter. FINDINGS: 1.Left main: Patent. 2.LAD: Mild proximal disease with mild slow flow noted. Transapical vessel. 3.Left circumflex artery: Patent. 4.RCA: Patent. 5.Left heart catheterization: Aortic pressure 106/65 mmHg. LVEDP 105/11 mmHg. LVEDP 14 mmHg. Normal LV function with no wall motion abnormalities. No gradient across the aortic valve. 6. Aortic arch angiogram: Medical necessity: Need to rule out aortic aneurysm or dissection as a cause of chest pain since there is no CAD. No aneurysm or dissection was found. Patent segments of the great arteries. CONCLUSIONS: Very mild CAD noted in the LAD. Mild slow flow noted which is likely due to endothelial dysfunction. Secondary prevention measures are recommended. Christie Mas MD, FACP, FACC, [facility] Interventional Cardiology Vu MAS MD Jun 23, 2018 12:35
[2018-06-23] MEDS ORDERED: ATOR10TA PO (12:36)
--- NOTE | 2018-06-23 12:36 | Discharge Inst-Post CATH ---
Discharge Inst-CATH/EP Post Cardiac Cath/EP D/C Inst Follow Up/Plan Dr Mas in four weeks. CARDIAC CATH DISCHARGE INSTRUCTIONS *Hold Metformin for 48 hours post heart cath. ACTIVITY * Go Home directly and rest. * Limit activity of the leg (or wrist if it was used) for 7 days including aerobics, swimming, jogging, bicycling, etc. * Restrict stair-climbing for 7 days if possible, if not, climb up with your non -cath leg, then bring together on the same step. * Avoid lifting, pushing, pulling or excessive movement of the affected extremity for 7 days. * Customary sexual activity may be resumed after 2 days-use caution not to use a position that strains or causes pain to the affected extremity. * No driving for 24 hours. * NO SMOKING. * Avoid straining for bowel movements for 7 days. * Gentle walking on level ground is allowed. * Returning to work will depend on the type of procedure and the results. Your doctor will discuss this with you. CALL YOUR DOCTOR FOR ANY OF THE FOLLOWING: *If bleeding from the puncture site occurs- Apply gentle pressure to site with clean cloth and call your doctor or EMS. * If a knot or lump forms under the skin, increases in size, or causes pain. * If bruising appears to be worsening or moving further down your leg instead of disappearing. * Temperature above 101 F. CARE OF YOUR GROIN INCISION; * Bruising or purple discoloration of the skin near the puncture site is common. * You may shower only, no bathtub bathing for 5 days. Be careful to avoid slipping as your leg may feel stiff. * If a closure device was used on your femoral artery, please see the attached guide regarding care of the device and your leg. * Leave the dressing on, until removed by office staff. CARE OF YOUR WRIST INCISION; * Bruising or purple discoloration of the skin near the puncture site is common. * You may shower. * DO NOT submerge wrist. * Leave dressing on, until removed by office staff.. Vu MAS MD Jun 23, 2018 12:36
--- NOTE | 2018-06-23 12:52 | Short Stay Summary-Hospitalist ---
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 She states it was all across her chest and heavy in nature and radiated through her back and up to her jaw. She has had similar symptoms in the past but nothing that severe. 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 She was given nitro with improvement in her symptoms. Troponin was negative and she was admitted for ACS rule out. This morning she states she is feeling well and would like to DC home today if able. She denies any chest pain. Source: patient Date Seen 06/23/18 Time Seen by a Provider: 07:30 Attending Physician Richie Bautista MD PCP No,Local Physician Referring Physician Date of Admission Jun 23, 2018 at 00:25 Home Medications & Allergies Home Medications Reviewed patient Home Medication Reconciliation performed by pharmacy medication reconciliations transport tank technician and/or nursing. Patients Allergies have been reviewed. Allergies Allergies Coded Allergies hydrocodone (Verified Allergy, Unknown, NAUSEA, 01/23/18) Past Vczdlhs-Norhdd-Rbmzbw Hx Past Med/Social Hx: Reviewed Nursing Past Med/Soc Hx Patient Social History Employed/Student: employed Alcohol Use: Denies Use Number of Drinks Today: GG Recreational Drug Use: No Smoking Status: Never a Smoker Recent Foreign Travel: No Contact w/other who traveled: No Recent Hopitalizations: No Recent Infectious Disease Expo: No Seasonal Allergies Seasonal Allergies: Yes (mild) Past Medical History Surgeries: Appendectomy, Bladder Surgery, Breast, Gallbladder, Hysterectomy, Oophorectomy, Orthopedic Reproductive: No Sexually Transmitted Disease: No HIV/AIDS: No Hysterectomy, Menopausal Gastrointestinal: Gastroesophageal Reflux Musculoskeletal: Degenerate Disk Disease Loss of Vision: Bilateral Hearing Impairment: Denies Cancer: Breast Did You Recieve Any Treatments: Yes (S/P LEFT MASTECTOMY; NO CHEMO OR RADIATION ) What Type of Treatment Did You: Surgical Intervention History of Blood Disorders: No Adverse Reaction to Blood Shah: No (N/A) Family History Reviewed Nursing Family Hx Ovarian cancer Heart Disease, CAD Under 55 Years Old, CAD Over 55 Years Old, Hypertension Review of Systems Constitutional: No diaphoresis, No dizziness Respiratory: No cough, No phlegm; short of breath Cardiovascular: see HPI Gastrointestinal: No abdominal pain All Other Systems Reviewed Negative Unless Noted: Yes Physical Exam Physical Exam Vital Signs Vital Signs - First Documented 06/22/18 22:34 Temp 98.8 Pulse 67 Resp 16 B/P (MAP) 151/107 (122) Pulse Ox 98 O2 Delivery Room Air O2 Flow Rate 2.0 Capillary Refill : Less Than 3 Seconds Height, Weight, BMI Height: 5'7.00" Weight: 165lbs. 5.0oz. 74.144116is; 25.8 BMI Method:Stated General Appearance: No Apparent Distress, WD/WN HEENT: PERRL/EOMI, Moist Mucous Membranes Neck: Non Tender, Supple Respiratory: Chest Non Tender, Lungs Clear, No Respiratory Distress Cardiovascular: Regular Rate, Rhythm, No Murmur Gastrointestinal: Normal Bowel Sounds, Non Tender, Soft Extremity: Normal Capillary Refill, No Calf Tenderness Neurologic/Psychiatric: Alert, Oriented x3, Normal Mood/Affect Skin: Normal Color, Warm/Dry Results Results/Procedures Labs Laboratory Tests 06/22/18 22:40 06/23/18 04:35 Patient resulted labs reviewed. Imaging: Reviewed Imaging Report Short Stay Diagnosis Discharge Diagnosis-Short Stay Admission Diagnosis Chest Pain Final Discharge Diagnosis Chest Pain Conclusion Plan Chest pain troponins negative, CTA negative for dissection or PE Given family history and symptoms cardiology consulted for furhter testing Cardiac cath revealed mild CAD To follow up with Dr Mas in 1 month [place] home Clinical Quality Measures AMI/AHF: ASA po Prior to arrival: Yes (TOOK BABY ASA THIS AM) DVT/VTE Risk/Contraindication: Risk Factor Score Per Nursin RFS Level Per Nursing on Admit: 2=Moderate BIANCA BOWSER MD Jun 23, 2018 12:52
--- OUTSIDE RECORDS SUMMARY | 2018-06-24 10:29 | XMS REPORT | Continuity of Care Document ---
Author Author [facility] Address Unknown Phone Unavailable Allergies Active Description Code Type Severity Reaction Onset Reported/Identified Relationship to Patient Clinical Status Yes No Known Drug Allergies [id number] Drug Allergy Unknown N/A 01/19/2018 Yes acetaminophen [id number] Drug Allergy Unknown NAUSEA 01/23/2018 Yes hydrocodone [id number] Drug Allergy Unknown NAUSEA 01/23/2018 Medications There [...] [ER+] 04/24/1033 ADITYA TEMPLE MD, Ot Z79.811 LAUNDRY TECH (CURRENT) USE OF AROMATASE INH 04/24/1033 ADITYA [...] [ER+] 04/24/1442 ADITYA TEMPLE MD, Ot Z79.811 SKILLED NURSING (CURRENT) USE OF AROMATASE INH 04/24/1442 ADITYA [...] V76.12 10/25/2014 Ot V72.84 10/25/2014 MELODY LEAL BOTTOM STOP ATTACHER Ot V76.12 11/17/2014 ANNIA MENG ANGLE ROLL OPERATOR Ot V76.12 03/14/2016 Ot 722.52 LUMB/ LUMBOSAC DISC DEGEN 03/14/2016 Ot 787.62 FECAL SMEARING 03/14/2016 Ot 788.30 UNSPECIFIED URINARY INCONTINENCE 03/14/2016 Ot V76.12 OTH SCREEN MAMMO-MALIGN NEOPLASM OF CHRISTOPHER 03/14/2016 Ot V72.84 EXAM PRE- OPERATIVE NOS 03/14/2016 MELODY LEAL BOTTOM STOP ATTACHER Ot V76.12 OTH SCREEN MAMMO-MALIGN NEOPLASM OF CHRISTOPHER 03/14/2016 ANNIA MENG ANGLE ROLL OPERATOR Ot V76.12 OTH SCREEN MAMMO-MALIGN NEOPLASM OF CHRISTOPHER 03/15/2016 ZAKIA WALDROP BOTTOM STOP ATTACHER Ot Z12.31 ENCNTR SCREEN MAMMOGRAM FOR MALIGNANT NE 03/27/2016 ZAKIA WALDROP BOTTOM STOP ATTACHER Ot Z12.31 ENCNTR SCREEN MAMMOGRAM FOR MALIGNANT [...] EXAM PRE- OPERATIVE NOS 04/26/2016 MELODY LEAL BOTTOM STOP ATTACHER Ot V76.12 OTH SCREEN MAMMO-MALIGN NEOPLASM OF CHRISTOPHER 04/26/2016 ANNIA MENG ANGLE ROLL OPERATOR Ot V76.12 OTH SCREEN MAMMO-MALIGN NEOPLASM OF CHRISTOPHER 04/26/2016 ZAKIA WALDROP BOTTOM STOP ATTACHER Ot Z12.31 ENCNTR SCREEN MAMMOGRAM FOR MALIGNANT NE 04/29/2016 ZAKIA WALDROP BOTTOM STOP ATTACHER Ot R42 DIZZINESS AND GIDDINESS 04/30/2016 ZAKIA WALDROP BOTTOM STOP ATTACHER Ot R42 DIZZINESS AND GIDDINESS 05/02/2016 ZAKIA WALDROP BOTTOM STOP ATTACHER Ot R42 DIZZINESS AND GIDDINESS 05/08/2016 ZAKIA WALDROP BOTTOM STOP ATTACHER Ot R42 DIZZINESS AND GIDDINESS 07/15/2016 ZAKIA WALDROP BOTTOM STOP ATTACHER Ot R42 DIZZINESS AND GIDDINESS 07/15/2016 ZAKIA WALDROP BOTTOM STOP ATTACHER Ot R42 DIZZINESS AND GIDDINESS 07/15/2016 ZAKIA WALDROP BOTTOM STOP ATTACHER Ot R42 DIZZINESS AND GIDDINESS 07/26/2016 Ot 722.52 LUMB/ LUMBOSAC DISC DEGEN 07/26/2016 Ot 787.62 FECAL SMEARING 07/26/2016 Ot 788.30 UNSPECIFIED URINARY INCONTINENCE 07/26/2016 Ot V76.12 OTH SCREEN MAMMO-MALIGN NEOPLASM OF CHRISTOPHER 07/26/2016 Ot V72.84 EXAM PRE- OPERATIVE NOS 07/26/2016 MELODY LEAL BOTTOM STOP ATTACHER Ot V76.12 OTH SCREEN MAMMO-MALIGN NEOPLASM OF CHRISTOPHER 07/26/2016 ANNIA MENG ANGLE ROLL OPERATOR Ot V76.12 OTH SCREEN MAMMO-MALIGN NEOPLASM OF CHRISTOPHER 07/26/2016 ZAKIA WALDROP BOTTOM STOP ATTACHER Ot Z12.31 ENCNTR SCREEN MAMMOGRAM FOR MALIGNANT NE 07/26/2016 ZAKIA WALDROP BOTTOM STOP ATTACHER Ot R42 DIZZINESS AND GIDDINESS 09/16/2016 MATEUSZ HAYES, ORACIO Friedman Ot M54.16 RADICULOPATHY, LUMBAR REGION 09/16/2016 MATEUSZ HAYES, ORACIO Friedman Ot M54.5 LOW BACK PAIN 09/16/2016 Ot 722.52 LUMB/ LUMBOSAC DISC DEGEN 09/16/2016 Ot 787.62 FECAL SMEARING 09/16/2016 Ot 788.30 UNSPECIFIED URINARY INCONTINENCE 09/16/2016 Ot V76.12 OTH SCREEN MAMMO-MALIGN NEOPLASM OF CHRISTOPHER 09/16/2016 Ot V72.84 EXAM PRE- OPERATIVE NOS 09/16/2016 MELODY LEAL BOTTOM STOP ATTACHER Ot V76.12 OTH SCREEN MAMMO-MALIGN NEOPLASM OF CHRISTOPHER 09/16/2016 ANNIA MENG APRN Ot V76.12 OTH SCREEN MAMMO-MALIGN NEOPLASM OF CHRISTOPHER 09/16/2016 ZAKIA WALDROP BOTTOM STOP ATTACHER Ot Z12.31 ENCNTR SCREEN MAMMOGRAM FOR MALIGNANT NE 09/16/2016 ZAKIA WALDROP BOTTOM STOP ATTACHER Ot R42 DIZZINESS AND GIDDINESS 09/17/2016 MATEUSZ HAYES, ORACIO T Ot M54.16 RADICULOPATHY, LUMBAR REGION 09/17/2016 MATEUSZ HAYES, ORACIO T Ot M54.5 LOW BACK PAIN 09/22/2016 MATEUSZ HAYES, ORACIO T Ot M54.16 RADICULOPATHY, LUMBAR REGION 09/22/2016 MATEUSZ HAYES, ORACIO T Ot M54.5 LOW BACK PAIN 10/03/2016 ZAKIA WALDROP BOTTOM STOP ATTACHER Ot R42 DIZZINESS AND GIDDINESS 10/31/2017 ROSELYN [...] SCREENING FOR MALIGNANT NE 11/24/2017 MELODY LEAL BOTTOM STOP ATTACHER Ot V76.12 OTH SCREEN MAMMO-MALIGN NEOPLASM OF CHRISTOPHER 11/24/2017 TAQUERIA ANNIA A ANGLE ROLL OPERATOR Ot V76.12 OTH SCREEN MAMMO-MALIGN NEOPLASM OF CHRISTOPHER 11/24/2017 ZAKIA WALDROP BOTTOM STOP ATTACHER Ot Z12.31 ENCNTR SCREEN MAMMOGRAM FOR MALIGNANT NE 11/24/2017 ZAKIA WALDROP BOTTOM STOP ATTACHER Ot R42 DIZZINESS AND GIDDINESS 11/25/2017 ROSELYN [...] OF MALIGNANT NEOPLASM O 12/11/2017 MELODY LEAL BOTTOM STOP ATTACHER Ot V76.12 OTH SCREEN MAMMO-MALIGN NEOPLASM OF CHRISTOPHER 12/11/2017 TAQUERIAMARIVELANNIA A ANGLE ROLL OPERATOR Ot V76.12 OTH SCREEN MAMMO-MALIGN NEOPLASM OF CHRISTOPHER 12/11/2017 ZAKIA WALDROP BOTTOM STOP ATTACHER Ot Z12.31 ENCNTR SCREEN MAMMOGRAM FOR MALIGNANT NE 12/11/2017 ZAKIA WALDROP BOTTOM STOP ATTACHER Ot R42 DIZZINESS AND GIDDINESS 12/11/2017 WILFREDO GUAJARDO DO S Ot R10.2 PELVIC AND PERINEAL PAIN 12/11/2017 WILFREDO GUAJARDO DO S Ot Z90.710 ACQUIRED ABSENCE OF BOTH CERVIX AND UTER 12/11/2017 DANYN BLAKELY BOTTOM STOP ATTACHER Ot Z12.31 ENCNTR SCREEN MAMMOGRAM FOR MALIGNANT NE 12/11/2017 ROSELYN SWAN DO Ot K21.9 GASTRO-ESOPHAGEAL REFLUX DISEASE WITHOUT 12/11/2017 SWANROSELYN BURKS DO Ot K22.10 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 12/11/2017 ROSELYN SWAN DO Ot K44.9 DIAPHRAGMATIC HERNIA WITHOUT OBSTRUCTION 12/11/2017 ROSELYN SWAN DO Ot Z12.11 ENCOUNTER FOR SCREENING FOR MALIGNANT NE 12/12/2017 PORTIA PECK ANGLE ROLL OPERATOR Ot R92.2 INCONCLUSIVE MAMMOGRAM 12/12/2017 BENNETT SPENCE [...] OF MALIGNANT NEOPLASM O 12/19/2017 PORTIA PECK ANGLE ROLL OPERATOR Ot C50.912 MALIGNANT NEOPLASM OF UNSPECIFIED SITE O 12/19/2017 MELODY LEAL BOTTOM STOP ATTACHER Ot V76.12 OTH SCREEN MAMMO-MALIGN NEOPLASM OF CHRISTOPHER 12/19/2017 MARIVEL MENGSIA Martinez ANGLE ROLL OPERATOR Ot V76.12 OTH SCREEN MAMMO-MALIGN NEOPLASM OF CHRISTOPHER 12/19/2017 PLAMAZAKIA BOTTOM STOP ATTACHER Ot Z12.31 ENCNTR SCREEN MAMMOGRAM FOR MALIGNANT NE 12/19/2017 WALDROPZAKIA BOTTOM STOP ATTACHER Ot R42 DIZZINESS AND GIDDINESS 12/19/2017 WILFREDO GUAJARDO DO S Ot R10.2 PELVIC AND PERINEAL PAIN 12/19/2017 BENNETT SPENCE WILFREDO S Ot Z90.710 ACQUIRED ABSENCE OF BOTH CERVIX AND UTER 12/19/2017 DANNY BLAKELY BOTTOM STOP ATTACHER Ot Z12.31 ENCNTR SCREEN MAMMOGRAM FOR MALIGNANT NE 12/19/2017 PORTIA PECK ANGLE ROLL OPERATOR Ot R92.2 INCONCLUSIVE MAMMOGRAM 12/19/2017 PORTIA PECK ANGLE ROLL OPERATOR Ot C50.912 MALIGNANT NEOPLASM OF UNSPECIFIED SITE O 01/15/2018 PORTIA PECK ANGLE ROLL OPERATOR Ot C50.912 MALIGNANT NEOPLASM OF UNSPECIFIED SITE [...] [ER+] 01/21/2018 ADITYA TEMPLE MD, Ot Z79.811 LAUNDRY TECH (CURRENT) USE OF AROMATASE INH 01/21/2018 ADITYA [...] [ER+] 01/21/2018 ADITYA TEMPLE MD, Ot Z79.811 LAUNDRY TECH (CURRENT) USE OF AROMATASE INH 01/21/2018 ADITYA TEMPLE MD, Ot Z90.710 ACQUIRED ABSENCE OF BOTH CERVIX AND UTER 01/21/2018 FENECH DO, WILFREDO S Ot R10.2 PELVIC AND PERINEAL PAIN 01/21/2018 FENECH DO, WILFREDO S Ot Z90.710 ACQUIRED ABSENCE OF BOTH CERVIX AND UTER 01/21/2018 PORTIA PECK ANGLE ROLL OPERATOR Ot R92.2 INCONCLUSIVE MAMMOGRAM 01/21/2018 PORTIA PECK ANGLE ROLL OPERATOR Ot C50.912 MALIGNANT NEOPLASM OF UNSPECIFIED SITE [...] [ER+] 03/12/2018 ADITYA TEMPLE MD, Ot Z79.811 SKILLED NURSING (CURRENT) USE OF AROMATASE INH 03/12/2018 ADITYA [...] [ER+] 03/13/2018 ADITYA TEMPLE MD, Ot Z79.811 LAUNDRY TECH (CURRENT) USE OF AROMATASE INH 03/13/2018 ADITYA [...] [ER+] 03/26/2018 ADITYA TEMPLE MD, Ot Z79.811 LAUNDRY TECH (CURRENT) USE OF AROMATASE INH 03/26/2018 ADITYA [...] [ER+] 03/27/2018 ADITYA TEMPLE MD, Ot Z79.811 LAUNDRY TECH (CURRENT) USE OF AROMATASE INH 03/27/2018 ADITYA TEMPLE MD Ot Z90.710 ACQUIRED ABSENCE OF BOTH CERVIX AND UTER 04/22/2018 ROSELYN SWAN DO Ot K21.0 GASTRO-ESOPHAGEAL REFLUX DISEASE WITH ES 06/22/2018 MELODY LEAL BOTTOM STOP ATTACHER Ot V76.12 OTH SCREEN MAMMO-MALIGN NEOPLASM OF CHRISTOPHER 06/22/2018 TAQUERIA, ANNIA A ANGLE ROLL OPERATOR Ot V76.12 OTH SCREEN MAMMO-MALIGN NEOPLASM OF CHRISTOPHER 06/22/2018 ZAKIA WALDROP BOTTOM STOP ATTACHER Ot Z12.31 ENCNTR SCREEN MAMMOGRAM FOR MALIGNANT NE 06/22/2018 ZAKIA WALDROP BOTTOM STOP ATTACHER Ot R42 DIZZINESS AND GIDDINESS 06/22/2018 FENECH DO, WILFREDO S Ot R10.2 PELVIC AND PERINEAL PAIN 06/22/2018 FENECH DO, WILFREDO S Ot Z90.710 ACQUIRED ABSENCE OF BOTH CERVIX AND UTER 06/22/2018 DANNY BLAKELY BOTTOM STOP ATTACHER Ot Z12.31 ENCNTR SCREEN MAMMOGRAM FOR MALIGNANT NE 06/22/2018 PORTIA PECK ANGLE ROLL OPERATOR Ot R92.2 INCONCLUSIVE MAMMOGRAM 06/22/2018 PORTIA PECK ANGLE ROLL OPERATOR Ot C50.912 MALIGNANT NEOPLASM OF UNSPECIFIED SITE [...] K44.9 DIAPHRAGMATIC HERNIA WITHOUT OBSTRUCTION 06/22/2018 ADITYA TEMLPE MD Ot R05 COUGH 06/22/2018 ADITYA TEMPLE MD, Ot R13.10 DYSPHAGIA, UNSPECIFIED 06/22/2018 ADITYA TEMPLE MD, Ot Z17.0 ESTROGEN RECEPTOR POSITIVE STATUS [ER+] 06/22/2018 ADITYA TEMPLE MD, Ot Z79.811 LAUNDRY TECH (CURRENT) USE OF AROMATASE INH 06/22/2018 ADITYA TEMPLE MD, Ot Z90.710 ACQUIRED ABSENCE OF BOTH CERVIX AND UTER Procedures Code Description [place] [address] IV INFUSION 05/15/2012 J7030 NORMAL SALINE SOLUTION INFUS 05/15/2012 69533 ROUTINE VENIPUNCTURE 06/29/2012 14413 LIPID PANEL 06/29/2012 88240 ROUTINE VENIPUNCTURE 03/12/2013 46615 MAMMOGRAM, SCREENING 03/12/2013 19293 HEMOCCULT 03/12/2013 21987 GC/CHLAM PROBE (STATE) 03/12/2013 68725 PAP SMEAR 03/12/2013 Q0091 PAP SMEAR OBTAIN SMEAR 03/12/2013 74261 TRICHOMONAS (IN-HOUSE) 03/12/2013 4817126 GFR CALC (RESULT ONLY) 03/12/2013 91465 CMP 03/12/2013 73753 LIPID PANEL 03/12/2013 87287 CA 125 03/12/2013 60807 CULTURE UROGENITAL 03/15/2013 85243 UA W/ CULTURE IF INDICATED 03/30/2013 Results [...] 34.9 g/dL 32.0-36.0 MCV 88.4 fL 80.0-100.0 Atkinson # 0.6 x10^3/UL 0.1-0.6 Atkinson % 6.3 % 2.0-14.0 MPV 9.2 FL [...] ABO+Rh group AP NRG Transfusion band number [id number] NRG Blood group antibody screen NEGATIVE NRG [...] 11:00 Bacteria identification in wound by culture [id number] NR FREE TEXT EXTERNAL SUSCEPTIBILITY REPORTED 02-04-2018,1205 NRG QUANTITY OF GROWTH Rare NRG FREE TEXT ENTRY 2 FINAL REPORT 02-04-2018, 1205. [facility] Sensitivity Panel - 02/01/18 11:00 Oxacillin [...] 12:00 Bacteria identification in wound by culture [id number] NRG FREE TEXT EXTERNAL SUSCEPTIBILITIES REPORTED 02-04-2018, NRG QUANTITY OF GROWTH FEW NRG FREE TEXT ENTRY 2 1205/ FINAL REPORT 02-04-2018, 1205. [facility] Sensitivity Panel - 02/01/18 12:00 Oxacillin [...] minimum inhibitory concentration 0.25 NRG Minocycline susc NIHSA <= NRG Complete blood count (CBC) with [...] 06/22/18 22:40 BNP level 11.9 pg/mL <100.0 Complete blood count (CBC) with automated white blood cell (WBC) differential - 06/23/18 04:35 Blood leukocytes automated count (number/volume) 7.3 10*3/uL 4.3-11.0 Blood erythrocytes automated count (number/volume) 4.23 10*6/uL 4.35-5.85 Venous blood hemoglobin measurement (mass/volume) 12.8 g/dL 11.5-16.0 Blood hematocrit (volume fraction) 37 % 35-52 Automated erythrocyte mean corpuscular volume 88 [foz_us] 80-99 Automated erythrocyte mean corpuscular hemoglobin (mass per erythrocyte) 30 pg 25-34 Automated erythrocyte mean corpuscular hemoglobin concentration measurement ( mass/volume) 34 g/dL 32-36 Automated erythrocyte distribution width ratio 13.3 % 10.0-14.5 Automated blood platelet count (count/volume) 253 10*3/uL 130-400 Automated blood platelet mean volume measurement 9.5 [foz_us] 7.4-10.4 Automated blood neutrophils/100 leukocytes 57 % 42-75 Automated blood lymphocytes/100 leukocytes 34 % 12-44 Blood monocytes/100 leukocytes 7 % 0-12 Automated blood eosinophils/100 leukocytes 2 % 0-10 Automated blood basophils/100 leukocytes 0 % 0-10 Blood neutrophils automated count (number/volume) 4.2 10*3 1.8-7.8 Blood lymphocytes automated count (number/volume) 2.5 10*3 1.0-4.0 Blood monocytes automated count (number/volume) 0.5 10*3 0.0-1.0 Automated eosinophil count 0.2 10*3/uL 0.0-0.3 Automated blood basophil count (count/volume) 0.0 10*3/uL 0.0-0.1 Comprehensive metabolic panel - 06/23/18 04:35 Serum or plasma sodium measurement (moles/volume) 143 mmol/L 135-145 Serum or plasma potassium measurement (moles/volume) 3.7 mmol/L 3.6-5.0 Serum or plasma chloride measurement (moles/volume) 109 mmol/L 98-107 Carbon dioxide 23 mmol/L 21-32 Serum or plasma anion gap determination (moles/volume) 11 mmol/L 5-14 Serum or plasma urea nitrogen measurement (mass/volume) 10 mg/dL 7-18 Serum or plasma creatinine measurement (mass/volume) 0.73 mg/dL 0.60-1.30 Serum or plasma urea nitrogen/creatinine mass ratio 14 NRG Serum or plasma creatinine measurement with calculation of estimated glomerular filtration rate > NRG Serum or plasma glucose measurement (mass/volume) 101 mg/dL 70-105 Serum or plasma calcium measurement (mass/volume) 9.0 mg/dL 8.5-10.1 Serum or plasma total bilirubin measurement (mass/volume) 0.5 mg/dL 0.1-1.0 Serum or plasma alkaline phosphatase measurement (enzymatic activity/volume) 68 U/L 40-136 Serum or plasma aspartate aminotransferase measurement (enzymatic activity/ volume) 23 U/L 5-34 Serum or plasma alanine aminotransferase measurement (enzymatic activity/volume ) 30 U/L 0-55 Serum or plasma protein measurement (mass/volume) 6.5 g/dL 6.4-8.2 Serum or plasma albumin measurement (mass/volume) 3.8 g/dL 3.2-4.5 CALCIUM CORRECTED 9.2 mg/dL 8.5-10.1 Serum or plasma troponin i.cardiac measurement (mass/volume) - 06/23/18 04:35 Serum or plasma troponin i.cardiac measurement (mass/volume) < ng/ mL <0.028 Lipid 1996 panel - 06/23/18 04:35 Serum or plasma triglyceride measurement (mass/volume) 130 mg/dL <150 Serum or plasma cholesterol measurement (mass/volume) 154 mg/dL < 200 Serum or plasma cholesterol in HDL measurement (mass/volume) 33 mg/ dL 40-60 Cholesterol in LDL [mass/volume] in serum or plasma by direct assay 109 mg/dL 1-129 Serum or plasma cholesterol in VLDL measurement (mass/volume) 26 mg/ dL 5-40 Encounters ACCT No. Visit Date/Time Discharge Status Pt. Type Provider Facility Loc./Unit Complaint [id number] 03/15/2014 08:57:00 03/15/2014 23:59:59 CLS Outpatient SKYLA MAYER DO [id number] 07/02/2013 14:14:00 07/02/2013 23:59:59 CLS Outpatient JAVED ROGER MD [id number] 03/30/2013 17:22:00 03/30/2013 23:59:59 CLS Outpatient SKYLA MAYER DO [id number] 03/12/2013 09:09:00 03/12/2013 23:59:59 CLS Outpatient SKYLA MAYER DO [id number] 06/29/2012 13:06:00 06/29/2012 23:59:59 CLS Outpatient SKYLA MAYER DO [id number] 05/15/2012 09:44:00 05/15/2012 23:59:59 CLS Outpatient SKYLA MAYER DO [id number] 04/24/2016 08:06:00 Document Registration [id number] 10/02/2017 10:03:00 10/02/2017 23:59:00 DIS Outpatient Hussain Childs 50 [id number] 10/02/2017 11:34:00 Document Registration [id number] 03/13/2016 07:06:00 Document Registration [id number] 12/03/2017 13:20:00 12/03/2017 23:59:59 CLS Outpatient SKYLA MAYER DO [facility] [id number] 06/18/2018 10:43:00 06/18/2018 23:59:59 CLS Outpatient ADITYA TEMPLE MD [facility] ONC [id number] 03/12/2018 14:45:00 03/26/2018 10:34:00 DIS Outpatient ADITYA TEMPLE MD [facility] ONC [id number] 03/23/2018 10:40:00 03/23/2018 23:59:59 CLS Outpatient ROSELYN SWAN DO [facility] RAD REFLUX ESOPHAGITIS, NAUSEA [id number] 02/19/2018 10:09:00 03/12/2018 14:43:00 DIS Outpatient ADITYA TEMPLE MD [facility] ONC [id number] 02/01/2018 10:07:00 02/01/2018 12:28:00 DIS Emergency ANGELES BUCHANAN [facility] ER MASECTOMY December BY SWAN/PAIN [id number] 01/22/2018 06:39:00 01/23/2018 15:05:00 DIS Outpatient ROSELYN SWAN DO [facility] CARD LT BREAST CA [id number] 01/22/2018 11:00:00 01/22/2018 11:00:00 CAN Preadmit ROSELYN SWAN DO [facility] LEFT BREAST CANCER [id number] 01/19/2018 12:01:00 01/19/2018 13:37:00 DIS Outpatient ROSELYN SWAN DO [facility] PREOP LEFT BREAST CANCER [id number] 12/24/2017 07:45:00 12/24/2017 23:59:59 CLS Outpatient ADITYA TEMPLE MD [facility] RAD DYSPHAGIA,BREAST CANCER [id number] 12/12/2017 07:39:00 12/12/2017 23:59:59 CLS Outpatient PORTIA PECK ANGLE ROLL OPERATOR [facility] RAD ABN MAMMO [id number] 12/11/2017 10:24:00 12/11/2017 23:59:59 CLS Outpatient PORTIA PECK ANGLE ROLL OPERATOR [facility] RAD ABNORMAL MAMMOGRAM [id number] 12/09/2017 05:52:00 12/10/2017 13:30:00 DIS Outpatient WILFREDO GUAJARDO DO [facility] FAM HX OVARIAN CA, INCONTINENCE [id number] 12/04/2017 13:54:00 12/04/2017 23:59:59 CLS Preadmit PORTIA PECK ANGLE ROLL OPERATOR [facility] RAD ABNORMAL MAMMOGRAM [id number] 12/04/2017 05:41:00 12/04/2017 10:15:00 DIS Outpatient WILFREDO GUAJARDO DO [facility] PREOP FAM HX OVARIAN CA, INCONTINENCE [id number] 12/02/2017 07:03:00 12/02/2017 09:45:00 DIS Outpatient ROSELYN SWAN DO [facility] ENDO SCREENING/GERD/ DYSPHAGIA [id number] 11/25/2017 09:52:00 11/25/2017 23:59:59 CLS Outpatient DANNY BLAKELY BOTTOM STOP ATTACHER [facility] RAD SCREENING [id number] 11/25/2017 09:47:00 11/25/2017 23:59:59 CLS Outpatient WILFREDO GUAJARDO DO [facility] RAD PELVIC PRESSURE IN FEMALE,POSTMENOPAUSAL [id number] 11/25/2017 05:33:00 11/25/2017 11:39:00 DIS Outpatient ROSELYN SWAN DO [facility] PREOP COLONOSCOPY/EGD [id number] 10/31/2017 05:31:00 10/31/2017 13:57:00 DIS Outpatient ROSELYN SWAN DO [facility] PREOP COLONOSCOPY/EGD [id number] 09/30/2017 09:00:00 09/30/2017 23:59:59 CLS Preadmit DANNY BLAKELY BOTTOM STOP ATTACHER [facility] RAD SCREENING [id number] 09/16/2016 08:14:00 09/16/2016 10:42:00 DIS Emergency ORACIO CHILD MD [facility] ER BACK PAIN [id number] 04/26/2016 13:31:00 04/26/2016 23:59:59 CLS Outpatient ZAKIA WALDROP BOTTOM STOP ATTACHER [facility] RAD VERTIGO [id number] 03/27/2016 17:29:00 03/27/2016 21:07:00 DIS Emergency ORACIO CHILD MD [facility] ER DIZZINESS [id number] 03/14/2016 12:46:00 03/14/2016 23:59:59 CLS Outpatient ZAKIA WALDROP BOTTOM STOP ATTACHER [facility] RAD SCREENING [id number] 10/25/2014 09:14:00 10/25/2014 23:59:59 CLS Outpatient ANNIA EMNG APRN [facility] RAD SCREENING [id number] 03/26/2013 10:37:00 03/26/2013 23:59:59 CLS Outpatient MELODY LEAL [facility] RAD SCREENING [id number] 06/23/2018 00:25:00 ACT Inpatient BRETT RICH MD [facility] ICU CHEST PAIN [id number] 10/25/2014 09:14:00 Document Registration [id number] 10/25/2014 09:14:00 Document Registration [id number] 03/11/2012 07:32:00 Document Registration [id number] 02/21/2016 10:05:00 Document Registration [email or web address] 10/25/2014 09:15:03 ACT Document Registration [id number] 03/10/2016 13:05:00 Document Registration
== END 2018-06-23 15:33 | disposition home or self-care (01) ==
LOC: EDUNIT# 22:31 → ER 22:32 → CATH 22:33 → ICU 22:33 → UNDOADMOB 06-23 00:25 → UNDODISOB 06-23 15:33 → CATH 06-23 15:33
PROVIDERS: ATTEND Internal Medicine
DX: R07.9 Chest pain, unspecified (principal); I25.110 Atherosclerotic heart disease of native coronary artery with unstable angina pectoris; K21.9 Gastro-esophageal reflux disease without esophagitis; Z85.3 Personal history of malignant neoplasm of breast; Z90.12 Acquired absence of left breast and nipple; Z82.49 Family history of ischemic heart disease and other diseases of the circulatory system
CPT/HCPCS: 36221; 36415; 71045; 71275; 80053; 80061; 82150; 83690; 83735; 83874; 83880; 84484; 85025; 85379; 85610; 85730; 93005; 93041; 93306; 93458

== ENCOUNTER 2018-07-05 17:56 | Emergency (ER) | payer SELFPAY ==
[~2018-07-05] VITALS: Ht 167.6 cm; Wt 79.4 kg
[~2018-07-05 17:56] MED LIST changes: +ASPI-983 PO; +ATOR10TA PO; +NF-AROM25 PO
[2018-07-05] MEDS ORDERED: morphine INJ 10 MG/ML 1ML (SYR OR VIAL) IV STA (18:03)
--- OUTSIDE RECORDS SUMMARY | 2018-07-05 18:03 | XMS REPORT | Continuity of Care Document ---
Author Author [facility] Address Unknown Phone Unavailable Allergies Active Description Code Type Severity Reaction Onset Reported/Identified Relationship to Patient Clinical Status Yes No Known Drug Allergies [id number] Drug Allergy Unknown N/A 01/19/2018 Yes acetaminophen [id number] Drug Allergy Unknown NAUSEA 01/23/2018 Yes hydrocodone [id number] Drug Allergy Unknown NAUSEA 01/23/2018 Medications There [...] [ER+] 04/24/1033 ADITYA TEMPLE MD, Ot Z79.811 STRIPPER SOFT PLASTIC (CURRENT) USE OF AROMATASE INH 04/24/1033 ADITYA [...] [ER+] 04/24/1442 ADITYA TEMPLE MD, Ot Z79.811 ASSISTED (CURRENT) USE OF AROMATASE INH 04/24/1442 ADITYA [...] 346.90 MIGRAINE UNSPECIFIED WITHOUT INTRACTABLE MIGRAINE 12/22/2007 LIYL MAYER DOA K 111.0 TINEA VERSICOLOR 12/22/2007 [...] DO K 300.00 ANXIETY STATE UNSPECIFIED 12/27/2011 SYKLA MAYER DO 530.81 GERD 12/27/2011 SKYLA MAYER [...] MD V76.51 COLON CANCER SCREENING 03/12/2013 MORENO SPECNE SKYLA K 716.91 UNSPECIFIED ARTHROPATHY INVOLVING SHOULDER [...] V76.12 10/25/2014 Ot V72.84 10/25/2014 MELODY LEAL HYDRAULIC JACK ADJUSTER Ot V76.12 11/17/2014 ANNIA MENG SHAFT TENDER Ot V76.12 03/14/2016 Ot 722.52 LUMB/ LUMBOSAC DISC DEGEN 03/14/2016 Ot 787.62 FECAL SMEARING 03/14/2016 Ot 788.30 UNSPECIFIED URINARY INCONTINENCE 03/14/2016 Ot V76.12 OTH SCREEN MAMMO-MALIGN NEOPLASM OF CHRISTOPHER 03/14/2016 Ot V72.84 EXAM PRE- OPERATIVE NOS 03/14/2016 MELODY LEAL HYDRAULIC JACK ADJUSTER Ot V76.12 OTH SCREEN MAMMO-MALIGN NEOPLASM OF CHRISTOPHER 03/14/2016 ANNIA MENG SHAFT TENDER Ot V76.12 OTH SCREEN MAMMO-MALIGN NEOPLASM OF CHRISTOPHER 03/15/2016 ZAKIA WALDROP HYDRAULIC JACK ADJUSTER Ot Z12.31 ENCNTR SCREEN MAMMOGRAM FOR MALIGNANT NE 03/27/2016 ZAKIA WALDROP HYDRAULIC JACK ADJUSTER Ot Z12.31 ENCNTR SCREEN MAMMOGRAM FOR MALIGNANT [...] EXAM PRE- OPERATIVE NOS 04/26/2016 MELODY LEAL HYDRAULIC JACK ADJUSTER Ot V76.12 OTH SCREEN MAMMO-MALIGN NEOPLASM OF CHRISTOPHER 04/26/2016 ANNIA MENG SHAFT TENDER Ot V76.12 OTH SCREEN MAMMO-MALIGN NEOPLASM OF CHRISTOPHER 04/26/2016 ZAKIA WALDROP HYDRAULIC JACK ADJUSTER Ot Z12.31 ENCNTR SCREEN MAMMOGRAM FOR MALIGNANT NE 04/29/2016 ZAKIA WALDROP HYDRAULIC JACK ADJUSTER Ot R42 DIZZINESS AND GIDDINESS 04/30/2016 ZAKIA WALDROP HYDRAULIC JACK ADJUSTER Ot R42 DIZZINESS AND GIDDINESS 05/02/2016 ZAKIA WALDROP HYDRAULIC JACK ADJUSTER Ot R42 DIZZINESS AND GIDDINESS 05/08/2016 ZAKIA WALDROP HYDRAULIC JACK ADJUSTER Ot R42 DIZZINESS AND GIDDINESS 07/15/2016 ZAKIA WALDROP HYDRAULIC JACK ADJUSTER Ot R42 DIZZINESS AND GIDDINESS 07/15/2016 ZAKIA WALDROP HYDRAULIC JACK ADJUSTER Ot R42 DIZZINESS AND GIDDINESS 07/15/2016 ZAKIA WALDROP HYDRAULIC JACK ADJUSTER Ot R42 DIZZINESS AND GIDDINESS 07/26/2016 Ot 722.52 LUMB/ LUMBOSAC DISC DEGEN 07/26/2016 Ot 787.62 FECAL SMEARING 07/26/2016 Ot 788.30 UNSPECIFIED URINARY INCONTINENCE 07/26/2016 Ot V76.12 OTH SCREEN MAMMO-MALIGN NEOPLASM OF CHRISTOPHER 07/26/2016 Ot V72.84 EXAM PRE- OPERATIVE NOS 07/26/2016 MELODY LEAL HYDRAULIC JACK ADJUSTER Ot V76.12 OTH SCREEN MAMMO-MALIGN NEOPLASM OF CHRISTOPHER 07/26/2016 ANNIA MENG SHAFT TENDER Ot V76.12 OTH SCREEN MAMMO-MALIGN NEOPLASM OF CHRISTOPHER 07/26/2016 ZAKIA WALDROP HYDRAULIC JACK ADJUSTER Ot Z12.31 ENCNTR SCREEN MAMMOGRAM FOR MALIGNANT NE 07/26/2016 ZAKIA WALDROP HYDRAULIC JACK ADJUSTER Ot R42 DIZZINESS AND GIDDINESS 09/16/2016 MATEUSZ HAYES, ORACIO Friedman Ot M54.16 RADICULOPATHY, LUMBAR REGION 09/16/2016 MATEUSZ HAYES, ORACIO Friedman Ot M54.5 LOW BACK PAIN 09/16/2016 Ot 722.52 LUMB/ LUMBOSAC DISC DEGEN 09/16/2016 Ot 787.62 FECAL SMEARING 09/16/2016 Ot 788.30 UNSPECIFIED URINARY INCONTINENCE 09/16/2016 Ot V76.12 OTH SCREEN MAMMO-MALIGN NEOPLASM OF CHRISTOPHER 09/16/2016 Ot V72.84 EXAM PRE- OPERATIVE NOS 09/16/2016 MELODY LEAL HYDRAULIC JACK ADJUSTER Ot V76.12 OTH SCREEN MAMMO-MALIGN NEOPLASM OF CHRISTOPHER 09/16/2016 ANNIA MENG APRN Ot V76.12 OTH SCREEN MAMMO-MALIGN NEOPLASM OF CHRISTOPHER 09/16/2016 ZAKIA WALDROP HYDRAULIC JACK ADJUSTER Ot Z12.31 ENCNTR SCREEN MAMMOGRAM FOR MALIGNANT NE 09/16/2016 ZAKIA WALDROP HYDRAULIC JACK ADJUSTER Ot R42 DIZZINESS AND GIDDINESS 09/17/2016 MATEUSZ HAYES, ORACIO T Ot M54.16 RADICULOPATHY, LUMBAR REGION 09/17/2016 MATEUSZ HAYES, ORACIO T Ot M54.5 LOW BACK PAIN 09/22/2016 MATEUSZ HAYES, ORACIO T Ot M54.16 RADICULOPATHY, LUMBAR REGION 09/22/2016 MATEUSZ HAYES, ORACIO T Ot M54.5 LOW BACK PAIN 10/03/2016 ZAKIA WALDROP HYDRAULIC JACK ADJUSTER Ot R42 DIZZINESS AND GIDDINESS 10/31/2017 ROSELYN [...] SCREENING FOR MALIGNANT NE 11/24/2017 MELODY LEAL HYDRAULIC JACK ADJUSTER Ot V76.12 OTH SCREEN MAMMO-MALIGN NEOPLASM OF CHRISTOPHER 11/24/2017 TAQUERIA ANNIA A SHAFT TENDER Ot V76.12 OTH SCREEN MAMMO-MALIGN NEOPLASM OF CHRISTOPHER 11/24/2017 ZAKIA WALDROP HYDRAULIC JACK ADJUSTER Ot Z12.31 ENCNTR SCREEN MAMMOGRAM FOR MALIGNANT NE 11/24/2017 ZAKIA WALDROP HYDRAULIC JACK ADJUSTER Ot R42 DIZZINESS AND GIDDINESS 11/25/2017 ROSELYN [...] Z01.818 ENCOUNTER FOR OTHER PREPROCEDURAL EXAMIN 12/04/2017 EVRNECH DOWILFREDO S Ot Z80.41 FAMILY HISTORY OF [...] OF MALIGNANT NEOPLASM O 12/11/2017 MELODY LEAL HYDRAULIC JACK ADJUSTER Ot V76.12 OTH SCREEN MAMMO-MALIGN NEOPLASM OF CHRISTOPHER 12/11/2017 TAQUERIAMAIRVELANNIA A SHAFT TENDER Ot V76.12 OTH SCREEN MAMMO-MALIGN NEOPLASM OF CHRISTOPHER 12/11/2017 ZAKIA WALDROP HYDRAULIC JACK ADJUSTER Ot Z12.31 ENCNTR SCREEN MAMMOGRAM FOR MALIGNANT NE 12/11/2017 ZAKIA WALDROP HYDRAULIC JACK ADJUSTER Ot R42 DIZZINESS AND GIDDINESS 12/11/2017 WILFREDO GUAJARDO DO S Ot R10.2 PELVIC AND PERINEAL PAIN 12/11/2017 WILFREDO GUAJARDO DO S Ot Z90.710 ACQUIRED ABSENCE OF BOTH CERVIX AND UTER 12/11/2017 DANNY BLAKELY HYDRAULIC JACK ADJUSTER Ot Z12.31 ENCNTR SCREEN MAMMOGRAM FOR MALIGNANT NE 12/11/2017 ROSELYN SWAN DO Ot K21.9 GASTRO-ESOPHAGEAL REFLUX DISEASE WITHOUT 12/11/2017 SWANROSELYN BURKS DO Ot K22.10 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 12/11/2017 ROSELYN SWAN DO Ot K44.9 DIAPHRAGMATIC HERNIA WITHOUT OBSTRUCTION 12/11/2017 ROSELYN SWAN DO Ot Z12.11 ENCOUNTER FOR SCREENING FOR MALIGNANT NE 12/12/2017 PORTIA PECK SHAFT TENDER Ot R92.2 INCONCLUSIVE MAMMOGRAM 12/12/2017 BENNETT SPENCE [...] OF MALIGNANT NEOPLASM O 12/19/2017 PORTIA PECK SHAFT TENDER Ot C50.912 MALIGNANT NEOPLASM OF UNSPECIFIED SITE O 12/19/2017 MELODY LEAL HYDRAULIC JACK ADJUSTER Ot V76.12 OTH SCREEN MAMMO-MALIGN NEOPLASM OF CHRISTOPHER 12/19/2017 MARIVEL MENGSIA Martinez SHAFT TENDER Ot V76.12 OTH SCREEN MAMMO-MALIGN NEOPLASM OF CHRISTOPHER 12/19/2017 PALMAZAKIA HYDRAULIC JACK ADJUSTER Ot Z12.31 ENCNTR SCREEN MAMMOGRAM FOR MALIGNANT NE 12/19/2017 WALDROPZAKIA HYDRAULIC JACK ADJUSTER Ot R42 DIZZINESS AND GIDDINESS 12/19/2017 WILFREDO GUAJARDO DO S Ot R10.2 PELVIC AND PERINEAL PAIN 12/19/2017 BENNETT SPENCE WILFREDO S Ot Z90.710 ACQUIRED ABSENCE OF BOTH CERVIX AND UTER 12/19/2017 DANNY BLAKELY HYDRAULIC JACK ADJUSTER Ot Z12.31 ENCNTR SCREEN MAMMOGRAM FOR MALIGNANT NE 12/19/2017 PORTIA PECK SHAFT TENDER Ot R92.2 INCONCLUSIVE MAMMOGRAM 12/19/2017 PORTIA PECK SHAFT TENDER Ot C50.912 MALIGNANT NEOPLASM OF UNSPECIFIED SITE O 01/15/2018 PORTIA PECK SHAFT TENDER Ot C50.912 MALIGNANT NEOPLASM OF UNSPECIFIED SITE [...] [ER+] 01/21/2018 ADITYA TEMPLE MD, Ot Z79.811 STRIPPER SOFT PLASTIC (CURRENT) USE OF AROMATASE INH 01/21/2018 ADITYA [...] [ER+] 01/21/2018 ADITYA TEMPLE MD, Ot Z79.811 STRIPPER SOFT PLASTIC (CURRENT) USE OF AROMATASE INH 01/21/2018 ADITYA TEMPLE MD, Ot Z90.710 ACQUIRED ABSENCE OF BOTH CERVIX AND UTER 01/21/2018 FENECH DO, WILFREDO S Ot R10.2 PELVIC AND PERINEAL PAIN 01/21/2018 FENECH DO, WILFREDO S Ot Z90.710 ACQUIRED ABSENCE OF BOTH CERVIX AND UTER 01/21/2018 PORTIA PECK SHAFT TENDER Ot R92.2 INCONCLUSIVE MAMMOGRAM 01/21/2018 PORTIA PECK SHAFT TENDER Ot C50.912 MALIGNANT NEOPLASM OF UNSPECIFIED SITE [...] [ER+] 03/12/2018 ADITYA TEMPLE MD, Ot Z79.811 ASSISTED (CURRENT) USE OF AROMATASE INH 03/12/2018 ADITYA [...] [ER+] 03/13/2018 ADITYA TEMPLE MD, Ot Z79.811 STRIPPER SOFT PLASTIC (CURRENT) USE OF AROMATASE INH 03/13/2018 ADITYA [...] [ER+] 03/26/2018 ADITYA TEMPLE MD, Ot Z79.811 STRIPPER SOFT PLASTIC (CURRENT) USE OF AROMATASE INH 03/26/2018 ADITYA [...] [ER+] 03/27/2018 ADITYA TEMPLE MD, Ot Z79.811 STRIPPER SOFT PLASTIC (CURRENT) USE OF AROMATASE INH 03/27/2018 ADITYA TEMPLE MD Ot Z90.710 ACQUIRED ABSENCE OF BOTH CERVIX AND UTER 04/22/2018 ROSELYN SWAN DO Ot K21.0 GASTRO-ESOPHAGEAL REFLUX DISEASE WITH ES 06/22/2018 MELODY LEAL HYDRAULIC JACK ADJUSTER Ot V76.12 OTH SCREEN MAMMO-MALIGN NEOPLASM OF CHRISTOPHER 06/22/2018 TAQUERIA, ANNIA A SHAFT TENDER Ot V76.12 OTH SCREEN MAMMO-MALIGN NEOPLASM OF CHRISTOPHER 06/22/2018 ZAKIA WALDROP HYDRAULIC JACK ADJUSTER Ot Z12.31 ENCNTR SCREEN MAMMOGRAM FOR MALIGNANT NE 06/22/2018 ZAKIA WALDROP HYDRAULIC JACK ADJUSTER Ot R42 DIZZINESS AND GIDDINESS 06/22/2018 FENECH DO, WILFREDO S Ot R10.2 PELVIC AND PERINEAL PAIN 06/22/2018 FENECH DO, WILFREDO S Ot Z90.710 ACQUIRED ABSENCE OF BOTH CERVIX AND UTER 06/22/2018 REDDY DANNY Idalia HYDRAULIC JACK ADJUSTER Ot Z12.31 ENCNTR SCREEN MAMMOGRAM FOR MALIGNANT NE 06/22/2018 PORTIA PECK SHAFT TENDER Ot R92.2 INCONCLUSIVE MAMMOGRAM 06/22/2018 PORTIA PECK SHAFT TENDER Ot C50.912 MALIGNANT NEOPLASM OF UNSPECIFIED SITE O 06/22/2018 ADITYA TEMPLE MD, Ot C50.112 MALIGNANT NEOPLASM OF CENTRAL PORTION OF 06/22/2018 ADITYA TEMPLE MD Ot R05 COUGH 06/22/2018 ADITYA TEMPLE MD, Ot R13.10 DYSPHAGIA, UNSPECIFIED 06/22/2018 SWAN DOROSELYN D Ot K21.0 GASTRO-ESOPHAGEAL REFLUX DISEASE WITH ES 06/22/2018 ADITYA TEMPLE MD, Ot C50.112 MALIGNANT NEOPLASM OF CENTRAL PORTION OF 06/22/2018 ADITYA TEMPLE MD, Ot K44.9 DIAPHRAGMATIC HERNIA WITHOUT OBSTRUCTION 06/22/2018 ADITYA TEMPLE MD Ot R05 COUGH 06/22/2018 ADITYA TEMPLE MD, Ot R13.10 DYSPHAGIA, UNSPECIFIED 06/22/2018 ADITYA TEMPLE MD, Ot Z17.0 ESTROGEN RECEPTOR POSITIVE STATUS [ER+] 06/22/2018 ADITYA TEMPLE MD, Ot Z79.811 STRIPPER SOFT PLASTIC (CURRENT) USE OF AROMATASE INH 06/22/2018 ADITYA TEMPLE MD, Ot Z90.710 ACQUIRED ABSENCE OF BOTH CERVIX AND UTER 06/23/2018 BRETT RICH MD, Ot I25.110 ATHSCL HEART DISEASE OF [place] ART W 06/23/2018 BRETT RICH MD Ot K21.9 GASTRO-ESOPHAGEAL REFLUX DISEASE WITHOUT 06/23/2018 BRETT RICH MD Ot R07.9 CHEST PAIN, UNSPECIFIED 06/23/2018 BRETT RICH MD, Ot Z82.49 FAMILY HX OF ISCHEM HEART DIS AND OTH DI 06/23/2018 BRETT RICH MD, Ot Z85.3 PERSONAL HISTORY OF MALIGNANT NEOPLASM O 06/23/2018 BRETT RICH MD Ot Z90.12 ACQUIRED ABSENCE OF LEFT BREAST AND NIPP 06/24/2018 ADITYA TEMPLE MD, Ot C50.112 MALIGNANT NEOPLASM OF CENTRAL PORTION OF 06/24/2018 ADITYA TEMPLE MD, Ot K44.9 DIAPHRAGMATIC HERNIA WITHOUT OBSTRUCTION 06/24/2018 ADITYA TEMPLE MD, Ot R05 COUGH 06/24/2018 ADITYA TEMPLE MD, Ot R13.10 DYSPHAGIA, UNSPECIFIED 06/24/2018 ADITYA TEMPLE MD, Ot Z17.0 ESTROGEN RECEPTOR POSITIVE STATUS [ER+] 06/24/2018 ADITYA TEMPLE MD, Ot Z79.811 STRIPPER SOFT PLASTIC (CURRENT) USE OF AROMATASE INH 06/24/2018 ADITYA TEMPLE MD, Ot Z90.710 ACQUIRED ABSENCE OF BOTH CERVIX AND UTER 06/24/2018 MELODY LEAL HYDRAULIC JACK ADJUSTER Ot V76.12 OTH SCREEN MAMMO-MALIGN NEOPLASM OF CHRISTOPHER 06/24/2018 ANNIA MENG SHAFT TENDER Ot V76.12 OTH SCREEN MAMMO-MALIGN NEOPLASM OF CHRISTOPHER 06/24/2018 ZAKIA WALDROP HYDRAULIC JACK ADJUSTER Ot Z12.31 ENCNTR SCREEN MAMMOGRAM FOR MALIGNANT NE 06/24/2018 ZAKIA WALDROP HYDRAULIC JACK ADJUSTER Ot R42 DIZZINESS AND GIDDINESS 06/24/2018 FENECH DO WILFREDO S Ot R10.2 PELVIC AND PERINEAL PAIN 06/24/2018 FENECH DO WILFREDO S Ot Z90.710 ACQUIRED ABSENCE OF BOTH CERVIX AND UTER 06/24/2018 DANNY BLAKELY HYDRAULIC JACK ADJUSTER Ot Z12.31 ENCNTR SCREEN MAMMOGRAM FOR MALIGNANT NE 06/24/2018 PORTIA PECK SHAFT TENDER Ot R92.2 INCONCLUSIVE MAMMOGRAM 06/24/2018 PORTIA PECK APRN Ot C50.912 MALIGNANT NEOPLASM OF UNSPECIFIED SITE O 06/24/2018 ADITYA TEMPLE MD, Ot C50.112 MALIGNANT NEOPLASM OF CENTRAL PORTION OF 06/24/2018 ADITYA TEMPLE MD Ot R05 COUGH 06/24/2018 ADITYA TEMPLE MD, Ot R13.10 DYSPHAGIA, UNSPECIFIED 06/24/2018 SWAN DOROSELYN D Ot K21.0 GASTRO-ESOPHAGEAL REFLUX DISEASE WITH ES 06/24/2018 ADITYA TEMPLE MD, Ot C50.112 MALIGNANT NEOPLASM OF CENTRAL PORTION OF 06/24/2018 ADITYA TEMPLE MD, Ot K44.9 DIAPHRAGMATIC HERNIA WITHOUT OBSTRUCTION 06/24/2018 ADITYA TEMPLE MD, Ot R05 COUGH 06/24/2018 ADITYA TEMPLE MD, Ot R13.10 DYSPHAGIA, UNSPECIFIED 06/24/2018 ADITYA TEMPLE MD, Ot Z17.0 ESTROGEN RECEPTOR POSITIVE STATUS [ER+] 06/24/2018 ADITYA TEMPLE MD, Ot Z79.811 STRIPPER SOFT PLASTIC (CURRENT) USE OF AROMATASE INH 06/24/2018 ADITYA TEMPLE MD, Ot Z90.710 ACQUIRED ABSENCE OF BOTH CERVIX AND UTER 06/25/2018 BRETT RICH MD, Ot I25.110 ATHSCL HEART DISEASE OF [place] ART W 06/25/2018 BRETT RICH MD, Ot K21.9 GASTRO-ESOPHAGEAL REFLUX DISEASE WITHOUT 06/25/2018 BRETT RICH MD, Ot R07.9 CHEST PAIN, UNSPECIFIED 06/25/2018 BRETT RICH MD, Ot Z82.49 FAMILY HX OF ISCHEM HEART DIS AND OTH DI 06/25/2018 BRETT RICH MD, Ot Z85.3 PERSONAL HISTORY OF MALIGNANT NEOPLASM O 06/25/2018 BRETT RICH MD, Ot Z90.12 ACQUIRED ABSENCE OF LEFT BREAST AND NIPP 06/25/2018 ADITYA TEMPLE MD, Ot C50.112 MALIGNANT NEOPLASM OF CENTRAL PORTION OF 06/25/2018 ADITYA TEMPLE MD, Ot K44.9 DIAPHRAGMATIC HERNIA WITHOUT OBSTRUCTION 06/25/2018 ADITYA TEMPLE MD, Ot R05 COUGH 06/25/2018 ADITYA TEMPLE MD, Ot R13.10 DYSPHAGIA, UNSPECIFIED 06/25/2018 ADITYA TEMPLE MD, Ot Z17.0 ESTROGEN RECEPTOR POSITIVE STATUS [ER+] 06/25/2018 ADITYA TEMPLE MD, Ot Z79.811 ASSISTED (CURRENT) USE OF AROMATASE INH 06/25/2018 ADITYA TEMPLE MD, Ot Z90.710 ACQUIRED ABSENCE OF BOTH CERVIX AND UTER 06/25/2018 ADITYA TEMPLE MD, Ot C50.112 MALIGNANT NEOPLASM OF CENTRAL PORTION OF 06/25/2018 ADITYA TEMPLE MD, Ot K44.9 DIAPHRAGMATIC HERNIA WITHOUT OBSTRUCTION 06/25/2018 ADITYA TEMPLE MD, Ot R05 COUGH 06/25/2018 ADITYA TEMPLE MD, Ot R13.10 DYSPHAGIA, UNSPECIFIED 06/25/2018 ADITYA TEMPLE MD, Ot Z17.0 ESTROGEN RECEPTOR POSITIVE STATUS [ER+] 06/25/2018 ADITYA TEMPLE MD, Ot Z79.811 STRIPPER SOFT PLASTIC (CURRENT) USE OF AROMATASE INH 06/25/2018 ADITAY TEMPLE MD, Ot Z90.710 ACQUIRED ABSENCE OF BOTH CERVIX AND UTER 06/30/2018 ADITYA TEMPLE MD, Ot C50.112 MALIGNANT NEOPLASM OF CENTRAL PORTION OF 06/30/2018 ADITYA TEMPLE MD, Ot K44.9 DIAPHRAGMATIC HERNIA WITHOUT OBSTRUCTION 06/30/2018 ADITYA TEMPLE MD, Ot R05 COUGH 06/30/2018 ADITYA TEMPLE MD, Ot R13.10 DYSPHAGIA, UNSPECIFIED 06/30/2018 ADITYA TEMPLE MD, Ot Z17.0 ESTROGEN RECEPTOR POSITIVE STATUS [ER+] 06/30/2018 ADITYA TEMPLE MD, Ot Z79.811 STRIPPER SOFT PLASTIC (CURRENT) USE OF AROMATASE INH 06/30/2018 ADITYA TEMPLE MD, Ot Z90.710 ACQUIRED ABSENCE OF BOTH CERVIX AND UTER Procedures Code Description [place] [address] IV INFUSION 05/15/2012 J7030 NORMAL SALINE SOLUTION INFUS 05/15/2012 89720 ROUTINE VENIPUNCTURE 06/29/2012 28694 LIPID PANEL 06/29/2012 17510 ROUTINE VENIPUNCTURE 03/12/2013 87351 MAMMOGRAM, SCREENING 03/12/2013 26307 HEMOCCULT 03/12/2013 83964 GC/CHLAM PROBE (STATE) 03/12/2013 00049 PAP SMEAR 03/12/2013 Q0091 PAP SMEAR OBTAIN SMEAR 03/12/2013 94759 TRICHOMONAS (IN-HOUSE) 03/12/2013 1360057 GFR CALC (RESULT ONLY) 03/12/2013 40072 CMP 03/12/2013 06937 LIPID PANEL 03/12/2013 12055 CA 125 03/12/2013 17507 CULTURE UROGENITAL 03/15/2013 17660 UA W/ CULTURE IF INDICATED 03/30/2013 Results [...] 34.9 g/dL 32.0-36.0 MCV 88.4 fL 80.0-100.0 Andrew # 0.6 x10^3/UL 0.1-0.6 Andrew % 6.3 % 2.0-14.0 MPV 9.2 FL [...] ABO+Rh group AP NRG Transfusion band number [id number] NRG Blood group antibody screen NEGATIVE NRG [...] - 02/01/18 10:50 Bacterial blood culture NG NR Gram stain microscopy - 02/01/18 11:00 Gram stain microscopy No bacteria seen NR Bacteria identification in wound by culture - 02/01/18 11:00 Bacteria identification in wound by culture [id number] [facility] FREE TEXT EXTERNAL SUSCEPTIBILITY REPORTED 02-04-2018,1205 NR QUANTITY OF GROWTH Rare [facility] FREE TEXT ENTRY 2 FINAL REPORT 02-04-2018, 1205. [facility] RML Sensitivity Panel - 02/01/18 11:00 Oxacillin susceptibility [...] 12:00 Bacteria identification in wound by culture [id number] NR FREE TEXT EXTERNAL SUSCEPTIBILITIES REPORTED 02-04-2018, NRG QUANTITY OF GROWTH FEW NR FREE TEXT ENTRY 2 1205/ FINAL REPORT 02-04-2018, 1205. NRG RML Sensitivity Panel - 02/01/18 12:00 Oxacillin susceptibility [...] 0.5 NRG Minocycline susc NISHA <= NRG RML Sensitivity Panel - 02/01/18 12:00 Oxacillin susceptibility [...] Status Pt. Type Provider Facility Loc./Unit Complaint [id number] 03/15/2014 08:57:00 03/15/2014 23:59:59 CLS Outpatient SKYLA MAYER DO [id number] 07/02/2013 14:14:00 07/02/2013 23:59:59 CLS Outpatient JAVED ROGER MD [id number] 03/30/2013 17:22:00 03/30/2013 23:59:59 CLS Outpatient SKYLA MAYER DO Gabrielle [id number] 03/12/2013 09:09:00 03/12/2013 23:59:59 CLS Outpatient SKYLA MAYER DO Gabrielle [id number] 06/29/2012 13:06:00 06/29/2012 23:59:59 CLS Outpatient SKYLA MAYER DO Gabrielle [id number] 05/15/2012 09:44:00 05/15/2012 23:59:59 CLS Outpatient SKYLA MAYER DO [id number] 04/24/2016 08:06:00 Document Registration [id number] 10/02/2017 10:03:00 10/02/2017 23:59:00 DIS Outpatient SuncookJavad del cidson [place] [id number] 10/02/2017 11:34:00 Document Registration [id number] 03/13/2016 07:06:00 Document Registration [id number] 12/03/2017 13:20:00 12/03/2017 23:59:59 CLS Outpatient MORENO SPENCE SKYLA Gabrielle [facility] [id number] 06/25/2018 00:11:00 06/25/2018 23:59:59 CLS Preadmit ADITYA TEMPLE MD [facility] ONC [id number] 06/18/2018 10:43:00 06/24/2018 00:01:00 DIS Outpatient ADITYA TEMPLE MD [facility] ONC [id number] 06/22/2018 22:33:00 06/23/2018 15:33:00 DIS Outpatient BRETT RICH MD [facility] CATH CHEST PAIN [id number] 03/12/2018 14:45:00 03/26/2018 10:34:00 DIS Outpatient ADITYA TEMPLE MD [facility] ONC [id number] 03/23/2018 10:40:00 03/23/2018 23:59:59 CLS Outpatient ROSELYN SWAN DO [facility] RAD REFLUX ESOPHAGITIS, NAUSEA [id number] 02/19/2018 10:09:00 03/12/2018 14:43:00 DIS Outpatient ADITYA TEMPLE MD [facility] ONC [id number] 02/01/2018 10:07:00 02/01/2018 12:28:00 DIS Emergency ANGELES BUCHANAN [facility] ER MASECTOMY December BY BENY/DANNY [id number] 01/22/2018 06:39:00 01/23/2018 15:05:00 DIS Outpatient ROSELYN SWAN DO [facility] CARD LT BREAST CA [id number] 01/22/2018 11:00:00 01/22/2018 11:00:00 CAN Preadmit ROSELYN SWAN DO [facility] LEFT BREAST CANCER [id number] 01/19/2018 12:01:00 01/19/2018 13:37:00 DIS Outpatient ROSELYN SWAN DO [facility] PREOP LEFT BREAST CANCER [id number] 12/24/2017 07:45:00 12/24/2017 23:59:59 CLS Outpatient ADITYA TEMPLE MD [facility] RAD DYSPHAGIA,BREAST CANCER [id number] 12/12/2017 07:39:00 12/12/2017 23:59:59 CLS Outpatient PORTIA PECK SHAFT TENDER [facility] RAD ABN MAMMO [id number] 12/11/2017 10:24:00 12/11/2017 23:59:59 CLS Outpatient PORTIA PECK SHAFT TENDER [facility] RAD ABNORMAL MAMMOGRAM [id number] 12/09/2017 05:52:00 12/10/2017 13:30:00 DIS [facility], INCONTINENCE [id number] 12/04/2017 13:54:00 12/04/2017 23:59:59 CLS Preadmit PORTIA PECK SHAFT TENDER [facility] RAD ABNORMAL MAMMOGRAM [id number] 12/04/2017 05:41:00 12/04/2017 10:15:00 DIS Outpatient WILFREDO GUAJARDO DO [facility] PREOP FAM HX OVARIAN CA, INCONTINENCE [id number] 12/02/2017 07:03:00 12/02/2017 09:45:00 DIS Outpatient ROSELYN SWAN DO [facility] ENDO SCREENING/GERD/ DYSPHAGIA [id number] 11/25/2017 09:52:00 11/25/2017 23:59:59 CLS Outpatient DANNY BLAKELY HYDRAULIC JACK ADJUSTER [facility] RAD SCREENING [id number] 11/25/2017 09:47:00 11/25/2017 23:59:59 CLS Outpatient WILFREDO GUAJARDO DO [facility] RAD PELVIC PRESSURE IN FEMALE,POSTMENOPAUSAL [id number] 11/25/2017 05:33:00 11/25/2017 11:39:00 DIS Outpatient ROSELYN SWAN DO [facility] PREOP COLONOSCOPY/EGD [id number] 10/31/2017 05:31:00 10/31/2017 13:57:00 DIS Outpatient ROSELYN SWAN DO [facility] PREOP COLONOSCOPY/EGD [id number] 09/30/2017 09:00:00 09/30/2017 23:59:59 CLS Preadmit DANNY BLAKELY HYDRAULIC JACK ADJUSTER [facility] SCREENING [id number] 09/16/2016 08:14:00 09/16/2016 10:42:00 DIS Emergency ORACIO CHILD MD [facility] ER BACK PAIN [id number] 04/26/2016 13:31:00 04/26/2016 23:59:59 CLS Outpatient ZAKIA WALDROP HYDRAULIC JACK ADJUSTER [facility] VERTIGO [id number] 03/27/2016 17:29:00 03/27/2016 21:07:00 DIS Emergency ORACIO CHILD MD [facility] ER DIZZINESS [id number] 03/14/2016 12:46:00 03/14/2016 23:59:59 CLS Outpatient ZAKIA WALDROP HYDRAULIC JACK ADJUSTER [facility] SCREENING [id number] 10/25/2014 09:14:00 10/25/2014 23:59:59 CLS Outpatient NANIA MENG APRN [facility] SCREENING [id number] 03/26/2013 10:37:00 03/26/2013 23:59:59 CLS Outpatient MELODY LEAL [facility] SCREENING [id number] 07/05/2018 17:57:00 ACT Emergency SAMUEL HUNG DO [facility] ER CHEST PAIN [id number] 10/25/2014 09:14:00 Document Registration [id number] 10/25/2014 09:14:00 Document Registration [id number] 03/11/2012 07:32:00 Document Registration [id number] 02/21/2016 10:05:00 Document Registration [email or web address] 10/25/2014 09:15:03 ACT Document Registration [id number] 03/10/2016 13:05:00 Document Registration
--- NOTE | 2018-07-05 18:19 | ED Chest Pain ---
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 CHEST ANGIOGRAM WAS ALSO NEGATIVE. PT HAS BEEN HAVING SIMILAR, MILDER PAIN, BUT HAD NOT SOUGHT CARE UNTIL THIS RECENT ADMIT. PT HAS NOT FOLLOWED UP WITH ANYONE SINCE SHE WAS ADMITTED. EMS GAVE ASPIRIN 324 MG AND NTG X 2--NO RELIEF OF PAIN, PER EMS RATES PAIN 6/10 AND IS ALOT OF PRESSURE --LIKE SOMEONE SITTING ON CHEST PCP: NONE PICK UP ATTENDANT: DR. GUAJARDO ONCOLOGY: DR. TEMPLE SURGEON: DR. SWAN AIDS COUNSELOR: DR. COCHRAN Allergies and Home Medications Allergies Coded Allergies: hydrocodone (Verified Allergy, Unknown, NAUSEA, 07/05/18) Home Medications Aspirin 81 Mg Tablet., 81 MG PO DAILY, (Reported) Atorvastatin Calcium 10 Mg Tablet, 10 MG PO HS Prescribed by: Vu COCHRAN on 06/23/18 1236 Exemestane 25 Mg Tab, 25 MG PO HS, (Reported) Pantoprazole Sodium 40 Mg Tablet., 40 MG PO DAILY Prescribed by: SAMUEL HUNG on 07/06/1812 Sucralfate 1 Gm Tablet, 1 GM PO QIDACHS Prescribed by: SAMUEL HUNG on 07/06/1812 Patient Home Medication List Home Medication List Reviewed: Yes Review of Systems Review of Systems Constitutional: see HPI, diaphoresis; No dizziness EENTM: No Symptoms Reported Respiratory: See HPI, Shortness of Air Cardiovascular: See HPI, Chest Pain; Denies Edema, Denies Irregular Heart Rate , Denies Lightheadedness, Denies Palpitations, Denies Syncope Gastrointestinal: See HPI; Denies Abdominal Pain; Nausea; Denies Vomiting Genitourinary: No Symptoms Reported Musculoskeletal: no symptoms reported Skin: no symptoms reported Psychiatric/Neurological: No Symptoms Reported Endocrine: No Symptoms Reported Hematologic/Lymphatic: No Symptoms Reported Past Ufygqgd-Lshfuu-Ariwfc Hx Patient Social History Alcohol Use: Denies Use Recreational Drug Use: No Smoking Status: Never a Smoker Recent Foreign Travel: No Contact w/Someone Who Travel: No Recent Hopitalizations: No Seasonal Allergies Seasonal Allergies: Yes (mild) Past Medical History Surgeries: Yes (LEFT BICEPS TENDON REPAIR; LEFT TENNIS ELBOW RELEASE; BILATERAL SHOULDER SCOPES; HYST--YEARS AGO; BSO/APPY/BLADDER SLING AND ANTERIOR REPAIR 10/2017 LEFT MASTECTOMY 12/2017; EGD/COLONOSCOPY; CARDIAC CATH 06/23/18-- NO INTERVENTION) Appendectomy, Bladder Surgery, Breast, Cardiac, Gallbladder, Hysterectomy, Oophorectomy, Orthopedic Respiratory: No Cardiac: Yes High Cholesterol Neurological: No Reproductive Disorders: No 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 NO CHEMO OR RADIATION) Breast Did You Recieve Any Treatments: Yes What Type of Treatment Did You: Surgical Intervention Psychosocial: No Integumentary: No Blood Disorders: No Adverse Reaction/Blood Tranf: No (N/A) Family Medical History Ovarian cancer Heart Disease, CAD Under 55 Years Old, CAD Over 55 Years Old, Hypertension Physical Exam Vital Signs Vital Signs - First Documented Capillary Refill : Height, Weight, BMI Height: 5'7.00" Weight: 165lbs. 5.0oz. 74.577620yr; 25.8 BMI Method:Stated General Appearance: No Apparent Distress, WD/WN, Anxious HEENT: PERRL/EOMI Neck: Full Range of Motion, Normal Inspection, Non Tender, Supple Respiratory: Normal Breath Sounds, No Accessory Muscle Use, No Respiratory Distress Cardiovascular: Regular Rate, Rhythm, No Edema, No JVD, No Murmur, Normal Peripheral Pulses Gastrointestinal: Normal Bowel Sounds, No Organomegaly, No Pulsatile Mass, Non Tender, Soft Extremity: Normal Capillary Refill, Normal Inspection, Normal Range of Motion, Non Tender, No Calf Tenderness, No Pedal Edema Neurologic/Psychiatric: Alert, Oriented x3, No Motor/Sensory Deficits, Normal Mood/Affect (EXCEPT ANXIOUS), reproductive endocrinologist II-XII Norm as Tested Skin: Normal Color, Warm/Dry; No Rash Progress/Results/Core Measures Results/Orders Lab Results Laboratory Tests Test 07/05/18 17:59 07/05/18 20:59 Range/Units White Blood Count 6.6 4.3-11.0 10^3/uL Red Blood Count 4.59 4.35-5.85 10^6/uL Hemoglobin 13.9 11.5-16.0 G/DL Hematocrit 40 35-52 % Mean Corpuscular Volume 87 80-99 FL Mean Corpuscular Hemoglobin 30 25-34 PG Mean Corpuscular Hemoglobin Concent 35 32-36 G/DL Red Cell Distribution Width 13.4 10.0-14.5 % Platelet Count 277 130-400 10^3/uL Mean Platelet Volume 9.6 7.4-10.4 FL Neutrophils (%) (Auto) 47 42-75 % Lymphocytes (%) (Auto) 43 12-44 % Monocytes (%) (Auto) 8 0-12 % Eosinophils (%) (Auto) 2 0-10 % Basophils (%) (Auto) 0 0-10 % Neutrophils # (Auto) 3.1 1.8-7.8 X 10^3 Lymphocytes # (Auto) 2.9 1.0-4.0 X 10^3 Monocytes # (Auto) 0.5 0.0-1.0 X 10^3 Eosinophils # (Auto) 0.1 0.0-0.3 10^3/uL Basophils # (Auto) 0.0 0.0-0.1 10^3/uL Prothrombin Time 12.8 12.2-14.7 SEC INR Comment 1.0 0.8-1.4 Activated Partial Thromboplast Time 27 24-35 SEC Sodium Level 142 135-145 MMOL/L Potassium Level 3.6 3.6-5.0 MMOL/L Chloride Level 106 98-107 MMOL/L Carbon Dioxide Level 25 21-32 MMOL/L Anion Gap 11 5-14 MMOL/L Blood Urea Nitrogen 11 7-18 MG/DL Creatinine 0.75 0.60-1.30 MG/DL Estimat Glomerular Filtration Rate > 60 BUN/Creatinine Ratio 15 Glucose Level 96 70-105 MG/DL Calcium Level 9.7 8.5-10.1 MG/DL Corrected Calcium 9.5 8.5-10.1 MG/DL Magnesium Level 2.0 1.8-2.4 MG/DL Total Bilirubin 0.7 0.1-1.0 MG/DL Aspartate Amino Transf (AST/SGOT) 24 5-34 U/L Alanine Aminotransferase (ALT/SGPT) 26 0-55 U/L Alkaline Phosphatase 85 40-136 U/L Total Creatine Kinase 82 29-168 U/L Creatine Kinase MB 1.1 <6.6 NG/ML Myoglobin 37.9 10.0-92.0 NG/ML Troponin I < 0.028 < 0.028 <0.028 NG/ML B-Type Natriuretic Peptide 15.4 <100.0 PG/ML Total Protein 7.3 6.4-8.2 GM/DL Albumin 4.3 3.2-4.5 GM/DL Amylase Level 37 25-125 U/L Lipase 38 8-78 U/L My Orders Orders - SAMUEL HUNG DO Cbc With Automated Diff (07/05/18:) Magnesium (07/05/18 18:) Chest 1 View, Ap/Pa Only (07/05/18 18:03) Ekg Tracing (07/05/18 18:03) Cardiac Profile 1 (07/05/18:) Comprehensive Metabolic Panel (07/05/18:) Myoglobin Serum (07/05/18 18:03) Protime With Inr (07/05/18:) Partial Thromboplastin Time (07/05/18:) O2 (07/05/18:03) Monitor-Rhythm Ecg Trace Only (07/05/18:) Morphine Injection (Morphine Injection (07/05/18 18:03) Saline Lock/Iv-Start (07/05/18 18:03) Creatine Kinase (07/05/18 18:03) Creatine Kinase Mb (07/05/18 18:03) Lipase (07/05/18 18:03) Amylase (07/05/18 18:03) BNP (07/05/18 18:03) Nitroglycerin Ointment (Nitrobid Ointme (07/05/18 19:00) Pantoprazole Injection (Protonix Injecti (07/05/18 19:00) Fentanyl Injection (Sublimaze Injection (07/05/18 18:59) Lorazepam Injection (Ativan Injection) (07/05/18 19:30) Ondansetron Injection (Zofran Injectio (07/05/18 19:30) Fentanyl Injection (Sublimaze Injection (07/05/18 19:29) Ekg Tracing (07/05/18 20:50) Troponin I (07/05/18 20:50) Medications Given in ED Vital Signs/I&O 07/05/18 07/05/18 07/05/18 07/06/18 17:56 17:56 17:56 00:34 Temp 98.6 Pulse 86 82 Resp 14 16 B/P (MAP) 130/89 (103) 106/69 (81) Pulse Ox 94 94 98 O2 Delivery Room Air Room Air Room Air Progress Progress Note : Progress Note GAVE MORPHINE 4 MG AND STATES PAIN IS WORSE AND RATES PAIN 8/10 AND IS RADIATING INTO HER BACK NOW STATES THE NTG GIVEN BY EMS HELPED ALOT--PAIN WAS DOWN TO 3/10, AND NOW IS MUCH WORSE AFTER MORPHINE. WILL GIVE NITROPASTE, FENTANYL AND PROTONIX 1927--C/O INCREASED PAIN, NAUSEA AND NOW WITH INCREASING ANXIETY--PT STATES PAIN UP TO A 10/10 PT WITH INCREASING ANXIETY--ADDITIONAL MEDICATIONS GIVEN PT WITH COMPLETE RESOLUTION OF SYMPTOMS FOR REMAINDER OF ER STAY PT SLEPT FOR REMAINDER OF ER STAY PT OBSERVED IN ER FOR SEVERAL HOURS, WITH NEGATIVE REPEAT TROPONIN AND NORMAL REPEAT EKG PT CONTINUES TO BE SYMPTOM-FREE AT DISMISSAL, AND FEELS COMFORTABLE GOING HOME FAMILY MEMBER REPORTS THAT PT HAS ONGOING SIGNIFICANT ISSUES WITH ANXIETY Initial ECG Impression Date: Jul 05, 2018 Initial ECG Impression Time: 17:55 Initial ECG Rate: 79 Initial ECG Rhythm: Normal Sinus Initial ECG Impression: Normal Initial ECG Comparisson: Unchanged EKG : EKG Time: 20:54 Rate: 55 Rhythm: Normal Sinus ECG Comparisson: Unchanged Diagnostic Imaging Comments CXR--NO ACUTE PROCESS, PER RADIOLOGIST REPORT @ 1845 Reviewed: Reviewed by Me Departure Communication (Admissions) 1902--SPOKE WITH DR. 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 DOUBT CARDIAC ETIOLOGY WITH RECENT NEGATIVE CARDIAC CATH AND NEGATIVE CT CHEST ANGIOGRAM. ADVISES TO START ON PPI AND ARRANGE FOR OUTPATIENT EGD-QUESTION GERD AND / OR ESOPHAGEAL SPASM, AND/OR ANXIETY-RELATED. 1906--SPOKE WITH DR. SWAN, HE IS FAMILIAR WITH PT, PT HAS HAD EGD 11/2017 AND PT IS SUPPOSED TO BE ON PPI. ( PT HAS NOT BEEN TAKING) HE ADVISES TO RESTART ON PPI + CARAFATE AND HE WILL SEE IN OFFICE THIS WEEK. Impression Primary Impression: Chest pain Additional Impressions: Gastroesophageal reflux disease POSSIBLE ESOPHAGEAL SPASM Anxiety Disposition: HOME, SELF-CARE Condition: Improved Departure-Patient Inst. Referrals: NO,LOCAL PHYSICIAN (PCP) Primary Care Physician WILFREDO GUAJARDO DO (Family) Primary Care Physician ROSELYN SWAN M RIZWAN MD Patient Instructions: Acid Reflux (Gastroesophageal Reflux Disease), Adult (DC) , Chest Pain (DC) Add. Discharge Instructions: HOME, REST TAKE YOUR MEDICATIONS EVERY DAY PRESCRIBED TAKE ASPIRIN DAILY FOLLOW UP WITH DR. SWAN THIS WEEK FOR FURTHER CARE--CALL IN AM FOR APPOINTMENT FOLLOW UP WITH DR. COCHRAN THIS WEEK FOR FURTHER CARE--CALL IN AM FOR APPOINTMENT RETURN TO ER IF SYMPTOMS WORSEN All discharge instructions reviewed with patient and/or family. Voiced understanding. Scripts Sucralfate (Carafate) 1 Gm Tablet 1 GM PO FRANKIEPaty, #120 TAB Prov: SAMUEL HUNG DO 07/06/18 Pantoprazole Sodium (Protonix) 40 Mg Tablet. 40 MG PO DAILY, #30 TAB Prov: SAMUEL HUNG DO 07/06/18 SAMUEL HUNG DO Jul 05, 2018 18:19
[2018-07-05 18:24] LABS: BASOPHILS % (AUTO) 0 % (0-10); EOSINOPHILS # (AUTO) 0.1 10^3/uL (0.0-0.3); EOSINOPHILS % (AUTO) 2 % (0-10); HEMATOCRIT 40 % (35-52); HEMOGLOBIN 13.9 G/DL (11.5-16.0); LYMPHOCYTES # (AUTO) 2.9 X 10^3 (1.0-4.0); LYMPHOCYTES % (AUTO) 43 % (12-44); MEAN CORPUSCULAR HEMOGLOBIN 30 PG (25-34); MEAN CORPUSCULAR HGB CONC 35 G/DL (32-36); MEAN CORPUSCULAR VOLUME 87 FL (80-99); MEAN PLATELET VOLUME 9.6 FL (7.4-10.4); MONOCYTES # (AUTO) 0.5 X 10^3 (0.0-1.0); MONOCYTES % (AUTO) 8 % (0-12); NEUTROPHILS # (AUTO) 3.1 X 10^3 (1.8-7.8); NEUTROPHILS % (AUTO) 47 % (42-75); PLATELET COUNT 277 10^3/uL (130-400); RED CELL DISTRIBUTION WIDTH 13.4 % (10.0-14.5); WHITE BLOOD COUNT 6.6 10^3/uL (4.3-11.0)
[2018-07-05 18:43] LABS: PROTHROMBIN TIME PATIENT 12.8 SEC (12.2-14.7)
[2018-07-05 18:47] LABS: ALANINE AMINOTRANSFERASE 26 U/L (0-55); ALBUMIN 4.3 GM/DL (3.2-4.5); ALKALINE PHOSPHATASE 85 U/L (40-136); AMYLASE 37 U/L (25-125); BILIRUBIN,TOTAL 0.7 MG/DL (0.1-1.0); BUN/CREATININE RATIO 15; CALCIUM 9.7 MG/DL (8.5-10.1); CARBON DIOXIDE 25 MMOL/L (21-32); CHLORIDE 106 MMOL/L (98-107); CREATINE KINASE 82 U/L (29-168); CREATININE SERUM 0.75 MG/DL (0.60-1.30); GFR ESTIMATED > 60; GLUCOSE 96 MG/DL (70-105); LIPASE 38 U/L (8-78); POTASSIUM 3.6 MMOL/L (3.6-5.0); SODIUM 142 MMOL/L (135-145); TOTAL PROTEIN 7.3 GM/DL (6.4-8.2)
--- NOTE | 2018-07-05 18:52 | Diagnostic Imaging Report ---
EXAMINATION: Chest radiograph, portable AP view. DATE: July 05, 2018 and 1824 hours. INDICATION: 62-year-old female, chest pain. COMPARISON: June 22, 2018. FINDINGS: Stable overall appearance of the cardiomediastinal silhouette. There is no identified pneumothorax. There is no large pleural effusion. There is no identified focal airspace consolidation. IMPRESSION: No identified acute cardiopulmonary abnormality. Dictated by: Dictated on workstation # [id number]
[2018-07-05 18:54] LABS: CREATINE KINASE MB 1.1 NG/ML (<6.6); MYOGLOBIN SERUM 37.9 NG/ML (10.0-92.0)
[2018-07-05] MEDS ORDERED: fentaNYL INJECTION 100 MCG/2 ML AMP IVP STA ×2 (18:59→19:29)
[2018-07-05] MEDS ORDERED: NITROGLYCERIN 2% OINT 1 GM UNIT DOSE PACKET TOP ONE (19:00)
[2018-07-05] MEDS ORDERED: PANTOPRAZOLE 40 MG (PROTONIX) VIAL IV ONE (19:00)
[2018-07-05] MEDS ORDERED: ONDANSETRON 4 MG/2 ML (SDV) Z0FRAN IVP ONE (19:30)
[2018-07-05] MEDS ORDERED: LORazepam INJ 2 MG/ML (ATIVAN) VIAL IVP ONE (19:30)
--- NOTE | 2018-07-05 21:12 | NUR ---
Report given to Kareen Mckinnon RN
[2018-07-06] MEDS ORDERED: SUCR1TAB36 PO (00:13)
[2018-07-06] MEDS ORDERED: PANT40TA2 PO (00:13)
[2018-07-06 00:34] VITALS: BP 106/69
== END 2018-07-06 00:34 | disposition home or self-care (01) ==
LOC: EDUNIT# 17:56 → ER 17:57
DX: R07.89 Other chest pain (principal); K21.9 Gastro-esophageal reflux disease without esophagitis; F41.9 Anxiety disorder, unspecified; E78.00 Pure hypercholesterolemia, unspecified; Z85.3 Personal history of malignant neoplasm of breast; Z88.5 Allergy status to narcotic agent; Z82.49 Family history of ischemic heart disease and other diseases of the circulatory system; Z79.82 Long term (current) use of aspirin; Z98.890 Other specified postprocedural states; Z90.710 Acquired absence of both cervix and uterus; Z90.12 Acquired absence of left breast and nipple; Z90.49 Acquired absence of other specified parts of digestive tract
CPT/HCPCS: 36415; 71045; 80053; 82150; 82550; 82553; 83690; 83735; 83874; 83880; 84484; 85025; 85610; 85730; 93005; 93041

== ENCOUNTER 2018-07-10 05:48 | Outpatient (CLI) | payer OTHER ==
[~2018-07-10] VITALS: Ht 167.6 cm; Wt 75.3 kg
== END 2018-07-10 15:53 | disposition home or self-care (01) ==
LOC: PREOP 05:48
PROVIDERS: ATTEND Surgery
DX: Z01.818 Encounter for other preprocedural examination (principal)

== ENCOUNTER 2018-07-14 06:43 | Day surgery (SDC) | payer OTHER ==
[~2018-07-14] VITALS: Ht 167.6 cm; Wt 75.3 kg
[2018-07-14] MEDS ORDERED: LACTATED RINGERS 1,000 ML IV ONE (06:59)
[2018-07-14] MEDS ORDERED: proPOfol 200 MG/20 ML (DIPRIVAN) VIAL IV ONE (07:55)
[2018-07-14] MEDS ORDERED: MIDAZOLAM 2 MG/2 ML (VERSED) VIAL ONE (07:56)
--- NOTE | 2018-07-14 08:16 | Progress Note-Pre Operative ---
Pre-Operative Progress Note H&P Reviewed The H&P was reviewed, patient examined and no changes noted. Date Seen by Provider: Jul 14, 2018 Time Seen by Provider: 08:15 Date H&P Reviewed: Jul 14, 2018 Time H&P Reviewed: 08:15 Pre-Operative Diagnosis: epigastric abdominal pain, gerd ROSELYN SWAN DO Jul 14, 2018 08:16
--- NOTE | 2018-07-14 08:37 | Progress Note-Post Operative ---
Post-Operative Progess Note Surgeon (s)/Supervisor Publications (s) Surgeon ROSELYN SWAN DO Supervisor Publications: na Pre-Operative Diagnosis epigastric abdominal pain, gerd Post-Operative Diagnosis duodenitis, hiatal hernia, esophagitis Procedure & Operative Findings Date of Procedure 07/14/18 Procedure Performed/Findings egd c biopsies Anesthesia Type per mda Estimated Blood Loss Estimated blood loss (mL): scant Specimens/Packing Specimens Removed duodenum, antrum, ge ROSELYN SWAN DO Jul 14, 2018 08:37
--- NOTE | 2018-07-14 08:39 | Discharge Inst-Simple/Standard ---
Discharge Inst-Standard Discharge Medications New, Converted or Re-Newed RX: Transmitted to Pharmacy Patient Instructions/Follow Up Plan of Care/Instructions/FU: 2 weeks Aditya Activity as Tolerated: Yes Discharge Diet: Regular Diet ROSELYN SWAN DO Jul 14, 2018 08:39
[2018-07-14 09:05] VITALS: BP 117/64
[2018-07-14 09:30] VITALS: BP 114/86
[2018-07-14 09:35] VITALS: BP 114/86
--- NOTE | 2018-07-14 11:06 | Anesthesia-General Post-Op ---
MAC Patient Condition Mental Status/LOC: Same as Preop Cardiovascular: Satisfactory Nausea/Vomiting: Absent Respiratory: Satisfactory Pain: Controlled Complications: Absent Post Op Complications Complications None Follow Up Care/Instructions Patient Instructions None needed. Anesthesiology Discharge Order Discharge Order Patient is doing well, no complaints, stable vital signs, no apparent adverse anesthesia problems. No complications reported per nursing. MIKE OLSON CRNA Jul 14, 2018 11:06
[2018-07-14] MEDS ORDERED: LACTATED RINGERS 1,000 ML IV STA (11:42)
[2018-07-14] MEDS ORDERED: HURRICAINE EXT TUBE (BENZOCAINE) XX PRN (11:45)
[2018-07-14 11:47] VITALS: BP 128/92
--- NOTE | 2018-07-14 12:29 | OPERATIVE REPORT ---
DATE OF SERVICE: 07/14/2018 PREOPERATIVE DIAGNOSES: Epigastric abdominal pain, gastroesophageal reflux disease. POSTOPERATIVE DIAGNOSES: Duodenitis, hiatal hernia, and esophagitis. PROCEDURE PERFORMED: Esophagogastroduodenoscopy with biopsy. SURGEON: Roselyn Burgess DO. ANESTHESIA: Per MDA. ESTIMATED BLOOD LOSS: Scant. COMPLICATIONS: None. INDICATIONS: The patient is a 62-year-old female with worsening epigastric abdominal pain and GERD. She understands risks and benefits of procedure and wished to proceed with procedure. Consent was signed in the chart. DESCRIPTION OF PROCEDURE: The patient was taken to the endoscopy suite, placed in left lateral recumbent position. Timeout was performed. Scope was inserted in the mouth, down the esophagus, stomach and into the duodenum without difficulty. No polyps, masses or ulcerations present. In the first portion of the duodenum, significant erythematous changes were present. Biopsy of this area was obtained. Scope was slowly retracted back into the stomach where it was further insufflated. There are no polyps, masses or ulcerations. Biopsy of the antrum was obtained. Scope was retroflexed noting a hiatal hernia. No other pathology noted. Scope was returned to its normal position, slowly withdrawn. Distal esophagus had changes of esophagitis that are inflamed. Maybe slightly ulcerated. Biopsies of this area were obtained. Scope was then slowly retracted back noting no other pathology. Scope was slowly retracted back to completely remove. The patient tolerated the procedure well without any complications. She was taken to recovery room in stable condition. RECOMMENDATIONS: The patient will be started on Protonix 40 mg daily. Also add Carafate 1 gram four times a day. We will see how she does and will have her follow up with biopsies in 2 weeks. Any issues before that be seen at that time. Job ID: [id number] DocumentID: [id number] Dictated Date: 07/14/2018 08:42:05 Coiled Tubing Supervisor Date: 07/14/2018 12:29:39 Dictated By: ROSELYN BURGESS DO
== END 2018-07-14 09:35 | disposition home or self-care (01) ==
LOC: ENDO 06:43
PROVIDERS: ATTEND Surgery
DX: K20.9 Esophagitis, unspecified (principal); K29.80 Duodenitis without bleeding; K21.9 Gastro-esophageal reflux disease without esophagitis; K44.9 Diaphragmatic hernia without obstruction or gangrene; I10 Essential (primary) hypertension; I27.20 Pulmonary hypertension, unspecified; Z79.82 Long term (current) use of aspirin; Z79.899 Other long term (current) drug therapy

== ENCOUNTER → 2018-07-14 | Outpatient (CLI) | payer OTHER ==
[2018-07-10 15:43] VITALS: BP_SYST 166
[~2018-07-14] MED LIST changes: -ACHD5005 PO; -AMIT25TA9 PO; -AMOX-358 PO; -ASPI-983 PO; -ATOR10TA PO; -CEPH-507 PO; -CIPR-225 PO; -CYCL10TA9 PO; -DIAZ5TAB PO; +HURRICAINE EXT TUBE (BENZOCAINE) XX PRN; -IBUP-1773 PO; +LACTATED RINGERS 1,000 ML IV STA; -MECL-106 PO; -NF-AROM25 PO; -ONDA4TAB8 SL; -PANT40TA2 PO; -PRD20T PO; -RABE20TA PO; -SCOP1PAT11 TD; -SIMV20TA3 PO; -SUCR1TAB36 PO; -TRAM50TA2 PO; -VENL75CA55 PO; -[UNRECOGNIZED DRUG - OTHER] PO
[2018-07-14 07:18] VITALS: BP 128/92
== END ==
LOC: CARD 06:49
PROVIDERS: ATTEND Internal Medicine Interventional Cardiology
DX: R42 Dizziness and giddiness (principal); R00.2 Palpitations; R55 Syncope and collapse
CPT/HCPCS: 93225; 93226

== ENCOUNTER 2018-07-15 12:56 | Outpatient (RCR) | payer OTHER ==
[~2018-07-15 12:56] MED LIST changes: +ACHD5005 PO; +AMIT25TA9 PO; +AMLO2.5T4 PO; +AMOX-358 PO; +ASPI-983 PO; +ATOR10TA PO; +ATOR10TA66 PO; +CEPH-507 PO; +CIPR-225 PO; +CYCL10TA9 PO; +DIAZ5TAB PO; -HURRICAINE EXT TUBE (BENZOCAINE) XX PRN; +IBUP-1773 PO; -LACTATED RINGERS 1,000 ML IV STA; +MECL-106 PO; +NF-AROM25 PO; +ONDA4TAB8 SL; +PANT40TA2 PO; +PRD20T PO; +RABE20TA PO; +SCOP1PAT11 TD; +SIMV20TA3 PO; +SUCR1TAB36 PO; +TRAM50TA2 PO; +VENL75CA55 PO; +[UNRECOGNIZED DRUG - OTHER] PO
== END 2018-10-13 | disposition home or self-care (01) ==
LOC: CARD 12:56
PROVIDERS: ATTEND Internal Medicine Interventional Cardiology
DX: R55 Syncope and collapse (principal); R42 Dizziness and giddiness; R00.2 Palpitations
CPT/HCPCS: 93270

== ENCOUNTER 2018-12-14 09:52 | Outpatient (RCR) | payer OTHER ==
[2018-12-14 10:17] LABS: BASOPHILS % (AUTO) 1 % (0-10); EOSINOPHILS # (AUTO) 0.1 10^3/uL (0.0-0.3); EOSINOPHILS % (AUTO) 3 % (0-10); HEMATOCRIT 42 % (35-52); HEMOGLOBIN 14.5 G/DL (11.5-16.0); LYMPHOCYTES # (AUTO) 1.7 X 10^3 (1.0-4.0); LYMPHOCYTES % (AUTO) 36 % (12-44); MEAN CORPUSCULAR HEMOGLOBIN 30 PG (25-34); MEAN CORPUSCULAR HGB CONC 34 G/DL (32-36); MEAN CORPUSCULAR VOLUME 88 FL (80-99); MEAN PLATELET VOLUME 9.7 FL (7.4-10.4); MONOCYTES # (AUTO) 0.4 X 10^3 (0.0-1.0); MONOCYTES % (AUTO) 8 % (0-12); NEUTROPHILS # (AUTO) 2.5 X 10^3 (1.8-7.8); NEUTROPHILS % (AUTO) 53 % (42-75); PLATELET COUNT 270 10^3/uL (130-400); RED CELL DISTRIBUTION WIDTH 13.4 % (10.0-14.5); WHITE BLOOD COUNT 4.8 10^3/uL (4.3-11.0)
[2018-12-14 10:43] LABS: ALANINE AMINOTRANSFERASE 29 U/L (0-55); ALBUMIN 4.1 GM/DL (3.2-4.5); ALKALINE PHOSPHATASE 96 U/L (40-136); BILIRUBIN,TOTAL 0.8 MG/DL (0.1-1.0); BUN/CREATININE RATIO 13; CALCIUM 9.5 MG/DL (8.5-10.1); CARBON DIOXIDE 26 MMOL/L (21-32); CHLORIDE 107 MMOL/L (98-107); CREATININE SERUM 0.85 MG/DL (0.60-1.30); GFR ESTIMATED > 60; GLUCOSE 104 MG/DL (70-105); POTASSIUM 4.3 MMOL/L (3.6-5.0); SODIUM 142 MMOL/L (135-145); TOTAL PROTEIN 6.7 GM/DL (6.4-8.2)
== END 2019-03-14 | disposition home or self-care (01) ==
LOC: ONC 09:52
PROVIDERS: ATTEND Internal Medicine Hematology & Oncology
DX: C50.112 Malignant neoplasm of central portion of left female breast (principal); R13.10 Dysphagia, unspecified; R05 Cough; K44.9 Diaphragmatic hernia without obstruction or gangrene; Z17.0 Estrogen receptor positive status [ER+]; Z90.710 Acquired absence of both cervix and uterus; Z79.811 Long term (current) use of aromatase inhibitors
CPT/HCPCS: 36415; 80053; 85025; 99213

== ENCOUNTER → 2018-12-17 | Outpatient (CLI) | payer OTHER ==
--- NOTE | 2018-12-17 19:32 | Diagnostic Imaging Report ---
INDICATION: Screening. The current study was also evaluated with a Computer Aided Detection (CAD) system. 3-D Tomographic imaging was also performed. Comparison made with prior examinations from 12/12/2017, 12/11/2017, and 11/25/2017. FINDINGS: There is scattered fibroglandular tissue in the right breast. There are vascular calcifications. There is no dominant mass, spiculated lesion, or suspicious calcification notified. The skin, nipple, and axilla are unremarkable IMPRESSION: Benign. ACR BI-RADS Category 2: Benign findings. Result letter will be mailed to the patient. Note: At least 10% of breast cancer is not imaged by mammography. Dictated by: Dictated on workstation # [id number]
== END ==
LOC: RAD 11:11
PROVIDERS: ATTEND Internal Medicine Hematology & Oncology
DX: Z12.31 Encounter for screening mammogram for malignant neoplasm of breast (principal)

== ENCOUNTER → 2019-06-14 | Outpatient (CLI) | payer SELFPAY ==
[~2019-06-14] MED LIST changes: -TRAM50TA2 PO; +TRM50T PO
[2019-06-14 11:09] LABS: BASOPHILS % (AUTO) 1 % (0-10); EOSINOPHILS # (AUTO) 0.1 10^3/uL (0.0-0.3); EOSINOPHILS % (AUTO) 2 % (0-10); HEMATOCRIT 40 % (35-52); HEMOGLOBIN 13.8 G/DL (11.5-16.0); LYMPHOCYTES # (AUTO) 1.6 X 10^3 (1.0-4.0); LYMPHOCYTES % (AUTO) 33 % (12-44); MEAN CORPUSCULAR HEMOGLOBIN 30 PG (25-34); MEAN CORPUSCULAR HGB CONC 34 G/DL (32-36); MEAN CORPUSCULAR VOLUME 88 FL (80-99); MEAN PLATELET VOLUME 9.6 FL (7.4-10.4); MONOCYTES # (AUTO) 0.3 X 10^3 (0.0-1.0); MONOCYTES % (AUTO) 7 % (0-12); NEUTROPHILS # (AUTO) 2.8 X 10^3 (1.8-7.8); NEUTROPHILS % (AUTO) 58 % (42-75); PLATELET COUNT 249 10^3/uL (130-400); RED CELL DISTRIBUTION WIDTH 12.9 % (10.0-14.5); WHITE BLOOD COUNT 4.9 10^3/uL (4.3-11.0)
[2019-06-14 11:19] LABS: ALANINE AMINOTRANSFERASE 35 U/L (0-55); ALBUMIN 4.2 GM/DL (3.2-4.5); ALKALINE PHOSPHATASE 105 U/L (40-136); BILIRUBIN,TOTAL 0.5 MG/DL (0.1-1.0); BUN/CREATININE RATIO 10; CALCIUM 9.1 MG/DL (8.5-10.1); CARBON DIOXIDE 24 MMOL/L (21-32); CHLORIDE 109 MMOL/L (98-107); CREATININE SERUM 0.79 MG/DL (0.60-1.30); GFR ESTIMATED > 60; GLUCOSE 86 MG/DL (70-105); POTASSIUM 3.8 MMOL/L (3.6-5.0); SODIUM 143 MMOL/L (135-145); TOTAL PROTEIN 6.9 GM/DL (6.4-8.2)
== END ==
LOC: EDSTATUS 03-15 10:36 → ONC 10:41
PROVIDERS: ATTEND Internal Medicine Hematology & Oncology
DX: C50.112 Malignant neoplasm of central portion of left female breast (principal); K44.9 Diaphragmatic hernia without obstruction or gangrene; L29.8 Other pruritus; R13.10 Dysphagia, unspecified; R05 Cough; Z90.710 Acquired absence of both cervix and uterus; Z90.722 Acquired absence of ovaries, bilateral; Z78.0 Asymptomatic menopausal state; Z90.49 Acquired absence of other specified parts of digestive tract; Z98.890 Other specified postprocedural states; Z90.10 Acquired absence of unspecified breast and nipple; Z80.41 Family history of malignant neoplasm of ovary
CPT/HCPCS: 80053; 85025; 99213

== ENCOUNTER 2019-07-26 09:57 | Emergency (ER) | payer OTHER ==
[~2019-07-26] VITALS: Ht 170 cm; Wt 74.8 kg
[~2019-07-26 09:57] MED LIST changes: -MECL-106 PO; +MECL-149 PO
[2019-07-26] MEDS ORDERED: KETOROLAC 60 MG/2 ML VIAL IM ONE (10:45)
[2019-07-26] MEDS ORDERED: ORPHENADRINE 60 MG/2 ML (NORFLEX) AMP IM ONE (10:45)
--- NOTE | 2019-07-26 10:46 | ED Back Pain ---
General Chief Complaint: Back Problems Stated Complaint: BACK PAIN;COUGH Source of Information: Patient Exam Limitations: No Limitations History of Present Illness Date Seen by Provider: Jul 26, 2019 Time Seen by Provider: 10:44 Initial Comments To ER with reports of severe low back pain and cough. She had influenza in the latter part of June, over the course of the past week she has developed some progressively worsening midline low back pain that does not radiate down either leg. No saddle anesthesia or difficulties with bowel or bladder. Pain is nearly intolerable when coughing. Location: Lumbar Spine, Paraspinous Muscles Timing/Duration: 1 Week Severity: Moderate Pain/Injury Location: Back Method of Injury: Unknown Associated Symptoms: denies symptoms Allergies and Home Medications Allergies Coded Allergies: hydrocodone (Verified Allergy, Unknown, NAUSEA, 07/05/18) Home Medications Amlodipine Besylate 2.5 Mg Tablet, 2.5 MG PO DAILY, (Reported) Aspirin 81 Mg Tablet.dr, 81 MG PO DAILY, (Reported) Atorvastatin Calcium 10 Mg Tablet, 10 MG PO HS, (Reported) Exemestane 25 Mg Tab, 25 MG PO HS, (Reported) Methocarbamol 750 Mg Tablet, 750 MG PO Q4H PRN for PAIN-MODERATE (5-7) Prescribed by: KEARA NAZARIO on 07/26/19 1253 Pantoprazole Sodium 40 Mg Tablet.dr, 40 MG PO DAILY Prescribed by: ROSELYN SWAN on 07/14/18 0838 Sucralfate 1 Gm Tablet, 1 GM PO QID Prescribed by: ROSELYN SWAN on 07/14/18 0838 Tramadol HCl 50 Mg Tablet, 50 MG PO Q6H PRN for PAIN-MODERATE (5-7) Prescribed by: KEARA NAZARIO on 07/26/19 1254 Patient Home Medication List Home Medication List Reviewed: Yes Review of Systems Constitutional: see HPI EENTM: see HPI Respiratory: no symptoms reported Cardiovascular: no symptoms reported Genitourinary: no symptoms reported Musculoskeletal: see HPI, back pain Skin: no symptoms reported Psychiatric/Neurological: No Symptoms Reported Past Snqwicw-Nfosox-Zqfbfk Hx Patient Social History Alcohol Beverage of Choice: Whiskey 2nd Hand Smoke Exposure: No Recent Foreign Travel: No Contact w/Someone Who Travel: No Recent Hopitalizations: No Seasonal Allergies Seasonal Allergies: Yes (mild) Past Medical History Surgeries: Yes Appendectomy, Bladder Surgery, Breast, Cardiac, Gallbladder, Hysterectomy, Oophorectomy, Orthopedic Respiratory: No Cardiac: Yes High Cholesterol Neurological: No Reproductive Disorders: No 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 NO CHEMO OR RADIATION) Breast Did You Recieve Any Treatments: Yes What Type of Treatment Did You: Surgical Intervention Psychosocial: No Integumentary: No Blood Disorders: No Adverse Reaction/Blood Tranf: No (N/A) Family Medical History Ovarian cancer Heart Disease, CAD Under 55 Years Old, CAD Over 55 Years Old, Hypertension Physical Exam Vital Signs Vital Signs - First Documented 07/26/19 10:28 Temp 36.6 Pulse 57 Resp 20 B/P (MAP) 120/80 (93) Pulse Ox 97 O2 Delivery Room Air Capillary Refill : Height, Weight, BMI Height: 5'6.00" Weight: 166lbs. 0.0oz. 75.464562us; 26.8 BMI Method:Estimated General Appearance: No Apparent Distress, WD/WN HEENT: PERRL/EOMI, TMs Normal Neck: Full Range of Motion Respiratory: No Accessory Muscle Use, No Respiratory Distress Gastrointestinal: Non Tender, Soft Back: Normal Inspection Extremity: Normal Capillary Refill, Normal Inspection Neurologic/Psychiatric: Alert Skin: Normal Color, Warm/Dry Progress/Results/Core Measures Results/Orders My Orders Orders - KEARA NAZARIO APRN Ct Lumbar Spine Wo (07/26/19 10:43) Ketorolac Injection (Toradol Injection) (07/26/19 10:45) Orphenadrine Injection (Norflex Injectio (07/26/19 10:45) Tramadol Tablet (Ultram Tablet) (07/26/19 10:45) Chest Pa/Lat (2 View) (07/26/19 12:22) Medications Given in ED Current Medications Medications Dose Ordered Sig/Hans Route Start Time Stop Time Status Last Admin Dose Admin Ketorolac Tromethamine 60 mg ONCE ONCE IM 07/26/19 10:45 07/26/19 10:46 DC 07/26/19 10:54 60 MG Orphenadrine Citrate 60 mg ONCE ONCE IM 07/26/19 10:45 07/26/19 10:46 DC 07/26/19 10:54 60 MG Tramadol HCl 50 mg ONCE ONCE PO 07/26/19 10:45 07/26/19 10:46 DC 07/26/19 10:54 50 MG Vital Signs/I&O 07/26/19 10:28 Temp 36.6 Pulse 57 Resp 20 B/P (MAP) 120/80 (93) Pulse Ox 97 O2 Delivery Room Air Departure Impression Primary Impression: Low back pain Qualified Codes: M54.5 - Low back pain Disposition: HOME, SELF-CARE Condition: Stable Departure-Patient Inst. Decision time for Depature: 12:17 Referrals: NO,LOCAL PHYSICIAN (PCP/Family) Primary Care Physician Patient Instructions: Low Back Pain (DC) Add. Discharge Instructions: 1. Return to ER for any concerns 2. Pain medication as directed 3. Follow-up with your doctor later this week for recheck. All discharge instructions reviewed with patient and/or family. Voiced understanding. Scripts Methocarbamol (Robaxin-750) 750 Mg Tablet 750 MG PO Q4H PRN for PAIN-MODERATE (5-7), #10 TAB . Prov: KEARA NAZARIO WASTE TRANSPORTATION TECHNICIAN 07/26/19 KEARA NAZARIO APRN Jul 26, 2019 10:46
--- NOTE | 2019-07-26 12:13 | Diagnostic Imaging Report ---
PROCEDURE: CT lumbar spine without contrast. TECHNIQUE: Multiple contiguous axial images were obtained through the lumbar spine without the use of intravenous contrast. Sagittal and coronal reformations were then performed. Auto Exposure Controls were utilized during the CT exam to meet ALARA standards for radiation dose reduction. INDICATION: Back pain. No known injury. COMPARISON: None available. FINDINGS: Normal alignment of the lumbar spine. No fracture or ankylosis of vertebral bodies. The posterior elements are intact. No insufficiency fracture within the sacral ala. Mild degenerative arthritis of both SI joints. There are no areas of high-grade spinal stenosis or neural foraminal narrowing. Multilevel small disc bulges are present and causes no more than mild spinal stenosis, greatest at L4-L5. There is also mild bilateral neural foraminal narrowing at L3-L4 and L4-L5 due to disc bulging and intervertebral height loss. No concerning abnormality in the retroperitoneum. Paravertebral musculature is normal. IMPRESSION: 1. No fracture lumbar spine. 2. No areas of high-grade spinal canal or neural foraminal narrowing. 3. Multilevel degenerative disease is most advanced at L4-L5 where there is disc bulging and facet osteoarthritis resulting in mild spinal stenosis and mild bilateral neural foraminal narrowing. Dictated by: Dictated on workstation # [id number]
[2019-07-26] MEDS ORDERED: TRAM-42 PO ×2 (12:53→13:02)
[2019-07-26] MEDS ORDERED: METH-313 PO ×2 (12:53→13:02)
--- NOTE | 2019-07-26 13:04 | Diagnostic Imaging Report ---
PATIENT HISTORY: Productive cough. TECHNIQUE: Two views of the chest. COMPARISON: 07/05/2018. FINDINGS: The lung volumes are normal. No focal consolidation is seen. No large pleural effusion or pneumothorax is seen. The cardiomediastinal silhouette is normal in size and contour. No acute osseous abnormality is seen. Left mastectomy is noted. IMPRESSION: No acute pulmonary abnormality seen. Dictated by: Dictated on workstation # [id number]
[2019-07-26 13:18] VITALS: BP 144/79
[2019-07-27] MEDS ORDERED: NITR100C PO (15:37)
== END 2019-07-26 13:18 | disposition home or self-care (01) ==
LOC: EDUNIT# 09:57 → ER 09:58
DX: M54.5 Low back pain (principal); E78.00 Pure hypercholesterolemia, unspecified; K21.9 Gastro-esophageal reflux disease without esophagitis; Z79.82 Long term (current) use of aspirin; Z88.5 Allergy status to narcotic agent; Z85.3 Personal history of malignant neoplasm of breast; Z82.49 Family history of ischemic heart disease and other diseases of the circulatory system
CPT/HCPCS: 71046; 72131

== ENCOUNTER 2019-07-27 14:07 | Emergency (ER) | payer OTHER ==
[~2019-07-27] VITALS: Ht 170 cm; Wt 76.0 kg
[~2019-07-27 14:07] MED LIST changes: +METH-313 PO; +TRAM-42 PO
--- NOTE | 2019-07-27 14:40 | ED General ---
General Chief Complaint: Dizziness/Syncope Stated Complaint: DIZZINESS;ABD PAIN;DRY MOUTH Nursing Triage Note: PT STATES THATROSAURA WAS SEEN IN THE ED YESTERDAY FOR BACK PAIN, GIVEN SCRIPTS FOR MUSCLE RELAXERS AND TRAMMADOL. TODAY AROUND NOON AFTER TAKING THE MEDS AROUND 0830 THE PT VERBALIZES SHE BECAME NAUSEAOUS AND BECAME LIGHTHEADED, DENIES VOMITING Nursing Sepsis Screen: No Definite Risk History of Present Illness Date Seen by Provider: Jul 27, 2019 Time Seen by Provider: 14:39 Initial Comments 63-year-old female presents with nausea and lightheadedness. Patient reports that she was seen yesterday for back pain in the ER. She had a chest and CT of her lower back of his daily. Patient reports that she was given some tramadol and a muscle relaxant. That she took the medication around 8:30. At her symptoms then started around noon. She isn't having vomiting. No chest pain, shortness of breath, fevers chills. Patient does report a recent bout with the flu. Patient does have a cough with generalized malaise. Allergies and Home Medications Allergies Coded Allergies: hydrocodone (Verified Allergy, Unknown, NAUSEA, 07/05/18) Home Medications Amlodipine Besylate 2.5 Mg Tablet, 2.5 MG PO DAILY, (Reported) Aspirin 81 Mg Tablet.dr, 81 MG PO DAILY, (Reported) Atorvastatin Calcium 10 Mg Tablet, 10 MG PO HS, (Reported) Exemestane 25 Mg Tab, 25 MG PO HS, (Reported) Methocarbamol 750 Mg Tablet, 750 MG PO Q4H PRN for PAIN-MODERATE (5-7) . Prescribed by: KEARA NAZARIO on 07/26/19 1302 Pantoprazole Sodium 40 Mg Tablet.dr, 40 MG PO DAILY Prescribed by: ROSELYN SWAN on 07/14/18 08 Sucralfate 1 Gm Tablet, 1 GM PO QID Prescribed by: ROSELYN SWAN on 07/14/18 08 Tramadol HCl 50 Mg Tablet, 50 MG PO Q6H PRN for PAIN-MODERATE (5-7) . Prescribed by: KEARA NAZARIO on 07/26/19 1302 Patient Home Medication List Home Medication List Reviewed: Yes Review of Systems Review of Systems Constitutional: No chills; dizziness; No malaise Respiratory: no symptoms reported Cardiovascular: no symptoms reported Gastrointestinal: no symptoms reported Genitourinary: no symptoms reported Musculoskeletal: see HPI Skin: no symptoms reported Psychiatric/Neurological: See HPI Past Tznqbde-Yxdily-Gdxzjk Hx Past Med/Social Hx: Reviewed Nursing Past Med/Soc Hx Patient Social History Alcohol Use: Denies Use Number of Drinks Today: GG Alcohol Beverage of Choice: Whiskey Recreational Drug Use: No 2nd Hand Smoke Exposure: No Recent Foreign Travel: No Contact w/Someone Who Travel: No Recent Infectious Disease Expo: No Recent Hopitalizations: No Immunizations Up To Date Tetanus Booster (TDap): Unknown Seasonal Allergies Seasonal Allergies: Yes (mild) Past Medical History Surgeries: Yes Appendectomy, Bladder Surgery, Breast, Cardiac, Gallbladder, Hysterectomy, Oophorectomy, Orthopedic Respiratory: No Currently Using CPAP: No Currently Using BIPAP: No Cardiac: Yes High Cholesterol Neurological: No : No Reproductive Disorders: No PLASTERER ROUGH History: Hysterectomy Sexually Transmitted Disease: No HIV/AIDS: No Genitourinary: Yes (INCONTINENCE--S/P SURGERY) Gastrointestinal: Yes Gastroesophageal Reflux Musculoskeletal: Yes Degenerate Disk Disease Endocrine: No HEENT: No Loss of Vision: Bilateral Hearing Impairment: Denies Cancer: Yes (DX 12/2017--S/P LEFT MASTECTOMY. NO CHEMO OR RADIATION) Breast Did You Recieve Any Treatments: Yes What Type of Treatment Did You: Surgical Intervention Psychosocial: No Integumentary: No Blood Disorders: No Adverse Reaction/Blood Tranf: No (N/A) Family Medical History Ovarian cancer Heart Disease, CAD Under 55 Years Old, CAD Over 55 Years Old, Hypertension Physical Exam Vital Signs Vital Signs - First Documented 07/27/19 14:25 Temp 36.8 Pulse 62 Resp 20 Pulse Ox 98 Capillary Refill : Less Than 3 Seconds Height, Weight, BMI Height: 5'6.00" Weight: 166lbs. 0.0oz. 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 Norm as Tested Skin: Normal Color, Warm/Dry Progress/Results/Core Measures Suspected Sepsis Recent Fever Within 48 Hours: No Infection Criteria Present: None New/Unexplained Altered Menta: No Sepsis Screen: No Definite Risk SIRS Temperature: Pulse: 62 Respiratory Rate: 20 Laboratory Tests 07/27/19 15:00: White Blood Count 7.3 Blood Pressure / Mean: Laboratory Tests 07/27/19 15:00: Creatinine 0.82, Platelet Count 357 Results/Orders Lab Results Laboratory Tests Test 07/27/19 14:53 07/27/19 15:00 Range/Units Urine Color YELLOW Urine Clarity CLEAR Urine pH 6.0 5-9 Urine Specific [place] >=1.030 1.016-1.022 Urine Protein NEGATIVE NEGATIVE Urine Glucose (UA) NEGATIVE NEGATIVE Urine Ketones NEGATIVE NEGATIVE Urine Nitrite NEGATIVE NEGATIVE Urine Bilirubin NEGATIVE NEGATIVE Urine Urobilinogen 0.2 < = 1.0 MG/DL Urine Leukocyte Esterase 1+ H NEGATIVE Urine RBC (Auto) TRACE-L NEGATIVE Urine RBC RARE /HPF Urine WBC 10-25 H /HPF Urine Squamous Epithelial Cells 0-2 /HPF Urine Crystals NONE /LPF Urine Bacteria TRACE /HPF Urine Casts NONE /LPF Urine Mucus SMALL H /LPF Urine Culture Indicated YES White Blood Count 7.3 4.3-11.0 10^3/uL Red Blood Count 4.43 4.35-5.85 10^6/uL Hemoglobin 13.3 11.5-16.0 G/DL Hematocrit 40 35-52 % Mean Corpuscular Volume 89 80-99 FL Mean Corpuscular Hemoglobin 30 25-34 PG Mean Corpuscular Hemoglobin Concent 34 32-36 G/DL Red Cell Distribution Width 13.2 10.0-14.5 % Platelet Count 357 130-400 10^3/uL Mean Platelet Volume 8.8 7.4-10.4 FL Neutrophils (%) (Auto) 74 42-75 % Lymphocytes (%) (Auto) 20 12-44 % Monocytes (%) (Auto) 5 0-12 % Eosinophils (%) (Auto) 1 0-10 % Basophils (%) (Auto) 0 0-10 % Neutrophils # (Auto) 5.4 1.8-7.8 X 10^3 Lymphocytes # (Auto) 1.5 1.0-4.0 X 10^3 Monocytes # (Auto) 0.4 0.0-1.0 X 10^3 Eosinophils # (Auto) 0.1 0.0-0.3 10^3/uL Basophils # (Auto) 0.0 0.0-0.1 10^3/uL Sodium Level 141 135-145 MMOL/L Potassium Level 3.8 3.6-5.0 MMOL/L Chloride Level 104 98-107 MMOL/L Carbon Dioxide Level 27 21-32 MMOL/L Anion Gap 10 5-14 MMOL/L Blood Urea Nitrogen 10 7-18 MG/DL Creatinine 0.82 0.60-1.30 MG/DL Estimat Glomerular Filtration Rate > 60 BUN/Creatinine Ratio 12 Glucose Level 120 H 70-105 MG/DL Calcium Level 9.1 8.5-10.1 MG/DL Micro Results Microbiology 07/27/19 Influenza Types A,B Antigen (NISHA) - Final, Complete My Orders Orders - LAILA BECERRA DO Basic Metabolic Panel (07/27/19 14:40) Cbc With Automated Diff (07/27/19 14:40) Ua Culture If Indicated (07/27/19 14:40) Influenza A And B Antigens (07/27/19 14:40) Meclizine Tablet (Antivert Tablet) (07/27/19 14:45) Urine Culture (07/27/19 14:53) Medications Given in ED Current Medications Medications Dose Ordered Sig/Hnas Route Start Time Stop Time Status Last Admin Dose Admin Meclizine HCl 50 mg ONCE ONCE PO 07/27/19 14:45 07/27/19 14:46 DC 07/27/19 15:06 50 MG Vital Signs/I&O 07/27/19 14:25 Temp 36.8 Pulse 62 Resp 20 B/P (MAP) Pulse Ox 98 Capillary Refill : Less Than 3 Seconds Progress Note : Time: 15:35 Progress Note Patient with a slight urinary tract infection. Patient's symptoms likely a result of medication reaction. I did have a discussion with her on this. I will have her treated with Macrobid due to the elevated white blood cell count of leukocyte esterase in her urine. Patient is stable will be discharged home. ECG Initial ECG Impression: 3rd Degree AV Block Departure Impression Primary Impression: Medication reaction Qualified Codes: T50.905A - Adverse effect of unspecified drugs, medicaments and biological substances, initial encounter Additional Impression: Cystitis Disposition: HOME, SELF-CARE Condition: Stable Departure-Patient Inst. Referrals: NO,LOCAL PHYSICIAN (PCP/Family) Primary Care Physician Patient Instructions: Acute Cystitis (DC), Adverse Drug Reactions, Adult (DC) Add. Discharge Instructions: Emergency department focuses on treating and ruling out life-threatening diseases. Whenever possible, a diagnosis is given. However, most patients are given an impression based on their history, physical exam, and workup during your brief time in the ER. Information about probable diagnosis and other educational material has been provided. Please take the time to read and understand this information. It is very important that you follow up with a physician as discussed during the visit today. Failure to adhere to your follow-up instructions may lead to severe disability, injury, or so please make sure to keep your appointments or obtain one as requested. Please keep in mind the emergency department is not designed to your primary care or "family doctor" and nonurgent issues are best evaluated by an outpatient physician All discharge instructions reviewed with patient and/or family. Voiced understanding. Scripts Nitrofurantoin Macrocrystal (Nitrofurantoin) 100 Mg Capsule 100 MG PO BID, #14 CAP 0 Refills Prov: LAILA BECERRA DO 07/27/19 LAILA BECERRA DO Jul 27, 2019 14:40
[2019-07-27] MEDS ORDERED: MECLIZINE 25 MG (ANTIVERT) TAB PO ONE (14:45)
[2019-07-27 14:59] LABS: BILIRUBIN,URINE NEGATIVE (NEGATIVE); CLARITY,URINE CLEAR; COLOR,URINE YELLOW; GLUCOSE, URINE (UA) NEGATIVE (NEGATIVE); KETONES,URINE NEGATIVE (NEGATIVE); LEUKOCYTE ESTERASE ,URINE 1+ (NEGATIVE); NITRITE,URINE NEGATIVE (NEGATIVE); PROTEIN,URINE NEGATIVE (NEGATIVE)
[2019-07-27 15:05] LABS: BASOPHILS % (AUTO) 0 % (0-10); EOSINOPHILS # (AUTO) 0.1 10^3/uL (0.0-0.3); EOSINOPHILS % (AUTO) 1 % (0-10); HEMATOCRIT 40 % (35-52); HEMOGLOBIN 13.3 G/DL (11.5-16.0); LYMPHOCYTES # (AUTO) 1.5 X 10^3 (1.0-4.0); LYMPHOCYTES % (AUTO) 20 % (12-44); MEAN CORPUSCULAR HEMOGLOBIN 30 PG (25-34); MEAN CORPUSCULAR HGB CONC 34 G/DL (32-36); MEAN CORPUSCULAR VOLUME 89 FL (80-99); MEAN PLATELET VOLUME 8.8 FL (7.4-10.4); MONOCYTES # (AUTO) 0.4 X 10^3 (0.0-1.0); MONOCYTES % (AUTO) 5 % (0-12); NEUTROPHILS # (AUTO) 5.4 X 10^3 (1.8-7.8); NEUTROPHILS % (AUTO) 74 % (42-75); PLATELET COUNT 357 10^3/uL (130-400); RED CELL DISTRIBUTION WIDTH 13.2 % (10.0-14.5); WHITE BLOOD COUNT 7.3 10^3/uL (4.3-11.0)
[2019-07-27 15:09] LABS: BACTERIA,URINE TRACE /HPF; RBC,URINE RARE /HPF; SQUAMOUS EPITHELIAL CELL,UR 0-2 /HPF
[2019-07-27 15:28] LABS: BUN/CREATININE RATIO 12; CALCIUM 9.1 MG/DL (8.5-10.1); CARBON DIOXIDE 27 MMOL/L (21-32); CHLORIDE 104 MMOL/L (98-107); CREATININE SERUM 0.82 MG/DL (0.60-1.30); GFR ESTIMATED > 60; GLUCOSE 120 MG/DL (70-105); POTASSIUM 3.8 MMOL/L (3.6-5.0); SODIUM 141 MMOL/L (135-145)
[2019-07-27] MEDS ORDERED: NITR100C PO (15:37)
== END 2019-07-27 15:43 | disposition home or self-care (01) ==
LOC: EDUNIT# 14:07 → ER 14:09
DX: R42 Dizziness and giddiness (principal); T40.4X5A Adverse effect of other synthetic narcotics, initial encounter; T48.1X5A Adverse effect of skeletal muscle relaxants [neuromuscular blocking agents], initial encounter; N30.90 Cystitis, unspecified without hematuria; E78.00 Pure hypercholesterolemia, unspecified; K21.9 Gastro-esophageal reflux disease without esophagitis; Z88.5 Allergy status to narcotic agent; Z79.82 Long term (current) use of aspirin; Z85.3 Personal history of malignant neoplasm of breast; Z82.49 Family history of ischemic heart disease and other diseases of the circulatory system; Z85.43 Personal history of malignant neoplasm of ovary
CPT/HCPCS: 36415; 80048; 81000; 85025; 87088; 87804

== ENCOUNTER → 2019-12-20 | Outpatient (CLI) | payer OTHER ==
[~2019-12-20] MED LIST changes: +NITR100C PO
--- NOTE | 2019-12-20 11:23 | Diagnostic Imaging Report ---
INDICATION: Routine screening. COMPARISON: 12/17/2018 and 11/25/2017. TECHNIQUE: Unilateral right 2D and 3D screening mammography was performed with CAD. FINDINGS: Scattered fibroglandular densities in the right breast are noted. The parenchymal pattern is stable. No masses or malignant appearing microcalcifications are seen. The right axilla is unremarkable. IMPRESSION: No mammographic features suspicious for malignancy are identified. ACR BI-RADS Category 1: Negative. Result letter will be mailed to the patient. Note: At least 10% of breast cancer is not imaged by mammography. Dictated by: Dictated on workstation # [id number]
== END ==
LOC: RAD 09:35
PROVIDERS: ATTEND Internal Medicine Hematology & Oncology
DX: Z12.31 Encounter for screening mammogram for malignant neoplasm of breast (principal)
CPT/HCPCS: 77063

== ENCOUNTER → 2020-02-15 | Outpatient (CLI) | payer SELFPAY ==
[~2020-02-15] MED LIST changes: +ASPI-1238 PO; -ASPI-983 PO
[2020-02-15 09:19] LABS: BASOPHILS % (AUTO) 0 % (0-10); EOSINOPHILS # (AUTO) 0.1 10^3/uL (0.0-0.3); EOSINOPHILS % (AUTO) 2 % (0-10); HEMATOCRIT 40 % (35-52); HEMOGLOBIN 13.6 G/DL (11.5-16.0); LYMPHOCYTES # (AUTO) 1.7 X 10^3 (1.0-4.0); LYMPHOCYTES % (AUTO) 33 % (12-44); MEAN CORPUSCULAR HEMOGLOBIN 30 PG (25-34); MEAN CORPUSCULAR HGB CONC 34 G/DL (32-36); MEAN CORPUSCULAR VOLUME 88 FL (80-99); MEAN PLATELET VOLUME 9.3 FL (7.4-10.4); MONOCYTES # (AUTO) 0.4 X 10^3 (0.0-1.0); MONOCYTES % (AUTO) 8 % (0-12); NEUTROPHILS % (AUTO) 57 % (42-75); PLATELET COUNT 246 10^3/uL (130-400); WHITE BLOOD COUNT 5.3 10^3/uL (4.3-11.0)
[2020-02-15 09:32] LABS: ALANINE AMINOTRANSFERASE 22 U/L (0-55); ALBUMIN 3.9 GM/DL (3.2-4.5); ALKALINE PHOSPHATASE 88 U/L (40-136); BILIRUBIN,TOTAL 0.7 MG/DL (0.1-1.0); BUN/CREATININE RATIO 14; CALCIUM 8.6 MG/DL (8.5-10.1); CARBON DIOXIDE 24 MMOL/L (21-32); CHLORIDE 107 MMOL/L (98-107); CREATININE SERUM 0.81 MG/DL (0.60-1.30); GFR ESTIMATED > 60; GLUCOSE 113 MG/DL (70-105); POTASSIUM 3.8 MMOL/L (3.6-5.0); SODIUM 141 MMOL/L (135-145); TOTAL PROTEIN 6.5 GM/DL (6.4-8.2)
== END ==
LOC: ONC 08:56
PROVIDERS: ATTEND Internal Medicine Hematology & Oncology
DX: C50.112 Malignant neoplasm of central portion of left female breast (principal); R13.14 Dysphagia, pharyngoesophageal phase; K44.9 Diaphragmatic hernia without obstruction or gangrene; Z90.49 Acquired absence of other specified parts of digestive tract; Z90.722 Acquired absence of ovaries, bilateral; Z90.711 Acquired absence of uterus with remaining cervical stump
CPT/HCPCS: 80053; 85025; G0463; 99213

== ENCOUNTER → 2021-01-30 | Outpatient (CLI) | payer OTHER ==
--- NOTE | 2021-01-30 12:44 | Diagnostic Imaging Report ---
Indication: Routine screening. Comparison is made with prior mammogram 12/20/2019 and 12/17/2018. 2-D and 3-D unilateral right screening mammography was performed with CAD. Right breast is heterogeneously dense, limiting the sensitivity of mammography. The parenchymal pattern is stable. No mass or malignant-appearing microcalcifications are seen. The right axilla is unremarkable. IMPRESSION: BI-RADS Category 1 No mammographic features suspicious for malignancy are identified. ACR BI-RADS Category 1: Negative. Result letter will be mailed to the patient. Note: At least 10% of breast cancer is not imaged by mammography. Dictated by: Dictated on workstation # [id number]
== END ==
LOC: RAD 09:00
PROVIDERS: ATTEND Internal Medicine Hematology & Oncology
DX: Z12.31 Encounter for screening mammogram for malignant neoplasm of breast (principal)
CPT/HCPCS: 77063

== ENCOUNTER → 2021-02-23 | Outpatient (CLI) | payer OTHER ==
[~2021-02-23] MED LIST changes: +SCOP1PAT10 TD; -SCOP1PAT11 TD
== END ==
LOC: CARD 09:00
PROVIDERS: ATTEND Internal Medicine Cardiovascular Disease
DX: I34.0 Nonrheumatic mitral (valve) insufficiency (principal)
CPT/HCPCS: 93306

== ENCOUNTER → 2022-02-07 | Outpatient (CLI) | payer MEDICARE, OTHER ==
[~2022-02-07] MED LIST changes: +CYCL10TA25 PO
--- NOTE | 2022-02-07 10:27 | Diagnostic Imaging Report ---
PROCEDURE: MRI lumbar spine. TECHNIQUE: Multiplanar, multisequence MRI of the lumbar spine was performed without contrast. DATE: February 07, 2022. COMPARISON: CT lumbar spine July 26, 2019. INDICATION: 66-year-old female, chronic low back and bilateral leg pain. Incontinence. FINDINGS: The alignment of the lumbar spine is unremarkable. There is no evidence of a diffuse marrow infiltrating or replacing process. There is no identified focal concerning bone lesion. There is no identified compression deformity or fracture. There is no visualized pars interarticularis defect. The visualized cord and conus medullaris is unremarkable and terminates at the L1 level. There is moderate disc height loss at L4-L5 with adjacent Modic endplate degenerative related changes. There are mild disc degenerative changes at T10-T11 without disc protrusion or extrusion. L1-L2: There is no disc bulge. The facet joints and ligamentum flavum are unremarkable. There is no foraminal narrowing. There is no spinal canal stenosis. L2-L3: There is no disc bulge. The facet joints and ligamentum flavum are unremarkable. There is no foraminal narrowing. There is no spinal canal stenosis. L3-L4: There is no disc bulge. The facet joints and ligamentum flavum are unremarkable. There is no foraminal narrowing. There is no spinal canal stenosis. L4-L5: There is mild diffuse disc bulge eccentric to the right. There are mild bilateral facet degenerative changes without ligamentum flavum hypertrophy. There is moderate right foraminal narrowing. There is no spinal canal stenosis. L5-S1: There is no disc bulge. There are mild bilateral facet degenerative changes without ligamentum flavum hypertrophy. There is no foraminal narrowing. There is no spinal canal stenosis. IMPRESSION: 1. L4-L5 mild diffuse disc bulge eccentric to the right with mild bilateral facet degenerative changes causing moderate right foraminal narrowing. 2. Facet degenerative changes at L5-S1 without foraminal or spinal stenosis at this level. 3. No focal concerning bone lesion, compression deformity, or fracture. Dictated by: Dictated on workstation # [id number]
== END ==
LOC: RAD 07:24
PROVIDERS: ATTEND Family Medicine
DX: M51.26 Other intervertebral disc displacement, lumbar region (principal); M47.816 Spondylosis without myelopathy or radiculopathy, lumbar region; M47.817 Spondylosis without myelopathy or radiculopathy, lumbosacral region
CPT/HCPCS: 72148

== ENCOUNTER → 2022-02-15 | Outpatient (CLI) | payer MEDICARE, OTHER ==
--- NOTE | 2022-02-15 13:55 | Diagnostic Imaging Report ---
INDICATION: Left breast carcinoma. Correlation is made prior mammogram from 01/30/2021 and 12/20/2019. Unilateral right 2-D and 3-D diagnostic mammography was performed with CAD. Scattered fibroglandular densities right breast are noted. No mass or malignant-appearing microcalcifications are seen. Right axilla is unremarkable. IMPRESSION: No mammographic features suspicious for malignancy are identified. ACR BI-RADS Category 1: Negative. Result letter will be mailed to the patient. Note: At least 10% of breast cancer is not imaged by mammography. BI-RADS Category 1 Dictated by: Dictated on workstation # [id number]
== END ==
LOC: RAD 12:45
PROVIDERS: ATTEND Family Medicine
DX: Z00.00 Encounter for general adult medical examination without abnormal findings (principal); Z85.3 Personal history of malignant neoplasm of breast; Z78.0 Asymptomatic menopausal state
CPT/HCPCS: 77065; G0279

== ENCOUNTER → 2022-02-19 | Outpatient (CLI) | payer MEDICARE, OTHER ==
--- NOTE | 2022-02-19 13:45 | Diagnostic Imaging Report ---
INDICATION: Postmenopausal state. COMPARISON: None available, baseline examination. FINDINGS: AP Spine L1-L4: [BMD (g/cm2): 0.976] [T-Score: -1.9] [Z-Score: -0.7] [BMD Previous: na] [BMD % Change: na] LT Hip Neck: [BMD (g/cm2): 0.885] [T-Score: -1.1] [Z-Score: 0.1] LT Hip Total: [BMD (g/cm2):0.886] [T-Score:-1.0] [Z-Score: 0.0] [BMD Previous: na] [BMD % Change: na] RT Hip Neck: [BMD (g/cm2):0.840] [T-Score:-1.4] [Z-Score:-0.2] RT Hip Total: [BMD (g/cm2):0.900] [T-score:-0.9] [Z-Score:0.1] [BMD Previous:na] [BMD % Change:na] *Indicates significant change from prior examination based on 95% confidence level. World Health Organization criteria for BMD interpretation classify patients as Normal (T-score at or above -1.0), Osteopenic (T-score between -1.0 and -2.5) or Osteoporotic (T-score at or below -2.5). LIMITATIONS AND MODIFICATION: None. FRACTURE RISK (FRAX SCORE): The ten year probability of (%): Major Osteoporotic Fracture: [8.8] Hip Fracture: [0.9] IMPRESSION: 1. Osteopenia (Low bone mass). 2. Baseline examination. 3. See below National Osteoporosis Foundation guidelines on when to potentially initiate pharmacologic therapy. Based on the National Osteoporosis Foundation Guidelines, pharmacologic treatment should be initiated in any of the following, unless clinical conditions suggest otherwise: * Any patient with prior fragility fracture of the hip or vertebrae. A spine fracture indicates 5X risk for subsequent spine fracture and 2X risk for subsequent hip fracture. * Osteoporosis (T-score <-2.5). * Postmenopausal women and men age 50 and older with low bone mass/osteopenia (T-score between -1.0 and -2.5) by DXA and 10-year major osteoporotic fracture greater than 20% or a 10-year probability of hip fracture greater than 3%. These fracture risks are supplied above in the FRAX score, if applicable. * Clinician judgement and/or patient preferences may indicate treatment for people with 10-year fracture probabilities above or below these levels. Dictated by: Dictated on workstation # [id number]
== END ==
LOC: RAD 08:30
PROVIDERS: ATTEND Family Medicine
DX: Z00.00 Encounter for general adult medical examination without abnormal findings (principal); M85.80 Other specified disorders of bone density and structure, unspecified site; Z78.0 Asymptomatic menopausal state
CPT/HCPCS: 77080